=== PATIENT | female | born 1955 | race Caucasian/White ===

== ENCOUNTER 2018-03-18 19:25 | Emergency (ER) | payer OTHER, SELFPAY ==
[2018-03-18 19:31] VITALS: BP 142/78; PULSE 62; RESP 24; TEMP 37.1; O2SAT 98
--- NOTE | 2018-03-18 19:40 | ED.GENADUL_ITS ---
Discharge Plan Disposition Patient Disposition: HOME Condition: Stable Discharge Details Chief Complaint: Abd Prob Clinical Impression: Abdominal pain Primary Care Provider: Obinna Sims ED Provider: Jarrett Acosta Home Meds and New Rx's Prescriptions: No Action hydrocortisone [Anusol-HC] 2.5 % cream with perineal applicator 1 applic [place] BID PRN (Reason: hemorrhoids) Qty: 30 RF: 3 levothyroxine [Synthroid] 88 MCG tablet 88 mcg PO DAILY Qty: 90 RF: 4 fluticasone 16 GM spray,suspension 2 spr NS DAILY Qty: 1 RF: 4 famotidine 20 MG tablet 20 mg PO BID Qty: 180 RF: 4 ibuprofen [Advil Liqui-Gel] 200 MG capsule 600 mg PO BID PRN PRNRF: 0 acetaminophen [Mapap Extra Strength] 500 MG tablet 1,000 mg PO PRN PRNRF: 0 Discharge Instructions Instructions: Abdominal Pain (ED) Additional Instructions: It is recommended that you take [id number] MiraLAX along with gentle oral laxative such as Dulcolax to see if this helps resolve your symptoms. For pain control is recommended that you take 600 mg ibuprofen along with 650-1000 mg of acetaminophen every 6 hours. Stay well-hydrated and return to the emergency department for any new or worsening symptoms including fever chills, worsening abdominal pain, any severe change in bowel movement. Follow-up with your primary care provider as needed for reassessment or if not improving Referrals: Obinna Sims MD [Primary Care Provider] - (As needed for reassessment) Medical Decision Making Patient presenting to the emergency department for abdominal pain. Patient states abdominal pain started approximately 2 days ago but has had intermittent's of left-sided abdominal pain since . Patient denies any nausea vomiting, fever chills, flank pain or urinary symptoms. Patient has a left-sided abdominal tenderness, no CVA tenderness, otherwise unremarkable examination. Plan to check labs and perform CT imaging for chief concern of possible diverticulitis. Review of labs shows no leukocytosis, unremarkable CMP, and slight amount of blood on urinalysis. Did review patient's last colonoscopy that showed patchy inflammation throughout the colon with no other specific findings. Patient does state that she is gluten intolerant and has had blood work testing confirming this intolerance. She does state that she has been avoiding gluten as much as possible and notes no significant dietary change. Review of CT scan shows radiologist interpretation with no acute findings. Of notation is that it does appear that patient has a mild to moderate amount of stool present, and the read there is notation of diverticulosis without acute signs of diverticulitis or inflammatory change. Patient does state that recently she has had bowel movements and denies any constipation but that stools have been more formed and harder to pass. With unremarkable labs and otherwise unremarkable CT scan I feel that some of patient's discomfort could be from peristaltic action of stool causing some cramping. Patient reassessed and states reduction of pain but not for elimination but that she feels comfortable going home being able to sleep. Patient was recommended to take stool softener and gentle [id number] laxative to see if this helps and to return for any new or worsening symptoms. Patient also encouraged to follow-up with primary care provider as needed for reassessment. After discussion of diagnosis and plan of care patient has no further needs, questions, or concerns and states clear understanding to return to the emergency department for any worsening symptoms. HPI General Mode of arrival: ambulatory . Date/Time Provider Initiated Documentation: 03/18/18 19:25 . Limitations to Documentation: no limitations . Information obtained by: patient and RN notes reviewed . History of Present Illness 63 year old F presents to the emergency department with the chief complaint of Left-sided abdominal, described as moderate, with intensity rated at 7. Quality is described as sharp, and is localized to the abdomen and left. Patient reports no radiation. Patient started experiencing this day(s) (2) and it has been intermittent. No relieving factors improve symptom(s), Eating worsens symptoms . Patient did receive the following treatments prior to arrival, NSAID Related Data Home Medications Medication Instructions Recorded Confirmed acetaminophen [Tylenol Extra 1,000 mg PO PRN PRN 12/14/15 03/18/18 Strength] ibuprofen [Advil] 600 mg PO BID PRN PRN 12/14/15 03/18/18 fluticasone 2 spr NS DAILY #1 inh 05/17/17 03/18/18 levothyroxine [Synthroid] 88 mcg PO DAILY #90 tab-cap 05/17/17 03/18/18 famotidine 20 mg PO BID #180 tab 08/05/17 03/18/18 hydrocortisone 2.5 % topical cream 1 applic TN BID PRN #30 gm 01/31/18 03/18/18 with perineal applicator Previous Rx's Medication Instructions Recorded fluticasone 2 spr NS DAILY #1 inh 05/17/17 levothyroxine [Synthroid] 88 mcg PO DAILY #90 tab-cap 05/17/17 famotidine 20 mg PO BID #180 tab 08/05/17 hydrocortisone 2.5 % topical cream 1 applic TN BID PRN #30 gm 01/31/18 with perineal applicator Allergies Allergy/AdvReac Type Severity Reaction Status Date / Time gluten Allergy Unverified 03/18/18 19:34 oxycodone HCl [From Percocet] AdvReac Intermediate Psychosis Unverified 03/18/18 19:34 sertraline HCl [From Zoloft] AdvReac Intermediate psychotic Unverified 03/18/18 19:34 anestisia AdvReac Intermediate Blood Uncoded 03/18/18 19:34 Pressure crashed General Stated Complaint: Abd Prob NEHEMIAH: 3 Review of Systems Constitutional Denies chills, Denies fever(s) and Denies poor appetite Cardiovascular Denies chest pain and Denies dyspnea Respiratory Denies dyspnea Gastrointestinal Reports as per HPI, Reports abdominal pain, Denies melena, Denies change in bowel habits, Denies constipation, Denies diarrhea, Denies nausea and Denies vomiting Genitourinary Denies hematuria, Denies urinary incontinence, Denies urinary hesitancy and Denies urinary urgency Integumentary/Breasts Denies rash PFSH Medical History Anxiety Depression Fibrocystic disease of both breasts Hammertoe Psoriasis celiac sprue Surgical History COLONOSCOPY/W MAC (12/13/14) Colonoscopy - MAC Ligation of fallopian tube THYROIDECTOMY Family History Mother Diabetes Essential hypertension Personal history of malignant neoplasm Heart disease Father Personal history of malignant neoplasm Sister No problems noted. Brother No problems noted. Grandfather Essential hypertension Heart disease Grandfather No problems noted. Grandmother No problems noted. Grandmother Personal history of malignant neoplasm Sister No problems noted. Sister Depression Brother No problems noted. Son No problems noted. Daughter No problems noted. Social History Smoking/Tobacco Use Status: Former Tobacco Use Exam Const General: cooperative Orientation: alert, awake and oriented x3 Resp Effort & Inspection: normal respiratory effort and able to speak in complete sentences Auscultation: clear to auscultation bilaterally Cardio Rate: regular rate Rhythm: regular rhythm Heart Sounds: S1 normal and S2 normal GI Palpation: soft, no hepatosplenomegaly, not firm, no guarding, no masses, no pulsatile masses, not rigid, no splenomegaly and tender in the LLQ and in the LUQ; not at McBurney's point, not periumbilically, Graf's sign negative, psoas sign negative, with no rebound tenderness and Rovsing's sign negative Auscultation: normal bowel sounds Back/Spine/Pelvis Back: no CVA tenderness Neuro General: alert, awake, oriented x3, gait normal and moves all extremities Course Vital Signs Temperature 37.1 C 03/18/18 19:31 Pulse 62 03/18/18 19:31 Respiratory Rate 24 03/18/18 19:31 Blood Pressure 142/78 H 03/18/18 19:31 Pulse Oximetry 98 03/18/18 19:31 Temperature 37.1 C 03/18/18 19:31 Temperature Source Skin 03/18/18 19:31 Pulse 62 03/18/18 19:31 Respiratory Rate 24 03/18/18 19:31 Blood Pressure 142/78 H 03/18/18 19:31 Pulse Oximetry 98 03/18/18 19:31 Oxygen Delivery Method Room Air 03/18/18 19:31 Oxygen Flow Rate 0 03/18/18 19:31
[2018-03-18] MEDS: Ketorolac 30 MG/ML VIAL IVP (19:47)
[2018-03-18] MEDS: Ondansetron 4 MG/2 ML VIAL IVP (19:48)
[2018-03-18 19:58] LABS: Abs Immature Grans 0.01 k/cumm (0.0-0.09); Absolute Basophil Count 0.13 k/cumm (0.0-0.2); Absolute Eosinophil Count 0.22 k/cumm (0.0-0.7); Absolute Lymphocyte Count 2.12 k/cumm (1.2-3.4); Absolute Neutrophil Count 2.41 k/cumm (1.2-6.7); Basophils % 2.5; Eosinophils % 4.2; HCT 43.8 % (36.0-46.0); HGB 14.3 g/dL (12.0-15.5); Immature Grans % 0.2; Lymphocytes % 40.1; Mean Corp. HGB Concentration 32.6 g/dL (32.0-36.0); Mean Corpuscular Hemoglobin 30.1 pg (27.0-33.0); Mean Corpuscular Volume 92.2 fL (80-95); Mean Platelet Volume 10.7 fL (8.0-11.0); Monocytes % 7.6; Neutrophils % 45.4; Platelet Count 249 x1000/uL (130-400); RBC 4.75 m/cumm (4.00-5.20); RBC Distribution Width 13.3 % (11.7-14.6); White Blood Cell Count 5.29 k/cumm (4.4-10.8)
[2018-03-18] MEDS: Omnipaque 350 MG/ML 100 ML BTL PO (20:07)
[2018-03-18 20:16] LABS: Bilirubin Negative (Negative); Blood Trace-intact (Negative); Clarity Clear; Glucose Negative (Negative); Ketones Negative (Negative); Leukocyte Esterase Negative (Negative); Nitrite Negative (Negative); Urobilinogen 0.2 EU/dL (Up TO 0.2)
[2018-03-18 20:29] VITALS: BP 122/70; PULSE 52; RESP 14; TEMP 36.7; O2SAT 97
[2018-03-18 20:30] LABS: Bacteria Negative HPF (Negative); C & S Indicated? No; Casts Negative LPF (Negative); Crystals Negative HPF (Negative); Epithelial Cells Rare HPF (Negative); Mucus Negative (Negative); Other Cells Negative (Negative); RBC Negative (0-2); WBC Negative HPF (0-5)
--- NOTE | 2018-03-18 20:30 | NUR.NOTE ---
pain improved, nausea improved. Nursing Note:
[2018-03-18 20:40] LABS: ALT 22 U/L (12-78); AST 13 U/L (15-37); Albumin 3.7 g/dL (3.4-5.0); Alkaline Phosphatase 75 U/L (46-116); Anion Gap 10.8 mmol/L (3-11); BUN 18 mg/dL (7-18); Bilirubin, Total 0.2 mg/dL (0.2-1.0); CO2 27.2 mmol/L (21.0-32.0); CREATININE 0.88 mg/dL (0.55-1.02); Calcium 8.7 mg/dL (8.5-10.1); Chloride 104 mmol/L (98-107); Glucose 115 mg/dL (70-100); Lipase 206 U/L (73-393); Magnesium 1.9 mg/dL (1.8-2.4); Potassium 3.6 mmol/L (3.5-5.1); Sodium 142 mmol/L (136-145); Total Protein 7.6 g/dL (6.4-8.2)
[2018-03-18] MEDS: Omnipaque 350 MG/ML 100 ML BTL IV (20:59)
--- NOTE | 2018-03-18 21:05 | DI.CT_ITS ---
SYMPTOM/DIAGNOSIS: ABD PAIN, LLQ ABDOMEN AND PELVIC CT: Comparison is made with 06/27/13. Images were performed after IV and without oral contrast. A small hiatal hernia is seen. The lung bases are clear. Numerous liver cysts are again noted and show some interval increase when compared with the previous exam. There are no suspicious features. The largest cysts are located in the left lobe. The gallbladder, spleen, pancreas and adrenals are unremarkable. There are a few bilateral renal cysts. No stones or hydronephrosis is seen. There are scattered diverticula in the descending and sigmoid colon. There is no evidence of diverticulitis. The appendix appears normal. There is no bowel dilatation. The bladder, uterus and ovaries are unremarkable. The aorta is normal in diameter. There are mild degenerative changes in the spine. IMPRESSION: No acute abnormality.
[2018-03-18 21:39] VITALS: BP 120/65; PULSE 50; O2SAT 94
[2018-03-18 21:40] VITALS: O2SAT 95
--- NOTE | 2018-03-18 21:42 | DI.VRAD_ITS ---
EXAM: CT Abdomen and Pelvis With Contrast EXAM DATE/TIME: 03/18/2018 7:40 PM CLINICAL HISTORY: 63 years old, female; Signs and symptoms; Other: Abd pain, ; patient HX: Llq pain off and on for 2days TECHNIQUE: Axial computed tomography images of the abdomen and pelvis with intravenous contrast. All CT scans at this facility use at least one of these dose optimization techniques: automated exposure control; mA and/or kV adjustment per patient size (includes targeted exams where dose is matched to clinical indication); or iterative reconstruction. Coronal and sagittal reformatted images were created and reviewed. CONTRAST: 100 ml of ominipaque 350 administered intravenously. COMPARISON: CT ABD PELVIS WITH CONTRAST 06/27/2013 10:46 AM FINDINGS: Lower thorax: Small hiatal hernia. ABDOMEN: Liver: Multiple hepatic cysts with interval enlargement. The largest cyst in the left hepatic lobe measures approximately 6 cm, increased from 4.5 cm. Gallbladder and bile ducts: Normal. No calcified stones. No ductal dilation. Pancreas: Normal. No ductal dilation. Spleen: Normal. No splenomegaly. Adrenals: Normal. No mass. Kidneys and ureters: Left renal cysts with interval enlargement. No hydronephrosis. Stomach and bowel: No evidence of bowel obstruction. Colonic diverticulosis without diverticulitis. Appendix: Normal appendix. PELVIS: Bladder: Unremarkable as visualized. Reproductive: Unremarkable as visualized. ABDOMEN and PELVIS: Intraperitoneal space: Normal. No free air. No significant fluid collection. Bones/joints: No acute fracture. No dislocation. Soft tissues: Unremarkable. Vasculature: Normal. No abdominal aortic aneurysm. Lymph nodes: Normal. No enlarged lymph nodes. IMPRESSION: No acute findings. Dictated and Authenticated by: Salvador Sandhu MD. Ordering:QUINCY Farias MD
[2018-03-18 22:16] VITALS: BP 120/65; PULSE 50; RESP 14; TEMP 36.7; O2SAT 95
== END 2018-03-18 22:28 | disposition home or self-care (01) ==
PROVIDERS: Emergency Provider Nurse Practitioner Family; PCP Family Medicine
DX: R10.9 Unspecified abdominal pain (principal)
CPT/HCPCS: 36415; 80053; 83690; 96374; 96375; 99285; 74177; 81003; 81015; 83735; 85025; 99284; J1885; J3490

== ENCOUNTER 2018-05-23 10:00 | Outpatient (CLI) | payer OTHER, SELFPAY ==
[2018-05-23 12:05] LABS: TSH 1.89 uIU/mL (0.358-3.74)
== END 2018-05-23 10:20 ==
PROVIDERS: PCP Family Medicine; Visit Provider Family Medicine
DX: E03.9 Hypothyroidism, unspecified (principal)
CPT/HCPCS: 36415; 84443

== ENCOUNTER 2018-05-30 01:36 | Outpatient (CLI) | payer OTHER, SELFPAY ==
--- NOTE | 2018-05-30 13:27 | DI.CT_ITS ---
SYMPTOMS/DIAGNOSIS: SINUS PAIN, J32.9-CHRONIC SINUSITIS CT SINUS: Routine noncontrast examination was performed. The maxillary sinuses, sphenoid sinuses, ethmoid air cells and frontal sinuses are clear. No fluid levels are seen. The mastoid air cells are well pneumatized. The nasal septum is midline. The turbinates show no gross abnormalities. Incidental note is made of a right middle turbinate madison bullosa. The ostiomeatal complexes are unremarkable. The orbits and retroorbital soft tissues are unremarkable. IMPRESSION: No evidence of sinusitis.
== END 2018-05-30 01:56 ==
PROVIDERS: PCP Family Medicine; Visit Provider Internal Medicine
DX: J32.9 Chronic sinusitis, unspecified (principal); J34.89 Other specified disorders of nose and nasal sinuses
CPT/HCPCS: 70486

== ENCOUNTER 2018-06-23 17:53 | Emergency (ER) | payer OTHER, SELFPAY ==
[2018-06-23 17:57] VITALS: BP 126/56; PULSE 77; RESP 20; TEMP 37.1; O2SAT 95
--- NOTE | 2018-06-23 18:09 | ED.GENADUL_ITS ---
Discharge Plan Disposition Patient Disposition: HOME Condition: Good Discharge Details Chief Complaint: Nausea/Vomit/Diar Clinical Impression: Vomiting and diarrhea, Diverticulitis Primary Care Provider: Obinna Sims ED Provider: Handy Quezada [place] Meds and New Rx's Prescriptions: New ciprofloxacin HCl 500 mg tablet 500 mg PO BID Qty: 14 RF: 0 metronidazole [Flagyl] 500 mg tablet 500 mg PO TID Qty: 21 RF: 0 ondansetron 4 mg tablet,disintegrating 4 mg PO QID PRN (Reason: nausea and vomiting) Qty: 14 RF: 0 dicyclomine 10 mg capsule 10 mg PO QID PRN (Reason: cramps) Qty: 14 RF: 0 Continued levothyroxine [Synthroid] 88 mcg tablet 88 mcg PO DAILY Qty: 90 RF: 4 hydrocortisone [Anusol-HC] 2.5 % cream with perineal applicator 1 applic [place] BID PRN (Reason: hemorrhoids) Qty: 30 RF: 3 fluticasone propionate 16 GM spray,suspension 2 spr NS DAILY Qty: 1 RF: 4 famotidine 20 MG tablet 20 mg PO BID Qty: 180 RF: 4 ibuprofen [Advil Liqui-Gel] 200 MG capsule 600 mg PO BID PRN PRNRF: 0 acetaminophen [Mapap Extra Strength] 500 MG tablet 1,000 mg PO PRN PRNRF: 0 Discharge Instructions Additional Instructions: Please take the antibiotics as prescribed. Do not drink any alcohol while takin g Flagyl as it will make you very sick. Please take a probiotic while taking the antibiotics. You may use ondansetron and dicyclomine for your GI symptoms. Please try to stay hydrated. Follow-up with your doctor in 1 week. Return to ED for worsening pain, persistent vomiting, grossly bloody stool, high fever, other concerns Referrals: Obinna Sims MD [Primary Care Provider] - Medical Decision Making Patient here with abdominal cramping, vomiting, diarrhea. Stool sample obtained and it is blackish and watery and Hemoccult positive. It is not grossly bloody. Patient does appear dehydrated. IV established and fluids started. Zofran given for nausea vomiting. Bentyl ordered for abdominal cramping. Laboratory studies obtained. CT scan of the abdomen pelvis ordered to evaluate for colitis. C. difficile toxin sent due to the recent antibiotic use for sinusitis/diverticulitis. Vitals have remained stable. Patient is feeling better after fluids, Zofran, Bentyl. Laboratory studies significant for mild hyperkalemia and hypomagnesemia. These have been replaced intravenously. Hemoglobin is normal. CT scan shows no evidence of colitis. There is evidence of mild acute diverticulitis. C. difficile is negative. She has already been on Augmentin less than a month ago. Given the diarrhea as well as the diffuse abdominal pain despite negative C. difficile and CT evidence of colitis I would like to cover with Flagyl. We will therefore use Cipro and Flagyl for the next week. We will have her follow-up with primary care to see how she is doing. We will also put her on probiotic. Bentyl and Zofran for symptoms. Return to ED for persistent vomiting, worsening abdominal pain, grossly bloody stool, high fever, or other concerns. Medical Records Medical records reviewed: Yes I reviewed the patient's medical records. Lab Data Lab results reviewed: Yes I reviewed the patient's lab results. HPI General Mode of arrival: ambulatory . Date/Time Provider Initiated Documentation: 06/23/18 18:05 . Limitations to Documentation: no limitations . Information obtained by: patient and old records reviewed . HPI Narrative: Patient presents to ED with complaint of nausea, vomiting, diarrhea with abdominal cramping for the last 24 hours. Vomiting is bilious at this point. Diarrhea is black and foul-smelling. She had been on Augmentin at the end of May for sinusitis and questionable diverticulitis. At that time she had left sided abdominal pain. That resolved after being on Augmentin. Pain she has now is diffuse and cramping and not like it was a month ago. She feels lightheaded when standing now. She has not really been able to eat or drink anything. She has had no fever that she is aware of. She has not had syncope. She has no chest pain or shortness of breath. Related Data Home Medications Medication Instructions Recorded Confirmed acetaminophen [Mapap Extra 1,000 mg PO PRN PRN 12/14/15 06/23/18 Strength] ibuprofen [Advil Liqui-Gel] 600 mg PO BID PRN PRN 12/14/15 06/23/18 fluticasone propionate 2 spr NS DAILY #1 inh 05/17/17 06/23/18 famotidine 20 mg PO BID #180 tab 08/05/17 06/23/18 hydrocortisone 2.5 % topical cream 1 applic [place] BID PRN #30 gm 01/31/18 06/23/18 with perineal applicator Synthroid 88 mcg tablet 88 mcg PO DAILY #90 tab-cap NS 05/23/18 06/23/18 ciprofloxacin HCl 500 mg PO BID #14 tab 06/23/18 dicyclomine 10 mg PO QID PRN #14 cap 06/23/18 metronidazole [Flagyl] 500 mg PO TID #21 tab 06/23/18 ondansetron 4 mg PO QID PRN #14 tab 06/23/18 Previous Rx's Medication Instructions Recorded fluticasone propionate 2 spr NS DAILY #1 inh 05/17/17 famotidine 20 mg PO BID #180 tab 08/05/17 hydrocortisone 2.5 % topical cream 1 applic [place] BID PRN #30 gm 01/31/18 with perineal applicator Synthroid 88 mcg tablet 88 mcg PO DAILY #90 tab-cap NS 05/23/18 ciprofloxacin HCl 500 mg PO BID #14 tab 06/23/18 dicyclomine 10 mg PO QID PRN #14 cap 06/23/18 metronidazole [Flagyl] 500 mg PO TID #21 tab 06/23/18 ondansetron 4 mg PO QID PRN #14 tab 06/23/18 Allergies Allergy/AdvReac Type Severity Reaction Status Date / Time gluten Allergy Unverified 06/23/18 18:01 oxycodone HCl [From Percocet] AdvReac Intermediate Psychosis Unverified 06/23/18 18:01 sertraline HCl [From Zoloft] AdvReac Intermediate psychotic Unverified 06/23/18 18:01 anestisia AdvReac Intermediate Blood Uncoded 06/23/18 18:01 Pressure crashed General Stated Complaint: Nausea/Vomit/Diar NEHEMIAH: 3 Review of Systems Review of Systems 12/15 Review of Systems completed and is negative except as stated above in HPI (Systems reviewed: Const, Eyes, ENT, Resp, CV, GI, , MSK, Skin, Neuro) PFSH Medical History Anxiety (Chronic) Depression (Chronic) Fibrocystic disease of both breasts (Chronic) Gastritis (Chronic) Hammertoe (Chronic) Psoriasis (Chronic) celiac sprue (Chronic) Surgical History COLONOSCOPY/W MAC (12/13/14) Ligation of fallopian tube THYROIDECTOMY Social History Smoking/Tobacco Use Status: Former Tobacco Use Alcohol Intake: never Drug use: Never Substance use type: does not use Do you feel safe in your relationship?: Yes Exam Narrative Exam Narrative: Vitals: Normal Const: WDWN female in NAD. HEENT: NC/AT. Normal facial exam. Eyes: Normal conjunctiva and sclera. Neck: Supple. Trachea midline. Lungs: Normal respiratory effort. Lungs are clear. Cor: RRR without murmur/gallop. Good radial pulses. GI: Soft and ND. Mild diffuse tenderness. No guarding or rebound. Neuro: A+O x 3. CN grossly in tact. Good strength and no focal deficit. Ext: No C/C/E. No deformity or tenderness. Skin: Warm and dry without rash. Course Vital Signs Temperature 98.8 F 06/23/18 17:57 Pulse 77 06/23/18 17:57 Respiratory Rate 20 06/23/18 17:57 Blood Pressure 126/56 L 06/23/18 17:57 Pulse Oximetry 95 06/23/18 17:57 Temperature 98.8 F 06/23/18 17:57 Temperature Source Temporal Artery Scan 06/23/18 17:57 Pulse 77 06/23/18 17:57 Respiratory Rate 20 06/23/18 17:57 Respiratory Effort Non-Labored 06/23/18 17:57 Blood Pressure 126/56 L 06/23/18 17:57 Pulse Oximetry 95 06/23/18 17:57 Oxygen Delivery Method Room Air 06/23/18 17:57 Oxygen Flow Rate 0 06/23/18 17:57 Pain Level 8 06/23/18 17:57
[2018-06-23] MEDS: Ondansetron 4 MG/2 ML VIAL IVP (18:41)
[2018-06-23] MEDS: Normal Saline 1,000 ML 1000 ML IV (18:41)
[2018-06-23 18:46] LABS: Abs Immature Grans 0.01 k/cumm (0.0-0.09); Absolute Basophil Count 0.02 k/cumm (0.0-0.2); Absolute Eosinophil Count 0.12 k/cumm (0.0-0.7); Absolute Lymphocyte Count 0.82 k/cumm (1.2-3.4); Absolute Monocyte Count 0.29 k/cumm (0.11-0.7); Absolute Neutrophil Count 4.14 k/cumm (1.2-6.7); Basophils % 0.4; Eosinophils % 2.2; HCT 43.9 % (36.0-46.0); HGB 14.5 g/dL (12.0-15.5); Immature Grans % 0.2; Lymphocytes % 15.2; Mean Corpuscular Hemoglobin 30.4 pg (27.0-33.0); Mean Platelet Volume 10.5 fL (8.0-11.0); Monocytes % 5.4; Neutrophils % 76.6; Platelet Count 205 x1000/uL (130-400); RBC 4.77 m/cumm (4.00-5.20); RBC Distribution Width 13.8 % (11.7-14.6)
[2018-06-23 18:57] LABS: ALT 25 U/L (12-78); AST 16 U/L (15-37); Albumin 3.4 g/dL (3.4-5.0); Alkaline Phosphatase 69 U/L (46-116); Anion Gap 11.9 mmol/L (3-11); BUN 15 mg/dL (7-18); Bilirubin, Total 0.6 mg/dL (0.2-1.0); CO2 23.1 mmol/L (21.0-32.0); CREATININE 0.93 mg/dL (0.55-1.02); Calcium 8.5 mg/dL (8.5-10.1); Chloride 106 mmol/L (98-107); Glucose 99 mg/dL (70-100); Magnesium 1.5 mg/dL (1.8-2.4); Potassium 3.4 mmol/L (3.5-5.1); Sodium 141 mmol/L (136-145); Total Protein 7.4 g/dL (6.4-8.2)
[2018-06-23] MEDS: Dicyclomine 20 MG TAB PO (19:19)
[2018-06-23] MEDS: Omnipaque 350 MG/ML 100 ML BTL IJ (19:23)
[2018-06-23] MEDS: MAGNESIUM SULFATE 2 GM/50 ML BAG IVPB (19:25)
[2018-06-23] MEDS: POTASSIUM CHLORIDE 10 MEQ/100 ML BAG 100 MEQ IVPB (19:28)
--- NOTE | 2018-06-23 19:30 | DI.CT_ITS ---
SYMPTOM/DIAGNOSIS: DIARRHEA, ABD PAIN ABDOMEN AND PELVIC CT: Comparison is made with 03/18/18. Images were performed from the lung bases through the ischial tuberosities after IV and without oral contrast. Again noted are numerous liver cysts and a few renal cysts. The gallbladder, spleen, pancreas and adrenals are unremarkable. The lung bases are clear. Diverticula are noted in the descending colon. There is a question of some slight stranding in the surrounding fat which could indicate mild uncomplicated diverticulitis. The appendix appears normal. There is no bowel dilatation. The uterus and ovaries are unremarkable. The urinary bladder is nearly empty. IMPRESSION: Diverticulosis of the descending colon and question of mild diverticulitis.
--- NOTE | 2018-06-23 20:10 | DI.VRAD_ITS ---
Addendum created by Kavon Carbajal MD on 06/23/2018 8:18:59 PM EDT THIS REPORT CONTAINS FINDINGS THAT MAY BE CRITICAL TO PATIENT CARE. The findings were verbally communicated via telephone conference with JULIA STEWARD at 8:18 PM EDT on 06/23/2018. The findings were acknowledged and understood. Initial report created on 06/23/2018 8:10:20 PM EDT EXAM: CT Abdomen and Pelvis With Contrast EXAM DATE/TIME: 06/23/2018 6:25 PM CLINICAL HISTORY: 63 years old, female; Generalized; Patient HX: Diarrhea, abdominal pain TECHNIQUE: Imaging protocol: Axial computed tomography images of the abdomen and pelvis with intravenous contrast. Coronal and sagittal reformatted images were created and reviewed. COMPARISON: CT Private^ROUTINE ABDOMEN PELVIS WITH CONTRAST (Adult) 03/18/2018 8:46 PM FINDINGS: Mediastinum: Small hiatal hernia. ABDOMEN: Liver: 6.6 cm or less numerous hepatic cysts. Gallbladder and bile ducts: Normal. No calcified stones. No ductal dilation. Pancreas: Normal. No ductal dilation. Spleen: Normal. No splenomegaly. Adrenals: Normal. No mass. Kidneys and ureters: 1.8 cm or less bilateral renal cysts. Stomach and bowel: Diverticuli in the distal descending colon with minimal adjacent inflammation suggesting mild acute diverticulitis. No perforation or abscess. Appendix: No evidence of appendicitis. PELVIS: Bladder: Unremarkable as visualized. Reproductive: Unremarkable as visualized. ABDOMEN and PELVIS: Intraperitoneal space: Normal. No free air. No significant fluid collection. Bones/joints: No acute fracture. No dislocation. Soft tissues: Small umbilical hernia, uncomplicated. Vasculature: Normal. No abdominal aortic aneurysm. Lymph nodes: Normal. No enlarged lymph nodes. IMPRESSION: Diverticuli in the distal descending colon with minimal adjacent inflammation suggesting mild acute diverticulitis. No perforation or abscess. Dictated and Authenticated by: Kavon Carbajal MD. Ordering:ANIBAL Murrell MD
[2018-06-23 20:35] VITALS: BP 115/70; PULSE 60; TEMP 37; O2SAT 97
[2018-06-23] MEDS: Ciprofloxacin 500 MG TAB PO (20:55)
[2018-06-23] MEDS: metroNIDAZOLE 500 MG TAB PO (20:55)
[2018-06-23] MEDS: Dicyclomine 10 MG CAP PO (21:33)
--- NOTE | 2018-06-24 21:07 | ED.FU.B_ITS ---
Follow Up Plan: Patient called in stating that she is not tolerating the Flagyl. I called her back this evening when I came on shift. She develops severe indigestion that radiates up into her armpits. Similar to her reflux that she has had but seems even worse. She reports that the nausea, vomiting, diarrhea, stomach cramping that she had presented with yesterday, is now resolved. She was placed on Cipro and Flagyl for CT evidence of diverticulitis for which she had been treated for last month. She reports that she does have recurrent left lower quadrant pain at this point. I reviewed management in Up to Date. She does not really tolerate the Augmentin that well as she was on last month. Moxifloxacin is recommended for patient to cannot tolerate Flagyl or beta lactams. I discussed this with the patient. We will discontinue the Cipro and Flagyl and I have written her prescription for moxifloxacin. Her is coming to pick it up and she will fill it tomorrow and start the antibiotic. She already has follow-up with primary care next week. She has follow-up with GI at [facility] in July.
== END 2018-06-23 21:30 | disposition home or self-care (01) ==
PROVIDERS: Emergency Provider Emergency Medicine; PCP Family Medicine
DX: R11.2 Nausea with vomiting, unspecified (principal); K57.31 Diverticulosis of large intestine without perforation or abscess with bleeding; E83.42 Hypomagnesemia; E87.6 Hypokalemia
CPT/HCPCS: 36415; 80053; 96361; 96365; 96366; 96375; 99285; 74177; 83735; 85025; 87324; 99284; J2405; J3480; J3490

== ENCOUNTER 2018-06-25 00:42 | Emergency (ER) | payer OTHER, SELFPAY ==
[2018-06-25 00:45] VITALS: BP 129/64; PULSE 76; RESP 20; TEMP 36.8; O2SAT 96
--- NOTE | 2018-06-25 00:54 | ED.GENADUL_ITS ---
Discharge Plan Disposition Patient Disposition: HOME Condition: Good Discharge Details Chief Complaint: Abd Prob Clinical Impression: Epigastric abdominal pain Primary Care Provider: Obinna Sims ED Provider: Handy Quezada [place] Meds and New Rx's Prescriptions: New omeprazole 40 mg capsule,delayed release(DR/EC) 40 mg PO DAILY Qty: 30 RF: 0 sucralfate 1 gram tablet 1 gm PO QACHS Qty: 120 RF: 0 Continued levothyroxine [Synthroid] 88 mcg tablet 88 mcg PO DAILY Qty: 90 RF: 4 hydrocortisone [Anusol-HC] 2.5 % cream with perineal applicator 1 applic NV BID PRN (Reason: hemorrhoids) Qty: 30 RF: 3 fluticasone propionate 16 GM spray,suspension 2 spr NS DAILY Qty: 1 RF: 4 ibuprofen [Advil Liqui-Gel] 200 MG capsule 600 mg PO BID PRN PRNRF: 0 acetaminophen [Mapap Extra Strength] 500 MG tablet 1,000 mg PO PRN PRNRF: 0 ondansetron 4 mg tablet,disintegrating 4 mg PO QID PRN (Reason: nausea and vomiting) Qty: 14 RF: 0 dicyclomine 10 mg capsule 10 mg PO QID PRN (Reason: cramps) Qty: 14 RF: 0 moxifloxacin 400 mg tablet 400 mg PO DAILY Qty: 10 RF: 0 Discontinued famotidine 20 MG tablet 20 mg PO BID Qty: 180 RF: 4 Discharge Instructions Additional Instructions: Discontinue the famotidine and try omeprazole and sucralfate as we discussed. Stick with a bland diet for now. Should consider completing a course of antibiotics for the previously diagnosed diverticulitis. Follow-up with primary care and [facility] as planned. Return to ED for fever, vomiting, worsening or new pain, chest pain, other concerns. Referrals: Obinna Sims MD [Primary Care Provider] - Medical Decision Making Patient given a GI cocktail with complete resolution of her discomfort almost immediately. She is due to see primary care next week and [facility] July 10. She has been waiting to see [facility] for almost 3 months. She has not had an endoscopy yet. She has been on histamine cherry but at this point given the intermittent yet persistent left upper quadrant pain and epigastric pain I am going to try her on PPI and Carafate. She has Zofran and Bentyl at home. We changed the antibiotics already. Discharge home. HPI General Mode of arrival: ambulatory . Date/Time Provider Initiated Documentation: 06/25/18 00:52 . Limitations to Documentation: no limitations . Information obtained by: patient . HPI Narrative: Patient presents to ED with epigastric/left upper quadrant abdominal pain. She was seen by me yesterday for vomiting, diarrhea, stomach cramping. Work-up was negative except for possible mild acute diverticulitis. She was placed on Cipro and Flagyl as she did not like the previous Augmentin. Taking the Flagyl made her reflux worse. 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 She woke up this morning with severe epigastric pain. She had no vomiting. She has no chest pain. She has no shortness of breath. Related Data Home Medications Medication Instructions Recorded Confirmed acetaminophen [Mapap Extra 1,000 mg PO PRN PRN 12/14/15 06/23/18 Strength] ibuprofen [Advil Liqui-Gel] 600 mg PO BID PRN PRN 12/14/15 06/23/18 fluticasone propionate 2 spr NS DAILY #1 inh 05/17/17 06/23/18 hydrocortisone 2.5 % topical cream 1 applic NV BID PRN #30 gm 01/31/18 06/23/18 with perineal applicator Synthroid 88 mcg tablet 88 mcg PO DAILY #90 tab-cap NS 05/23/18 06/23/18 dicyclomine 10 mg PO QID PRN #14 cap 06/23/18 ondansetron 4 mg PO QID PRN #14 tab 06/23/18 moxifloxacin 400 mg PO DAILY #10 tab 06/24/18 omeprazole 40 mg PO DAILY #30 cap 06/25/18 sucralfate 1 gm PO QACHS #120 tab 06/25/18 Previous Rx's Medication Instructions Recorded fluticasone propionate 2 spr NS DAILY #1 inh 05/17/17 hydrocortisone 2.5 % topical cream 1 applic NV BID PRN #30 gm 01/31/18 with perineal applicator Synthroid 88 mcg tablet 88 mcg PO DAILY #90 tab-cap NS 05/23/18 dicyclomine 10 mg PO QID PRN #14 cap 06/23/18 ondansetron 4 mg PO QID PRN #14 tab 06/23/18 moxifloxacin 400 mg PO DAILY #10 tab 06/24/18 omeprazole 40 mg PO DAILY #30 cap 06/25/18 sucralfate 1 gm PO QACHS #120 tab 06/25/18 Allergies Allergy/AdvReac Type Severity Reaction Status Date / Time gluten Allergy Unverified 06/25/18 00:58 oxycodone HCl [From Percocet] AdvReac Intermediate Psychosis Unverified 06/25/18 00:58 sertraline HCl [From Zoloft] AdvReac Intermediate psychotic Unverified 06/25/18 00:58 anestisia AdvReac Intermediate Blood Uncoded 06/25/18 00:58 Pressure crashed General Stated Complaint: Abd Prob NEHEMIAH: 3 Review of Systems Review of Systems As documented in HPI otherwise negative as below. Const: no fever, chills, weakness Resp: no cough, SOB, pleuritic pain CV: no CP, diaphoresis, edema, syncope GI: abdominal pain, diarrhea; no nausea, vomiting Neuro: no headache, numbness, focal weakness, confusion PFSH Medical History Anxiety (Chronic) Depression (Chronic) Fibrocystic disease of both breasts (Chronic) Gastritis (Chronic) Hammertoe (Chronic) Psoriasis (Chronic) celiac sprue (Chronic) Surgical History COLONOSCOPY/W MAC (12/13/14) Ligation of fallopian tube THYROIDECTOMY Social History Smoking/Tobacco Use Status: Former Tobacco Use Alcohol Intake: never Drug use: Never Substance use type: does not use Do you feel safe in your relationship?: Yes Exam Narrative Exam Narrative: Vitals: Normal Const: WDWN female in NAD. HEENT: NC/AT. Normal facial exam. Eyes: Normal conjunctiva and sclera. Neck: Supple. Trachea midline. Lungs: Normal respiratory effort. GI: Soft. NT/ND. No guarding or rebound. Neuro: A+O x 3. CN grossly in tact. Good strength and no focal deficit. Course Vital Signs Temperature 98.2 F 06/25/18 00:45 Pulse 76 06/25/18 00:45 Respiratory Rate 20 06/25/18 00:45 Blood Pressure 129/64 06/25/18 00:45 Pulse Oximetry 96 06/25/18 00:45 Temperature 98.2 F 06/25/18 00:45 Temperature Source Skin 06/25/18 00:45 Pulse 76 06/25/18 00:45 Respiratory Rate 20 06/25/18 00:45 Respiratory Effort Non-Labored 06/25/18 00:48 Blood Pressure 129/64 06/25/18 00:45 Blood Pressure Position Sitting 06/25/18 00:45 Pulse Oximetry 96 06/25/18 00:45 Oxygen Delivery Method Room Air 06/25/18 00:45 Oxygen Flow Rate 0 06/25/18 00:45 Pain Level 5 06/25/18 00:45
[2018-06-25] MEDS: Mylanta Suspension 30 ML CUP (00:55)
[2018-06-25] MEDS: Lidocaine 2% Viscous 15 ML CUP (00:55)
[2018-06-25 01:20] VITALS: BP 129/64; PULSE 76; RESP 20; TEMP 36.8; O2SAT 96
== END 2018-06-25 01:55 | disposition home or self-care (01) ==
LOC: ER 01:18
PROVIDERS: Emergency Provider Emergency Medicine; PCP Family Medicine
DX: R10.13 Epigastric pain (principal); R11.2 Nausea with vomiting, unspecified; R19.7 Diarrhea, unspecified
CPT/HCPCS: 99283

== ENCOUNTER 2018-07-07 13:57 | Emergency (ER) | payer OTHER, SELFPAY ==
--- NOTE | 2018-07-07 14:10 | NUR.NOTE ---
pt has been seen in our ER several times by DR lewis pt specifically requests DR lewis. nausea vomiting and liquid stools since 2029 last night pt has follow up with [place] [facility] states i cant make it till then
[2018-07-07 14:13] VITALS: BP 127/86; PULSE 73; RESP 16; TEMP 36.9; O2SAT 93
--- NOTE | 2018-07-07 14:57 | W.ED.GENAD ---
Discharge Plan Disposition Patient Disposition: HOME Condition: Good Discharge Details Chief Complaint: Nausea/Vomit/Diar Clinical Impression: Diarrhea Primary Care Provider: Obinna Sims ED Provider: Handy Quezada [place] Meds and New Rx's Prescriptions: Continued levothyroxine [Synthroid] 88 mcg tablet 88 mcg PO DAILY Qty: 90 RF: 4 hydrocortisone [Anusol-HC] 2.5 % cream with perineal applicator 1 applic RI BID PRN (Reason: hemorrhoids) Qty: 30 RF: 3 fluticasone propionate 16 GM spray,suspension 2 spr NS DAILY Qty: 1 RF: 4 ibuprofen [Advil Liqui-Gel] 200 MG capsule 600 mg PO BID PRN PRNRF: 0 acetaminophen [Mapap Extra Strength] 500 MG tablet 1,000 mg PO PRN PRNRF: 0 ondansetron 4 mg tablet,disintegrating 4 mg PO QID PRN (Reason: nausea and vomiting) Qty: 14 RF: 0 dicyclomine 10 mg capsule 10 mg PO QID PRN (Reason: cramps) Qty: 14 RF: 0 omeprazole 40 mg capsule,delayed release(DR/EC) 40 mg PO DAILY Qty: 30 RF: 0 sucralfate 1 gram tablet 1 gm PO QACHS Qty: 120 RF: 0 Discharge Instructions Instructions: Acute Diarrhea (ED) Additional Instructions: Please drink plenty of fluids to stay hydrated. You may try a couple of doses of Imodium to see if it slows the diarrhea down. Return to the ED if you develop fever, vomiting, bloody diarrhea, any worsening abdominal pain. Keep your appointment at [facility] on . Referrals: [facility] [Provider Group] Discharge Data Discharge Date/Time-TO BE ENTERED AT DEPARTURE: 07/07/18 15:07 Medical Decision Making Patient mostly concerned that she may get dehydrated. She is not vomiting and she is tolerating fluids. She does not appear dry. Her vital signs are normal. Her abdomen is benign. We discussed taking something for the diarrhea and the pros and cons of such. Ultimately agreed to try just a couple doses of Imodium to at least try to slow things down. She has follow-up with GI this week. Return to ED if she develops fever, persistent vomiting, bloody diarrhea, abdominal pain. Medical Records Medical records reviewed: Yes I reviewed the patient's medical records. HPI General Mode of arrival: ambulatory. Date/Time Provider Initiated Documentation: 07/07/18 14:20. Limitations to Documentation: no limitations. Information obtained by: patient and old records reviewed. HPI Narrative: Patient presents to ED with complaints of diarrhea. Patient seen by me a few weeks ago with vomiting, diarrhea, abdominal pain. She has had chronic upper abdominal pain for the last couple of months. I ultimately placed her on PPI and Carafate which helped significantly with her pain. She has not had any pain, vomiting, diarrhea since then until last night. She had some nausea and a little bit of emesis but is mostly having watery diarrhea almost hourly. There has been no fever. There is no bloody stool. She is not having significant abdominal pain at this time. She is actually going to see GI at [facility] this week. She tried calling her primary care doctor. Related Data Home Medications Medication Instructions Recorded Confirmed acetaminophen [Mapap Extra 1,000 mg PO PRN PRN 12/14/15 07/07/18 Strength] ibuprofen [Advil Liqui-Gel] 600 mg PO BID PRN PRN 12/14/15 07/07/18 fluticasone propionate 2 spr NS DAILY #1 inh 05/17/17 07/07/18 hydrocortisone 2.5 % topical cream 1 applic RI BID PRN #30 gm 01/31/18 07/07/18 with perineal applicator Synthroid 88 mcg tablet 88 mcg PO DAILY #90 tab-cap NS 05/23/18 07/07/18 dicyclomine 10 mg PO QID PRN #14 cap 06/23/18 07/07/18 ondansetron 4 mg PO QID PRN #14 tab 06/23/18 07/07/18 omeprazole 40 mg PO DAILY #30 cap 06/25/18 07/07/18 sucralfate 1 gm PO QACHS #120 tab 06/25/18 07/07/18 Previous Rx's Medication Instructions Recorded fluticasone propionate 2 spr NS DAILY #1 inh 05/17/17 hydrocortisone 2.5 % topical cream 1 applic RI BID PRN #30 gm 01/31/18 with perineal applicator Synthroid 88 mcg tablet 88 mcg PO DAILY #90 tab-cap NS 05/23/18 dicyclomine 10 mg PO QID PRN #14 cap 06/23/18 ondansetron 4 mg PO QID PRN #14 tab 06/23/18 omeprazole 40 mg PO DAILY #30 cap 06/25/18 sucralfate 1 gm PO QACHS #120 tab 06/25/18 Allergies Allergy/AdvReac Type Severity Reaction Status Date / Time gluten Allergy Unverified 07/07/18 14:27 oxycodone HCl [From Percocet] AdvReac Intermediate Psychosis Unverified 07/07/18 14:27 sertraline HCl [From Zoloft] AdvReac Intermediate psychotic Unverified 07/07/18 14:27 anestisia AdvReac Intermediate Blood Uncoded 07/07/18 14:27 Pressure crashed General Stated Complaint: Nausea/Vomit/Diar NEHEMIAH: 4 Review of Systems Review of Systems As documented in HPI otherwise negative as below. Const: no fever, chills, weakness Resp: no cough, SOB, pleuritic pain CV: no CP, diaphoresis, edema, syncope GI: diarrhea, no abdominal pain, nausea, vomiting Neuro: no headache, numbness, focal weakness, confusion [facility] Medical History Anxiety (Chronic) Depression (Chronic) Fibrocystic disease of both breasts (Chronic) Gastritis (Chronic) Hammertoe (Chronic) Psoriasis (Chronic) celiac sprue (Chronic) Surgical History COLONOSCOPY/W MAC (12/13/14) Ligation of fallopian tube THYROIDECTOMY Social History Smoking/Tobacco Use Status: Former Tobacco Use Alcohol Intake: never Drug use: Never Substance use type: does not use Do you feel safe in your relationship?: Yes Exam Narrative Exam Narrative: Vitals: Afebrile and normal vital signs other than mild hypoxemia which she has had previously. Const: WDWN female in NAD. HEENT: NC/AT. Normal facial exam. Eyes: Normal conjunctiva and sclera. Neck: Supple. Trachea midline. Lungs: Normal respiratory effort. Lungs are clear. Cor: RRR without murmur/gallop. Good radial pulses. GI: Soft. NT/ND. No guarding or rebound. Neuro: A+O x 3. CN grossly in tact. Good strength and no focal deficit. Course Vital Signs Temperature 98.4 F 07/07/18 14:13 Pulse 73 07/07/18 14:13 Respiratory Rate 16 07/07/18 14:13 Blood Pressure 127/86 07/07/18 14:13 Pulse Oximetry 93 L 07/07/18 14:13 Temperature 98.4 F 07/07/18 14:13 Temperature Source Skin 07/07/18 14:13 Pulse 73 07/07/18 14:13 Respiratory Rate 16 07/07/18 14:13 Respiratory Effort 07/07/18 14:30 Blood Pressure 127/86 07/07/18 14:13 Blood Pressure Position Sitting 07/07/18 14:13 Pulse Oximetry 93 L 07/07/18 14:13 Oxygen Delivery Method Room Air 07/07/18 14:13 Oxygen Flow Rate 0 07/07/18 14:13 Pain Level 3 07/07/18 14:13
== END 2018-07-07 15:07 | disposition home or self-care (01) ==
PROVIDERS: Emergency Provider Emergency Medicine; PCP Family Medicine
DX: R19.7 Diarrhea, unspecified (principal); G89.29 Other chronic pain; R10.10 Upper abdominal pain, unspecified
CPT/HCPCS: 99282

== ENCOUNTER 2018-11-21 11:50 | Outpatient (CLI) | payer OTHER, SELFPAY ==
--- NOTE | 2018-11-21 10:02 | DI.RAD_ITS ---
EXAM: XR FOOT RT COMPLETE INDICATION: R foot pain. COMPARISON: No exams were available for comparison TECHNIQUE: 2D digital imaging was performed. FINDINGS: The bony structures are normally mineralized. There is no evidence of a fracture or dislocation. Deg enerative changes involving the 1st metatarsal phalangeal joint are identified and there are mild deg enerative changes involving the interphalangeal joints. Note is made of a prominent calcaneal spur. IMPRESSION: No evidence of a fracture or dislocation. Degenerative changes are identified as noted above.
== END 2018-11-21 12:10 ==
PROVIDERS: PCP Family Medicine; Visit Provider Physician Assistant
DX: M79.671 Pain in right foot (principal); M19.071 Primary osteoarthritis, right ankle and foot; M72.2 Plantar fascial fibromatosis
CPT/HCPCS: 73630

== ENCOUNTER 2019-03-20 07:00 | Outpatient (CLI) | payer OTHER, SELFPAY ==
[2019-03-20 11:48] LABS: C-Reactive Protein 0.56 mg/dL (0.0-0.3)
[2019-03-20 12:43] LABS: ESR 17 mm/hr (0-30)
== END 2019-03-20 07:20 ==
PROVIDERS: PCP Family Medicine; Visit Provider Family Medicine
DX: M25.50 Pain in unspecified joint (principal); M79.10 Myalgia, unspecified site
CPT/HCPCS: 85652; 86140

== ENCOUNTER 2019-05-08 00:13 | Outpatient (CLI) | payer OTHER, SELFPAY ==
[2019-05-08 16:35] LABS: T3,Free 3.2 pg/mL (2.8-5.3)
== END 2019-05-08 00:33 ==
PROVIDERS: PCP Family Medicine; Visit Provider Family Medicine
DX: E03.9 Hypothyroidism, unspecified (principal); R79.89 Other specified abnormal findings of blood chemistry
CPT/HCPCS: 36415; 84481

== ENCOUNTER 2019-05-10 14:02 | Emergency (ER) | payer OTHER, SELFPAY ==
[2019-05-10] VITALS (18 sets, daily range): BP systolic 118–141; BP diastolic 60–93; PULSE 51–78; RESP 9–29; TEMP 36.6; O2SAT 93–98
--- NOTE | 2019-05-10 14:55 | W.ED.GENAD ---
Discharge Plan Disposition Patient Disposition: HOME Condition: Stable Discharge Details Chief Complaint: Chest Pain Clinical Impression: History of esophageal ulcer, History of gastroesophageal reflux (GERD) Primary Care Provider: Obinna Sims ED Provider: Mulu Hernandez Home Meds and New Rx's Prescriptions: Continued levothyroxine [Synthroid] 88 mcg tablet 88 mcg PO DAILY Qty: 90 RF: 4 hydrocortisone [Anusol-HC] 2.5 % cream with perineal applicator 1 applic [place] BID PRN (Reason: hemorrhoids) Qty: 30 RF: 3 sucralfate 1 gram tablet 1 gm PO QACHS Qty: 120 RF: 4 esomeprazole magnesium 20 mg capsule,delayed release(DR/EC) 20 mg PO DAILY Qty: 30 RF: 3 fluticasone propionate 16 GM spray,suspension 2 spr NS DAILY Qty: 1 RF: 4 lorazepam 0.5 mg tablet 0.5 mg PO BID PRN (Reason: anxiety) Qty: 14 RF: 0 acetaminophen [Mapap Extra Strength] 500 MG tablet 1,000 mg PO PRN PRNRF: 0 Discharge Instructions Instructions: Diet for Stomach Ulcers and Gastritis (ED), Gastroesophageal Reflux Disease (ED) Additional Instructions: Call your primary care doctor and 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 Continue your Gaviscon and Carafate as directed. Return to the emergency department if you develop any worsening or new concerning symptoms. Discharge Data Discharge Date/Time-TO BE ENTERED AT DEPARTURE: 05/10/19 16:07 Discharge Physician: Mulu Hernandez Medical Decision Making 64-year-old female with a history of esophageal ulcer and GERD presents with burning upper abdominal pain with radiation into her chest for the past 3 days. She states this feels consistent with her usual pain associated with her ulcer and GERD. EKG done on arrival which notes a rate of 66, sinus with questionable less than [address] depression in aVF and T wave inversion in lead III. No old EKG to compare. No acute ST elevation. Patient had screening labs and chest x-ray ordered. Patient declined work-up as she states that all of her symptoms are due to her GERD. Discussed with patient considering her age, questionable EKG findings, would recommend additional work-up including labs and imaging but she states this is due to her GERD and does not want any further work-up. The risks of and disability due to missing a possible cardiac etiology were explained to patient fully understands. She demonstrated capacity make decisions. Able to obtain reports from [facility] which noted that patient had a distal esophageal ulcer. She states she is unable to take any PPIs or H2 blockers due to side effects of arthralgias. She states she mainly came here for direction on how often she can take her Gaviscon and if any other medications are recommended. She already takes Carafate. She was given a GI cocktail here with some relief. It was advised that she call her GI doctor and primary care doctor tomorrow to schedule a follow-up appointment for this week. She states she has a follow-up for a repeat endoscopy in June. It was again discussed that she should return here immediately if any of her symptoms change or worsen. Medical Records Medical records reviewed: Yes I reviewed the patient's medical records. ECG Data Attestation: I personally reviewed and interpreted this ECG (s) as follows: Interpretation: Rate of 66, sinus, less than [address] depression in 2, 3, aVF. T wave inversion in lead III which is new from previous EKG. No acute ST elevation. VA 148. QTc 465. QRS 107. HPI General Mode of arrival: ambulatory. Date/Time Provider Initiated Documentation: 05/10/19 14:16. Limitations to Documentation: no limitations. Information obtained by: patient. HPI Narrative: Pt is a 64yo F Related Data Home Medications Medication Instructions Recorded Confirmed acetaminophen [Mapap Extra 1,000 mg PO PRN PRN 12/14/15 05/10/19 Strength] fluticasone propionate 2 spr NS DAILY #1 inh 05/17/17 05/10/19 hydrocortisone 2.5 % topical cream 1 applic VA BID PRN #30 gm 01/31/18 05/10/19 with perineal applicator Synthroid 88 mcg tablet 88 mcg PO DAILY #90 tab-cap NS 05/23/18 05/10/19 esomeprazole magnesium 20 mg 20 mg PO DAILY #30 cap 04/16/19 05/10/19 capsule,delayed release sucralfate 1 gram tablet 1 gm PO QACHS #120 tab 04/16/19 05/10/19 lorazepam 0.5 mg tablet 0.5 mg PO BID PRN #14 tab 04/29/19 05/10/19 Previous Rx's Medication Instructions Recorded fluticasone propionate 2 spr NS DAILY #1 inh 05/17/17 hydrocortisone 2.5 % topical cream 1 applic VA BID PRN #30 gm 01/31/18 with perineal applicator Synthroid 88 mcg tablet 88 mcg PO DAILY #90 tab-cap NS 05/23/18 esomeprazole magnesium 20 mg 20 mg PO DAILY #30 cap 04/16/19 capsule,delayed release sucralfate 1 gram tablet 1 gm PO QACHS #120 tab 04/16/19 lorazepam 0.5 mg tablet 0.5 mg PO BID PRN #14 tab 04/29/19 Allergies Allergy/AdvReac Type Severity Reaction Status Date / Time gluten Allergy Verified 05/10/19 14:19 omeprazole AdvReac Severe Myalgias Verified 05/10/19 14:19 oxycodone HCl [From Percocet] AdvReac Intermediate Psychosis Verified 05/10/19 14:19 sertraline HCl [From Zoloft] AdvReac Intermediate psychotic Verified 05/10/19 14:19 anestisia AdvReac Intermediate Blood Uncoded 05/10/19 14:19 Pressure crashed General Stated Complaint: Chest Pain NEHEMIAH: 2 Review of Systems All systems reviewed & are unremarkable except as noted in HPI and below Constitutional Constitutional: Reports as per HPI, Denies chills and Denies fever(s) Eyes Eyes: Denies blurry vision ENT Ears, Nose, Mouth, and Throat: Denies dizziness, Denies sore throat and Denies throat swelling Cardiovascular Cardiovascular: Reports chest pain and Denies dyspnea Respiratory Respiratory: Denies cough and Denies dyspnea Gastrointestinal Gastrointestinal: Reports abdominal pain, Denies diarrhea and Denies vomiting Genitourinary Genitourinary: Denies hematuria and Denies dysuria Musculoskeletal Musculoskeletal: Denies back pain and Denies numbness Integumentary/Breasts Skin/Breast: Denies lesions and Denies rash Neurologic Neurologic: Denies dizziness, Denies focal weakness and Denies numbness Allergic/Immunologic Allergic/Immunologic: Denies throat swelling [facility] Social History Smoking/Tobacco Use Status: Former Tobacco Use Alcohol Intake: never Drug use: Never Substance use type: does not use Do you feel safe in your relationship?: Yes Exam Const General: cooperative, healthy appearing, no acute distress and other (tearful at times) Orientation: alert, awake and oriented x3 HENMT Head: normal to inspection Face and sinus: normal facial exam Eyes General: appearance normal, both eyes and all related structures EOM: EOM intact bilaterally Neck Neck: normal visual inspection and No submandibular swelling Lymphatic: no lymphadenopathy noted Chest Chest: normal inspection of the chest and no tenderness Resp Effort & Inspection: normal respiratory effort and able to speak in complete sentences Auscultation: clear to auscultation bilaterally Cardio Rate: regular rate Rhythm: regular rhythm GI Inspection: normal to inspection Palpation: soft, not firm, not rigid and tender in the epigastrum Auscultation: no hypoactive bowel sounds Skin General skin exam: no rashes or lesions noted Neuro General: alert, awake and oriented x3 Cognition: normal cognition Speech: speech normal Motor: muscle tone normal throughout Sensory Exam: no sensory deficits noted Extrem General: normal to inspection, full ROM, normal capillary refill, no calf tenderness bilaterally and no edema Psych Appearance: grossly normal Mental Status: mental status grossly normal Speech and Movement: speech and movement normal Affect: normal affect Course Vital Signs Vital signs: Vital Signs Temperature 97.9 F 05/10/19 14:14 Pulse 56 L 05/10/19 14:14 Respiratory Rate 16 05/10/19 14:14 Blood Pressure 140/85 05/10/19 14:14 Pulse Oximetry 98 05/10/19 14:14 Temperature 97.9 F 05/10/19 14:14 Temperature Source Skin 05/10/19 14:14 Pulse 56 L 05/10/19 14:14 Respiratory Rate 16 05/10/19 14:29 Respiratory Effort 05/10/19 14:29 Respiratory Depth Normal 05/10/19 14:29 Respiratory Pattern Normal 05/10/19 14:29 Blood Pressure 140/85 05/10/19 14:14 Blood Pressure Position Sitting 05/10/19 14:14 Pulse Oximetry 98 05/10/19 14:14 Oxygen Delivery Method Room Air 05/10/19 14:14 Oxygen Flow Rate 0 05/10/19 14:14 Pain Level 10 05/10/19 14:14
--- NOTE | 2019-05-10 15:40 | NUR.NOTE ---
pt refusing blood work, she spoke to Gaurav Note:
== END 2019-05-10 16:07 | disposition home or self-care (01) ==
PROVIDERS: Emergency Provider Physician Assistant; PCP Family Medicine
DX: K21.9 Gastro-esophageal reflux disease without esophagitis (principal); R10.10 Upper abdominal pain, unspecified; K22.10 Ulcer of esophagus without bleeding
CPT/HCPCS: 80053; 83690; 93005; 99283; 83735; 84484; 85025; 93010

== ENCOUNTER 2019-06-23 09:08 | Outpatient (CLI) | payer OTHER, SELFPAY ==
[2019-06-24 13:56] LABS: COVID-19 RT-PCR Result Negative (Negative)
== END 2019-06-23 09:28 ==
PROVIDERS: PCP Family Medicine; Visit Provider Family Medicine
DX: Z11.59 Encounter for screening for other viral diseases (principal)
CPT/HCPCS: U0003

== ENCOUNTER 2019-06-23 14:58 | Emergency (ER) | payer OTHER, SELFPAY ==
[2019-06-23 15:11] VITALS: BP 122/62; PULSE 83; RESP 16; TEMP 37; O2SAT 96
[2019-06-23 15:42] LABS: Bilirubin Negative (Negative); Blood Trace-lysed (Negative); Clarity Clear (Clear); Glucose Negative (Negative); Ketones Negative (Negative); Leukocyte Esterase Negative (Negative); Nitrite Negative (Negative); Specific Gravity 1.015 (1.005-1.025); Urobilinogen 0.2 EU/dL (Up TO 0.2)
--- NOTE | 2019-06-23 15:45 | DI.CT_ITS ---
EXAM: CT ABDOMEN PELVIS W CLINICAL HISTORY: lower abd pain, diarrhea, r/o acute disease. TECHNIQUE: Imaging Protocol: Axial computed tomography images with coronal and sagittal reformatted images were created and reviewed CONTRAST MATERIAL: Intravenous: Omnipaque 350 Contrast volume:100 ml. Images were obtained during venous and delayed phases. Oral:no COMPARISON: CT ABDOMEN PELVIS W from 06/23/2018 FINDINGS: ABDOMEN: Lung Bases: Mild dependent changes. Liver: Normal density. There are innumerable liver cysts. There has been interval increase in size o f a previously noted cyst in the left lobe of the liver which now measures 8.6 cm in maximal dimensio n compared with 6.3 cm previously. It abuts the liver capsule. There is no evidence of rupture. No suspicious masses are seen. Gallbladder and biliary tract: No radiodense calculus or dilation. Pancreas: Normal density, no abnormal calcifications or inflammatory process. Spleen: Normal. Kidneys: Normal size, contour and axis. No radiodense stones or obstructive uropathy. No masses seen. Small bilateral cysts are noted, unchanged. Adrenal glands: No masses seen. Abdominal Aorta: Abdominal portion non-dilated. PELVIS: Bladder: Symmetric distention, no gross wall thickening. Bowel: There is a small hiatal hernia, unchanged. No obstruction or bowel wall thickening. The appen luis alfredo appears normal. There are multiple diverticula in the sigmoid colon but no evidence of diverticu litis. There is a normal quantity of stool. Peritoneal cavity: No ascites, collection or mesenteric inflammatory response. Bones: Degenerative changes are seen in the spine.. Reproductive organs: Within normal limits. Lymph nodes: Unremarkable. Impression: Interval increase in size cyst in the left lobe of the liver, now measuring 8.6 cm in maximal diamete r. Diverticulosis without evidence of diverticulitis. Small hiatal hernia. DATA REPOSITORY: All CT scans at this facility are submitted to the National Radiology Data Registry (NRDR) Dose Index Registry (DIR) with the [employer] ([employer]). RADIATION OPTIMIZATION: All CT scans at this facility use at least one of these dose optimization te chniques: automated exposure control; mA and/or kV adjustment per patient size (includes targeted exa ms where dose is matched to clinical indication); or iterative reconstruction.
--- NOTE | 2019-06-23 15:52 | W.ED.GENAD ---
Discharge Plan Disposition Patient Disposition: HOME Condition: Improving Discharge Details Chief Complaint: Nausea/Vomit/Diar Clinical Impression: Abdominal pain, Diarrhea Primary Care Provider: Obinna Sims ED Provider: Mulu Hernandez Home Meds and New Rx's Prescriptions: Continued levothyroxine [Synthroid] 88 mcg tablet 88 mcg PO DAILY Qty: 90 RF: 4 dicyclomine 10 mg capsule 10 mg PO QID PRN (Reason: abdominal pain) Qty: 30 RF: 1 fluticasone propionate 16 GM spray,suspension 2 spr NS DAILY Qty: 1 RF: 4 lorazepam 0.5 mg tablet 0.5 mg PO BID PRN (Reason: anxiety) Qty: 14 RF: 0 acetaminophen [Mapap Extra Strength] 500 MG tablet 1,000 mg PO PRN PRNRF: 0 Discontinued sucralfate 1 gram tablet 1 gm PO QACHS Qty: 120 RF: 4 Discharge Instructions Instructions: Acute Diarrhea (ED), Abdominal Pain (ED) Additional Instructions: Drink plenty of fluids and get plenty of rest. Take Tylenol and dicyclomine as needed and directed for pain. Take the lorazepam that you have at home as needed and directed for anxiety or sleep. Call your theology teacher to confirm your follow-up appointment and schedule your EGD as soon as possible when the surgery service is open again. You can also discuss with your theology teacher the CT results from today which noted a large liver cyst and whether this could be contributing to your chronic epigastric pain. Return to the emergency department if you develop any worsening or new concerning symptoms. Discharge Data Discharge Physician: Mulu Hernandez Medical Decision Making 1600 -- 64 yo F with a history of peptic ulcer disease, anxiety who presents for lower abdominal pain and diarrhea for the past 9 days. Patient appears uncomfortable, anxious, tearful. Abdomen is soft and mildly tender across the lower abdomen. Suspect viral illness. Differential diagnosis includes gastroenteritis, UTI, diverticulitis. Will check screening labs and CT abdomen. Patient states she cannot take any opioids due to psychosis and difficulty breathing. Will give a dose of IV Tylenol, IV ativan and reassess. 1830 --labs reviewed and unremarkable. Normal white blood cell count. Negative urinalysis. CT notes enlargement of hepatic cyst measuring 8.6 cm as well as multiple hepatic, renal and splenic lesions unchanged from previous. CT reviewed with surgery -agree that hepatic findings unlikely related to patient's diarrhea and lower abdominal pain. Dr. Castellanos recommends follow-up with patient's theology teacher for further discussion of this hepatic cyst and whether this could be contributing to her chronic epigastric pain. Patient reassessed -she states she feels much better. Patient appears much more comfortable. Reassessment of lower abdomen nontender. She is requesting to go home. She states she has plan for outpatient EGD with [facility] this month but this has been rescheduled due to coronavirus. She is advised to call them for follow-up to determine when EGD will be scheduled and to discuss hepatic cyst. She was given tabs of Ativan to go although she thinks she has this at home. Usual and customary return precautions given prior to discharge. Medical Records Medical records reviewed: Yes I reviewed the patient's medical records. Imaging Data Radiologic Study: Radiologist's impression: CT Abdomen And Pelvis With Contrast Exam date and time: 06/23/2019 3:55 PM Age: 64 years old Clinical indication: Abdominal tenderness TECHNIQUE: Imaging protocol: Computed tomography of the abdomen and pelvis with intravenous contrast. Radiation optimization: All CT scans at this facility use at least one of these dose optimization techniques: automated exposure control; mA and/or kV adjustment per patient size (includes targeted exams where dose is matched to clinical indication); or iterative reconstruction. Contrast material: OMNIPAQUE 350; Contrast volume: 100 ml; Contrast route: RT AC; COMPARISON: CT ABDOMEN PELVIS W 06/23/2018 7:22 PM FINDINGS: Lungs: There is minimal dependent atelectasis in both lung bases. Mediastinum: There is a small sliding-type hiatal hernia. Liver: There are multiple low-density well-circumscribed hepatic lesions consistent with cysts. The largest is in the lateral segment of the left lobe and measures 8.6 cm in maximal diameter. This cyst has increased in size since June 23, 2018. At that time the largest cyst in this region measured 6.3 cm in axial diameter. There are multiple additional smaller cysts as well as numerous subcentimeter lesions which are too small to characterize. These smaller lesions appear to be stable since the comparison study. Gallbladder and bile ducts: Normal. No calcified stones. No ductal dilation. Pancreas: Normal. No ductal dilation. Spleen: There is an 8 mm well-circumscribed low-density peripheral lesion in the anterior/lateral aspect of the spleen. This is too small to characterize but unchanged since the comparison study. Adrenals: The adrenal glands are normal. Kidneys and ureters: There are 2 left renal cysts measuring less than 15 mm and 1 right renal cyst which measures 15 mm. These are benign-appearing and fairly stable since the comparison study. There are several subcentimeter low-density bilateral renal lesions which are too small to characterize but unchanged. There is no renal calculus or hydronephrosis on either side. Stomach and bowel: There are scattered colonic diverticula predominantly on the left with no evidence of diverticulitis. The stomach is not well distended but grossly unremarkable for the degree of distension. Appendix: A normal appendix is identified. Intraperitoneal space: Unremarkable. No free air. No significant fluid collection. Vasculature: Unremarkable. No abdominal aortic aneurysm. Lymph nodes: Unremarkable. No enlarged lymph nodes. Bladder: Unremarkable as visualized. Reproductive: Unremarkable as visualized. Bones/joints: The bones are unchanged with lower thoracic degenerative disc disease noted. Soft tissues: Unremarkable. IMPRESSION: 1. There has been enlargement of a hepatic cyst which now measures 8.6 cm in the lateral segment of the left lobe of the liver representing a considerable increased since the comparison study. This could potentially account for the patient's tenderness. 2. Otherwise no acute findings. 3. Multiple hepatic, renal, and splenic lesions which are too small to characterize but unchanged since June 23, 2018. 4. Predominantly left-sided diverticulosis without evidence of diverticulitis. 5. Small sliding-type hiatal hernia. Lab Data Lab results reviewed: Yes I reviewed the patient's lab results. Labs: Laboratory Tests Range/Units 06/23/19 06/23/19 06/23/19 15:15 15:15 15:27 WBC (4.4-10.8) k/cumm 5.85 RBC (4.00-5.20) m/cumm 4.79 Hgb (12.0-15.5) g/dL 14.2 Hct (36.0-46.0) % 43.5 MCV (80-95) fL 90.8 MCH (27.0-33.0) pg 29.6 MCHC (32.0-36.0) g/dL 32.6 RDW (11.7-14.6) % 13.4 Plt Count (130-400) x1000/uL 278 MPV (8.0-11.0) fL 11.4 H Immature Gran % % 0.0 Neutrophils % 56.3 Lymphocytes % 31.6 Monocytes % 7.7 Eosinophils % 2.9 Basophils % 1.5 Absolute Neutrophils (1.2-6.7) k/cumm 3.29 Absolute Lymphocytes (1.2-3.4) k/cumm 1.85 Absolute Monocytes (0.11-0.7) k/cumm 0.45 Absolute Eosinophils (0.0-0.7) k/cumm 0.17 Absolute Basophils (0.0-0.2) k/cumm 0.09 Sodium (136-145) mmol/L 143 Potassium (3.5-5.1) mmol/L 3.6 Chloride (98-107) mmol/L 107 Carbon Dioxide (21.0-32.0) mmol/L 25.4 Anion Gap (3-11) mmol/L 10.6 BUN (7-18) mg/dL 9 Creatinine (0.55-1.02) mg/dL 0.94 Estimated GFR/1.73 m2 (mL/min/1.73m2) >= 60.00 Glucose (74-106) mg/dL 92 Calcium (8.5-10.1) mg/dL 8.9 Total Bilirubin (0.2-1.0) mg/dL 0.4 AST (15-37) U/L 16 ALT (14-59) U/L 23 Alkaline Phosphatase (46-116) U/L 73 Total Protein (6.4-8.2) g/dL 7.8 Albumin (3.4-5.0) g/dL 3.7 Lipase (73-393) U/L 106 Urine Color (Yellow) Yellow Urine Clarity (Clear) Clear Urine pH (5-8) 6.0 Ur Specific Murdo (1.005-1.025) 1.015 Urine Protein (Negative) mg/dL Negative Urine Ketones (Negative) mg/dL Negative Urine Blood (Negative) Trace-lysed H Urine Nitrite (Negative) Negative Urine Bilirubin (Negative) Negative Urine Urobilinogen (Up TO 0.2) EU/dL 0.2 Ur Leukocyte Esterase (Negative) Negative Urine RBC (0-2) HPF Negative Urine WBC (0-5) HPF Negative Ur Epithelial Cells (Negative) HPF Rare Urine Crystals (Negative) HPF Negative Urine Bacteria (Negative) HPF Rare Urine Casts (Negative) LPF Negative Urine Mucus (Negative) Negative Urine Other (Negative) Negative Ur Culture Indicated? No Urine Glucose (Negative) mg/dL Negative HPI General Mode of arrival: ambulatory. Date/Time Provider Initiated Documentation: 06/23/19 15:09. Limitations to Documentation: no limitations. Information obtained by: patient. HPI Narrative: Pt is a 64yo F w/ a h/o anxiety, depression, hypothyroidism, gerd who presents to the ED w/ a c/o diarrhea and abdominal pain x 10 days. Pt states she was having 5 episodes of diarrhea daily but now about approximately 2 episodes which are now more formed. Patient describes her abdominal pain as constant dull aching with occasional sharp pain. She denies any association with food or bowel movements. She denies any fever, nausea, vomiting, urinary symptoms. Patient has a history of a distal esophageal ulcer found on EGD at [facility] last year. She states she was scheduled to have an EGD this month at [facility] but this has been put on hold due to the coronavirus. She states her epigastric pain from her ulcer has been at baseline. Patient is unable to take most PPIs and H2 blockers due to myalgias and states she mainly treats her heartburn with Tums and occasionally Pepcid. Related Data Home Medications Medication Instructions Recorded Confirmed acetaminophen [Mapap Extra 1,000 mg PO PRN PRN 12/14/15 05/15/19 Strength] fluticasone propionate 2 spr NS DAILY #1 inh 05/17/17 05/15/19 lorazepam 0.5 mg tablet 0.5 mg PO BID PRN #14 tab 04/29/19 05/15/19 Synthroid 88 mcg tablet 88 mcg PO DAILY #90 tab-cap NS 05/15/19 05/15/19 dicyclomine 10 mg capsule 10 mg PO QID PRN #30 cap 06/23/19 06/23/19 Previous Rx's Medication Instructions Recorded fluticasone propionate 2 spr NS DAILY #1 inh 05/17/17 lorazepam 0.5 mg tablet 0.5 mg PO BID PRN #14 tab 04/29/19 Synthroid 88 mcg tablet 88 mcg PO DAILY #90 tab-cap NS 05/15/19 dicyclomine 10 mg capsule 10 mg PO QID PRN #30 cap 06/23/19 Allergies Allergy/AdvReac Type Severity Reaction Status Date / Time gluten Allergy Verified 06/23/19 15:18 omeprazole AdvReac Severe Myalgias Verified 06/23/19 15:18 oxycodone HCl [From Percocet] AdvReac Intermediate Psychosis Verified 06/23/19 15:18 sertraline HCl [From Zoloft] AdvReac Intermediate psychotic Verified 06/23/19 15:18 anesthesia AdvReac Severe Uncoded 06/23/19 15:20 General Stated Complaint: Nk/Back Pain NEHEMIAH: 3 Review of Systems All systems reviewed & are unremarkable except as noted in HPI and below Constitutional Constitutional: Reports as per HPI, Denies chills and Denies fever(s) Eyes Eyes: Denies blurry vision ENT Ears, Nose, Mouth, and Throat: Denies dizziness, Denies sore throat and Denies throat swelling Cardiovascular Cardiovascular: Denies chest pain and Denies dyspnea Respiratory Respiratory: Denies cough and Denies dyspnea Gastrointestinal Gastrointestinal: Reports abdominal pain, Reports diarrhea and Denies vomiting Genitourinary Genitourinary: Denies hematuria and Denies dysuria Musculoskeletal Musculoskeletal: Denies back pain and Denies numbness Integumentary/Breasts Skin/Breast: Denies lesions and Denies rash Neurologic Neurologic: Denies dizziness, Denies localized weakness and Denies numbness Allergic/Immunologic Allergic/Immunologic: Denies throat swelling [facility] Social History Smoking/Tobacco Use Status: Former Tobacco Use Alcohol Intake: never Drug use: Never Substance use type: does not use Do you feel safe at home: Yes Do you feel safe in your relationship?: Yes Exam Const General: cooperative and uncomfortable Orientation: alert, awake and oriented x3 HENMT Head: normal to inspection Face and sinus: normal facial exam Eyes General: appearance normal, both eyes and all related structures EOM: EOM intact bilaterally Neck Neck: normal visual inspection and No submandibular swelling Lymphatic: no lymphadenopathy noted Chest Chest: normal inspection of the chest and no tenderness Resp Effort & Inspection: normal respiratory effort and able to speak in complete sentences Auscultation: clear to auscultation bilaterally Cardio Rate: regular rate Rhythm: regular rhythm GI Inspection: normal to inspection and obesity Palpation: soft, not firm, not rigid and tender (across lower abdomen) Auscultation: hypoactive bowel sounds Skin General skin exam: no rashes or lesions noted Neuro General: patient alert, patient awake and patient oriented x3 Cognition: normal cognition Speech: speech normal Motor: muscle tone normal throughout Sensory Exam: no sensory deficits noted Extrem General: normal to inspection, full ROM, capillary refill normal, no calf tenderness bilaterally and no edema Psych Appearance: grossly normal Mental Status: mental status grossly normal Speech and Movement: speech and movement normal Affect: normal affect Course Vital Signs Vital signs: Vital Signs Temperature 98.6 F 06/23/19 15:11 Pulse 83 06/23/19 15:11 Respiratory Rate 16 06/23/19 15:11 Blood Pressure 122/62 06/23/19 15:11 Pulse Oximetry 96 06/23/19 15:11 Temperature 98.6 F 06/23/19 15:11 Temperature Source Skin 06/23/19 15:11 Pulse 83 06/23/19 15:11 Respiratory Rate 16 06/23/19 15:11 Respiratory Effort Non-Labored 06/23/19 15:16 Blood Pressure 122/62 06/23/19 15:11 Blood Pressure Position Supine 06/23/19 15:11 Pulse Oximetry 96 06/23/19 15:11 Oxygen Delivery Method Room Air 06/23/19 15:11 Oxygen Flow Rate 0 06/23/19 15:11 Pain Level 10 06/23/19 15:11 Lab/Test Results Lab/Test Results: Laboratory Tests Range/Units 06/23/19 15:27 Urine Color (Yellow) Yellow Urine Clarity (Clear) Clear Urine pH (5-8) 6.0 Ur Specific Murdo (1.005-1.025) 1.015 Urine Protein (Negative) mg/dL Negative Urine Ketones (Negative) mg/dL Negative Urine Blood (Negative) Trace-lysed H Urine Nitrite (Negative) Negative Urine Bilirubin (Negative) Negative Urine Urobilinogen (Up TO 0.2) EU/dL 0.2 Ur Leukocyte Esterase (Negative) Negative Urine Glucose (Negative) mg/dL Negative
[2019-06-23 15:53] LABS: RBC Negative HPF (0-2); WBC Negative HPF (0-5)
[2019-06-23 15:54] LABS: Bacteria Rare HPF (Negative); C & S Indicated? No; Casts Negative LPF (Negative); Crystals Negative HPF (Negative); Epithelial Cells Rare HPF (Negative); Mucus Negative (Negative); Other Cells Negative (Negative)
[2019-06-23 16:10] LABS: Absolute Basophil Count 0.09 k/cumm (0.0-0.2); Absolute Eosinophil Count 0.17 k/cumm (0.0-0.7); Absolute Lymphocyte Count 1.85 k/cumm (1.2-3.4); Absolute Monocyte Count 0.45 k/cumm (0.11-0.7); Absolute Neutrophil Count 3.29 k/cumm (1.2-6.7); Basophils % 1.5; Eosinophils % 2.9; HCT 43.5 % (36.0-46.0); HGB 14.2 g/dL (12.0-15.5); Lymphocytes % 31.6; Mean Corp. HGB Concentration 32.6 g/dL (32.0-36.0); Mean Corpuscular Hemoglobin 29.6 pg (27.0-33.0); Mean Corpuscular Volume 90.8 fL (80-95); Mean Platelet Volume 11.4 fL (8.0-11.0); Monocytes % 7.7; Neutrophils % 56.3; Platelet Count 278 x1000/uL (130-400); RBC 4.79 m/cumm (4.00-5.20); RBC Distribution Width 13.4 % (11.7-14.6); White Blood Cell Count 5.85 k/cumm (4.4-10.8)
[2019-06-23 16:21] LABS: ALT 23 U/L (14-59); AST 16 U/L (15-37); Albumin 3.7 g/dL (3.4-5.0); Alkaline Phosphatase 73 U/L (46-116); Anion Gap 10.6 mmol/L (3-11); BUN 9 mg/dL (7-18); Bilirubin, Total 0.4 mg/dL (0.2-1.0); CO2 25.4 mmol/L (21.0-32.0); CREATININE 0.94 mg/dL (0.55-1.02); Calcium 8.9 mg/dL (8.5-10.1); Chloride 107 mmol/L (98-107); Glucose 92 mg/dL (74-106); Lipase 106 U/L (73-393); Potassium 3.6 mmol/L (3.5-5.1); Sodium 143 mmol/L (136-145); Total Protein 7.8 g/dL (6.4-8.2)
[2019-06-23] MEDS: ACETAMINOPHEN 1,000 MG/100 ML BTL 400 MG IVPB (16:22)
[2019-06-23] MEDS: LORazepam 2 MG/ML VIAL 0.5 MG IVP (16:45)
[2019-06-23] MEDS: Normal Saline Flush 10 ML SYR IVP (16:46)
[2019-06-23] MEDS: Omnipaque 350 MG/ML 100 ML BTL IJ (16:56)
[2019-06-23 17:36] VITALS: BP 120/70; PULSE 89; TEMP 37; O2SAT 95
--- NOTE | 2019-06-23 18:04 | DI.VRAD_ITS ---
PROCEDURE INFORMATION: Exam: CT Abdomen And Pelvis With Contrast Exam date and time: 06/23/2019 3:55 PM Age: 64 years old Clinical indication: Abdominal tenderness TECHNIQUE: Imaging protocol: Computed tomography of the abdomen and pelvis with intravenous contrast. Radiation optimization: All CT scans at this facility use at least one of these dose optimization techniques: automated exposure control; mA and/or kV adjustment per patient size (includes targeted exams where dose is matched to clinical indication); or iterative reconstruction. Contrast material: OMNIPAQUE 350; Contrast volume: 100 ml; Contrast route: RT AC; COMPARISON: CT ABDOMEN PELVIS W 06/23/2018 7:22 PM FINDINGS: Lungs: There is minimal dependent atelectasis in both lung bases. Mediastinum: There is a small sliding-type hiatal hernia. Liver: There are multiple low-density well-circumscribed hepatic lesions consistent with cysts. The largest is in the lateral segment of the left lobe and measures 8.6 cm in maximal diameter. This cyst has increased in size since June 23, 2018. At that time the largest cyst in this region measured 6.3 cm in axial diameter. There are multiple additional smaller cysts as well as numerous subcentimeter lesions which are too small to characterize. These smaller lesions appear to be stable since the comparison study. Gallbladder and bile ducts: Normal. No calcified stones. No ductal dilation. Pancreas: Normal. No ductal dilation. Spleen: There is an 8 mm well-circumscribed low-density peripheral lesion in the anterior/lateral aspect of the spleen. This is too small to characterize but unchanged since the comparison study. Adrenals: The adrenal glands are normal. Kidneys and ureters: There are 2 left renal cysts measuring less than 15 mm and 1 right renal cyst which measures 15 mm. These are benign-appearing and fairly stable since the comparison study. There are several subcentimeter low-density bilateral renal lesions which are too small to characterize but unchanged. There is no renal calculus or hydronephrosis on either side. Stomach and bowel: There are scattered colonic diverticula predominantly on the left with no evidence of diverticulitis. The stomach is not well distended but grossly unremarkable for the degree of distension. Appendix: A normal appendix is identified. Intraperitoneal space: Unremarkable. No free air. No significant fluid collection. Vasculature: Unremarkable. No abdominal aortic aneurysm. Lymph nodes: Unremarkable. No enlarged lymph nodes. Bladder: Unremarkable as visualized. Reproductive: Unremarkable as visualized. Bones/joints: The bones are unchanged with lower thoracic degenerative disc disease noted. Soft tissues: Unremarkable. IMPRESSION: 1. There has been enlargement of a hepatic cyst which now measures 8.6 cm in the lateral segment of the left lobe of the liver representing a considerable increased since the comparison study. This could potentially account for the patient's tenderness. 2. Otherwise no acute findings. 3. Multiple hepatic, renal, and splenic lesions which are too small to characterize but unchanged since June 23, 2018. 4. Predominantly left-sided diverticulosis without evidence of diverticulitis. 5. Small sliding-type hiatal hernia. Dictated and Authenticated by: Rogelio Lao MD. Ordering:ORION Hardwick MD
[2019-06-23 18:20] VITALS: BP 125/80; PULSE 52; RESP 16; TEMP 36.3; O2SAT 96
[2019-06-23] MEDS: LORazepam 0.5 MG TAB 2 MG PO (19:36)
[2019-06-23 19:37] VITALS: BP 111/85; PULSE 82; RESP 16; TEMP 36.5; O2SAT 97
[2019-06-23 20:10] LABS: TSH (W/Ref FT4) 1.28 uIU/mL (0.36-3.74)
== END 2019-06-23 19:40 | disposition home or self-care (01) ==
LOC: ER 19:38
PROVIDERS: Emergency Provider Physician Assistant; PCP Family Medicine
DX: R10.30 Lower abdominal pain, unspecified (principal); R19.7 Diarrhea, unspecified; K76.89 Other specified diseases of liver
CPT/HCPCS: 80053; 83690; 96374; 96375; 99285; 74177; 81003; 81015; 84443; 85025; 99284; J0131; J2060; J3490

== ENCOUNTER 2019-10-23 01:22 | Outpatient (CLI) | payer OTHER, SELFPAY ==
[2019-10-23 08:36] LABS: Magnesium 1.9 mg/dL (1.8-2.4)
== END 2019-10-23 01:42 ==
PROVIDERS: PCP Family Medicine; Visit Provider Family Medicine
DX: E83.42 Hypomagnesemia (principal)
CPT/HCPCS: 36415; 83735

== ENCOUNTER 2020-01-11 08:37 | Outpatient (REF) | payer OTHER, SELFPAY ==
[2020-01-19 13:50] LABS: Helicobacter pylori Ag, Feces Negative (Negative)
== END 2020-01-11 08:57 ==
LOC: LBN 08:37
PROVIDERS: PCP Family Medicine; Visit Provider Nurse Practitioner Adult Health
DX: R14.0 Abdominal distension (gaseous) (principal); R12 Heartburn
CPT/HCPCS: 87338

== ENCOUNTER 2020-05-02 12:04 | Emergency (ER) | payer OTHER, SELFPAY ==
[2020-05-02] VITALS (55 sets, daily range): BP systolic 98–132; BP diastolic 49–79; PULSE 44–74; RESP 11–24; TEMP 36.4; O2SAT 83–99
--- NOTE | 2020-05-02 12:00 | RT.EKG_ITS ---
APPROVED REPORT Exam: Resting ECG Patient Location: E HR:60 bpm ECG Measurements Heart Rate 60 AXIS DC 141 P 46 QRSd 109 QRS 73 QT 441 T 24 QTc 442 Conclusion Sinus rhythm...normal P axis, V-rate 60- 99 sinus rhythm at 60, normal axis, mild ST depression V3 through V5 present on prior 05/10/2019, no STEMI , nondiagnostic EKG
[2020-05-02 12:52] LABS: Abs Immature Grans 0.01 10^3/uL (0.0-0.06); Absolute Basophil Count 0.09 10^3/uL (0.0-0.2); Absolute Eosinophil Count 0.13 10^3/uL (0.0-0.7); Absolute Lymphocyte Count 1.49 10^3/uL (1.2-3.4); Absolute Monocyte Count 0.38 10^3/uL (0.1-0.8); Absolute Neutrophil Count 3.74 10^3/uL (1.2-6.7); Basophils % 1.5; Eosinophils % 2.2; HCT 39.5 % (36.0-46.0); Immature Grans % 0.2; Lymphocytes % 25.5; MCH 30.7 pg (27.0-33.0); MCHC 32.9 % (32.0-36.0); MCV 93.2 fL (80-95); MPV 11.3 fL (8.0-11.0); Monocytes % 6.5; Neutrophils % 64.1; Nucleated RBC 0 %; Platelet Count 231 10^3/uL (130-400); RBC 4.24 10^6/uL (3.93-5.22); RDW 12.9 % (11.7-14.6); RDW-SD 44.5 fL; WBC 5.84 10^3/uL (4.4-10.8)
[2020-05-02] MEDS: nitroGLYcerin 0.4 MG TAB SL ×3 (12:55→13:06)
[2020-05-02] MEDS: Normal Saline 1,000 ML 1000 ML IV (12:55)
[2020-05-02 13:17] LABS: ALT 25 U/L (14-59); AST 16 U/L (15-37); Albumin 3.4 g/dL (3.4-5.0); Alkaline Phosphatase 66 U/L (46-116); BUN 13 mg/dL (7-18); Bilirubin, Total 0.4 mg/dL (0.2-1.0); CREATININE 0.9 mg/dL (0.55-1.02); Calcium 9.1 mg/dL (8.5-10.1); Chloride 104 mmol/L (98-107); Glucose 101 mg/dL (74-106); Magnesium 1.8 mg/dL (1.8-2.4); Potassium 3.7 mmol/L (3.5-5.1); Sodium 139 mmol/L (136-145); TSH (W/Ref FT4) 1.12 uIU/mL (0.36-3.74); Total Protein 7.4 g/dL (6.4-8.2)
[2020-05-02 13:18] LABS: Troponin I < 0.05 ng/mL (<0.06)
--- NOTE | 2020-05-02 13:20 | ED.GENADUL_ITS ---
Discharge Plan Disposition Patient Disposition: HOME Condition: Stable Discharge Details Clinical Impression: Chest pain Primary Care Provider: Nicolas Collins ED Provider: Ludy Avina Home Meds and New Rx's Prescriptions: Continued lorazepam 0.5 mg tablet 0.5 mg PO BID PRN (Reason: anxiety) Qty: 14 RF: 0 levothyroxine [Synthroid] 88 mcg tablet 88 mcg PO DAILY Qty: 90 RF: 4 acetaminophen [Mapap Extra Strength] 500 MG tablet 1,000 mg PO PRN PRNRF: 0 fluticasone propionate 16 GM spray,suspension 2 spr NS PRN PRNRF: 0 No Action aspirin 81 mg tablet,delayed release (DR/EC) 81 mg PO DAILY RF: 0 atorvastatin 20 mg tablet 20 mg PO DAILY Qty: 20 RF: 4 Hold Instructions: Home Medication placed on hold at Doctor's office diltiazem HCl [Cardizem CD] 180 mg capsule,extended release 24hr 180 mg PO DAILY Qty: 90 RF: 3 Slow-Mag 71.5 mg tablet,delayed release (DR/EC) 71.5 mg PO DAILY Qty: 90 RF: 1 Discharge Instructions Instructions: Chest Pain (ED) Additional Instructions: Please return immediately to the emergency department if you develop any new or worsening symptoms, if your condition does not improve as expected, or if you become otherwise concerned. It is extremely important that you call soon as possible to make an appointment to be seen in follow-up for this visit by your primary care doctor and by cardiology. You will also need to have a stress test performed as we discussed; your stress test was ordered today. Referrals: Nicolas Collins [Primary Care Provider] - Jesse Barahona MD [ CONSULTING PHYSICIAN] - Discharge Data Discharge Date/Time-TO BE ENTERED AT DEPARTURE: 05/02/20 17:03 Medical Decision Making Hailey Saha is a 65 y/o woman who presented to the emergency department with b/l anterior chest pain located near b/l shoulders. On exam Pt is well and non-toxic appearing. Benign cardiopulmonary exam. Concern for acute coronary syndrome, GERD, MSK, other. Doubt pulmonary embolism. Exam/hx at this time not c/w with acute aortic pathology, sepsis. EKG non-diagnostic. Plan for screening labs, CXR, telemetry, SLNG. Will monitor and reassess. Pt with out signifcant change in symptoms after SLNG. Plan for GI cocktail. Initial trop neg, d-dimer neg. Plan for delta trop and rpt EKG. Pt states that she feels somewhat anxious and is concerned that her symptoms may be related to anxiety. Plan for 0.5mg ativan. Pt reports significant improvement after ativan. States that she feels much better, no further pain, requests d/c to home. Pt low risk by HEART score. Rpt trop, EKG neg. Plan for outpt f/u, outpt stress testing. Stress test ordered. I had a lengthy discussion with Patient regarding return to emergency department precautions, home care, and importance of outpatient follow-up. Pt verbalizes understanding of the plan and is amenable. Patient discharged to home with clear plan for outpatient follow-up. All questions were answered. Disposition decision was made weighing the risks and benefits of hospitalization versus outpatient treatment, the risk for further decompensation, and the patient's wishes. Medical Records Medical records reviewed: Yes I reviewed the patient's medical records. Imaging Data Radiologic Study: Attestation: I personally reviewed and interpreted this imaging study as follows: Radiologist's impression: EXAM: XR PORTABLE CHEST AP CLINICAL HISTORY: chest pain TECHNIQUE: 2D digital imaging was performed. COMPARISON: No exams were available for comparison FINDINGS: MEDIASTINUM: Normal. HEART: Normal. PULMONARY VASCULATURE: Normal. LUNGS: Clear. PLEURAL SPACE: No pleural effusion or pneumothorax. BONE:Within normal limits for the patient's age. OTHER FINDINGS:Normal. IMPRESSION: No acute pulmonary findings. Lab Data Lab results reviewed: Yes I reviewed the patient's lab results. Labs: Laboratory Tests Range/Units 05/02/20 05/02/20 05/02/20 12:25 12:25 12:25 WBC (4.4-10.8) 10^3/uL 5.84 RBC (3.93-5.22) 10^6/uL 4.24 Hgb (11.2-15.7) g/dL 13.0 Hct (36.0-46.0) % 39.5 MCV (80-95) fL 93.2 MCH (27.0-33.0) pg 30.7 MCHC (32.0-36.0) % 32.9 RDW (11.7-14.6) % 12.9 Plt Count (130-400) 10^3/uL 231 MPV (8.0-11.0) fL 11.3 H Immature Gran % 0.2 Neutrophils % 64.1 Lymphocytes % 25.5 Monocytes % 6.5 Eosinophils % 2.2 Basophils % 1.5 Nucleated RBC % % 0 Absolute Neutrophils (1.2-6.7) 10^3/uL 3.74 Absolute Lymphocytes (1.2-3.4) 10^3/uL 1.49 Absolute Monocytes (0.1-0.8) 10^3/uL 0.38 Absolute Eosinophils (0.0-0.7) 10^3/uL 0.13 Absolute Basophils (0.0-0.2) 10^3/uL 0.09 D-Dimer (<500) ng/mlFEU 320 Sodium (136-145) mmol/L 139 Potassium (3.5-5.1) mmol/L 3.7 Chloride (98-107) mmol/L 104 Carbon Dioxide (21.0-32.0) mmol/L 27.0 Anion Gap (3-11) mmol/L 8.0 BUN (7-18) mg/dL 13 Creatinine (0.55-1.02) mg/dL 0.9 Estimated GFR/1.73 m2 (mL/min/1.73m2) >= 60.00 Glucose (74-106) mg/dL 101 Calcium (8.5-10.1) mg/dL 9.1 Magnesium (1.8-2.4) mg/dL 1.8 Total Bilirubin (0.2-1.0) mg/dL 0.4 AST (15-37) U/L 16 ALT (14-59) U/L 25 Alkaline Phosphatase (46-116) U/L 66 Troponin I (<0.06) ng/mL < 0.05 Total Protein (6.4-8.2) g/dL 7.4 Albumin (3.4-5.0) g/dL 3.4 TSH (0.36-3.74) uIU/mL 1.12 SARS-CoV-2 (PCR) (Negative) [facility] Ref Test Perform Site Range/Units 05/02/20 05/02/20 15:45 16:50 WBC (4.4-10.8) 10^3/uL RBC (3.93-5.22) 10^6/uL Hgb (11.2-15.7) g/dL Hct (36.0-46.0) % MCV (80-95) fL MCH (27.0-33.0) pg MCHC (32.0-36.0) % RDW (11.7-14.6) % Plt Count (130-400) 10^3/uL MPV (8.0-11.0) fL Immature Gran % Neutrophils % Lymphocytes % Monocytes % Eosinophils % Basophils % Nucleated RBC % % Absolute Neutrophils (1.2-6.7) 10^3/uL Absolute Lymphocytes (1.2-3.4) 10^3/uL Absolute Monocytes (0.1-0.8) 10^3/uL Absolute Eosinophils (0.0-0.7) 10^3/uL Absolute Basophils (0.0-0.2) 10^3/uL D-Dimer (<500) ng/mlFEU Sodium (136-145) mmol/L Potassium (3.5-5.1) mmol/L Chloride (98-107) mmol/L Carbon Dioxide (21.0-32.0) mmol/L Anion Gap (3-11) mmol/L BUN (7-18) mg/dL Creatinine (0.55-1.02) mg/dL Estimated GFR/1.73 m2 (mL/min/1.73m2) Glucose (74-106) mg/dL Calcium (8.5-10.1) mg/dL Magnesium (1.8-2.4) mg/dL Total Bilirubin (0.2-1.0) mg/dL AST (15-37) U/L ALT (14-59) U/L Alkaline Phosphatase (46-116) U/L Troponin I (<0.06) ng/mL < 0.05 Total Protein (6.4-8.2) g/dL Albumin (3.4-5.0) g/dL TSH (0.36-3.74) uIU/mL SARS-CoV-2 (PCR) (Negative) Negative Nasopharyn COVID-19 PCR Not Applicable Ref Test Perform Site [facility] lab ECG Data Attestation: I personally reviewed and interpreted this ECG (s) as follows: Interpretation: EKG shows sinus rhythm at 60, normal axis, mild ST depression V3 through V5 present on prior 05/10/2019, no STEMI, nondiagnostic EKG Repeat EKG shows sinus bradycardia 49, normal axis, no major change from prior earlier today, no STEMI, nondiagnostic EKG HPI General Mode of arrival: ambulatory . Date/Time Provider Initiated Documentation: 05/02/20 12:31 . Limitations to Documentation: no limitations . Information obtained by: patient, RN notes reviewed and old records reviewed . HPI Narrative: Hailey Saha is a 65-year-old woman with a history of GERD, hypothyroidism, anxiety presenting to emergency department chest pain. Patient reports that 4 days ago she noticed chest pain, felt somewhat like her usual GERD, however pain was on both sides of her chest close to her shoulders. Patient reports that she has a long history of GERD with her hiatal hernia. She has tried multiple medications for this and has had reactions to them, and has been working with her PCP to get scheduled for hiatal hernia repair. Patient reports that at this point she she is not on any daily GERD medication, has made dietary changes and takes Tums intermittently as needed. Patient reports that she took Tums as usual without resolution of her pain. Patient reports that pain has been present constantly for the past 4 days. Present in bilateral anterior chest close to her shoulders. No change in pain with position, movement of her arms, exertion, rest, or eating. Patient reports that pain has felt temporarily improved with burping. She reports pain is currently 6-7 out of 10. She denies any other pain, fevers, shortness of breath, cough, vomiting, diarrhea, numbness, weakness, rash. Patient reports no history of cardiac disease. Related Data Home Medications Medication Instructions Recorded Confirmed acetaminophen [Mapap Extra 1,000 mg PO PRN PRN 12/14/15 05/25/20 Strength] lorazepam 0.5 mg tablet 0.5 mg PO BID PRN #14 tab 04/29/19 05/25/20 Synthroid 88 mcg tablet 88 mcg PO DAILY #90 tab-cap NS 07/30/19 05/25/20 fluticasone propionate 2 spr NS PRN PRN 05/02/20 05/25/20 atorvastatin 20 mg tablet 20 mg PO DAILY #20 tab 05/10/20 05/25/20 aspirin 81 mg tablet,delayed 81 mg PO DAILY 05/24/20 05/25/20 release diltiazem HCl 180 mg 180 mg PO DAILY #90 cap 05/25/20 05/25/20 capsule,extended release 24 hr magnesium chloride 71.5 mg 71.5 mg PO DAILY #90 tab 05/25/20 05/25/20 (magnesium chloride) tablet,delayed release Previous Rx's Medication Instructions Recorded lorazepam 0.5 mg tablet 0.5 mg PO BID PRN #14 tab 04/29/19 Synthroid 88 mcg tablet 88 mcg PO DAILY #90 tab-cap NS 07/30/19 atorvastatin 20 mg tablet 20 mg PO DAILY #20 tab 05/10/20 diltiazem HCl 180 mg 180 mg PO DAILY #90 cap 05/25/20 capsule,extended release 24 hr magnesium chloride 71.5 mg 71.5 mg PO DAILY #90 tab 05/25/20 (magnesium chloride) tablet,delayed release Allergies Allergy/AdvReac Type Severity Reaction Status Date / Time coconut Allergy Mild Verified 05/25/20 13:29 gluten Allergy Verified 05/25/20 13:29 omeprazole AdvReac Severe Myalgias Verified 05/25/20 13:29 oxycodone HCl [From Percocet] AdvReac Intermediate Psychosis Verified 05/25/20 13:29 sertraline HCl [From Zoloft] AdvReac Intermediate psychotic Verified 05/25/20 13:29 anesthesia AdvReac Severe Uncoded 05/25/20 13:29 General Stated Complaint: Chest Pain NEHEMIAH: 2 Review of Systems Narrative: Constitutional: denies fevers Eyes: denies eye pain ENT: denies ear pain, dental pain, sore throat Cardiovascular: Reports mild intermittent lower extremity edema, chest pain as per HPI Respiratory: denies SOB, cough GI: denies abdominal pain, vomiting, diarrhea : denies flank pain MSK: denies back pain, neck pain, arthralgias, myalgias Skin: denies rash Neuro: denies headaches, numbness, weakness [facility] Medical History Abnormal stress test Anxiety celiac sprue Closed fracture of one rib of left side with routine healing (12/16/15) Depression Fibrocystic disease of both breasts Gastritis [place] Psoriasis Surgical History COLONOSCOPY/W MAC (12/13/14) ANGÉLICA MONTGOMERY History of bilateral ligation of fallopian tubes (05/28/14) Ligation of fallopian tube Status post thyroidectomy THYROIDECTOMY Family History Mother Diabetes Essential hypertension Personal history of malignant neoplasm Heart disease Father Personal history of malignant neoplasm Sister No problems noted. Brother No problems noted. Grandfather Essential hypertension Heart disease Grandfather , ACCIDENTAL No problems noted. Grandmother No problems noted. Grandmother Personal history of malignant neoplasm Sister No problems noted. Sister Depression Brother No problems noted. Son No problems noted. Daughter No problems noted. Social History Smoking/Tobacco Use Status: Former Tobacco Use Smoking risk assessment performed?: Yes Alcohol Intake: never Drug use: Never Substance use type: does not use Do you feel safe at home: Yes Do you feel safe in your relationship?: Yes Exam Narrative Exam Narrative: Constitutional: well and [id number], pleasant, conversing normally HENT: head atraumatic/normocephalic/normal inspection, mucous membranes moist Eyes: conjunctiva normal, sclera normal, pupils 3mm b/l Neck: no stridor, normal ROM, trachea midline Chest: normal inspection, no tenderness to palpation Resp: normal work of breathing, LCTAB Cardio: normal rate, normal rhythm, no murmur appreciated GI: abdomen soft, non-tender, non-distended Back: normal inspection, no rash Skin: warm, dry, normal color, no rash Neuro: alert, not altered, grossly non-focal, normal tone Ext: no edema, no posterior calf TTP Psych: normal mood, normal affect, normal behavior Course Vital Signs Vital signs: Vital Signs Pulse 67 05/02/20 12:10 Respiratory Rate 16 05/02/20 12:10 Blood Pressure 120/79 05/02/20 12:10 Temperature 36.4 C L 05/02/20 12:11 Temperature Source Temporal Artery Scan 05/02/20 12:11 Pulse 69 05/02/20 13:01 Pulse 74 05/02/20 13:01 Respiratory Rate 19 05/02/20 13:01 Respiratory Effort Non-Labored 05/02/20 13:03 Respiratory Depth Normal 05/02/20 12:56 Respiratory Pattern Normal 05/02/20 12:56 Blood Pressure 115/67 05/02/20 13:01 Blood Pressure Mean 78 05/02/20 13:01 Blood Pressure Position Supine 05/02/20 12:11 Pulse Oximetry 96 05/02/20 13:01 Oxygen Delivery Method Room Air 05/02/20 12:11 Oxygen Flow Rate 0 05/02/20 12:11 Pain Level 3 05/02/20 13:09 Lab/Test Results Lab/Test Results: Laboratory Tests Range/Units 05/02/20 05/02/20 12:25 12:25 WBC (4.4-10.8) 10^3/uL 5.84 RBC (3.93-5.22) 10^6/uL 4.24 Hgb (11.2-15.7) g/dL 13.0 Hct (36.0-46.0) % 39.5 MCV (80-95) fL 93.2 MCH (27.0-33.0) pg 30.7 MCHC (32.0-36.0) % 32.9 RDW (11.7-14.6) % 12.9 Plt Count (130-400) 10^3/uL 231 MPV (8.0-11.0) fL 11.3 H Immature Gran % 0.2 Neutrophils % 64.1 Lymphocytes % 25.5 Monocytes % 6.5 Eosinophils % 2.2 Basophils % 1.5 Nucleated RBC % % 0 Absolute Neutrophils (1.2-6.7) 10^3/uL 3.74 Absolute Lymphocytes (1.2-3.4) 10^3/uL 1.49 Absolute Monocytes (0.1-0.8) 10^3/uL 0.38 Absolute Eosinophils (0.0-0.7) 10^3/uL 0.13 Absolute Basophils (0.0-0.2) 10^3/uL 0.09 Sodium (136-145) mmol/L 139 Potassium (3.5-5.1) mmol/L 3.7 Chloride (98-107) mmol/L 104 Carbon Dioxide (21.0-32.0) mmol/L 27.0 Anion Gap (3-11) mmol/L 8.0 BUN (7-18) mg/dL 13 Creatinine (0.55-1.02) mg/dL 0.9 Estimated GFR/1.73 m2 (mL/min/1.73m2) >= 60.00 Glucose (74-106) mg/dL 101 Calcium (8.5-10.1) mg/dL 9.1 Magnesium (1.8-2.4) mg/dL 1.8 Total Bilirubin (0.2-1.0) mg/dL 0.4 AST (15-37) U/L 16 ALT (14-59) U/L 25 Alkaline Phosphatase (46-116) U/L 66 Troponin I (<0.06) ng/mL < 0.05 Total Protein (6.4-8.2) g/dL 7.4 Albumin (3.4-5.0) g/dL 3.4 TSH (0.36-3.74) uIU/mL 1.12
[2020-05-02 13:30] LABS: D-Dimer 320 ng/mlFEU (<500)
--- NOTE | 2020-05-02 13:51 | DI.RAD_ITS ---
EXAM: XR PORTABLE CHEST AP CLINICAL HISTORY: chest pain TECHNIQUE: 2D digital imaging was performed. COMPARISON: No exams were available for comparison FINDINGS: MEDIASTINUM: Normal. HEART: Normal. PULMONARY VASCULATURE: Normal. LUNGS: Clear. PLEURAL SPACE: No pleural effusion or pneumothorax. BONE:Within normal limits for the patient's age. OTHER FINDINGS:Normal. IMPRESSION: No acute pulmonary findings. DATA REPOSITORY: RADIATION DOSE DELIVERED:
--- NOTE | 2020-05-02 14:30 | RT.EKG_ITS ---
APPROVED REPORT Exam: Resting ECG Patient Location: E HR:49 bpm ECG Measurements Heart Rate 49 AXIS HI 150 P 38 QRSd 104 QRS 75 QT 507 T 30 QTc 458 Conclusion Sinus bradycardia...rate< 60 sinus bradycardia 49, normal axis, no major change from prior earlier today, no STEMI, nondiagnostic EKG
[2020-05-02 16:23] LABS: Troponin I < 0.05 ng/mL (<0.06)
[2020-05-02] MEDS: LORazepam 0.5 MG TAB PO (16:50)
--- NOTE | 2020-05-02 16:58 | NUR.NOTE ---
Nursing Note:Faxed to [facility] a request for stress test. Samara Watson
[2020-05-03 15:01] LABS: COVID-19 RT-PCR UVMMC Result Negative (Negative)
--- NOTE | 2020-05-05 09:12 | NUR.NOTE ---
Nursing Note: Called pt on cell phone and home phone # on file in attempt to notify of negative covid results, no answer. Left message on home phone answering machine to return call for results
== END 2020-05-02 17:03 | disposition home or self-care (01) ==
PROVIDERS: Emergency Provider Student in an Organized Health Care Education/Training Program; PCP Family Medicine
DX: R07.89 Other chest pain (principal); Z03.818 Encounter for observation for suspected exposure to other biological agents ruled out
CPT/HCPCS: 36415; 80053; 93005; 96360; 99285; U0003; 71045; 83735; 84443; 84484; 85025; 85379; 93010; 99284

== ENCOUNTER 2020-05-05 01:49 | Outpatient (CLI) | payer OTHER, SELFPAY ==
--- NOTE | 2020-05-05 09:00 | ETT_ITS ---
APPROVED REPORT Exam: Exercise Treadmill Patient Location: Out-Patient Room/Bed: Stress Nurse: Carmelina Pro RN Ordering Provider:MARIFER BLANCATON, Contact Number: [phone] BMI: 29.53 Baseline Rhythm: Sinus Rhythm Indications: Chest pain Medical History Medical History: gerd, hiatal hernia, hypothyroidism, anxiety, depression, gastritis, hypotension, ob esity Cardiac Medications: levothyroxine, Allergies: coconut, gluten, omeprazole, percocet, zoloft, anesthesia Cardiac Risk Factors: family hx, smoker (former), obesity Previous Cardiac Procedures: None Pretest Chest Pain Characteristics: None Exercise History: Physicaly active Physical Disabilities: R heel bone spur Lung Sounds: Clear to auscultation Heart Sounds: Regular Stress Test Details Test: Exercise stress testing was performed using a Shaun protocol. Rest Stress HR Resting HR Supine: 62 bpm Max Heart Rate (APMHR): 157 bpm Resting HR Standin bpm Target HR (85% APMHR): 133 bpm Max HR Achieved: 148 bpm % of APMHR: 94 Recovery HR: 68 bpm HR response to stress: Normal HR response to stress BP Resting BP Supine: 118/72 mmHg Resting BP Standin/70 mmHg Max BP: 142/60 mmHg Recovery BP: 124/66 mmHg BP response to stress: Normal blood pressure response to stress. ECG Resting ECG: Sinus Rhythm Ectopy: None Stress ECG: Sinus Tachycardia ST Change: Upsloping and downsloping ST depression Lead(s): II, III, V4-V5 Stage: [address] Deviation: 2 mm Arrhythmia: None Recovery ECG: Sinus Rhythm Recovery ST Change: Horizontal and downsloping ST depression Lead(s): II, III, V4,V5 Recovery ST Deviation: 1 mm Recovery Arrhythmia: PAC Clinical Reason for Termination: R heel pain Stress Symptoms: General Fatigue Exercise duration: 9 min03 sec Highest Stage Reached: Stage 4: 4.2 mph at 16% grade. Exercise capacity: 10.23 METs Angina Score: None Cartwright Treadmill Score: -1.0 Rate Pressure Product: [id number] Stress ECG Conclusion 1. The patient exercised for 9 minutes (10 METS). Exercise was stopped due to heel pain. 2. Patient had no symptoms suggestive of ischemia. Her heart rate and blood pressure augmented appro priately. 3. The patient developed 1-2mm horizontal and downsloping ST depressions in stage 3 of exercise which continued into the first minute of recovery. Cartwright Treadmill Score is -1.0 which is Moderate risk. Stress Test Summary STAGE Time (mins) Speed (mph) Grade (%) HR BP SYMPTOMS METS Supine 62 118/72 Standing 77 116/70 1 3 1.7 10 101 120/68 4.6 2 6 2.5 12 140 134/66 7 3 9 3.4 14 145 10.2 1 min recovery 128 142/60 3 min recovery 72 130/62 6 min recovery 68 124/66
== END 2020-05-05 02:09 ==
PROVIDERS: PCP Family Medicine; Visit Provider Student in an Organized Health Care Education/Training Program
DX: R07.9 Chest pain, unspecified (principal); Z82.49 Family history of ischemic heart disease and other diseases of the circulatory system; Z87.891 Personal history of nicotine dependence; E66.9 Obesity, unspecified; I95.9 Hypotension, unspecified; E03.9 Hypothyroidism, unspecified
CPT/HCPCS: 93017

== ENCOUNTER 2020-05-10 13:48 | Outpatient (REF) | payer OTHER, SELFPAY ==
[2020-05-10 16:02] LABS: FREE T4 1.16 ng/dL (0.76-1.46); TSH 1.39 uIU/mL (0.36-3.74)
== END 2020-05-10 13:49 | disposition home or self-care (01) ==
LOC: LBN 13:48
PROVIDERS: PCP Family Medicine; Visit Provider Emergency Medicine
DX: E03.9 Hypothyroidism, unspecified (principal); R79.89 Other specified abnormal findings of blood chemistry
CPT/HCPCS: 84439; 84443

== ENCOUNTER 2020-05-17 00:58 | Outpatient (CLI) | payer OTHER, SELFPAY ==
--- NOTE | 2020-05-17 07:00 | DI.NM_ITS ---
APPROVED REPORT Exam: Exercise Treadmill Patient Location: Out-Patient Room/Bed: Stress Nurse: Yessi Jung RN Ordering Provider:SAGRARIO MENDOZA, Contact Number: [phone] BMI: 32.48 Baseline Rhythm: Sinus Bradycardia Indications: CHEST PAIN, ABNORMAL STRESS TEST. Medical History Medical History: Abnormal stress test, anxiety, depression, hypotension, obesity Cardiac Medications: None. Allergies: Anesthesia, Oxycodone, Sertraline, Coconut, Gluten, Omeprazole Cardiac Risk Factors: FHX of CAD, Smoking (former), Obesity Previous Cardiac Procedures: None Pretest Chest Pain Characteristics: No chest pain Exercise History: Physically active Physical Disabilities: Heel pain Lung Sounds: Clear to auscultation Heart Sounds: Regular Stress Test Details Test: Exercise stress testing was performed using a Shaun protocol. Nuclear Acquisition: Rest Tc-99m/Stress Tc-99m 1 day Rest Isotope: Tc-99m Sestamibi. Dose: 10.1 Date: 05/17/20 Injection Time: 0915 Stress Isotope: Tc-99m Sestamibi. Dose: 32.8 Date: 05/17/20 Injection Time: 1040 HR Resting HR Supine: 51 bpm Max Heart Rate (APMHR): 157 bpm Resting HR Standin bpm Target HR (85% APMHR): 133 bpm Max HR Achieved: 188 bpm % of APMHR: 119 Recovery HR: 174 bpm HR response to stress: Normal HR response to stress Comment: CONVERTED TO SVT IN RECOVERY. BP Resting BP Supine: 140/78 mmHg Resting BP Standin/74 mmHg Max BP: 152/72 mmHg Recovery BP: 128/70 mmHg BP response to stress: Normal blood pressure response to stress. ECG Resting ECG: Sinus Bradycardia Ectopy: None. Stress ECG: Sinus Tachycardia ST Change: Horizontal ST depression Lead(s): II, III, aVF, V3, V4, V5, V6 Stage: [address] Deviation: 2 mm Arrhythmia: None, None, APC's, VPC's, Atrial fibrillation, VPC's, APC's, None Recovery ECG: Supraventricular Tachycardia Recovery ST Change: Horizontal ST depression Lead(s): II, III, aVF, V3, V4, V5 Recovery ST Deviation: 1 mm Recovery Arrhythmia: SVT Comment: patient in and out of SVT for 10 minutes during recovery period. Patient to ER: 1100 Reason Why: patient in sustained SVT despite vagal maneuvers. Clinical Reason for Termination: Right heel pain Stress Symptoms: None. Exercise duration: 8 min05 sec Highest Stage Reached: Stage 3: 3.4 mph at 14% grade. Exercise capacity: 10.16 METs Rate Pressure Product: [id number] Stress ECG Conclusion 1. The resting electrocardiogram was normal. The patient exercised on the Shaun protocol and complet ed stage III, a workload load of 10.16 METS. There were no symptoms of chest discomfort. Electrocar diographically the test was consistent with myocardial ischemia with horizontal ST depression noted i n the inferior and anterolateral leads. At end exercise the patient developed supraventricular tachy cardia which persisted though at times sinus rhythm briefly recurred. Patient was transferred to the emergency room for further evaluation and treatment Stress Test Summary STAGE Time (mins) Speed (mph) Grade (%) HR BP SYMPTOMS METS Supine 51 140/78 Standing 73 136/74 1 3 1.7 10 113 146/72 4.6 2 6 2.5 12 128 152/72 7 1 min recovery 182 144/74 I don't feel right 3 min recovery 141 140/70 6 min recovery 174 128/70 Rhythm change to supraventricular tachycardia occuring 23 seconds into recovery. Intermittent breaks from SVT to NSR, but not sustained despite vagal maneuvers. ER contacted and patient sent before stre ss images taken. MPI Conclusion Normal myocardial perfusion without evidence of ischemia or prior infarction EF 64% Radiologist Interpretation Radiologist agrees with Butt Presser's Interpretation. Radiologist Interpretation by: Jose Manuel Finn MD Interpretation Date/Time: 05/17/2020 14:18:05
== END 2020-05-17 01:18 ==
PROVIDERS: PCP Family Medicine; Visit Provider Emergency Medicine
DX: I25.6 Silent myocardial ischemia (principal); I47.1 Supraventricular tachycardia; R94.39 Abnormal result of other cardiovascular function study; Z82.49 Family history of ischemic heart disease and other diseases of the circulatory system; Z87.891 Personal history of nicotine dependence; E66.9 Obesity, unspecified; R07.9 Chest pain, unspecified
CPT/HCPCS: 78452; 93017

== ENCOUNTER 2020-05-17 11:00 | Inpatient (IN) | payer OTHER, SELFPAY ==
[2020-05-17] VITALS (74 sets, daily range): BP systolic 68–141; BP diastolic 45–107; PULSE 49–191; RESP 10–32; TEMP 36.1–36.6; O2SAT 93–100
--- NOTE | 2020-05-17 11:00 | RT.EKG_ITS ---
APPROVED REPORT Exam: Resting ECG Patient Location: E HR:139 bpm ECG Measurements Heart Rate 139 AXIS GA [id number] P [id number] QRSd 94 QRS 81 QT 323 T -71 QTc 493 Conclusion Atrial fibrillation. Repol abnrm.ST-T neg, ant/lat/inf
--- NOTE | 2020-05-17 11:05 | ED.GENADUL_ITS ---
Discharge Plan Disposition Condition: Good Discharge Details Chief Complaint: Palpitatns Clinical Impression: Atrial fibrillation, new onset Admit Date/Time: 05/17/20 12:42 Admit Provider: Jose Marsh Attending Provider: Jose Marsh Primary Care Provider: Nicolas Collins ED Provider: Kelsea Hoyt Discharge Instructions Activity:: Activity as Tolerated Equipment/Supplies:: No Equipment Needed Diet:: Heart Healthy Discharge Orders Discharge Orders: Discharge Order (Routine); Ordered 05/18/20 Ordered By: Jose Marsh Discharge Data Discharge Date/Time-TO BE ENTERED AT DEPARTURE: 05/17/20 14:00 Medical Decision Making <Kelsea Hoyt - Last Filed: 05/18/20 13:41> 64-year-old female presents to the ER from stress lab where she was having a stress test. She became tachycardic during the stress test, near syncope and she presents with some midepigastric pressure and fullness. She was seen here recently approximately 1 week ago for similar complaint. She did have a work-up at that time. She also had a exercise stress test with ST depression and some changes. Upon initial exam she is tachycardic, heart rate is 139. EKG was reviewed by Dr. Jose Manuel Moulton MD ER attending, atrial fibrillation, some ST depression in 2, 3, aVF please see his official read and report, old EKG available for review. 1117: Spoke with Dr. Flores with cardiology regarding patient. Discussed presentation, EKG, at this time cardiac work-up is ordered and pending. Diltiazem 10 mg bolus and diltiazem drip at starting rate of 5 mg an hour we will titrate as needed for rate control. 324 mg aspirin chewable. And 0.5 mg lorazepam p.o. At this time per Dr. Flores patient may not need to be transferred to [facility] for admission pending negative cardiac work-up. Plan for admission. 1154: Patient up to bedside commode with assistance, 800 mils output appears clear. Patient has no complaints of dysuria or UTI type symptoms. She became significantly hypotensive blood pressure 68/50 upon standing, heart rate jumped up to 139. She did report some dizziness. Patient now back in bed blood pressure 122/55, heart rate 95. She does have diltiazem drip at 5 mg an hour. 500 cc boluses infusing at this time. 1219: Spoke with licensed nuclear control room operator who requested patient come over for the rest of the imaging if possible. At this time patient is stable enough on the diltiazem drip to go over on the monitor and medical staff attendant. At this time CBC is largely within normal limits, CMP is also largely within normal limits, glucose 101 sodium 142, potassium 3.6 BUN is 13, creatinine 0.9 GFR greater than 60 initial troponin is within normal limits less than 0.05, BNP is 164 she is also within normal limits. Covid test ordered which is pending at this time. 1239: Spoke with Dr. Marsh who is on for hospitalist regarding patient case and details he verbalizes understanding and agrees to accept patient for admission for new onset A. fib at this time. <Jose Manuel Moulton MD - Last Filed: 05/17/20 13:11> Patient seen, evaluated [id number], discussed with Ms. Purcellton, I agree with her assessment and plan of care. HPI <Kelsea Hoyt - Last Filed: 05/18/20 13:41> General Mode of arrival: wheelchair . Date/Time Provider Initiated Documentation: 05/17/20 11:00 . Limitations to Documentation: no limitations . Information obtained by: patient and RN notes reviewed . HPI Narrative: 64-year-old female presents to the ER from stress lab where she was having a stress test. She became tachycardic during the stress test, near syncope and she presents with some midepigastric pressure and fullness. She was seen here recently approximately 1 week ago for similar complaint. She did have a work-up at that time. She also had a exercise stress test with ST depression and some changes. Upon initial exam she is tachycardic, heart rate is 139. Related Data Home Medications Medication Instructions Recorded Confirmed acetaminophen [Mapap Extra 1,000 mg PO PRN PRN 12/14/15 05/17/20 Strength] lorazepam 0.5 mg tablet 0.5 mg PO BID PRN #14 tab 04/29/19 05/17/20 Synthroid 88 mcg tablet 88 mcg PO DAILY #90 tab-cap NS 07/30/19 05/17/20 fluticasone propionate 2 spr NS PRN PRN 05/02/20 05/17/20 atorvastatin 20 mg tablet 20 mg PO DAILY #20 tab 05/10/20 05/17/20 diltiazem HCl 120 mg PO HS #30 cap 05/18/20 Previous Rx's Medication Instructions Recorded lorazepam 0.5 mg tablet 0.5 mg PO BID PRN #14 tab 04/29/19 Synthroid 88 mcg tablet 88 mcg PO DAILY #90 tab-cap NS 07/30/19 atorvastatin 20 mg tablet 20 mg PO DAILY #20 tab 05/10/20 diltiazem HCl 120 mg PO HS #30 cap 05/18/20 Allergies Allergy/AdvReac Type Severity Reaction Status Date / Time coconut Allergy Mild Verified 05/17/20 11:12 gluten Allergy Verified 05/17/20 11:12 omeprazole AdvReac Severe Myalgias Verified 05/17/20 11:12 oxycodone HCl [From Percocet] AdvReac Intermediate Psychosis Verified 05/17/20 11:12 sertraline HCl [From Zoloft] AdvReac Intermediate psychotic Verified 05/17/20 11:12 anesthesia AdvReac Severe Uncoded 05/17/20 11:12 General NEHEMIAH: 2 Review of Systems <Kelseajeane Purcellton - Last Filed: 05/18/20 13:41> Narrative: Constitutional: Negative for weight loss, alert and oriented, well groomed, normal body habitus, appears comfortable. HEENT: Denies trauma, headaches, blurry vision, nasal discharge, sore throat, trouble swallowing. Chest: Reports near syncopal episode while having stress test, lightheadedness, midepigastric abdominal fullness, pressure. Denies any radiation in her back. Respiratory: Denies Shortness of breath, cough, hemoptysis. GI: Denies nausea, vomiting, diarrhea, constipation. : Denies dysuria, hematuria, flank pain, rectal bleeding. Neuro: Denies blurry vision, headache or facial numbness. Reports lightheadedness, near syncopal episode. Hematologic: Denies easy bruising, intolerance to heat or cold, hair loss. PFSH <[facility] Filed: 05/18/20 13:41> Medical History Abnormal stress test Anxiety celiac sprue Closed fracture of one rib of left side with routine healing (12/16/15) Depression Fibrocystic disease of both breasts Gastritis Hammertoe Psoriasis Surgical History COLONOSCOPY/W MAC (12/13/14) ANGÉLICA MONTGOMERY History of bilateral ligation of fallopian tubes (05/28/14) Ligation of fallopian tube Status post thyroidectomy THYROIDECTOMY Family History Mother Diabetes Essential hypertension Personal history of malignant neoplasm Heart disease Father Personal history of malignant neoplasm Sister No problems noted. Brother No problems noted. Grandfather Essential hypertension Heart disease Grandfather , ACCIDENTAL No problems noted. Grandmother No problems noted. Grandmother Personal history of malignant neoplasm Sister No problems noted. Sister Depression Brother No problems noted. Son No problems noted. Daughter No problems noted. Social History Smoking/Tobacco Use Status: Former Tobacco Use Smoking risk assessment performed?: Yes Alcohol Intake: never Drug use: Never Substance use type: does not use Do you feel safe at home: Yes Do you feel safe in your relationship?: Yes Exam <eKlsea Hoyt - Last Filed: 05/18/20 13:41> Narrative Exam Narrative: Constitutional: Alert and oriented x3. Appears stated age. Normal body habitus. Appears anxious. Head: Normocephalic, no trauma. Eyes: Pupils PERRLA, Red reflex noted, EOM's intact. Eyelids symmetrical without lesions, discharge, or swelling. ENT: Bilateral TM's WNL, External ear normal to inspection, no mastoid TTP, swelling, or erythema, Nasal turbinates WNL, no nasal discharge. Normal dentition, Posterior pharynx WNL, no exudate. Chest: Tachycardia, irregular, rate of 139?151, normal S1, S2, no rubs, distal pulses intact. Is reporting some mid epigastric pressure and fullness. Resp: Lungs clear to auscultation bilaterally, no wheezes, rales, or rhonchi. Musculoskeletal: Normal gait, 5/5 strength to all four extremities. Skin: No suspicious rashes or lesions. Capillary refill less than 2 sec. Neurologic: Cranial nerves II-XII intact. Alert and oriented x 3. DTR's intact. Hematologic/Lymphatic: No ecchymosis, no lymphadenopathy. Critical Care Time <Kelsea Hoyt - Last Filed: 05/18/20 13:41> Critical Care Time Total Critical Care Time: 60 Attestation: I spent greater than 35 minutes addressing this patient's acute life threatening illness. This time was spent engaged in actions directly related to the patient's care. Failure to initiate these interventions would have likely resulted in clinically significant or life threatening deterioration in the patients condition.
[2020-05-17] MEDS: dilTIAZem 25 MG/5 ML VIAL 10 MG IVP (11:22)
[2020-05-17] MEDS: Aspirin 81 MG CHEW 324 MG CH (11:23)
[2020-05-17] MEDS: LORazepam 0.5 MG TAB PO (11:23)
[2020-05-17] MEDS: dilTIAZem 125 MG in Normal Saline 100 ML IV (11:23)
[2020-05-17] MEDS: Normal Saline 500 ML 750 ML IV (11:35)
[2020-05-17 11:38] LABS: Absolute Basophil Count 0.09 10^3/uL (0.0-0.2); Absolute Eosinophil Count 0.08 10^3/uL (0.0-0.7); Absolute Monocyte Count 0.48 10^3/uL (0.1-0.8); Absolute Neutrophil Count 2.66 10^3/uL (1.2-6.7); Basophils % 1.6; Eosinophils % 1.5; HCT 41.5 % (36.0-46.0); HGB 13.8 g/dL (11.2-15.7); Lymphocytes % 39.9; MCH 30.7 pg (27.0-33.0); MCHC 33.3 % (32.0-36.0); MCV 92.2 fL (80-95); MPV 11.2 fL (8.0-11.0); Monocytes % 8.7; Neutrophils % 48.3; Nucleated RBC 0 %; Platelet Count 253 10^3/uL (130-400); RDW 12.5 % (11.7-14.6); RDW-SD 42.8 fL; WBC 5.51 10^3/uL (4.4-10.8)
[2020-05-17 11:49] LABS: Prothrombin Time 9.9 sec (9.3-11.0)
[2020-05-17 11:56] LABS: ALT 23 U/L (14-59); AST 14 U/L (15-37); Albumin 3.5 g/dL (3.4-5.0); Alkaline Phosphatase 74 U/L (46-116); Anion Gap 11.7 mmol/L (3-11); BUN 13 mg/dL (7-18); Bilirubin, Total 0.5 mg/dL (0.2-1.0); CO2 25.3 mmol/L (21.0-32.0); CREATININE 0.9 mg/dL (0.55-1.02); Calcium 8.9 mg/dL (8.5-10.1); Chloride 105 mmol/L (98-107); Glucose 101 mg/dL (74-106); Magnesium 1.8 mg/dL (1.8-2.4); Potassium 3.6 mmol/L (3.5-5.1); Sodium 142 mmol/L (136-145); Total Protein 7.5 g/dL (6.4-8.2)
[2020-05-17 11:58] LABS: Troponin I < 0.05 ng/mL (<0.06)
[2020-05-17 12:02] LABS: NT-proBNP 164 pg/mL (<300)
[2020-05-17 12:26] LABS: Source Nasal/Nares
[2020-05-17] MEDS: Normal Saline 250 ML IV (13:00)
[2020-05-17 13:14] LABS: D-Dimer 261 ng/mlFEU (<500)
--- NOTE | 2020-05-17 13:15 | NUR.NOTE ---
Nursing Note: Back to cardiology with RN on radiation monitor with cardiazem drip at 5 mg/hr. Will attempt to finish the imaging from patients stress test this AM. Niece with patient.
--- NOTE | 2020-05-17 13:36 | DI.RAD_ITS ---
EXAM: XR CHEST 2V PA LATERAL CLINICAL HISTORY: Chest pain, new onset A-fib TECHNIQUE: 2D digital imaging was performed. COMPARISON: CR XR PORTABLE CHEST AP from 05/02/2020 FINDINGS: The heart is not enlarged. The lungs are clear and well expanded. No pleural effusion seen. Mediastin al contours appear intact. IMPRESSION: Normal chest. RADIATION DOSE DELIVERED: Total DLP
[2020-05-17 15:03] LABS: Troponin I < 0.05 ng/mL (<0.06)
--- NOTE | 2020-05-17 15:30 | RT.EKG_ITS ---
APPROVED REPORT Exam: Resting ECG Patient Location: I HR:97 bpm ECG Measurements Heart Rate 97 AXIS OK [id number] P [id number] QRSd 92 QRS 71 QT 382 T -3 QTc 485 Conclusion Atrial fibrillation...? atrial activity Minimal ST depression, diffuse leads...ST <-0.03mV, ant/lat/inf
[2020-05-17] MEDS: LORazepam 0.5 MG TAB (17:25)
--- NOTE | 2020-05-17 17:30 | RT.EKG_ITS ---
APPROVED REPORT Exam: Resting ECG Patient Location: I HR:60 bpm ECG Measurements Heart Rate [address] 154 P 37 QRSd 99 QRS 71 QT 451 T 31 QTc 449 Conclusion Sinus rhythm...normal P axis, V-rate 60- 99 Normal Electrocardiogram
[2020-05-17] MEDS: Normal Saline 500 ML IV (17:45)
[2020-05-17] MEDS: Potassium Chloride 20 MEQ TABCR PO ×2 (18:00→21:52)
[2020-05-17] MEDS: Normal Saline Flush 10 ML SYR IVP (18:05)
[2020-05-17 18:06] LABS: Troponin I < 0.05 ng/mL (<0.06)
[2020-05-17] MEDS: Magnesium Oxide 400 MG TAB PO (20:23)
[2020-05-17] MEDS: dilTIAZem 30 MG TAB PO (20:23)
--- NOTE | 2020-05-17 21:07 | W.PM.HP.N ---
Date of service: 05/17/20 Time of Service: 16:08 Assessment and Plan Assessment and plan (1) Atrial fibrillation, new onset: Status: Acute Assessment and plan: Developed during exercise stress testing. With IV diluadid bolus, then drip followed by another bolus, she converted to NSR Diltazem short-acting 30mg po Q6 hours initiated after drip d/c'd. Exercise NM stress test; Electrocardiogram showed ischemia. NM imaging nonischemic. Consulted cardiology. [id number] score of 1. Now on ASA daily. K+ and Mg+ low normal; give supplementation. IV hydration. (2) GERD (gastroesophageal reflux disease): Status: Chronic Assessment and plan: Previous S.E. of myalgias with H2 blockers and PPIs. S.E. also to carafate. Qualifiers: Esophagitis presence: esophagitis presence not specified Qualified Code(s): K21.9 - Gastro-esophageal reflux disease without esophagitis (3) Hypothyroidism: Status: Acute Assessment and plan: TSH 1.39 on 05/10/2020 Cont current replacement dosage. Qualifiers: Hypothyroidism type: acquired Qualified Code(s): E03.9 - Hypothyroidism, unspecified (4) Anxiety: Status: Acute Assessment and plan: Ativan 0.5mg po given. Takes rarely at home. History of Present Illness History of Present Illness Chief Complaint: afib with RVR Narrative: This is a 65-year-old female with a PMH of GERD, esophageal ulcer, gastritis, tobacco abuse syndrome, hypothyroidism, depression with anxiety, celiac disease. She presented to the ER from stress lab where she was having an exercise NM stress test. She became tachycardic during the stress test, near syncope. She c/o midepigastric pressure and fullness. She was seen in the ED approximately 1 week ago for similar complaint. She did have a work-up at that time. She also then had an exercise stress test with ST depression and some changes. EKG showed atrial fibrillation, some ST depression in 2, 3, aVF. Dr. Flores with cardiology was consulted by ED provider. Diltiazem 10 mg bolus and diltiazem drip initiated at astarting rate of 5 mg an hour 324 mg aspirin chewable administered. And 0.5 mg p.o. Ativan given. She became significantly hypotensive blood pressure 68/50 upon standing after urinating; heart rate increased to 139. She did report some dizziness. Patient went back to bed and blood pressure improved to 122/55, heart rate 95. A 500ml bolus of NS infused. She was accompanied back to NM suite to complete imaging. CBC within normal limits. glucose 101, sodium 142, potassium 3.6 BUN 13, creatinine 0.9. Initial troponin less than 0.05, BNP 164. Covid pending. She was admitted to the ICU. There she did have recurrence of chest pressure and flip-flopping sensation in her chest. EKG showed afib with mild ST depression in lateral leads vs repolarization abnormality. [facility] Medical History Abnormal stress test Anxiety celiac sprue Closed fracture of one rib of left side with routine healing (12/16/15) Depression Fibrocystic disease of both breasts Gastritis Hammertoe Psoriasis Surgical History COLONOSCOPY/W MAC (12/13/14) ANGÉLICA MONTGOMERY History of bilateral ligation of fallopian tubes (05/28/14) Ligation of fallopian tube Status post thyroidectomy THYROIDECTOMY Family History Mother Diabetes Essential hypertension Personal history of malignant neoplasm Heart disease Father Personal history of malignant neoplasm Sister No problems noted. Brother No problems noted. Grandfather Essential hypertension Heart disease Grandfather , ACCIDENTAL No problems noted. Grandmother No problems noted. Grandmother Personal history of malignant neoplasm Sister No problems noted. Sister Depression Brother No problems noted. Son No problems noted. Daughter No problems noted. Social History Smoking/Tobacco Use Status: Former Tobacco Use Smoking risk assessment performed?: Yes Alcohol Intake: never Drug use: Never Substance use type: does not use Do you feel safe at home: Yes Do you feel safe in your relationship?: Yes Meds Home Medications and Allergies Allergies Allergy/AdvReac Type Severity Reaction Status Date / Time coconut Allergy Mild Verified 05/17/20 11:12 gluten Allergy Verified 05/17/20 11:12 omeprazole AdvReac Severe Myalgias Verified 05/17/20 11:12 oxycodone HCl [From Percocet] AdvReac Intermediate Psychosis Verified 05/17/20 11:12 sertraline HCl [From Zoloft] AdvReac Intermediate psychotic Verified 05/17/20 11:12 anesthesia AdvReac Severe Uncoded 05/17/20 11:12 Home Medications Medication Instructions Recorded Confirmed Type acetaminophen [Mapap Extra 1,000 mg PO PRN PRN 12/14/15 05/17/20 History Strength] lorazepam 0.5 mg tablet 0.5 mg PO BID PRN #14 tab 04/29/19 05/17/20 Rx Synthroid 88 mcg tablet 88 mcg PO DAILY #90 tab-cap NS 07/30/19 05/17/20 Rx fluticasone propionate 2 spr NS PRN PRN 05/02/20 05/17/20 History atorvastatin 20 mg tablet 20 mg PO DAILY #20 tab 05/10/20 05/17/20 Rx Exam Const General: cooperative and anxious Nutritional Appearance: overweight Orientation: alert, awake and oriented x3 Eyes Sclera: sclerae normal Pupils: PERRL Resp Effort & Inspection: normal respiratory effort Auscultation: clear to auscultation bilaterally Cardio Other: Irreg Irreg and tachy initially. Subsequently converted to NSR with rate in the 70's. GI Palpation: soft and nontender Auscultation: normal bowel sounds Neuro General: no focal motor deficits Cranial Nerves: facial strength normal Cognition: normal cognition Speech: speech normal Extrem General: no pedal edema and no calf tenderness Psych Appearance: grossly normal Mental Status: mental status grossly normal Mood: anxious mood Affect: anxious affect Results Labs Result diagrams: 05/17/20 11:20 05/17/20 11:20 Labs: Laboratory Results - last 24 hr 05/17/20 05/17/20 05/17/20 11:20 11:20 11:20 WBC RBC Hgb Hct MCV MCH MCHC RDW Plt Count MPV Immature Gran % Neutrophils % Lymphocytes % Monocytes % Eosinophils % Basophils % Nucleated RBC % Absolute Neutrophils Absolute Lymphocytes Absolute Monocytes Absolute Eosinophils Absolute Basophils PT 9.9 INR 1.0 D-Dimer 261 Sodium 142 Potassium 3.6 Chloride 105 Carbon Dioxide 25.3 Anion Gap 11.7 H BUN 13 Creatinine 0.9 Estimated GFR/1.73 m2 >= 60.00 Glucose 101 Calcium 8.9 Magnesium 1.8 Total Bilirubin 0.5 AST 14 L ALT 23 Alkaline Phosphatase 74 Troponin I < 0.05 NT-Pro-B Natriuret Pep 164 Total Protein 7.5 Albumin 3.5 COVID-19 Source 05/17/20 05/17/20 05/17/20 11:20 12:15 12:47 WBC 5.51 RBC 4.50 Hgb 13.8 Hct 41.5 MCV 92.2 MCH 30.7 MCHC 33.3 RDW 12.5 Plt Count 253 MPV 11.2 H Immature Gran % 0.0 Neutrophils % 48.3 Lymphocytes % 39.9 Monocytes % 8.7 Eosinophils % 1.5 Basophils % 1.6 Nucleated RBC % 0 Absolute Neutrophils 2.66 Absolute Lymphocytes 2.20 Absolute Monocytes 0.48 Absolute Eosinophils 0.08 Absolute Basophils 0.09 PT INR D-Dimer Sodium Potassium Chloride Carbon Dioxide Anion Gap BUN Creatinine Estimated GFR/1.73 m2 Glucose Calcium Magnesium Total Bilirubin AST ALT Alkaline Phosphatase Troponin I Cancelled NT-Pro-B Natriuret Pep Total Protein Albumin COVID-19 Source Nasal/nares 05/17/20 05/17/20 14:27 17:35 WBC RBC Hgb Hct MCV MCH MCHC RDW Plt Count MPV Immature Gran % Neutrophils % Lymphocytes % Monocytes % Eosinophils % Basophils % Nucleated RBC % Absolute Neutrophils Absolute Lymphocytes Absolute Monocytes Absolute Eosinophils Absolute Basophils PT INR D-Dimer Sodium Potassium Chloride Carbon Dioxide Anion Gap BUN Creatinine Estimated GFR/1.73 m2 Glucose Calcium Magnesium Total Bilirubin AST ALT Alkaline Phosphatase Troponin I < 0.05 < 0.05 NT-Pro-B Natriuret Pep Total Protein Albumin COVID-19 Source Last Vital Signs Temp 36.1 C L 05/17/20 15:15 Pulse 57 L 05/17/20 20:15 Resp 15 05/17/20 20:15 BP 97/63 L 05/17/20 20:15 Pulse Ox 98 05/17/20 20:15 COVID-19 Screening Have you, or household traveled for leisure in last 14 days?: No Had IN PERSON contact w/suspected or confirmed C-19 person: No
[2020-05-17 21:41] LABS: COVID-19 PCR Negative (Negative)
[2020-05-17] MEDS: Calcium Carbonate *TUMS* 500 MG CHEW 2000 MG PO (21:41)
[2020-05-18] VITALS (24 sets, daily range): BP systolic 83–112; BP diastolic 42–58; PULSE 44–72; RESP 11–23; TEMP 35.8–36.6; O2SAT 93–98
[2020-05-18 06:53] LABS: Anion Gap 8.8 mmol/L (3-11); BUN 13 mg/dL (7-18); CO2 25.2 mmol/L (21.0-32.0); CREATININE 0.8 mg/dL (0.55-1.02); Calcium 8.5 mg/dL (8.5-10.1); Chloride 108 mmol/L (98-107); Glucose 92 mg/dL (74-106); Sodium 142 mmol/L (136-145)
[2020-05-18] MEDS: Magnesium Oxide 400 MG TAB PO (09:37)
[2020-05-18] MEDS: Normal Saline Flush 10 ML SYR IVP (09:37)
[2020-05-18] MEDS: Calcium Carbonate *TUMS* 500 MG CHEW 2000 MG PO (09:40)
--- NOTE | 2020-05-18 09:49 | INITIAL_ITS ---
- If Service Date Differs Date of service: 05/18/20 Time of Service: 09:49 Care Management Initial Assess REASON FOR HOSPITALIZATION:: Atrial Fib with Rapid Ventricular Rate PAST MEDICAL HISTORY/PAST SURGICAL HISTORY:: Medical History. Abnormal stress test. Anxiety. celiac sprue. Closed fracture of one rib of left side with routine healing (12/16/15). Depression. Fibrocystic disease of both breasts. Gastritis. Hammertoe. Psoriasis. Surgical History. COLONOSCOPY/W MAC (12/13/14). ANGÉLICA MONTGOMERY. History of bilateral ligation of fallopian tubes (05/28/14). Ligation of fallopian tube. Status post thyroidectomy. THYROIDECTOMY PREVIOUS FUNCTIONAL STATUS/SOCIAL/FAMILY SUPPORTS:: Hailey lives in [facility] with her s/o, Jerome. She has a daughter who lives locally, and a son who lives in [place]. She works at [facility] [employer]. She is independent at baseline. CURRENT FUNCTIONAL STATUS:: Hailey was sitting up in her chair when CM met with her. She reported that she was feeling better today, and that per MD, she will be discharged home. She reported that she is very independent and does not require any services at this time. CM will continue to follow. ADVANCE DIRECTIVES:: None on file. CM will offer forms. Has patient been provided with info about the portal/API?: Yes Did the patient sign up for the portal?: Yes (previously) CODE STATUS:: Full Code INSURANCE COVERAGE / FINANCIAL ISSUES:: [employer] CURRENT HOME/COMMUNITY SERVICES/EQUIPMENT:: No current services or equipment. PRIMARY CARE PHYSICIAN:: Nicolas Collins POTENTIAL DISCHARGE NEEDS:: Evaluations for further needs, outpatient follow up, PCP appointment. PATIENT/FAMILY EDUCATION NEEDS:: Review discharge instructions regarding activity levels and medications, disucssion of self care needs and goals of care. ANTICIPATED BARRIERS TO DISCHARGE:: None identified at this time. TRANSPORTATION:: Via private vehicle by family. PLAN:: Anticipate Hailey will return home once medically cleared. She will be driven home via private vehicle by family. She will follow up with her PCP and discharge plan of care. CM will continue to follow.
--- NOTE | 2020-05-18 10:57 | W.PM.DS.N ---
Date of service: 05/18/20 Time of Service: 10:58 DS: Diagnosis Discharge Diagnosis (1) Atrial fibrillation, new onset: Status: Acute (2) GERD (gastroesophageal reflux disease): Status: Chronic (3) Hypothyroidism: Status: Acute (4) Anxiety: Status: Acute Discharge Plan Disposition Patient Disposition: HOME Condition: Good Discharge Details Reason For Visit: ATRIAL FIBRILLATION WITH RAPID VENTRICULAR RATE Admit Date/Time: 05/17/20 12:42 Admit Provider: Jose aMrsh Attending Provider: Jose Marsh [facility] Hospital Course: This is a 65-year-old female with a PMH of GERD, esophageal ulcer, gastritis, tobacco abuse syndrome, hypothyroidism, depression with anxiety, celiac disease. She presented to the ER from stress lab where she was having an exercise NM stress test. She became tachycardic during the stress test, near syncope. She c/o midepigastric pressure and fullness. She was seen in the ED approximately 1 week ago for similar complaint. She did have a work-up at that time. She also then had an exercise stress test with ST depression and some changes. EKG showed atrial fibrillation, some ST depression in 2, 3, aVF. Dr. Flores with cardiology was consulted by ED provider. Diltiazem 10 mg bolus and diltiazem drip initiated at astarting rate of 5 mg an hour 324 mg aspirin chewable administered. And 0.5 mg p.o. Ativan given. She became significantly hypotensive blood pressure 68/50 upon standing after urinating; heart rate increased to 139. She did report some dizziness. Patient went back to bed and blood pressure improved to 122/55, heart rate 95. A 500ml bolus of NS infused. She was accompanied back to NM suite to complete imaging. CBC within normal limits. glucose 101, sodium 142, potassium 3.6 BUN 13, creatinine 0.9. With oral replacement her K+ improved to 4.0. Her magnesium was 1.8. She will take a magnesium 400 mg supplement nightly. Discussed importance of good hydration in managing afib. Initial troponin less than 0.05, BNP 164. Covid pending. She was admitted to the ICU. There she did have recurrence of chest pressure and flip-flopping sensation in her chest. EKG showed afib with mild ST depression in lateral leads vs repolarization abnormality. She converted to NSR and remained sinus bradycardia with improvement in the rate on the morning of discharge into the 60's. She endorses having a typical HR in the 50-60's range. She felt well and would like to d/c with outpatient cardiolgoy and PCP follow-up. Exercise NM stress test; Electrocardiogram showed ischemia. NM imaging nonischemic. [id number] score of 1. PCP in 1-2 weeks. Home Meds and New Rx's Prescriptions: No Action atorvastatin 20 mg tablet 20 mg PO DAILY Qty: 20 RF: 4 lorazepam 0.5 mg tablet 0.5 mg PO BID PRN (Reason: anxiety) Qty: 14 RF: 0 levothyroxine [Synthroid] 88 mcg tablet 88 mcg PO DAILY Qty: 90 RF: 4 acetaminophen [Mapap Extra Strength] 500 MG tablet 1,000 mg PO PRN PRNRF: 0 fluticasone propionate 16 GM spray,suspension 2 spr NS PRN PRNRF: 0 Discharge Instructions Instructions: A-fib (Atrial Fibrillation) (DC) Referrals: Jesse Barahona MD [MD CONSULTING PHYSICIAN] - (Follow up hospitalization for atrial fibrillation with RVR.) Activity:: Activity as Tolerated Equipment/Supplies:: No Equipment Needed Diet:: Heart Healthy DS: Summary Time Spent with Patient providing and/or coordinating discharge services: Greater than 30 minutes Status at Discharge Functional status at discharge: independent ambulation Overall status at discharge: patient is back to baseline Mental Status: mental status grossly normal Speech and Movement: speech and movement normal Mood: congruent mood Affect: normal affect Exam Const General: cooperative and acute distress Nutritional Appearance: overweight Neck Neck: full ROM and no JVD Resp Effort & Inspection: normal respiratory effort Auscultation: clear to auscultation bilaterally Cardio Rate: regular rate Rhythm: regular rhythm Heart Sounds: S1 normal and S2 normal GI Palpation: soft and nontender Extrem General: no pedal edema and no calf tenderness Psych Mental Status: mental status grossly normal Speech and Movement: speech and movement normal Mood: congruent mood Affect: normal affect DS: Data Vitals/I&O Vitals and I&O: Vital Signs Temperature 35.8 C L 05/18/20 07:45 Temperature Source Temporal Artery Scan 05/18/20 07:45 Pulse 53 L 05/18/20 07:42 Pulse 63 05/18/20 08:00 Respiratory Rate 20 05/18/20 08:00 Respiratory Effort Non-Labored 05/18/20 07:45 Respiratory Depth Normal 05/18/20 07:45 Respiratory Pattern Normal 05/18/20 07:45 Blood Pressure 112/56 L 05/18/20 07:42 Blood Pressure Mean 65 05/18/20 07:42 Blood Pressure Position Sitting 05/18/20 07:45 Pulse Oximetry 97 05/18/20 07:42 Oxygen Delivery Method Room Air 05/18/20 07:45 Oxygen Flow Rate 0 05/18/20 07:45 Pain Level 0 05/18/20 07:45 Intake & Output 05/17/20 05/17/20 05/18/20 11:59 23:59 11:59 Intake Total 1536.683 / 1536.683 Output Total 825 / 825 Balance 711.683 / 711.683 Weight 100.3 kg 96.3 kg Intake: IV 1286.683 / 1286.683 Oral 250 / 250 Output: Urine 825 / 825 Other: Urine Color Yellow Urine Appearance Clear Urine Odor Normal Comment Voiding clear yellow urine in commode. Voiding clear yellow urine in commode. Voiding Methods Bedside Commode Data Completed and Pending Labs on day of discharge: Labs from last 24 hours 05/18/20 05/17/20 05/17/20 06:23 17:35 14:27 WBC RBC Hgb Hct MCV MCH MCHC RDW Plt Count MPV Immature Gran % Neutrophils % Lymphocytes % Monocytes % Eosinophils % Basophils % Nucleated RBC % Absolute Neutrophils Absolute Lymphocytes Absolute Monocytes Absolute Eosinophils Absolute Basophils PT INR D-Dimer Sodium 142 Potassium 4.0 Chloride 108 H Carbon Dioxide 25.2 Anion Gap 8.8 BUN 13 Creatinine 0.8 Estimated GFR/1.73 m2 >= 60.00 Glucose 92 Calcium 8.5 Magnesium Total Bilirubin AST ALT Alkaline Phosphatase Troponin I < 0.05 < 0.05 NT-Pro-B Natriuret Pep Total Protein Albumin COVID-19 Source SARS-CoV-2 (PCR) 05/17/20 05/17/20 05/17/20 12:47 12:15 11:20 WBC 5.51 RBC 4.50 Hgb 13.8 Hct 41.5 MCV 92.2 MCH 30.7 MCHC 33.3 RDW 12.5 Plt Count 253 MPV 11.2 H Immature Gran % 0.0 Neutrophils % 48.3 Lymphocytes % 39.9 Monocytes % 8.7 Eosinophils % 1.5 Basophils % 1.6 Nucleated RBC % 0 Absolute Neutrophils 2.66 Absolute Lymphocytes 2.20 Absolute Monocytes 0.48 Absolute Eosinophils 0.08 Absolute Basophils 0.09 PT INR D-Dimer Sodium Potassium Chloride Carbon Dioxide Anion Gap BUN Creatinine Estimated GFR/1.73 m2 Glucose Calcium Magnesium Total Bilirubin AST ALT Alkaline Phosphatase Troponin I Cancelled NT-Pro-B Natriuret Pep Total Protein Albumin COVID-19 Source Nasal/nares SARS-CoV-2 (PCR) Negative 05/17/20 05/17/20 05/17/20 11:20 11:20 11:20 WBC RBC Hgb Hct MCV MCH MCHC RDW Plt Count MPV Immature Gran % Neutrophils % Lymphocytes % Monocytes % Eosinophils % Basophils % Nucleated RBC % Absolute Neutrophils Absolute Lymphocytes Absolute Monocytes Absolute Eosinophils Absolute Basophils PT 9.9 INR 1.0 D-Dimer 261 Sodium 142 Potassium 3.6 Chloride 105 Carbon Dioxide 25.3 Anion Gap 11.7 H BUN 13 Creatinine 0.9 Estimated GFR/1.73 m2 >= 60.00 Glucose 101 Calcium 8.9 Magnesium 1.8 Total Bilirubin 0.5 AST 14 L ALT 23 Alkaline Phosphatase 74 Troponin I < 0.05 NT-Pro-B Natriuret Pep 164 Total Protein 7.5 Albumin 3.5 COVID-19 Source SARS-CoV-2 (PCR) [facility] Medical History Abnormal stress test Anxiety celiac sprue Closed fracture of one rib of left side with routine healing (12/16/15) Depression Fibrocystic disease of both breasts Gastritis Hammertoe Psoriasis Surgical History COLONOSCOPY/W MAC (12/13/14) ANGÉLICA MONTGOMERY History of bilateral ligation of fallopian tubes (05/28/14) Ligation of fallopian tube Status post thyroidectomy THYROIDECTOMY Family History Mother Diabetes Essential hypertension Personal history of malignant neoplasm Heart disease Father Personal history of malignant neoplasm Sister No problems noted. Brother No problems noted. Grandfather Essential hypertension Heart disease Grandfather , ACCIDENTAL No problems noted. Grandmother No problems noted. Grandmother Personal history of malignant neoplasm Sister No problems noted. Sister Depression Brother No problems noted. Son No problems noted. Daughter No problems noted. Social History Smoking/Tobacco Use Status: Former Tobacco Use Smoking risk assessment performed?: Yes Alcohol Intake: never Drug use: Never Substance use type: does not use Do you feel safe at home: Yes Do you feel safe in your relationship?: Yes
--- NOTE | 2020-05-18 12:46 | PDOC.CMDIS ---
- If Service Date Differs Date of service: 05/18/20 Time of Service: 12:46 LACE Index Scoring Tool - Questions: Length of Stay (in days): 2 Acuity (Admit via E.D.?): Yes E.D. Visits: 3 - Answers: Total Score: 8 Risk of Readmission: Low Risk Care Management Discharge Reason for Hospitalization: Atrial Fib with Rapid Ventricular Rate Discharge Plan: Hailey will return home today with no additional services. Her s/o, Jerome will drive her home via private vehicle. She will follow up with her PCP and discharge plan of care. She is happy to be going home. Patient/Family Education Needs: Review discharge instructions regarding activity and medications, discussion of self care needs and goals of care.
== END 2020-05-18 12:45 | disposition home or self-care (01) | DRG 310 ==
LOC: ER 13:17 → ICU 14:07
PROVIDERS: Admitting Provider Family Medicine; Emergency Provider Registered Nurse Emergency; PCP Family Medicine; Visit Provider Family Medicine
DX: I48.91 Unspecified atrial fibrillation (principal); K21.9 Gastro-esophageal reflux disease without esophagitis; E03.9 Hypothyroidism, unspecified; K29.70 Gastritis, unspecified, without bleeding; K90.0 Celiac disease; F41.8 Other specified anxiety disorders; F17.210 Nicotine dependence, cigarettes, uncomplicated; I95.9 Hypotension, unspecified; Z87.891 Personal history of nicotine dependence; R07.89 Other chest pain
CPT/HCPCS: 36415; 80048; 80053; 87635; 93005; 96361; 96365; 96366; 96376; 99223; 99239; 99291; 71046; 83735; 83880; 84484; 85025; 85379; 85610; 93010

== ENCOUNTER 2020-05-25 08:28 | Emergency (ER) | payer OTHER, SELFPAY ==
[2020-05-25] VITALS (24 sets, daily range): BP systolic 111–133; BP diastolic 62–75; PULSE 46–65; RESP 9–19; TEMP 36.1; O2SAT 97–100
--- NOTE | 2020-05-25 08:15 | RT.EKG_ITS ---
APPROVED REPORT Exam: Resting ECG Patient Location: E HR:59 bpm ECG Measurements Heart Rate 59 AXIS WV 150 P 40 QRSd 107 QRS 68 QT 454 T 14 QTc 451 Conclusion Sinus bradycardia...rate< 60
[2020-05-25 08:51] LABS: Abs Immature Grans 0.01 10^3/uL (0.0-0.06); Absolute Basophil Count 0.12 10^3/uL (0.0-0.2); Absolute Lymphocyte Count 1.36 10^3/uL (1.2-3.4); Absolute Monocyte Count 0.39 10^3/uL (0.1-0.8); Absolute Neutrophil Count 2.43 10^3/uL (1.2-6.7); Basophils % 2.7; Eosinophils % 4.4; HCT 40.5 % (36.0-46.0); HGB 13.4 g/dL (11.2-15.7); Immature Grans % 0.2; Lymphocytes % 30.2; MCH 31.1 pg (27.0-33.0); MCHC 33.1 % (32.0-36.0); MPV 11.2 fL (8.0-11.0); Monocytes % 8.6; Neutrophils % 53.9; Nucleated RBC 0 %; Platelet Count 235 10^3/uL (130-400); RBC 4.31 10^6/uL (3.93-5.22); RDW 12.3 % (11.7-14.6); WBC 4.51 10^3/uL (4.4-10.8)
--- NOTE | 2020-05-25 09:00 | DI.CT_ITS ---
EXAM: CT HEAD WO CLINICAL HISTORY: headache, recent afib. TECHNIQUE: Imaging Protocol: Axial computed tomography images with coronal and sagittal reformatted images were created and reviewed COMPARISON: CT CT sinus wo from 05/30/2018 FINDINGS: There are no skull fractures. Small amount of fluid is noted in the sphenoid sinuses.. Remainder o f the visualized paranasal sinuses are clear. There is a small bony density in the mastoid air cells measuring 5 x 4 millimeters, benign appearance and unchanged from May 2018. There is no evidence of intracranial hemorrhage, mass effect, or shift of midline structures. There are no extra-axial fluid collections. The ventricles are not enlarged or shifted and there is no blo od within the ventricular system nor within the basal cisterns. IMPRESSION: No acute intracranial findings on this noninfused CT scan of the brain. Small benign-appearing osteophytic density is noted in the left mastoid L cells measuring 5 x 4 parag meters, unchanged from May 2018. Small amount of fluid in the sphenoid sinus. RADIATION DOSE DELIVERED: 750.92mGy.cm Total DLP DATA REPOSITORY: All CT scans at this facility are submitted to the National Radiology Data Registry (NRDR) Dose Index Registry (DIR) with the [employer] ([employer]). RADIATION OPTIMIZATION: All CT scans at this facility use at least one of these dose optimization te chniques: automated exposure control; mA and/or kV adjustment per patient size (includes targeted exa ms where dose is matched to clinical indication); or iterative reconstruction.
[2020-05-25 09:09] LABS: ALT 21 U/L (14-59); AST 12 U/L (15-37); Albumin 3.5 g/dL (3.4-5.0); Alkaline Phosphatase 70 U/L (46-116); Anion Gap 7.9 mmol/L (3-11); BUN 13 mg/dL (7-18); Bilirubin, Total 0.5 mg/dL (0.2-1.0); CO2 29.1 mmol/L (21.0-32.0); CREATININE 0.9 mg/dL (0.55-1.02); Calcium 8.9 mg/dL (8.5-10.1); Chloride 104 mmol/L (98-107); Glucose 92 mg/dL (74-106); Magnesium 1.7 mg/dL (1.8-2.4); Potassium 3.4 mmol/L (3.5-5.1); Sodium 141 mmol/L (136-145); TSH (W/Ref FT4) 0.93 uIU/mL (0.36-3.74); Total Protein 7.5 g/dL (6.4-8.2); Troponin I < 0.05 ng/mL (<0.06)
--- NOTE | 2020-05-25 09:25 | ED.GENADUL_ITS ---
Discharge Plan Disposition Patient Disposition: HOME Discharge Details Clinical Impression: Headache, Palpitations, Hypomagnesemia, Hypokalemia Primary Care Provider: Nicolas Collins ED Provider: Lencho Avina Home Meds and New Rx's Prescriptions: Continued aspirin 81 mg tablet,delayed release (DR/EC) 81 mg PO DAILY RF: 0 atorvastatin 20 mg tablet 20 mg PO DAILY Qty: 20 RF: 4 lorazepam 0.5 mg tablet 0.5 mg PO BID PRN (Reason: anxiety) Qty: 14 RF: 0 levothyroxine [Synthroid] 88 mcg tablet 88 mcg PO DAILY Qty: 90 RF: 4 acetaminophen [Mapap Extra Strength] 500 MG tablet 1,000 mg PO PRN PRNRF: 0 diltiazem HCl 120 mg Capsule,Extended Release 24hr 120 mg PO HS Qty: 30 RF: 0 fluticasone propionate 16 GM spray,suspension 2 spr NS PRN PRNRF: 0 Discharge Instructions Instructions: Heart Palpitations (ED), Hypokalemia (ED), Hypomagnesemia (ED), General Headache (ED) Additional Instructions: Please follow-up with your primary care physician. Dr. Jones would like to see you in clinic today at 1:30p. A sign installer was placed today that had previously been ordered by your primary care physician. Please be sure to follow-up with your primary care physician regarding this diagnostic test. Your magnesium and potassium levels were mildly low today. You were given magnesium 1 g IV and oral potassium 40 mEq. Please see instructions on dietary changes. Lumbar puncture to assess for intracranial hemorrhage was recommended today and you provided informed refusal of this diagnostic test. Return to the ER for any worsening or new concerning symptoms including persistent or worsening headache. Referrals: Yan Jones DO [ [facility] STAFF PHYSICIAN] - Medical Decision Making 930??65-year-old female recently diagnosed with atrial fibrillation, now on diltiazem and baby aspirin, here with headache that started 1 hour ago and has persisted, also with recent palpitations this morning that started with exercise. Patient is neurologically intact. Hemodynamically stable. Screening ECG to assess for arrhythmia was reviewed and interpreted by me: Please see report, sinus bradycardia 59 bpm, nondiagnostic. New onset headache about 1 hour ago likely related to recent sinus congestion and stress of palpitations but consider acute intracranial hemorrhage. Plan to obtain CT of the head. Labs to assess for electrolyte abnormalities and thyroid dysfunction were reviewed. Patient does have mild hypomagnesemia and hypokalemia. I will replete magnesium with 1 g IV and then potassium orally. --CT of the head was reviewed and interpreted by radiology: Some fluid in sphenoid sinus, old, unchanged benign bone lesion, no acute process, please see report. I discussed results of CT with the patient and recommended we proceed to lumbar puncture to definitively rule out hemorrhage. Patient provided informed refusal of lumbar puncture. Patient has decisional making capacity. I called and spoke with patient's primary care physician, Dr. Jones, who would like to see the patient in follow-up today for likely medication adjustm ent. Discharge instructions were reviewed with the patient and she was encouraged to return anytime for any worsening or new concerning symptoms and to proceed with work-up as recommended. power plant supervisor was ordered outpatient and patient was scheduled to have this applied later this week. Monitor was applied today for convenience. HPI General Mode of arrival: ambulatory . Date/Time Provider Initiated Documentation: 05/25/20 08:40 . Limitations to Documentation: no limitations . Information obtained by: patient . HPI Narrative: 65-year-old female with history of hypothyroidism, recently diagnosed atrial fibrillation, now on diltiazem, presents with chief complaint of headache. Patient notes she developed headache about an hour ago and it has persisted. Headache is 8/10. Headache is localized to frontal bilaterally. No associated numbness or tingling. No visual change. No nausea or vomiting. No dizziness. No neck pain or stiffness. No recent fever. Patient has had recent sinus congestion for the past couple days. Patient was recently diagnosed with atrial fibrillation and hospitalized. She was started on diltiazem which she has been taking daily. She notes that this morning she was on the exercise bike and felt some flip-flopping palpitations. She stopped exercising. The symptoms resolved quickly. She did have some associated shortness of breath while on the bike. This also resolved. No associated chest pain. Since this episode earlier this morning she has had about 6 brief episodes of palpitation that occurred at rest. She has had no recurrent shortness of breath or chest pain. She does note that she had some muscle pain: In her right calf yesterday that has resolved. Only recent medication change was to decrease her atorvastatin to every other day. No change in Synthroid or diltiazem since start. Related Data Home Medications Medication Instructions Recorded Confirmed acetaminophen [Mapap Extra 1,000 mg PO PRN PRN 12/14/15 05/25/20 Strength] lorazepam 0.5 mg tablet 0.5 mg PO BID PRN #14 tab 04/29/19 05/25/20 Synthroid 88 mcg tablet 88 mcg PO DAILY #90 tab-cap NS 07/30/19 05/25/20 fluticasone propionate 2 spr NS PRN PRN 05/02/20 05/25/20 atorvastatin 20 mg tablet 20 mg PO DAILY #20 tab 05/10/20 05/25/20 diltiazem HCl 120 mg PO HS #30 cap 05/18/20 05/25/20 aspirin 81 mg tablet,delayed 81 mg PO DAILY 05/24/20 05/25/20 release Previous Rx's Medication Instructions Recorded lorazepam 0.5 mg tablet 0.5 mg PO BID PRN #14 tab 04/29/19 Synthroid 88 mcg tablet 88 mcg PO DAILY #90 tab-cap NS 07/30/19 atorvastatin 20 mg tablet 20 mg PO DAILY #20 tab 05/10/20 diltiazem HCl 120 mg PO HS #30 cap 05/18/20 Allergies Allergy/AdvReac Type Severity Reaction Status Date / Time coconut Allergy Mild Verified 05/25/20 08:40 gluten Allergy Verified 05/25/20 08:40 omeprazole AdvReac Severe Myalgias Verified 05/25/20 08:40 oxycodone HCl [From Percocet] AdvReac Intermediate Psychosis Verified 05/25/20 08:40 sertraline HCl [From Zoloft] AdvReac Intermediate psychotic Verified 05/25/20 08:40 anesthesia AdvReac Severe Uncoded 05/25/20 08:40 General Stated Complaint: Palpitatns NEHEMIAH: 2 Review of Systems All systems reviewed & are unremarkable except as noted in HPI and below Constitutional Constitutional: Denies fever(s) Musculoskeletal Musculoskeletal: Reports as per HPI [facility] Medical History Abnormal stress test Anxiety celiac sprue Closed fracture of one rib of left side with routine healing (12/16/15) Depression Fibrocystic disease of both breasts Gastritis Hammertoe Psoriasis Surgical History COLONOSCOPY/W MAC (12/13/14) ANGÉLICA MONTGOMERY History of bilateral ligation of fallopian tubes (05/28/14) Ligation of fallopian tube Status post thyroidectomy THYROIDECTOMY Family History Mother Diabetes Essential hypertension Personal history of malignant neoplasm Heart disease Father Personal history of malignant neoplasm Sister No problems noted. Brother No problems noted. Grandfather Essential hypertension Heart disease Grandfather , ACCIDENTAL No problems noted. Grandmother No problems noted. Grandmother Personal history of malignant neoplasm Sister No problems noted. Sister Depression Brother No problems noted. Son No problems noted. Daughter No problems noted. Social History Smoking/Tobacco Use Status: Former Tobacco Use Smoking risk assessment performed?: Yes Alcohol Intake: never Drug use: Never Substance use type: does not use Do you feel safe at home: Yes Do you feel safe in your relationship?: Yes Exam Const General: cooperative and no acute distress HENMT Mouth: moist mucous membranes Eyes Conjunctivae: normal conjunctivae Sclera: normal sclerae Neck Neck: trachea midline and supple Resp Auscultation: clear to auscultation bilaterally, no rales, no rhonchi and no wheezes Cardio Rate: regular rate and not tachycardic Rhythm: regular rhythm GI Palpation: soft, not firm, no guarding, no masses, not rigid and nontender Skin General skin exam: no rashes or lesions noted Neuro General: patient alert, patient awake, patient oriented x3 and tone normal Cranial Nerves: CN's II-XI intact bilaterally Cognition: normal cognition Speech: speech normal Gait: normal gait Motor: muscle tone normal throughout and strength 5/5 throughout Sensory Exam: no sensory deficits noted Extrem General: no calf tenderness and no edema Psych Appearance: grossly normal Mental Status: mental status grossly normal Speech and Movement: speech and movement normal Course Vital Signs Vital signs: Vital Signs Respiratory Rate 18 05/25/20 08:31 Temperature 36.1 C L 05/25/20 08:33 Temperature Source Skin 05/25/20 08:33 Pulse 53 L 05/25/20 09:01 Pulse 53 L 05/25/20 09:01 Respiratory Rate 14 05/25/20 09:01 Respiratory Effort Non-Labored 05/25/20 08:33 Blood Pressure 117/69 05/25/20 09:01 Blood Pressure Mean 82 05/25/20 09:01 Blood Pressure Position Supine 05/25/20 08:33 Pulse Oximetry 99 05/25/20 09:01 Oxygen Delivery Method Room Air 05/25/20 08:33 Oxygen Flow Rate 0 05/25/20 08:33 Pain Level 8 05/25/20 08:33 Comment 05/25/20 08:33 Lab/Test Results Lab/Test Results: Laboratory Tests Range/Units 05/25/20 05/25/20 08:35 08:35 WBC (4.4-10.8) 10^3/uL 4.51 RBC (3.93-5.22) 10^6/uL 4.31 Hgb (11.2-15.7) g/dL 13.4 Hct (36.0-46.0) % 40.5 MCV (80-95) fL 94.0 MCH (27.0-33.0) pg 31.1 MCHC (32.0-36.0) % 33.1 RDW (11.7-14.6) % 12.3 Plt Count (130-400) 10^3/uL 235 MPV (8.0-11.0) fL 11.2 H Immature Gran % 0.2 Neutrophils % 53.9 Lymphocytes % 30.2 Monocytes % 8.6 Eosinophils % 4.4 Basophils % 2.7 Nucleated RBC % % 0 Absolute Neutrophils (1.2-6.7) 10^3/uL 2.43 Absolute Lymphocytes (1.2-3.4) 10^3/uL 1.36 Absolute Monocytes (0.1-0.8) 10^3/uL 0.39 Absolute Eosinophils (0.0-0.7) 10^3/uL 0.20 Absolute Basophils (0.0-0.2) 10^3/uL 0.12 Sodium (136-145) mmol/L 141 Potassium (3.5-5.1) mmol/L 3.4 L Chloride (98-107) mmol/L 104 Carbon Dioxide (21.0-32.0) mmol/L 29.1 Anion Gap (3-11) mmol/L 7.9 BUN (7-18) mg/dL 13 Creatinine (0.55-1.02) mg/dL 0.9 Estimated GFR/1.73 m2 (mL/min/1.73m2) >= 60.00 Glucose (74-106) mg/dL 92 Calcium (8.5-10.1) mg/dL 8.9 Magnesium (1.8-2.4) mg/dL 1.7 L Total Bilirubin (0.2-1.0) mg/dL 0.5 AST (15-37) U/L 12 L ALT (14-59) U/L 21 Alkaline Phosphatase (46-116) U/L 70 Troponin I (<0.06) ng/mL < 0.05 Total Protein (6.4-8.2) g/dL 7.5 Albumin (3.4-5.0) g/dL 3.5 TSH (0.36-3.74) uIU/mL 0.93
[2020-05-25] MEDS: Ketorolac 15 MG/ML VIAL IVP (09:35)
[2020-05-25] MEDS: MAGNESIUM SULFATE 1 GM/100 ML BAG IVPB (09:41)
[2020-05-25 09:43] LABS: D-Dimer 301 ng/mlFEU (<500)
[2020-05-25] MEDS: Normal Saline Flush 10 ML SYR IVP (09:48)
[2020-05-25] MEDS: Potassium Chloride 20 MEQ TABCR 40 MEQ PO (10:47)
== END 2020-05-25 11:00 | disposition home or self-care (01) ==
PROVIDERS: Emergency Provider Student in an Organized Health Care Education/Training Program; PCP Family Medicine
DX: R00.2 Palpitations (principal); E87.6 Hypokalemia; E83.42 Hypomagnesemia; R51.9 Headache, unspecified
CPT/HCPCS: 80053; 93005; 96365; 96375; 99285; 70450; 83735; 84443; 84484; 85025; 85379; 93010; 99284; J1885; J3475

== ENCOUNTER 2020-05-25 10:28 | Outpatient (RCR) | payer OTHER, SELFPAY ==
--- NOTE | 2020-05-25 10:30 | HOLTER_ITS ---
APPROVED REPORT Exam Type: HOLTER MONITOR APPLICATION Reason for Test: AFIB Patient Location: O Conclusion This is a 48-hour Holter monitor ordered for indication of atrial fibrillation. The patient was in normal sinus rhythm for the majority of the recording with average heart rate of 6 1 bpm. There were no episodes of ventricular tachycardia and rare PVCs. There was 1 episode of SVT lasting a total of 5 beats. There were rare PACs. There were no episodes of atrial fibrillation, no pauses greater than 3 seconds and no evidence of hi gh degree heart block. There were 5 patient triggered events associated with PACs and a singular episode of SVT as mentioned above.
== END 2020-06-01 23:59 | disposition home or self-care (01) ==
LOC: RT 10:28
PROVIDERS: PCP Family Medicine; Visit Provider Emergency Medicine
DX: I48.91 Unspecified atrial fibrillation (principal)
CPT/HCPCS: 93225; 93226

== ENCOUNTER 2020-05-27 09:16 | Outpatient (CLI) | payer OTHER, SELFPAY ==
[2020-05-27 09:48] LABS: Source Nasal/Nares
[2020-05-27 12:34] LABS: COVID-19 PCR Negative (Negative)
== END 2020-05-27 09:17 | disposition home or self-care (01) ==
PROVIDERS: PCP Family Medicine; Visit Provider Family Medicine
DX: Z20.822 Contact with and (suspected) exposure to COVID-19 (principal)
CPT/HCPCS: 87635

== ENCOUNTER 2020-06-17 16:22 | Outpatient (REF) | payer OTHER, SELFPAY ==
[2020-06-17 20:40] LABS: Abs Immature Grans 0.02 10^3/uL (0.0-0.06); Absolute Basophil Count 0.11 10^3/uL (0.0-0.2); Absolute Eosinophil Count 0.15 10^3/uL (0.0-0.7); Absolute Lymphocyte Count 1.41 10^3/uL (1.2-3.4); Absolute Monocyte Count 0.45 10^3/uL (0.1-0.8); Absolute Neutrophil Count 2.55 10^3/uL (1.2-6.7); Basophils % 2.3; Eosinophils % 3.2; HCT 39.9 % (36.0-46.0); HGB 12.8 g/dL (11.2-15.7); Immature Grans % 0.4; Lymphocytes % 30.1; MCH 30.6 pg (27.0-33.0); MCHC 32.1 % (32.0-36.0); MCV 95.5 fL (80-95); Monocytes % 9.6; Neutrophils % 54.4; Nucleated RBC 0 %; Platelet Count 241 10^3/uL (130-400); RBC 4.18 10^6/uL (3.93-5.22); RDW 12.7 % (11.7-14.6); RDW-SD 44.6 fL; WBC 4.69 10^3/uL (4.4-10.8)
[2020-06-17 20:57] LABS: ESR 16 mm//hr (0-30)
[2020-06-17 21:16] LABS: ALT 23 U/L (14-59); AST 13 U/L (15-37); Albumin 3.4 g/dL (3.4-5.0); Alkaline Phosphatase 77 U/L (46-116); Anion Gap 8.7 mmol/L (3-11); BUN 17 mg/dL (7-18); Bilirubin, Total 0.2 mg/dL (0.2-1.0); C-Reactive Protein 0.14 mg/dL (0.0-0.3); CO2 28.3 mmol/L (21.0-32.0); Chloride 109 mmol/L (98-107); Glucose 105 mg/dL (74-106); Magnesium 1.7 mg/dL (1.8-2.4); Potassium 4.1 mmol/L (3.5-5.1); Sodium 146 mmol/L (136-145); Total Protein 6.8 g/dL (6.4-8.2)
[2020-06-20 10:50] LABS: Lyme Ab w Rflx to Lyme Confirm Negative (Negative)
== END 2020-06-17 16:23 | disposition home or self-care (01) ==
LOC: LBN 16:22
PROVIDERS: PCP Emergency Medicine; Visit Provider Emergency Medicine
DX: I10 Essential (primary) hypertension (principal); R53.83 Other fatigue; I48.91 Unspecified atrial fibrillation; M25.50 Pain in unspecified joint
CPT/HCPCS: 80053; 85652; 83735; 85025; 86140; 86618

== ENCOUNTER 2020-06-24 03:29 | Outpatient (CLI) | payer OTHER, SELFPAY ==
--- NOTE | 2020-06-24 06:15 | DI.US_ITS ---
APPROVED REPORT EXAM: Comprehensive 2D, Doppler, and color-flow Echocardiogram Patient Location: Out-Patient [facility] Ins[facility] Supervisor: Monica Pittman RDCS (AE) Indications: New onset uncontrolled atrial fibrillation Other Information Study Quality: Good Conclusion Normal left ventricular wall thickness and chamber size. Estimated ejection fraction is 65 to 70%. Wall motion is normal Normal right ventricular size and systolic function Both atria are normal in size Structurally normal aortic valve without stenosis or regurgitation Normal mitral valve with trace to mild regurgitation Normal tricuspid valve with trace regurgitation. Estimated right ventricular systolic pressure is no rmal, 23.6 mmHg Normal pulmonic valve Wall motion Left Ventricle The left ventricle is normal size. The left ventricular systolic function is normal. The left ventric ular ejection fraction is within the normal range. There is normal left ventricular wall thickness. T here is normal LV segmental wall motion. There is no ventricular septal defect visualized. LVEF is 65 -70%. Right Ventricle The right ventricle is normal size. The right ventricular systolic function is normal. The RVSP is 23 .6mmHg. Atria The left atrium size is normal. The right atrium size is normal. The interatrial septum is intact wit h no evidence for an atrial septal defect. Aortic Valve The aortic valve is normal in structure. Aortic valve is trileaflet. There is no aortic valvular sten osis. No aortic regurgitation is present. Mitral Valve The mitral valve is normal in structure. No evidence of mitral valve stenosis. Trace to mild mitral r egurgitation. Tricuspid Valve The tricuspid valve is normal in structure. There is no tricuspid valve stenosis. Trace tricuspid reg urgitation. Pulmonic Valve The pulmonary valve is normal in structure. There is no pulmonic valvular stenosis. There is no pulmo tressa valvular regurgitation. Great Vessels The aortic root is normal in size. Ascending aorta is not well visualized. Aortic arch is normal in c aliber. IVC is normal in size and collapses >50% with inspiration. Pericardium There is no pericardial effusion. 2D Dimensions IVSD d PLAX 1.00 cm F: 0.6-1.0 LV Vol A2C d MOD 124.0 mL LVPW d PLAX 1.02 cm F: 0.6 - 1.0 LV Vol A4C d MOD 144.7 mL LVID d PLAX 4.59 cm F: 3.8 - 5.2 LA vol/ BSA A2C s A-L 43.7 mL/m2 LVDs 3.00 cm F: 2.2 - 3.5 LA vol/ BSA A4C s A-L 29.8 mL/m2 Ao Root d 2.60 cm F: 2.7 - 3.3 LA Vol/ BSA Biplane s A-L 38.5 mL/m2 RA Area A4C 14.07 cm2 LA Area A4C s MOD 21.39 cm2 RA Vol/ BSA A4C s A-L 18.3 mL/m2 LA Area A2C s MOD 24.31 cm2 LV EF Teichholz 62.8 % LV EF A4C MOD 61.4 % LVEF (Hawthorne's) 64.22 % F: 54 - 74 LV EF A2C MOD 65.3 % LV Volume 102.04 mL F: 46 - 106 LV EF Biplane MOD 64.2 % LV Volume Index 49.53 mL/m2 F: 29 - 61 SV 88.31 mL LV Vol Biplane MOD 137.5 mL SV Index 42.75 mL/m2 FS 33.85 % M-Mode TAPSE 3.27 cm (M/F) >1.7 LV Diastology MV E' medial 0.171 (>0.07 m/s) E/A Ratio 1.4 LV E/e MED 4.40 (<14) MV E Vmax 0.76 (0.4-1.3 m/s) MV E' lateral 0.161 (>0.1 m/s) MV A Vmax 0.55 (0.4-1.3 m/s) LV E/e LAT 4.70 (<14) MV E/A Ratio 1.35 MV E/E' medial 4.45 MV E/E' lateral 4.72 Aortic Valve LVOT Area 2.95 cm2 AoV Area Vmax 2.00 cm2 LVOT Vmax 0.98 m/s AoV Area/ BSA (Vmax) 0.97 cm2/m2 LVOT Mean Kayode. 0.62 m/s ROXANNE Mean Kayode. 1.74 cm2 LVOT Peak Grad 3.8 mmHg ROXANNE Mean Kayode. Index 0.84 cm2/m2 LVOT Mean Grad 1.8 mmHg LVOT VTI 0.225 m LVOT Diam s 1.90 cm AoV Vmax 1.44 m/s Velocity Ratio 0.68 AoV Mean Kayode. 1.06 m/s AoV Peak Grad 8.3 mmHg LVOT SV 66.24 mL AoV Mean Grad 4.9 mmHg AoV VTI 0.345 m AoV Area VTI 1.92 cm2 AoV Area/ BSA (VTI) 0.93 cm/m2 Mitral Valve MV DT 238 (160-240 msec) MR PISA Radius 0.33 cm MV PHT 69 msec MR Aliasing Velocity 0.35 m/s MV Area PHT 3.18 cm2 MR PISA 0.67 cm2 MV VTI 0.291 m MV VTI Annulus 0.304 m MV Area VTI 2.37 (4.0-6.0 cm2) Pulmonary Valve PV Vmax 0.84 (0.5-1.5 m/s) RVOT Peak Gr. 1.63 mmHg PV Peak Grad 2.8 mmHg RVOT Mean Gr. 0.85 mmHg PV Mean Grad 1.6 mmHg RVOT VTI 0.144 m PV VTI 0.172 m RVOT Vmax 0.64 m/s Tricuspid Valve TR Peak Grad 20.5 mmHg TR Vmax 2.27 m/s RA Pressure 3.00 mmHg RVSP (TR) 23.6 mmHg
== END 2020-06-24 03:49 ==
PROVIDERS: PCP Emergency Medicine; Visit Provider Internal Medicine Cardiovascular Disease
DX: I48.91 Unspecified atrial fibrillation (principal); I34.0 Nonrheumatic mitral (valve) insufficiency
CPT/HCPCS: 93306

== ENCOUNTER 2020-07-27 16:50 | Outpatient (REF) | payer OTHER, SELFPAY ==
--- NOTE | 2020-07-27 15:45 | PAPFT_PTH ---
PATIENT: Hailey Saha LOC: N U#:[id number] AGE/SX: 65/F ROOM: RE07/27/[address]: Kyleigh Pandey : 1955 BED: DIS: 07/27/2020 SPEC #: [id number] RECD: 07/27/20 17:55 STATUS: KELSEA REKrystian #: [id number] HARLAN: 07/27/20 15:[address]: Kyleigh Pandey DEPT: [facility] Cytology RECD BY: Selena Lowery ENTERED: 07/27/20 17:55 SP TYPE: PAPFT OTHR DR: Yan Jones, Tissues: 1 - CX/ENDOCX FOR PAP SMEARS Procedures: PAP THIN PREP/UVM Screening HPV DNA PROBE Comments: [id number]
== END 2020-07-27 16:51 | disposition home or self-care (01) ==
LOC: LBN 16:50
PROVIDERS: PCP Emergency Medicine; Visit Provider Obstetrics & Gynecology Gynecology
DX: Z12.4 Encounter for screening for malignant neoplasm of cervix (principal); Z11.51 Encounter for screening for human papillomavirus (HPV)
CPT/HCPCS: 88142; 87624

== ENCOUNTER 2020-07-29 20:42 | Outpatient (REF) | payer OTHER, SELFPAY ==
[2020-07-29 21:08] LABS: Anion Gap 9.3 mmol/L (3-11); BUN 14 mg/dL (7-18); CO2 26.7 mmol/L (21.0-32.0); CREATININE 0.9 mg/dL (0.55-1.02); Chloride 108 mmol/L (98-107); Glucose 101 mg/dL (74-106); Sodium 144 mmol/L (136-145)
== END 2020-07-29 20:43 | disposition home or self-care (01) ==
LOC: LBN 20:42
PROVIDERS: PCP Emergency Medicine; Visit Provider Emergency Medicine
DX: I10 Essential (primary) hypertension (principal)
CPT/HCPCS: 80048

== ENCOUNTER 2020-08-05 02:36 | Outpatient (CLI) | payer OTHER, SELFPAY ==
[2020-08-05 16:38] LABS: Estradiol <12 pg/mL (See Note)
[2020-08-05 16:59] LABS: FSH 60.4 mIU/mL (See Note)
== END 2020-08-05 02:37 | disposition home or self-care (01) ==
LOC: LBO 02:36
PROVIDERS: PCP Emergency Medicine; Visit Provider Obstetrics & Gynecology Gynecology
DX: F39 Unspecified mood [affective] disorder (principal); N95.1 Menopausal and female climacteric states
CPT/HCPCS: 36415; 82670; 83001

== ENCOUNTER 2020-08-12 23:28 | Outpatient (REF) | payer OTHER, SELFPAY ==
[2020-08-12 21:07] LABS: HCT 40.2 % (36.0-46.0); HGB 13.2 g/dL (11.2-15.7); MCH 31.1 pg (27.0-33.0); MCHC 32.8 % (32.0-36.0); MCV 94.8 fL (80-95); MPV 12.4 fL (8.0-11.0); Platelet Count 250 10^3/uL (130-400); RBC 4.24 10^6/uL (3.93-5.22); RDW 12.3 % (11.7-14.6); RDW-SD 42.7 fL; WBC 4.65 10^3/uL (4.4-10.8)
[2020-08-12 21:08] LABS: ALT 19 U/L (14-59); AST 13 U/L (15-37); Albumin 3.5 g/dL (3.4-5.0); Alkaline Phosphatase 77 U/L (46-116); Amylase 60 U/L (25-115); Anion Gap 10.3 mmol/L (3-11); BUN 10 mg/dL (7-18); Bilirubin, Total 0.3 mg/dL (0.2-1.0); CO2 27.7 mmol/L (21.0-32.0); CREATININE 0.9 mg/dL (0.55-1.02); Calcium 8.9 mg/dL (8.5-10.1); Chloride 107 mmol/L (98-107); Glucose 112 mg/dL (74-106); Lipase 100 U/L (73-393); Potassium 3.9 mmol/L (3.5-5.1); Sodium 145 mmol/L (136-145); Total Protein 7.1 g/dL (6.4-8.2)
== END 2020-08-12 23:29 | disposition home or self-care (01) ==
LOC: LBN 23:28
PROVIDERS: PCP Emergency Medicine; Visit Provider Emergency Medicine
DX: R10.9 Unspecified abdominal pain (principal)
CPT/HCPCS: 80053; 83690; 85027; 82150

== ENCOUNTER 2020-08-16 08:27 | Outpatient (RCR) | payer OTHER, SELFPAY ==
--- NOTE | 2020-08-16 17:15 | HOLTER_ITS ---
APPROVED REPORT This is a 48-hour Holter monitor, reportedly ordered for atrial fibrillation Rhythm throughout was sinus. Average heart rate was 61. Minimum was 41, maximum 104 There were very rare isolated ventricular ectopic beats, rare atrial premature beats. There was no atrial fibrillation. Sinus bradycardia was noted during sleep. There was no high-grade AV block. there were no pauses greater than 3 seconds Patient symptoms corresponded to sinus rhythm
== END 2020-08-31 23:59 | disposition home or self-care (01) ==
LOC: RT 08:27
PROVIDERS: PCP Emergency Medicine; Visit Provider Emergency Medicine
DX: I48.91 Unspecified atrial fibrillation (principal); R00.1 Bradycardia, unspecified
CPT/HCPCS: 93225; 93226

== ENCOUNTER 2020-08-24 00:49 | Outpatient (CLI) | payer OTHER, SELFPAY ==
--- NOTE | 2020-08-24 17:00 | DI.MAMMO_ITS ---
Exam(s) MAMMO SCREENING EXAM: MAMMO SCREENING CLINICAL HISTORY: screening. TECHNIQUE: Bilateral full field digital CC and MLO mammographic images were obtained with 3D tomosyn thesis and utilizing computer aided detection (CAD). COMPARISON: Prior mammograms dating back to 2011, the most recent being June 2017. FINDINGS: There are no CAD designations No new masses nor malignant-appearing microcalcification groups in either breast There is no significant architectural distortion nor skin thickening-retraction. IMPRESSION: No radiographic evidence of malignancy. BI-RADS Category 1 - Negative Breast Density - Category B - Scattered areas of fibroglandular density Breast density Category C or D implies that the patient has dense breast tissue. Dense breast tissue can make it harder to find cancer on a mammogram. Dense breast tissue is also associated with an incr eased risk of breast cancer. This information about the result of the mammogram report was provided to the patient to raise their awareness. Use this report when you speak with the patient about their risks for breast cancer, which includes their family history. At that time, you may recommend additional screening tests (Ultrasoun d or MRI) as these tests may add significant information. A negative radiographic report should not delay biopsy if a dominant or clinically suspicious mass is present. Up to ten percent of cancers are not identified on mammography. A negative report may reinforce clinical impression. Adenosis and dense breasts may obscure an underlying neoplasm. False positive reports average 6 to 10%. Patient will receive a letter notifying them of these results.
== END 2020-08-24 01:09 ==
PROVIDERS: PCP Emergency Medicine; Visit Provider Obstetrics & Gynecology Gynecology
DX: Z12.31 Encounter for screening mammogram for malignant neoplasm of breast (principal); R92.8 Other abnormal and inconclusive findings on diagnostic imaging of breast
CPT/HCPCS: 77063; 77067

== ENCOUNTER 2020-09-17 20:40 | Emergency (ER) | payer OTHER, SELFPAY ==
--- NOTE | 2020-09-17 20:45 | RT.EKG_ITS ---
APPROVED REPORT Exam: Resting ECG Reason for Exam: chest pain Patient Location: E HR:49 bpm ECG Measurements Heart Rate [address] 173 P 7 QRSd 107 QRS 69 QT 490 T 31 QTc 445 Conclusion Sinus bradycardia...rate< 60 Physician: no stemi, unchanged
[2020-09-17 20:52] VITALS: BP 128/51; PULSE 74; RESP 20; TEMP 36.8; O2SAT 97
--- NOTE | 2020-09-17 21:00 | DI.CT_ITS ---
Exam(s) CT ABDOMEN PELVIS W EXAM: CT ABDOMEN PELVIS W CLINICAL HISTORY: ruq pain, r/o GB pathology. TECHNIQUE: Imaging Protocol: Axial computed tomography images with coronal and sagittal reformatted images were created and reviewed CONTRAST MATERIAL: Intravenous: Omnipaque 100cc Oral: None COMPARISON: CT CT ABDOMEN PELVIS W from 06/23/2019 FINDINGS: VISUALIZED LUNG BASES: Mild benign-appearing increased markings in the medial basal segment of the le ft lower lobe are unchanged. No pleural effusions.. ABDOMEN: There is no ascites. LIVER: There are multiple cysts in both patent lobes again noted. Those in the right hepatic lobe ar e unchanged. In the left hepatic lobe there are 2 larger adjacent cysts again noted.. One has decre ased in size from 8 x 0.8 centimetres, now measuring 4.2 by 4.2 cm. The adjacent cyst in the eccentr ic tip of the left hepatic lobe has increased in size, presently measuring 4.6 x 4.6 by 5.7 cm. This cyst previously measured 3.7 by 2.7 cm. This appears to be stretching the liver capsule at the tip of the left hepatic lobe. GALLBLADDER/BILIARY: No obvious gallbladder pathology. CBD is not dilated. PANCREAS: No evidence of pancreatic mass nor dilatation of the pancreatic duct. SPLEEN: Spleen is not enlarged. No obvious intrasplenic lesions. Splenic and portal veins are paten t. ADRENALS: There are no significant adrenal masses. KIDNEYS:Small cysts in both kidneys are again noted. Largest cyst is in the posterior medial cortex of the left kidney and measures 2 by 1.6 cm,, minimally larger. Single small cyst in the opposite-ri ght kidney is noted which measures 8 millimeters. There are no solid renal masses. No calculi nor h ydronephrosis. No hydroureter. No obvious abnormality in the nondistended urinary bladder.. ABDOMINAL AORTA: Abdominal aorta is not enlarged. LYMPH NODES:There is no retroperitineal nor paraaortic adenopathy. ABDOMINAL WALL: No evidence of significant anterior abdominal wall hernia. GI: There is no evidence of bowel obstruction, free air, nor abscess. PELVIS: GI: No evidence of appendicitis.There is sigmoid diverticulosis but no evidence of obvious acute dive rticulitis. LYMPH NODES: There is no intrapelvic nor inguinal adenopathy. REPRODUCTIVE: Uterus and adnexal regions appear age-appropriate. There is no free fluid in the pelvi s. URINARY BLADDER: No calculi nor obvious masses evident OSSEOUS: No significant osseous lesions. IMPRESSION: 1. Compared to the prior CT scan of June 2019 there again noted multiple benign-appearing hepatic cy sts. However, the larger of 2 adjacent cysts in the left hepatic lobe is decreased in size and the o ther adjacent cysts has significantly increased in size and appears to be stretching the capsule of t he sub cardiac left hepatic lobe at this level. This cyst has now crease in size to 4.6 x 4.6 x 5.7 cm. This may be symptomatic. 2. Small benign cysts are noted in both kidneys. No solid renal masses. No calculi nor hydronephros is. 3. There is extensive sigmoid diverticulosis but no evidence of obvious acute diverticulitis. No amy e fluid in the pelvis. RADIATION DOSE DELIVERED: 1,046.02mGy.cm Total DLP DATA REPOSITORY: All CT scans at this facility are submitted to the National Radiology Data Registry (NRDR) Dose Index Registry (DIR) with the [employer] ([employer]). RADIATION OPTIMIZATION: All CT scans at this facility use at least one of these dose optimization te chniques: automated exposure control; mA and/or kV adjustment per patient size (includes targeted exa ms where dose is matched to clinical indication); or iterative reconstruction.
[2020-09-17] MEDS: Ketorolac 30 MG/ML VIAL IVP (21:20)
[2020-09-17] MEDS: Ondansetron 4 MG/2 ML VIAL IVP (21:21)
[2020-09-17 21:22] LABS: Lactate 1.4 mmol/L (0.6-1.4)
[2020-09-17] MEDS: Normal Saline 500 ML IV (21:23)
[2020-09-17 21:24] LABS: Abs Immature Grans 0.01 10^3/uL (0.0-0.06); Absolute Basophil Count 0.09 10^3/uL (0.0-0.2); Absolute Lymphocyte Count 2.06 10^3/uL (1.2-3.4); Absolute Monocyte Count 0.51 10^3/uL (0.1-0.8); Absolute Neutrophil Count 2.46 10^3/uL (1.2-6.7); Basophils % 1.7; Eosinophils % 3.8; HCT 38.9 % (36.0-46.0); HGB 12.9 g/dL (11.2-15.7); Immature Grans % 0.2; Lymphocytes % 38.6; MCH 30.3 pg (27.0-33.0); MCHC 33.2 % (32.0-36.0); MCV 91.3 fL (80-95); MPV 11.4 fL (8.0-11.0); Monocytes % 9.6; Neutrophils % 46.1; Nucleated RBC 0 %; Platelet Count 213 10^3/uL (130-400); RBC 4.26 10^6/uL (3.93-5.22); RDW 12.5 % (11.7-14.6); RDW-SD 41.8 fL; WBC 5.33 10^3/uL (4.4-10.8)
--- NOTE | 2020-09-17 21:26 | W.ED.GENAD ---
Discharge Plan Disposition Patient Disposition: HOME Condition: Good Discharge Details Clinical Impression: Biliary colic Primary Care Provider: Yan Jones ED Provider: Jai Osuna Home Meds and New Rx's Prescriptions: Continued aspirin 81 mg tablet,delayed release (DR/EC) 81 mg PO DAILY RF: 0 levothyroxine [Synthroid] 88 mcg tablet 88 mcg PO DAILY Qty: 90 RF: 4 clobetasol 0.05 % ointment 1 applic topical .COMPLEX Qty: 30 RF: 4 sucralfate 1 gram tablet 1 g PO QACHS Qty: 120 RF: 4 acetaminophen [Mapap Extra Strength] 500 MG tablet 1,000 mg PO PRN PRNRF: 0 sucralfate 1 gram tablet PO 5X/DAY RF: 0 famotidine 10 mg Tablet 10 mg PO BID RF: 0 fluticasone propionate 16 GM spray,suspension 2 spr NS PRN PRNRF: 0 Discharge Instructions Instructions: Biliary Colic (ED) Additional Instructions: At this time your symptoms appear consistent with biliary colic. This is a spasm and contraction of the gallbladder. Please continue to do your best to avoid any greasy foods, dairy products, or anything with notable fat. We have placed a consult visit with a local surgeon here. Please follow-up with him to discuss potential removal of your gallbladder in the future. If you notice any worsening of your symptoms, or any new symptoms such as vomiting, diarrhea, fever, chills, shortness of breath, chest pain, numbness, weakness, or fainting , please return immediately to the emergency department for reevaluation. Please follow up with your primary care provider as soon as possible for reassessment and reevaluation. As always, it was a pleasure participating in your medical care today. 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 Patient states that for the last few weeks she has been dealing with right upper quadrant pain, which she describes as a tennis ball-like sensation in her right upper quadrant. Seems to be brought on after eating meals with greasy food. She admits to nausea and dry heaving but very little actual vomiting. She recently had a notable end thorough work-up at [facility] [address] had [address] imaging, endoscopy, all of which was relatively unremarkable per patient. Symptoms began again yesterday after having slightly greasy dinner, and then this evening she was at a wedding and had some greasy mashed potatoes and it seemed to notably exacerbate her symptoms 20 minutes later to which she describes as severe. Pain radiates from the right upper quadrant to right under the right scapula. She admits to minimal left-sided chest pain which she states is chronic and not acute. She denies any shortness of breath, chest pressure or chest heaviness. Patient does admit to a family history of cholecystectomies but denies any for herself. She did have a tubal ligation in the past. No other complaints at this time. No exertional discomfort. No radiation down her arm neck or shoulders. Physical exam demonstrates mild tenderness in the right upper quadrant, positive Graf sign. No pain or McBurney's point. Symptoms appear inconsistent with ACS. EKG unremarkable. We will get a CT scan to evaluate for acute cholecystitis. However biliary colic is definitely high on the differential. We will gently rehydrate, manage the patient's pain, monitor closely and reassess. 10:[address] results have returned. One hepatic cyst slightly smaller than before, gallbladder notably contracted. Labs otherwise unremarkable aside from mild hypokalemia. No white count bandemia or left shift. Lactate unremarkable. Troponin and EKG and lipase benign. Urinalysis negative for infection. On reassessment patient has near complete resolution of her symptoms. Signs and symptoms at this time appear clinically consistent with biliary colic. I did review her work-up on an outpatient basis that she had at [facility] and in the ED and she had a notably thorough work-up there for EGD. Gastroenterology did recommend potential future Domitila procedure for her hernia, but I do not feel that the patient's current symptoms are secondary to that. With the recent fatty food that then subsequently exacerbated her symptoms I do feel that the biliary colic is the most likely diagnosis at this time. With the resolution of her pain, no repeat abdominal exam showed no signs of an acute surgical abdomen whatsoever I do feel that patient is stable for discharge. Will recommend outpatient surgical follow-up for discussion of potential outpatient nonemergent cholecystectomy. Patient did request follow-up with Dr. Montesinos. We will place this request. Discussed red flags which to return. Discussed recommended dietary changes. I have extensively reviewed the treatment plan and discharge instructions with the patient and their family. I have addressed all patient concerns at this time. The patient and family was made aware of what symptoms to monitor for that would warrant a return to the emergency department. Discussed the plan with the patient and family, they demonstrate verbal understanding and agreement with our assessment and plan at this time. The documentation in this chart was dictated using [employer] dictation software. Please excuse any dictation errors. FINDINGS: Liver: Benign-appearing hepatic cysts and probable cysts are again seen. A dominant left-sided cyst has decreased in size. This previously measured 8 cm AP and now measures 4 cm AP. The internal density is slightly increased however still benign in density. Question post treatment changes or involution. No hepatic masses. Gallbladder and bile ducts: The gallbladder is contracted. No significant biliary dilation or radiopaque stones in the biliary tree. Pancreas: No ductal dilation. No masses. Spleen: No splenomegaly or focal lesions. Adrenal glands: No mass. Kidneys and ureters: Benign-appearing renal cysts again seen. No renal masses or hydronephrosis bilaterally. Stomach and bowel: Colonic diverticulosis without diverticulitis. No focal pathology in the small bowel. Appendix: No evidence of appendicitis. Intraperitoneal space: No free air. No significant fluid collection. Vasculature: No abdominal aortic aneurysm. Lymph nodes: No significantly enlarged lymph nodes. Urinary bladder: Unremarkable as visualized. Reproductive: Unremarkable as visualized. Bones/joints: No acute fracture. Soft tissues: No suspicious lesions. IMPRESSION: 1. Interval partial involution of a dominant hepatic benign-appearing cyst, question a source of pain. 2. Incidental findings as described. Thank you for allowing us to participate in the care of your patient. Dictated and Authenticated by: Damaris Burris MD 09/17/2020 10:03 PM Eastern Time ([place] & [place]) HPI General Date/Time Provider Initiated Documentation: 09/17/20 20:54. HPI Narrative: 65-year-old female with a past medical history of atrial fibrillation on aspirin, who was on diltiazem but has since recently been taken off of it by her inventory associate and driver, prior thyroidectomy, presents today for evaluation of right upper quadrant pain. Patient states that for the last few weeks she has been dealing with right upper quadrant pain, which she describes as a tennis ball-like sensation in her right upper quadrant. Seems to be brought on after eating meals with greasy food. She admits to nausea and dry heaving but very little actual vomiting. She recently had a notable end thorough work-up at [facility] [address] which had CT imaging, endoscopy, all of which was relatively unremarkable per patient. Symptoms began again yesterday after having slightly greasy dinner, and then this evening she was at a wedding and had some greasy mashed potatoes and it seemed to notably exacerbate her symptoms 20 minutes later to which she describes as severe. Pain radiates from the right upper quadrant to right under the right scapula. She admits to minimal left-sided chest pain which she states is chronic and not acute. She denies any shortness of breath, chest pressure or chest heaviness. Patient does admit to a family history of cholecystectomies but denies any for herself. She did have a tubal ligation in the past. No other complaints at this time. No exertional discomfort. No radiation down her arm neck or shoulders. Related Data Home Medications Medication Instructions Recorded Confirmed acetaminophen [Mapap Extra 1,000 mg PO PRN PRN 12/14/15 05/25/20 Strength] fluticasone propionate 2 spr NS PRN PRN 05/02/20 05/25/20 aspirin 81 mg tablet,delayed 81 mg PO DAILY 05/24/20 09/17/20 release Synthroid 88 mcg tablet 88 mcg PO DAILY #90 tab-cap NS 05/31/20 09/17/20 sucralfate 1 gram tablet 1 g PO QACHS #120 tab 07/19/20 07/19/20 clobetasol 0.05 % topical ointment 1 applic TOPICAL .COMPLEX #30 g 07/28/20 07/28/20 famotidine 10 mg PO BID 09/17/20 09/17/20 sucralfate PO 5X/DAY 09/17/20 Previous Rx's Medication Instructions Recorded Synthroid 88 mcg tablet 88 mcg PO DAILY #90 tab-cap NS 05/31/20 sucralfate 1 gram tablet 1 g PO QACHS #120 tab 07/19/20 clobetasol 0.05 % topical ointment 1 applic TOPICAL .COMPLEX #30 g 07/28/20 Allergies Allergy/AdvReac Type Severity Reaction Status Date / Time coconut Allergy Mild Verified 09/17/20 21:03 gluten Allergy Verified 09/17/20 21:03 omeprazole AdvReac Severe Myalgias Verified 09/17/20 21:03 oxycodone HCl [From Percocet] AdvReac Intermediate Psychosis Verified 09/17/20 21:03 sertraline HCl [From Zoloft] AdvReac Intermediate psychotic Verified 09/17/20 21:03 anesthesia AdvReac Severe Uncoded 09/17/20 21:03 General Stated Complaint: Abd Prob NEHEMIAH: 2 Review of Systems All systems reviewed & are unremarkable except as noted in HPI and below PFSH Medical History Abnormal stress test Anxiety celiac sprue Closed fracture of one rib of left side with routine healing (12/16/15) Depression Epigastric pain Fatigue Fibrocystic disease of both breasts Gastritis Hammertoe Menopause Psoriasis Surgical History COLONOSCOPY/W MAC (12/13/14) ANGÉLICA MONTGOMERY History of bilateral ligation of fallopian tubes (05/28/14) Ligation of fallopian tube Status post thyroidectomy THYROIDECTOMY Family History Mother Diabetes Essential hypertension Personal history of malignant neoplasm Heart disease Father Personal history of malignant neoplasm Sister No problems noted. Brother No problems noted. Grandfather Essential hypertension Heart disease Grandfather , ACCIDENTAL No problems noted. Grandmother No problems noted. Grandmother Personal history of malignant neoplasm Sister No problems noted. Sister Depression Brother No problems noted. Son No problems noted. Daughter No problems noted. Social History Smoking/Tobacco Use Status: Former Tobacco Use Smoking risk assessment performed?: Yes Alcohol Intake: never Drug use: Never Substance use type: does not use Household members: significant other and other Details: . SO Jerome x5yrs. They are planning wedding in future. 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 Sexually active: Yes Do you feel safe at home: Yes Do you feel safe in your relationship?: Yes Female Reproductive History Menstrual control method: permanent sterilization Menopause type: natural (stopped menses 50yo.) History History 2 Para 2 Hx # Term Pregnancies 2 Multiple births Hx # Pregnancies Ectopic pregnancies AB induced Hx Number of Living Children 2 AB spontaneous Exam Narrative Exam Narrative: 1.Const: Well-nourished, Well-developed, appearing stated age 2.Eyes: PERRL, no conjunctival injection, and symmetrical lids. 3.ENT: Atraumatic external nose and ears. Moist MM. Neck: Symmetric, trachea midline, No thyromegaly. 4.CVS: +S1/S2, No murmurs or gallops. Peripheral pulses 2+ and equal in all extremities. Brisk capillary refill in all extremities. 5.RESP: Unlabored respiratory effort. Clear to auscultation bilaterally. No wheezes rales or rhonchi 6.GI: Soft, Nondistended, mild right upper quadrant pain, worse with palpation. Positive Graf sign. No pain at McBurney's point. Negative left upper quadrant pain. Mild right CVA tenderness. 7.MSK: Normocephalic/Atraumatic, Extremities w/o deformity or ttp No cyanosis or clubbing, Normal movement of all extremities 8.Skin: Warm, Dry. No rashes or lesions. 9.Neuro: biometrics experimentalist II-XII grossly intact. Sensation grossly intact, no focal neurologic deficits. 10.Psych: (AAO) x3. Appropriate mood and affect Course Vital Signs Vital signs: Vital Signs Temperature 36.8 C 09/17/20 20:52 Pulse 74 09/17/20 20:52 Respiratory Rate 09/17/20 20:52 Blood Pressure 128/51 L 09/17/20 20:52 Pulse Oximetry 97 09/17/20 20:52 Temperature 36.8 C 09/17/20 20:52 Temperature Source Temporal Artery Scan 09/17/20 20:52 Pulse 74 09/17/20 20:52 Respiratory Rate 09/17/20 20:52 Blood Pressure 128/51 L 09/17/20 20:52 Blood Pressure Position Supine 09/17/20 20:52 Pulse Oximetry 97 07/17/21 20:52 Oxygen Delivery Method Room Air 09/17/20 20:52 Oxygen Flow Rate 0 09/17/20 20:52 Pain Level 9 09/17/20 20:52 Lab/Test Results Lab/Test Results: Laboratory Tests Range/Units 09/17/20 21:15 WBC (4.4-10.8) 10^3/uL 5.33 RBC (3.93-5.22) 10^6/uL 4.26 Hgb (11.2-15.7) g/dL 12.9 Hct (36.0-46.0) % 38.9 MCV (80-95) fL 91.3 MCH (27.0-33.0) pg 30.3 MCHC (32.0-36.0) % 33.2 RDW (11.7-14.6) % 12.5 Plt Count (130-400) 10^3/uL 213 MPV (8.0-11.0) fL 11.4 H Immature Gran % 0.2 Neutrophils % 46.1 Lymphocytes % 38.6 Monocytes % 9.6 Eosinophils % 3.8 Basophils % 1.7 Nucleated RBC % % 0 Absolute Neutrophils (1.2-6.7) 10^3/uL 2.46 Absolute Lymphocytes (1.2-3.4) 10^3/uL 2.06 Absolute Monocytes (0.1-0.8) 10^3/uL 0.51 Absolute Eosinophils (0.0-0.7) 10^3/uL 0.20 Absolute Basophils (0.0-0.2) 10^3/uL 0.09
[2020-09-17] MEDS: Omnipaque 350 MG/ML 100 ML BTL IJ (21:39)
[2020-09-17] MEDS: Normal Saline - Diluent 50 ML VIAL IV (21:42)
[2020-09-17] MEDS: Normal Saline Flush 10 ML SYR IVP (21:42)
[2020-09-17 21:47] LABS: ALT 20 U/L (14-59); AST 13 U/L (15-37); Albumin 3.3 g/dL (3.4-5.0); Alkaline Phosphatase 82 U/L (46-116); Anion Gap 10.8 mmol/L (3-11); Bilirubin, Total 0.2 mg/dL (0.2-1.0); CO2 25.2 mmol/L (21.0-32.0); Calcium 8.7 mg/dL (8.5-10.1); Chloride 107 mmol/L (98-107); Glucose 122 mg/dL (74-106); Lipase 229 U/L (73-393); Potassium 3.1 mmol/L (3.5-5.1); Sodium 143 mmol/L (136-145); Total Protein 7.1 g/dL (6.4-8.2)
[2020-09-17 21:49] LABS: Bilirubin Negative (Negative); Blood Negative (Negative); Clarity Clear (Clear); Glucose Negative (Negative); Ketones Negative (Negative); Leukocyte Esterase Negative (Negative); Nitrite Negative (Negative); Urobilinogen 0.2 EU/dL (Up TO 0.2)
--- NOTE | 2020-09-17 22:04 | DI.VRAD_ITS ---
PROCEDURE INFORMATION: Exam: CT Abdomen And Pelvis With Contrast Exam date and time: 09/17/2020 21:07 Age: 65 years old Clinical indication: Vomiting; Abdominal pain; Localized; Right upper quadrant (ruq); Prior surgery; Surgery date: 6+ months; Surgery type: Tubal ligation; Patient HX: Ruq pain, R/O gb pathology TECHNIQUE: Imaging protocol: Computed tomography of the abdomen and pelvis with contrast. Radiation optimization: All CT scans at this facility use at least one of these dose optimization techniques: automated exposure control; mA and/or kV adjustment per patient size (includes targeted exams where dose is matched to clinical indication); or iterative reconstruction. Contrast material: OMNIPAQUE 350; Contrast volume: 100 ml; Contrast route: INTRAVENOUS (IV); COMPARISON: CT ABDOMEN PELVIS W 06/23/2019 16:42 FINDINGS: Liver: Benign-appearing hepatic cysts and probable cysts are again seen. A dominant left-sided cyst has decreased in size. This previously measured 8 cm AP and now measures 4 cm AP. The internal density is slightly increased however still benign in density. Question post treatment changes or involution. No hepatic masses. Gallbladder and bile ducts: The gallbladder is contracted. No significant biliary dilation or radiopaque stones in the biliary tree. Pancreas: No ductal dilation. No masses. Spleen: No splenomegaly or focal lesions. Adrenal glands: No mass. Kidneys and ureters: Benign-appearing renal cysts again seen. No renal masses or hydronephrosis bilaterally. Stomach and bowel: Colonic diverticulosis without diverticulitis. No focal pathology in the small bowel. Appendix: No evidence of appendicitis. Intraperitoneal space: No free air. No significant fluid collection. Vasculature: No abdominal aortic aneurysm. Lymph nodes: No significantly enlarged lymph nodes. Urinary bladder: Unremarkable as visualized. Reproductive: Unremarkable as visualized. Bones/joints: No acute fracture. Soft tissues: No suspicious lesions. IMPRESSION: 1. Interval partial involution of a dominant hepatic benign-appearing cyst, question a source of pain. 2. Incidental findings as described. Dictated and Authenticated by: Damaris Burris MD. Ordering:FEDERICO Vergara MD
[2020-09-17 22:07] LABS: Troponin I < 0.05 ng/mL (<0.06)
[2020-09-17 22:13] LABS: BUN 9 mg/dL (7-18)
--- NOTE | 2020-09-18 02:23 | NUR.NOTE ---
Referral [facility] f/u 1-2wks Biliary Colic.Nursing Note:
== END 2020-09-17 22:46 | disposition home or self-care (01) ==
PROVIDERS: Emergency Provider Student in an Organized Health Care Education/Training Program; PCP Emergency Medicine
DX: K80.50 Calculus of bile duct without cholangitis or cholecystitis without obstruction (principal)
CPT/HCPCS: 80053; 83690; 93005; 96361; 96374; 96375; 99285; 74177; 81003; 83605; 84484; 85025; 93010; 99284; J1885; J2405; J3490

== ENCOUNTER 2020-09-22 20:17 | Emergency (ER) | payer OTHER, SELFPAY ==
[2020-09-22 20:31] VITALS: BP 120/78; PULSE 57; RESP 24; TEMP 36.2; O2SAT 98
--- NOTE | 2020-09-22 20:48 | ED.GENADUL_ITS ---
Discharge Plan Disposition Patient Disposition: HOME Condition: Stable Discharge Details Clinical Impression: Biliary colic Primary Care Provider: Nicolas Collins ED Provider: Kelsea Hoyt Home Meds and New Rx's Prescriptions: New hydrocodone-acetaminophen 5-325 mg tablet 1 tab PO Q6H PRN (Reason: pain) Qty: 7 RF: 0 No Action aspirin 81 mg tablet,delayed release (DR/EC) 81 mg PO DAILY RF: 0 levothyroxine [Synthroid] 88 mcg tablet 88 mcg PO DAILY Qty: 90 RF: 4 clobetasol 0.05 % ointment 1 applic topical .COMPLEX Qty: 30 RF: 4 sucralfate 1 gram tablet 1 g PO QACHS Qty: 120 RF: 4 ondansetron HCl [Zofran] 4 mg tablet 4 mg PO BID PRN (Reason: nausea and vomiting) Qty: 30 RF: 1 acetaminophen [Mapap Extra Strength] 500 MG tablet 1,000 mg PO PRN PRNRF: 0 sucralfate 1 gram tablet PO 5X/DAY RF: 0 famotidine 10 mg Tablet 10 mg PO BID RF: 0 fluticasone propionate 16 GM spray,suspension 2 spr NS PRN PRNRF: 0 Discharge Instructions Instructions: Biliary Colic (ED) Additional Instructions: Follow up with primary care provider in 3-5 days. Return to ED sooner if any worsening or concerns. Increase oral fluids. Keep scheduled appointment with general surgery. Return to the ED for vomiting, fever, abdominal pain not relieved by medications. Do not take any extra Tylenol on top of the hydrocodone with Tylenol. Take the pain medication with food, no driving or operating heavy machinery while on medication. Also take a stool softener as discussed as pain medication may cause constipation. Referrals: Nicolas Collins [Primary Care Provider] - Medical Decision Making 65-year-old female presents to the ER with chief complaint of right upper quadrant abdominal pain. Patient was seen on Saturday for similar and was diagnosed with biliary colic. Patient states that she was seen by her PCP today. She has a outpatient surgical appointment on October 03 to have gallbladder evaluation discussion. Patient reports increase in pain no vomiting no diarrhea denies any fever. Patient is getting in 2 days. She reports taking Tylenol prior to arrival. CBC, CMP, Mag, Lipase and CT abd pelvis orderd. Zofran and Toradol IV ordered. CBC is negative for leukocytosis, CMP shows a sodium of 144 potassium 2.8, chloride 107 magnesium 2.0 lipase within normal limits 70 P.o. potassium 40 mEq liquid and 4 [address] Zo[address] ODT ordered. CT abdomen pelvis with contrast FINDINGS: Liver: Hepatic cysts up to 5.5 cm. Gallbladder and bile ducts: Borderline prominence of common bile duct, correlate with patient labs. Pancreas: Normal. No ductal dilation. Spleen: Normal. No splenomegaly. Adrenal glands: Normal. No mass. Kidneys and ureters: Renal cysts up to 2 cm. No hydronephrosis. Stomach and bowel: Colonic diverticula. Appendix: No evidence of appendicitis. Intraperitoneal space: Unremarkable. No free air. No significant fluid collection. Vasculature: Unremarkable. No abdominal aortic aneurysm. Lymph nodes: Unremarkable. No enlarged lymph nodes. Urinary bladder: Unremarkable as visualized. Reproductive: Unremarkable as visualized. Bones/joints: Unremarkable. No acute fracture. Soft tissues: Unremarkable. IMPRESSION: Borderline prominence of common bile duct, correlate with patient labs Discussed CT results and lab results with patient and significant other, she verbalizes understanding. She has improvement of pain after the Toradol and Zofran which was given prior to arrival. She is much more comfortable upon reevaluation. She has an appointment with general surgery on October 03 I encouraged her to keep this appointment. Patient was given hydrocodone with Tylenol 2 tablets to go and a prescription for 7 tablets. Discussed taking this with food, no driving and strict return instructions, verbalized understanding. HPI General Mode of arrival: ambulatory . Date/Time Provider Initiated Documentation: 09/22/20 20:27 . Limitations to Documentation: no limitations . Information obtained by: patient . HPI Narrative: 65-year-old female presents to the ER with chief complaint of right upper quadrant abdominal pain. Patient was seen on Saturday for similar and was diagnosed with biliary colic. Patient states that she was seen by her PCP today. She has a outpatient surgical appointment on October 03 to have gallbladder evaluation discussion. Patient reports increase in pain no vomiting no diarrhea denies any fever. Patient is getting in 2 days. She reports taking Tylenol prior to arrival. Related Data Home Medications Medication Instructions Recorded Confirmed acetaminophen [Mapap Extra 1,000 mg PO PRN PRN 12/14/15 09/22/20 Strength] fluticasone propionate 2 spr NS PRN PRN 05/02/20 09/22/20 aspirin 81 mg tablet,delayed 81 mg PO DAILY 05/24/20 09/22/20 release Synthroid 88 mcg tablet 88 mcg PO DAILY #90 tab-cap NS 05/31/20 09/22/20 sucralfate 1 gram tablet 1 g PO QACHS #120 tab 07/19/20 09/22/20 clobetasol 0.05 % topical ointment 1 applic TOPICAL .COMPLEX #30 g 07/28/20 09/22/20 famotidine 10 mg PO BID 09/17/20 09/22/20 sucralfate PO 5X/DAY 09/17/20 09/22/20 hydrocodone-acetaminophen 1 tab PO Q6H PRN #7 tab 09/22/20 ondansetron HCl 4 mg tablet 4 mg PO BID PRN #30 tab 09/22/20 09/22/20 Previous Rx's Medication Instructions Recorded Synthroid 88 mcg tablet 88 mcg PO DAILY #90 tab-cap NS 05/31/20 sucralfate 1 gram tablet 1 g PO QACHS #120 tab 07/19/20 clobetasol 0.05 % topical ointment 1 applic TOPICAL .COMPLEX #30 g 07/28/20 hydrocodone-acetaminophen 1 tab PO Q6H PRN #7 tab 09/22/20 ondansetron HCl 4 mg tablet 4 mg PO BID PRN #30 tab 09/22/20 Allergies Allergy/AdvReac Type Severity Reaction Status Date / Time coconut Allergy Mild Verified 09/22/20 07:26 gluten Allergy Verified 09/22/20 07:26 omeprazole AdvReac Severe Myalgias Verified 09/22/20 07:26 oxycodone HCl [From Percocet] AdvReac Intermediate Psychosis Verified 09/22/20 07:26 sertraline HCl [From Zoloft] AdvReac Intermediate psychotic Verified 09/22/20 07:26 anesthesia AdvReac Severe Uncoded 09/22/20 07:26 General Stated Complaint: Abd Prob NEHEMIAH: 4 Review of Systems Narrative: Constitutional: Negative for weight loss, alert and oriented, well groomed, normal body habitus, appears uncomfortable. HEENT: Denies trauma, headaches, blurry vision, nasal discharge, sore throat, trouble swallowing. Chest: Denies chest pain, palpitations, irregular rhythm, hypertension. Respiratory: Denies Shortness of breath, cough, hemoptysis. GI: Denies nausea, vomiting, diarrhea, constipation. Positive abdominal pain which radiates up into her right chest. : Denies dysuria, hematuria, flank pain, rectal bleeding. Neuro: Denies dizziness, blurry vision, weakness, syncope, headache or facial numbness. Hematologic: Denies easy bruising, intolerance to heat or cold, hair loss. [facility] Medical History Abnormal stress test Anxiety celiac sprue Closed fracture of one rib of left side with routine healing (12/16/15) Depression Epigastric pain Fatigue Fibrocystic disease of both breasts Gastritis [place] Menopause Psoriasis Surgical History COLONOSCOPY/W MAC (12/13/14) ANGÉLICA [facility]TGOMERY History of bilateral ligation of fallopian tubes (05/28/14) Ligation of fallopian tube Status post thyroidectomy THYROIDECTOMY Family History Mother Diabetes Essential hypertension Personal history of malignant neoplasm Heart disease Father Personal history of malignant neoplasm Sister No problems noted. Brother No problems noted. Grandfather Essential hypertension Heart disease Grandfather , ACCIDENTAL No problems noted. Grandmother No problems noted. Grandmother Personal history of malignant neoplasm Sister No problems noted. Sister Depression Brother No problems noted. Son No problems noted. Daughter No problems noted. Social History Smoking/Tobacco Use Status: Former Tobacco Use Smoking risk assessment performed?: Yes Alcohol Intake: never Drug use: Never Substance use type: does not use Household members: significant other and other Details: . SO Jerome x5yrs. They are planning wedding in future. 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 Sexually active: Yes Do you feel safe at home: Yes Do you feel safe in your relationship?: Yes Female Reproductive History Menstrual control method: permanent sterilization Menopause type: natural (stopped menses 50yo.) History History 2 Para 2 Hx # Term Pregnancies 2 Multiple births Hx # Pregnancies Ectopic pregnancies AB induced Hx Number of Living Children 2 AB spontaneous Exam Narrative Exam Narrative: Constitutional: Alert and oriented x3. Appears stated age. Normal body habitus. Patient appears uncomfortable and is hyperventilating upon arrival. Head: Normocephalic, no trauma. Eyes: Pupils PERRLA, Red reflex noted, EOM's intact. Eyelids symmetrical without lesions, discharge, or swelling. ENT: Bilateral TM's WNL, External ear normal to inspection, no mastoid TTP, swelling, or erythema, Nasal turbinates WNL, no nasal discharge. Normal dentition, Posterior pharynx WNL, no exudate. Chest: RRR, Normal S1, S2, distal pulses intact. Resp: Lungs clear to auscultation bilaterally, no wheezes, rales, or rhonchi. Abdomen: Soft, nondistended tenderness noted to the right upper quadrant and midepigastrium. Musculoskeletal: Normal gait, 5/5 strength to all four extremities. Skin: No suspicious rashes or lesions. Capillary refill less than 2 sec. Neurologic: Cranial nerves II-XII intact. Alert and oriented x 3. DTR's intact. Hematologic/Lymphatic: No ecchymosis, no lymphadenopathy. Course Vital Signs Vital signs: Vital Signs Temperature 36.2 C L 09/22/20 20:31 Pulse 57 L 09/22/20 20:31 Respiratory Rate 24 09/22/20 20:31 Blood Pressure 120/78 09/22/20 20:31 Pulse Oximetry 98 09/22/20 20:31 Temperature 36.2 C L 09/22/20 20:31 Temperature Source Temporal Artery Scan 09/22/20 20:31 Pulse 57 L 09/22/20 20:31 Respiratory Rate 24 09/22/20 20:31 Respiratory Effort Non-Labored 09/22/20 20:33 Blood Pressure 120/78 09/22/20 20:31 Blood Pressure Position Supine 09/22/20 20:31 Pulse Oximetry 98 09/22/20 20:31 Oxygen Delivery Method Room Air 09/22/20 20:31 Oxygen Flow Rate 0 09/22/20 20:31 Pain Level 10 09/22/20 20:31
[2020-09-22] MEDS: Ketorolac 30 MG/ML VIAL IVP (21:08)
[2020-09-22] MEDS: Ondansetron 4 MG/2 ML VIAL IVP (21:09)
[2020-09-22 21:12] LABS: Abs Immature Grans 0.01 10^3/uL (0.0-0.06); Absolute Eosinophil Count 0.21 10^3/uL (0.0-0.7); Absolute Lymphocyte Count 2.22 10^3/uL (1.2-3.4); Absolute Monocyte Count 0.43 10^3/uL (0.1-0.8); Absolute Neutrophil Count 2.57 10^3/uL (1.2-6.7); Basophils % 1.8; Eosinophils % 3.8; HGB 13.2 g/dL (11.2-15.7); Immature Grans % 0.2; Lymphocytes % 40.1; MCH 30.3 pg (27.0-33.0); MCV 91.7 fL (80-95); MPV 10.9 fL (8.0-11.0); Monocytes % 7.8; Neutrophils % 46.3; Nucleated RBC 0 %; Platelet Count 225 10^3/uL (130-400); RBC 4.36 10^6/uL (3.93-5.22); RDW 11.9 % (11.7-14.6); RDW-SD 40.8 fL; WBC 5.54 10^3/uL (4.4-10.8)
[2020-09-22 21:24] LABS: ALT 23 U/L (14-59); AST 16 U/L (15-37); Albumin 3.6 g/dL (3.4-5.0); Alkaline Phosphatase 73 U/L (46-116); BUN 8 mg/dL (7-18); Bilirubin, Total 0.3 mg/dL (0.2-1.0); Chloride 107 mmol/L (98-107); Glucose 102 mg/dL (74-106); Lipase 70 U/L (73-393); Sodium 144 mmol/L (136-145); Total Protein 7.4 g/dL (6.4-8.2)
[2020-09-22 21:27] LABS: Potassium 2.8 mmol/L (3.5-5.1)
--- NOTE | 2020-09-22 22:00 | DI.CT_ITS ---
Exam(s) CT ABDOMEN PELVIS W EXAM: CT ABDOMEN PELVIS W CLINICAL HISTORY: RUQ abd pain. TECHNIQUE: Imaging Protocol: Axial computed tomography images with coronal and sagittal reformatted images were created and reviewed CONTRAST MATERIAL: Intravenous: Omnipaque 350 Contrast volume:100 ml Oral: no COMPARISON: CT CT ABDOMEN PELVIS W from 09/17/2020 FINDINGS: ABDOMEN: Lung Bases: Normal where visualized. Small hiatal hernia. Heart size normal. Liver: Normal density. Stable cysts. No measurable suspicious mass. Gallbladder and biliary tract: No radiodense calculus or dilation. Pancreas: Normal density, no abnormal calcifications or inflammatory process. Spleen: Normal. Kidneys: Normal size, contour and axis. No radiodense stones or obstructive uropathy. Small cysts. No suspicious masses seen. Adrenal glands: No masses seen. Abdominal Aorta: Abdominal portion non-dilated. Minimal calcification. PELVIS: Bladder: No gross wall thickening. No calculi.No focal mass. Bowel: No obstruction or bowel wall thickening. Appendix normal. diverticulosis. No evidence of di verticulitis. Peritoneal cavity: No ascites, collection or mesenteric inflammatory response. Bones: Within normal limits for age. Reproductive organs: Within normal limits. Lymph nodes: Unremarkable. Impression: No acute abnormality in the abdomen or pelvis. RADIATION DOSE DELIVERED: 1,262.33mGy.cm Total DLP DATA REPOSITORY: All CT scans at this facility are submitted to the National Radiology Data Registry (NRDR) Dose Index Registry (DIR) with the [employer] (ACR). RADIATION OPTIMIZATION: All CT scans at this facility use at least one of these dose optimization te chniques: automated exposure control; mA and/or kV adjustment per patient size (includes targeted exa ms where dose is matched to clinical indication); or iterative reconstruction.
[2020-09-22] MEDS: Omnipaque 350 MG/ML 100 ML BTL IJ (22:01)
[2020-09-22] MEDS: Normal Saline - Diluent 50 ML VIAL IV (22:01)
[2020-09-22] MEDS: Normal Saline Flush 10 ML SYR IVP (22:02)
[2020-09-22] MEDS: Potassium Chloride Liquid 20 MEQ PKT 40 MEQ PO (22:08)
--- NOTE | 2020-09-22 22:42 | DI.VRAD_ITS ---
PROCEDURE INFORMATION: Exam: CT Abdomen And Pelvis With Contrast Exam date and time: 09/22/2020 8:55 PM Age: 65 years old Clinical indication: Other: Ruq abd pain TECHNIQUE: Imaging protocol: Computed tomography of the abdomen and pelvis with contrast. Radiation optimization: All CT scans at this facility use at least one of these dose optimization techniques: automated exposure control; mA and/or kV adjustment per patient size (includes targeted exams where dose is matched to clinical indication); or iterative reconstruction. Contrast material: OMNIPAQUE 350; Contrast volume: 100 ml; Contrast route: INTRAVENOUS (IV); COMPARISON: CT ABDOMEN PELVIS W 09/17/2020 9:42 PM FINDINGS: Liver: Hepatic cysts up to 5.5 cm. Gallbladder and bile ducts: Borderline prominence of common bile duct, correlate with patient labs. Pancreas: Normal. No ductal dilation. Spleen: Normal. No splenomegaly. Adrenal glands: Normal. No mass. Kidneys and ureters: Renal cysts up to 2 cm. No hydronephrosis. Stomach and bowel: Colonic diverticula. Appendix: No evidence of appendicitis. Intraperitoneal space: Unremarkable. No free air. No significant fluid collection. Vasculature: Unremarkable. No abdominal aortic aneurysm. Lymph nodes: Unremarkable. No enlarged lymph nodes. Urinary bladder: Unremarkable as visualized. Reproductive: Unremarkable as visualized. Bones/joints: Unremarkable. No acute fracture. Soft tissues: Unremarkable. IMPRESSION: Borderline prominence of common bile duct, correlate with patient labs. Dictated and Authenticated by: Xavier Ho MD. Ordering:HANNA Enamorado MD
[2020-09-22 23:08] VITALS: BP 120/78; PULSE 57; RESP 24; TEMP 36.2; O2SAT 98
== END 2020-09-22 23:12 | disposition home or self-care (01) ==
PROVIDERS: Emergency Provider Registered Nurse Emergency; PCP Family Medicine
DX: K80.50 Calculus of bile duct without cholangitis or cholecystitis without obstruction (principal); E87.6 Hypokalemia
CPT/HCPCS: 36415; 80053; 83690; 96374; 96375; 99285; 74177; 83735; 85025; 99284; J1885; J2405; J3490

== ENCOUNTER 2020-10-07 04:13 | Outpatient (CLI) | payer OTHER, SELFPAY ==
--- NOTE | 2020-10-07 07:45 | DI.NM_ITS ---
Exam(s) NM HEPATOBILIARY SCAN GRP EXAM: NM HEPATOBILIARY SCAN GRP CLINICAL HISTORY: RUQ EPIGASTRIC PAIN, BILIARY COLIC NAUSEA,GERD,R10.13,K80.50,K21.00. COMPARISON: CT,NM,TMT NM MPI REST STRESS GRP from 05/17/2020 TECHNIQUE: Hepatobiliary scan was performed with intravenous infusion 4.8 millicuries technetium 99 labeled mebrofenin. There was prompt homogeneous hepatic uptake and prompt uptake in the gallbladder bile ducts and small intestine period following ingestion of a fatty meal, gallbladder ejection frac tion is calculated at 91 percent. FINDINGS: Negative hepatobiliary scan, CCK was not administered but a fatty meal shows normal gallbladder eject ion fraction. IMPRESSION: DATA REPOSITORY:
== END 2020-10-07 04:33 ==
PROVIDERS: PCP Family Medicine; Visit Provider Surgery
DX: K21.00 Gastro-esophageal reflux disease with esophagitis, without bleeding; K80.50 Calculus of bile duct without cholangitis or cholecystitis without obstruction
CPT/HCPCS: 78227

== ENCOUNTER 2020-10-20 17:35 | Outpatient (REF) | payer OTHER, SELFPAY ==
[2020-10-22 15:53] LABS: HSV 1 DNA Result Positive (Negative); HSV 2 DNA Result Negative (Negative)
== END 2020-10-20 17:36 | disposition home or self-care (01) ==
LOC: LBN 17:35
PROVIDERS: PCP Emergency Medicine; Visit Provider Obstetrics & Gynecology Gynecology
DX: L98.9 Disorder of the skin and subcutaneous tissue, unspecified (principal)
CPT/HCPCS: 87529

== ENCOUNTER 2020-10-26 01:01 | Outpatient (CLI) | payer OTHER, SELFPAY ==
--- NOTE | 2020-10-26 08:45 | DI.MRI_ITS ---
Exam(s) MR ABDOMEN WO/W EXAM: MR ABDOMEN WO/W CLINICAL HISTORY: ruq pain nausea/liver cyst expanding in size, GERD, ESOPHAGITIS TECHNIQUE: Multiplanar multisequence MRI was performed with both pre and post contrast infused seque nces. Contrast injected sequences were performed following IV injection of 20 cc of Dotarem. COMPARISON: US US ABDOMEN from 10/21/2020 US US ABDOMEN from 10/21/2020 FINDINGS: VISUALIZED LUNG BASES: No pleural effusions evident. There is no ascites evident. LIVER: There are multiple well-defined T2 bright well-defined lesions seen throughout the liver which also do not enhance following contrast injection and are consistent with benign cysts. Largest in t he right hepatic lobe measures 3 cm. In the lateral aspect of the left hepatic lobe there are 2 adjacent well-defined lesions which measur e approximately 4 x 3.5 cm and 3.3 by 3.3 cm and do not have the appearance of simple cysts. Probabl y contain proteinaceous content below the both exhibit different signal characteristics. One of thes e appears to be within the liver and the other is exophytic off the liver. Combined measurement of t hese 2 contiguous structures is is 6.9 cm wide by 3.8 cm cyst craniocaudal by 4.4 cm AP. Do not exhi bit appreciable enhancement following contrast injection. There are separate from the adjacent stoma ch. BILIARY: There is no obvious gallbladder pathology. The CBD is mildly prominent measuring 7-8 millim eters. There are no MRCP sequences. No obvious calculus in the lower CBD. No pancreatic head mass. PANCREAS: There is no evidence of pancreatic mass nor dilatation of the pancreatic duct. SPLEEN: Spleen is not enlarged and there are no intrasplenic lesions.Small exophytic cyst is seen off the anterior aspect of the upper spleen. ADRENALS: There are no significant adrenal masses. KIDNEYS: Multiple cysts noted in both kidneys. The largest cyst in left kidney measuring 1.8 centime rosmery. Largest cyst in the right kidney measures 1.9 cm. No hydronephrosis. ABDOMINAL AORTA: Not enlarged and there is no significant para-aortic adenopathy. ANTERIOR ABDOMINAL WALL/GI: There is no evidence of significant anterior abdominal wall hernia in the field of view of this study.Is no evidence of obvious bowel obstruction. OSSEOUS: There are no lytic osseous lesions in the field of view of this study. IMPRESSION: 1. Numerous hepatic cysts. Those numerous cysts which are in the right hepatic lobe have typical dima earance of benign cyst. The smaller findings in left hepatic lobe also have appearance of typical cy sts. However, there are 2 larger contiguous cystic structures in the lateral segment of left lobe wh ich exhibit different signal characteristics and are probably variant cysts which contain in a shins material. These do not exhibit significant internal enhancement. Recommend repeat study in 6 months , earlier clinically indicated. 2. CBD is slightly dilated measuring 7-8 millimeters. There is no obvious calculus nor mass in the l ower CBD nor pancreatic head mass. MRCP sequence is not included on this study. 3. There are multiple cysts in both kidneys as described above. No solid renal masses. No hydroneph rosis This study 1st read by [facility] DATA REPOSITORY:
[2020-10-26] MEDS: Gadoterate meglumine 20 ML VIAL IVP (14:58)
--- NOTE | 2020-10-26 17:47 | DI.VRAD_ITS ---
PROCEDURE INFORMATION: Exam: MR Abdomen Without and With Contrast Exam date and time: 10/26/2020 2:55 PM Age: 65 years old Clinical indication: Other: Biliary colic, epigastric pain, ulcer, k21.00, ruq pain\T\nausea/liver cyst expanding in size, gerd, esop TECHNIQUE: Imaging protocol: MR of the abdomen without and with intravenous contrast. Contrast material: GADOLIDIUM; Contrast volume: 17 ml; Contrast route: INTRAVENOUS (IV); COMPARISON: CT ABDOMEN PELVIS W 09/22/2020 9:52 PM FINDINGS: Liver: Innumerable T2 intense lesions are seen in the liver most compatible with cysts. The largest in the right lobe measures approximately 29 mm. The large is in the left measures approximately 5.6 cm. They correlate well with recent CT. The 2 larger cysts in the lateral segment of the left hepatic lobe demonstrate increased T1 signal and less pronounced increased T2 signal. They may have proteinaceous contents. Gallbladder and bile ducts: Common bile duct measures up to about 8 mm. No intrahepatic ductal dilatation. ERCP not included. Gallbladder is unremarkable. Pancreas: Unremarkable. No ductal dilation. Spleen: Tiny cyst on the spleen noted. Adrenal glands: Unremarkable. No mass. Kidneys and ureters: Multiple bilateral T2 intense renal lesions compatible with cysts. Stomach and bowel: Visualized stomach and intestines are unremarkable. Intraperitoneal space: No free fluid. Arteries: No abdominal aortic aneurysm. Bones/joints: Unremarkable. Soft tissues: Unremarkable. IMPRESSION: 1. No MRCP sequences. Some mild ectasia of the common duct is noted without cause or filling defects. 2. Numerous hepatic cysts again noted. The 2 in the lateral segment of the left lobe likely contain some proteinaceous contents. 3. Multiple bilateral renal cysts noted as well. Dictated and Authenticated by: Josias Avila MD. Ordering:JUSTO Mancuso MD
== END 2020-10-26 01:21 ==
PROVIDERS: PCP Emergency Medicine; Visit Provider Surgery
DX: K21.00 Gastro-esophageal reflux disease with esophagitis, without bleeding (principal); K22.10 Ulcer of esophagus without bleeding; K29.51 Unspecified chronic gastritis with bleeding; K76.89 Other specified diseases of liver; R10.13 Epigastric pain; R10.9 Unspecified abdominal pain; Q61.02 Congenital multiple renal cysts; K80.50 Calculus of bile duct without cholangitis or cholecystitis without obstruction; K21.9 Gastro-esophageal reflux disease without esophagitis
CPT/HCPCS: 74183

== ENCOUNTER 2020-11-28 17:55 | Outpatient (REF) | payer OTHER, SELFPAY ==
[2020-11-30 15:47] LABS: COVID-19 RT-PCR UVMMC Result Negative (Negative)
== END 2020-11-28 17:56 | disposition home or self-care (01) ==
LOC: LBN 17:55
PROVIDERS: PCP Emergency Medicine; Visit Provider Physician Assistant
DX: Z20.822 Contact with and (suspected) exposure to COVID-19 (principal)
CPT/HCPCS: U0003

== ENCOUNTER 2021-05-04 07:33 | Inpatient (IN) | payer OTHER, SELFPAY ==
[2021-05-04] VITALS (7 sets, daily range): BP systolic 102–123; BP diastolic 48–59; PULSE 51–77; RESP 13–18; TEMP 36.1–36.6; O2SAT 96–100; BMI 34.2
--- NOTE | 2021-05-04 08:03 | ED.GENADUL_ITS ---
Discharge Plan Disposition Patient Disposition: [facility] INPATIENT Condition: Stable Discharge Details Clinical Impression: Acute appendicitis Admit Date/Time: 05/04/21 17:13 Admit Provider: Jamee Montesinos Attending Provider: Jamee Montesinos Primary Care Provider: Yan Jones ED Provider: Mulu Hernandez Discharge Data Discharge Date/Time-TO BE ENTERED AT DEPARTURE: 05/04/21 11:56 Medical Decision Making 66-year-old female with a history of anxiety, depression, GERD, celiac disease, hypothyroidism with a history of chronic abdominal pain for the past 6 months presents with abdominal pain since yesterday afternoon. Review of records note that patient has had 6 imaging studies for her abdominal pain in the last 6 months. These included 2 abdominal CTs, 2 abdominal ultrasounds, HIDA scan, and an abdominal MRI all of which noted hepatic cysts with no other acute process. The abdominal MRI noted a slightly dilated CBD but no obvious stone and an MRCP was not completed. She reports that she had an EGD within the last year at [facility] surgery notes indicate found ulcers in the hiatal hernia. Patient appears uncomfortable. Her pain certainly could be due to potentially ingesting gluten yesterday. Differential diagnosis includes gluten intolerance, biliary colic, cholecystitis, appendicitis, IBS, gastroenteritis, colitis, etc. We will place an IV, bolus IV fluids, screening labs, urinalysis, abdominal ultrasound, CT abdomen pelvis and give a dose of Dilaudid and Zofran and reassess. Labs and imaging reviewed. Normal white blood cell count. Normal electrolytes. Lipase normal. Urinalysis negative. Ultrasound negative for acute findings. CT notes acute appendicitis. Case discussed with Dr. Montesinos who will plan to take patient to the OR this afternoon. Dose of Zosyn ordered. Disposition of patient from the ED is awaiting bed availability. Medical Records Medical records reviewed: Yes I reviewed the patient's medical records. Imaging Data Radiologic Study: Radiologist's impression: ?US ABDOMEN LIMITED CLINICAL HISTORY: ? RUQ abd pain, r/o cholecystitis TECHNIQUE:? Ultrasound abdomen performed using standard protocol. COMPARISON:? CT CT ABDOMEN ? PELVIS W from 09/22/2020 US US ABDOMEN LIMITED from 03/02/[address] ABDOMEN ? PELVIS W from 05/04/2021 FINDINGS: LIVER: Normal size and echogenicity.? Multiple cysts.? Lateral GALLBLADDER: No evidence of cholelithiasis. No evidence of wall thickening. No pericholecystic fluid identified. HAYWOOD'S SIGN: Negative. BILIARY SYSTEM: No intrahepatic or extrahepatic biliary ductal dilation. RIGHT KIDNEY: Normal size. No evidence of renal calculi. No evidence of hydronephrosis. No suspicious renal mass.? ? Parapelvic cysts.? Cysts smear lower pole. PANCREAS: Normal where visualized. ABDOMINAL AORTA AND IVC: Visualized portions normal caliber. ASCITES: None seen. IMPRESSION: Liver cysts.? Please see CT report from the same day. No evidence of acute cholecystitis. CT ABDOMEN ? PELVIS W CLINICAL HISTORY: ? RUQ/RLQ abd pain, r/o appendicitis, obstruction.? TECHNIQUE:? Imaging Protocol: Axial computed tomography images with coronal and sagittal reformatted images were created and reviewed CONTRAST MATERIAL:? Intravenous: Omnipaque 350 Contrast volume:100 ml Oral:? no COMPARISON:? CT CT ABDOMEN ? PELVIS W from 09/22/2020 FINDINGS: ABDOMEN: Lung Bases: Small hiatal hernia.? Fluid seen in distal esophagus could represent reflux. Liver: Normal density. Innumerable cysts are again noted.? 2 largest cysts are in the left lobe.? Both have decreased in size when compared with the previous exam which could be secondary to prior aspiration procedure.? Clinical correlation is recommended.? Gallbladder and biliary tract: No radiodense calculus or dilation.? Pancreas: Normal density, no abnormal calcifications or inflammatory process. Spleen: Normal. Kidneys: Normal size, contour and axis. No radiodense stones or obstructive uropathy. No masses seen. Bilateral cysts. Adrenal glands: No masses seen. Abdominal Aorta: Abdominal portion non-dilated. Soft tissues: Tiny amount of fat at the umbilicus. PELVIS:? Bladder:? No gross wall thickening. No calculi.No focal mass. Bowel: No obstruction or bowel wall thickening. Appendicoliths noted pr oximally.? Distal appendix distended and fluid-filled.? Surrounding inflammation.? Mild diverticulosis without evidence of diverticulitis.? Normal quantity of fecal material.? No small bowel or gastric distention. Peritoneal cavity: No ascites, or focal collection. Bones: Within normal limits for age.? Reproductive organs: Within normal limits. Lymph nodes: Unremarkable.? Impression: Acute appendicitis.? No perforation or abscess. Interval decrease in size of previously noted presumed cysts in the left lobe of the liver.? Lab Data Lab results reviewed: Yes I reviewed the patient's lab results. HPI General Mode of arrival: ambulatory . Date/Time Provider Initiated Documentation: 05/04/21 07:34 . Limitations to Documentation: no limitations . Information obtained by: patient . HPI Narrative: Patient is a 66-year-old female with history of anxiety, depression, GERD, celiac disease, hypothyroidism, paroxysmal atrial fibrillation with a history of chronic abdominal pain for the last 6 months, presents for abdominal pain since yesterday afternoon. She has a follow-up appointment for this chronic abdominal pain with [facility] on Saturday. The patient has been seen multiple times in the ED for this complaint with abdominal CAT scan, ultrasound, MRI and HIDA scan which noted stable hepatic cyst with a slightly dilated CBD otherwise no other acute findings. She states she has a history of celiac disease and is gluten intolerant and had a going away alliance party at work yesterday and had a small piece of cake and macaroni and cheese and states her pain is the worse since then. He states there may have been gluten in food which caused a flareup of her pain. She states her pain does feel similar to previous pain she has had in the past but worse on the right side. She states the pain is 20/10. She took diclofenac at 1 AM this morning without relief. She admits to nausea but denies any vomiting. She states her last bowel movement has been continual small BMs overnight which have been small and loose. She denies any rectal bleeding. She denies any fever, urinary symptoms, new meds, recent antibiotics. Related Data Home Medications Medication Instructions Recorded Confirmed acetaminophen 500 mg tablet (Mapap 1,000 mg PO PRN PRN 12/14/15 05/04/21 Extra Strength) Synthroid 88 mcg tablet 88 mcg PO DAILY #90 tab-cap NS 05/31/20 05/04/21 (levothyroxine) clobetasol 0.05 % topical ointment 1 applic TOPICAL .COMPLEX #30 g 07/28/20 05/04/21 potassium gluconate 550 mg (90 mg) 550 mg PO DAILY 10/03/20 05/04/21 tablet lorazepam 0.5 mg tablet 0.5 mg PO BID PRN #7 tab 12/23/20 05/04/21 calcium carbonate 500 mg calcium 1,000 mg PRN 05/04/21 (1,250 mg) chewable tablet amoxicillin 875 mg-potassium 1 tab PO Q12H 7 Days #14 tab 05/05/21 clavulanate 125 mg tablet tramadol 50 mg tablet (Ultram) 50 mg PO Q6H PRN #10 tab 05/05/21 Previous Rx's Medication Instructions Recorded Synthroid 88 mcg tablet 88 mcg PO DAILY #90 tab-cap NS 05/31/20 (levothyroxine) clobetasol 0.05 % topical ointment 1 applic TOPICAL .COMPLEX #30 g 07/28/20 lorazepam 0.5 mg tablet 0.5 mg PO BID PRN #7 tab 12/23/20 amoxicillin 875 mg-potassium 1 tab PO Q12H 7 Days #14 tab 05/05/21 clavulanate 125 mg tablet tramadol 50 mg tablet (Ultram) 50 mg PO Q6H PRN #10 tab 05/05/21 Allergies Allergy/AdvReac Type Severity Reaction Status Date / Time omeprazole AdvReac Severe Myalgias Verified 05/04/21 12:12 gluten AdvReac Intermediate GI upset Verified 05/04/21 12:12 oxycodone HCl [From Percocet] AdvReac Intermediate Psychosis Verified 05/04/21 12:12 sertraline HCl [From Zoloft] AdvReac Intermediate psychotic Verified 05/04/21 12:12 coconut AdvReac Mild Gi upset Verified 05/04/21 12:12 anesthesia AdvReac Severe listed as Uncoded 05/04/21 07:42 blood pressure crashed- [facility] has record General Stated Complaint: Abd Prob NEHEMIAH: 3 Review of Systems All systems reviewed & are unremarkable except as noted in HPI and below Constitutional Constitutional: Reports as per HPI, Denies chills and Denies fever(s) Eyes Eyes: Denies blurry vision ENT Ears, Nose, Mouth, and Throat: Denies dizziness, Denies sore throat and Denies throat swelling Cardiovascular Cardiovascular: Denies chest pain and Denies dyspnea Respiratory Respiratory: Denies cough and Denies dyspnea Gastrointestinal Gastrointestinal: Reports abdominal pain, Denies diarrhea, Reports nausea and Denies vomiting Genitourinary Genitourinary: Denies hematuria and Denies dysuria Musculoskeletal Musculoskeletal: Denies back pain and Denies numbness Integumentary/Breasts Skin/Breast: Denies lesions and Denies rash Neurologic Neurologic: Denies dizziness, Denies localized weakness and Denies numbness Allergic/Immunologic Allergic/Immunologic: Denies throat swelling PFSH All Active Problems (Updated 05/06/21 @ 00:01 by BEBETO LAWLER) Acute gangrenous appendicitis (Acute) Candidal skin infection (Acute) Herpes (Acute) Perianal in the context of lichen sclerosus. Rx outbreaks with valacyclovir. Paroxysmal atrial fibrillation (Acute) Liver cyst (Acute) Painful skin lesion (Acute) Nausea (Acute) Liver cyst (Acute) GERD with esophagitis (Acute) Biliary colic (Acute) Epigastric pain (Acute) Anogenital lichen sclerosus (Acute) Mood altered (Acute) Fatigue (Acute) Headache (Acute) Palpitations (Acute) Hypomagnesemia (Acute) Hypokalemia (Acute) Atrial fibrillation, new onset (Acute) Abnormal stress test (Acute) Chest pain (Acute) Abdominal pain (Acute) GERD (gastroesophageal reflux disease) (Chronic) Right Achilles tendinitis (Acute) Right lumbar radiculopathy (Acute) Plantar fasciitis (Acute) Right foot s/p three steroid injections by podiatry Esophageal ulcer (Acute) Smoker (Acute) Gastritis (Chronic) Primary osteoarthritis of right knee (Acute 03/30/16) Palpitations (Acute 01/31/86) Onychomycosis (Acute) Hypothyroidism (Acute 04/04/12) Headache (Acute) H/O vascular headaches Hammer toe (Acute) bilateral Fibrocystic disease of breast (Acute 01/31/99) Depressive disorder (Acute 01/31/97) Complex tear of lateral meniscus of left knee as current injury (Acute 03/30/16) Celiac disease (Acute) Anxiety (Acute) Medical History (Updated 05/06/21 @ 00:01 by BEBETO LAWLER) Anxiety celiac sprue Closed fracture of one rib of left side with routine healing (12/16/15) Depression Fibrocystic disease of both breasts Gastritis Hammertoe Psoriasis Surgical History COLONOSCOPY/W MAC (12/13/14) ANGÉLICA MONTGOMERY History of bilateral ligation of fallopian tubes (05/28/14) Ligation of fallopian tube Status post thyroidectomy THYROIDECTOMY Family History (Updated 01/04/21 @ 16:38 by Yessi Moncada) Mother Diabetes Essential hypertension Personal history of malignant neoplasm Heart disease Father Personal history of malignant neoplasm Sister Alcohol use disorder Grandfather Essential hypertension Heart disease Grandmother Personal history of malignant neoplasm Sister Depression Social History (Updated 01/04/21 @ 16:37 by Yessi Moncada) Smoking/Tobacco Use Status: Former Tobacco Use Smoking risk assessment performed?: Yes Alcohol Intake: never Drug use: Never Substance use type: does not use Caregiver/Support person: No Household members: spouse and significant other Housing: apartment Number of Children: 2 Communication Needs: None Education Level: vocational 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 Pets and animals: No Sexually active: Yes Do you think of yourself as: straight/heterosexual Current gender identity: female What is your relationship status?: How often do you talk on the phone with friends or family?: once per week How often do you get together with friends or relatives?: once per week How often do you attend gnosticism or lutheran services?: 4 or more times per year Do you belong to any clubs or organized social groups?: yes Panel score (0-1 are the most socially isolated patients): 3 Duration: 15-30 minutes/day Frequency: 5-6 times per week Lise/Orthodoxy: Yarsanism Special lise needs: No Seatbelt use: always Helmet use: No Drive intox or ride w/intox scoop driver: No Do you feel safe at home: Yes Do you feel safe in your relationship?: Yes Female Reproductive History Menstrual control method: permanent sterilization Menopause type: natural (stopped menses 50yo.) History History 2 Para 2 Hx # Term Pregnancies 2 Multiple births Hx # Pregnancies Ectopic pregnancies AB induced Hx Number of Living Children 2 AB spontaneous Exam Const General: cooperative and uncomfortable Orientation: alert, awake and oriented x3 HENMT Head: normal to inspection Mouth: oral mucosae normal Eyes General: appearance normal, both eyes and all related structures Neck Neck: normal visual inspection Resp Effort & Inspection: normal respiratory effort and able to speak in complete sentences Auscultation: clear to auscultation bilaterally Cardio Rate: regular rate Rhythm: regular rhythm GI Inspection: normal to inspection and obesity Palpation: soft, not firm, no guarding, not rigid and tender (Diffuse, worse in right upper and lower quadrant) Auscultation: hypoactive bowel sounds Skin General skin exam: no rashes or lesions noted Neuro General: patient alert, patient awake and patient oriented x3 Motor: muscle tone normal throughout Extrem General: normal to inspection and full ROM Psych Appearance: grossly normal Affect: normal affect Course Vital Signs Vital signs: Vital Signs Temperature 98 F 05/04/21 07:39 Pulse 56 L 05/04/21 07:39 Respiratory Rate 18 05/04/21 07:39 Blood Pressure 123/59 L 05/04/21 07:39 Pulse Oximetry 100 05/04/21 07:39 Temperature 98 F 05/04/21 07:39 Temperature Source Temporal Artery Scan 05/04/21 07:39 Pulse 56 L 05/04/21 07:39 Respiratory Rate 18 05/04/21 07:39 Respiratory Effort Non-Labored 05/04/21 07:43 Blood Pressure 123/59 L 05/04/21 07:39 Blood Pressure Position Sitting 05/04/21 07:39 Pulse Oximetry 100 05/04/21 07:39 Oxygen Delivery Method Room Air 05/04/21 07:39 Oxygen Flow Rate 0 05/04/21 07:39
[2021-05-04 08:15] LABS: Abs Immature Grans 0.02 10^3/uL (0.0-0.06); Absolute Eosinophil Count 0.12 10^3/uL (0.0-0.7); Absolute Monocyte Count 0.57 10^3/uL (0.1-0.8); Absolute Neutrophil Count 7.74 10^3/uL (1.2-6.7); Eosinophils % 1.2; HCT 41.5 % (36.0-46.0); HGB 13.4 g/dL (11.2-15.7); Immature Grans % 0.2; Lymphocytes % 11.4; MCH 30.7 pg (27.0-33.0); MCHC 32.3 % (32.0-36.0); MCV 95.2 fL (80-95); MPV 11.1 fL (8.0-11.0); Monocytes % 5.9; Neutrophils % 80.3; Nucleated RBC 0 %; Platelet Count 230 10^3/uL (130-400); RBC 4.36 10^6/uL (3.93-5.22); RDW 12.6 % (11.7-14.6); RDW-SD 44.3 fL; WBC 9.65 10^3/uL (4.4-10.8)
[2021-05-04 08:30] LABS: ALT 13 U/L (14-59); AST 14 U/L (15-37); Albumin 3.4 g/dL (3.4-5.0); Alkaline Phosphatase 77 U/L (46-116); Anion Gap 8.4 mmol/L (3-11); BUN 9 mg/dL (7-18); Bilirubin, Total 0.5 mg/dL (0.2-1.0); CO2 27.6 mmol/L (21.0-32.0); CREATININE 0.8 mg/dL (0.55-1.02); Calcium 8.7 mg/dL (8.5-10.1); Chloride 104 mmol/L (98-107); Glucose 102 mg/dL (74-106); Lipase 68 U/L (73-393); Potassium 3.7 mmol/L (3.5-5.1); Sodium 140 mmol/L (136-145); Total Protein 7.4 g/dL (6.4-8.2)
[2021-05-04 08:37] LABS: Bilirubin Negative (Negative); Blood Trace-intact (Negative); Clarity Clear (Clear); Glucose Negative (Negative); Ketones Negative (Negative); Leukocyte Esterase Negative (Negative); Nitrite Negative (Negative); Specific Gravity 1.015 (1.005-1.025); Urobilinogen 0.2 EU/dL (Up TO 0.2)
[2021-05-04 08:44] LABS: Bacteria Negative HPF (Negative); C & S Indicated? No; Casts Negative LPF (Negative); Crystals Negative HPF (Negative); Epithelial Cells Negative HPF (Negative); Mucus Negative (Negative); RBC 0-2 HPF (0-2); WBC Negative HPF (0-5)
--- NOTE | 2021-05-04 08:45 | DI.CT_ITS ---
Exam(s) CT ABDOMEN PELVIS W EXAM: CT ABDOMEN PELVIS W CLINICAL HISTORY: RUQ/RLQ abd pain, r/o appendicitis, obstruction. TECHNIQUE: Imaging Protocol: Axial computed tomography images with coronal and sagittal reformatted images were created and reviewed CONTRAST MATERIAL: Intravenous: Omnipaque 350 Contrast volume:100 ml Oral: no COMPARISON: CT CT ABDOMEN PELVIS W from 09/22/2020 FINDINGS: ABDOMEN: Lung Bases: Small hiatal hernia. Fluid seen in distal esophagus could represent reflux. Liver: Normal density. Innumerable cysts are again noted. 2 largest cysts are in the left lobe. Bot h have decreased in size when compared with the previous exam which could be secondary to prior aspir ation procedure. Clinical correlation is recommended. Gallbladder and biliary tract: No radiodense calculus or dilation. Pancreas: Normal density, no abnormal calcifications or inflammatory process. Spleen: Normal. Kidneys: Normal size, contour and axis. No radiodense stones or obstructive uropathy. No masses seen. Bilateral cysts. Adrenal glands: No masses seen. Abdominal Aorta: Abdominal portion non-dilated. Soft tissues: Tiny amount of fat at the umbilicus. PELVIS: Bladder: No gross wall thickening. No calculi.No focal mass. Bowel: No obstruction or bowel wall thickening. Appendicoliths noted proximally. Distal appendix dis tended and fluid-filled. Surrounding inflammation. Mild diverticulosis without evidence of divertic ulitis. Normal quantity of fecal material. No small bowel or gastric distention. Peritoneal cavity: No ascites, or focal collection. Bones: Within normal limits for age. Reproductive organs: Within normal limits. Lymph nodes: Unremarkable. Impression: Acute appendicitis. No perforation or abscess. Interval decrease in size of previously noted presumed cysts in the left lobe of the liver. RADIATION DOSE DELIVERED: 1,409.71mGy.cm Total DLP DATA REPOSITORY: All CT scans at this facility are submitted to the National Radiology Data Registry (NRDR) Dose Index Registry (DIR) with the [employer] (ACR). RADIATION OPTIMIZATION: All CT scans at this facility use at least one of these dose optimization te chniques: automated exposure control; mA and/or kV adjustment per patient size (includes targeted exa ms where dose is matched to clinical indication); or iterative reconstruction.
--- NOTE | 2021-05-04 08:45 | DI.US_ITS ---
Exam(s) US ABDOMEN LIMITED EXAM: US ABDOMEN LIMITED CLINICAL HISTORY: RUQ abd pain, r/o cholecystitis TECHNIQUE: Ultrasound abdomen performed using standard protocol. COMPARISON: CT CT ABDOMEN PELVIS W from 09/22/2020 US US ABDOMEN LIMITED from 03/02/[address] ABDOMEN PELVIS W from 05/04/2021 FINDINGS: LIVER: Normal size and echogenicity. Multiple cysts. Lateral GALLBLADDER: No evidence of cholelithiasis. No evidence of wall thickening. No pericholecystic fluid identified. HAYWOOD'S SIGN: Negative. BILIARY SYSTEM: No intrahepatic or extrahepatic biliary ductal dilation. RIGHT KIDNEY: Normal size. No evidence of renal calculi. No evidence of hydronephrosis. No suspicious renal mass. Parapelvic cysts. Cysts smear lower pole. PANCREAS: Normal where visualized. ABDOMINAL AORTA AND IVC: Visualized portions normal caliber. ASCITES: None seen. IMPRESSION: Liver cysts. Please see CT report from the same day. No evidence of acute cholecystitis. DATA REPOSITORY:
[2021-05-04] MEDS: Ondansetron 4 MG/2 ML VIAL IVP (09:16)
[2021-05-04] MEDS: HYDROmorphone 2 MG/ML VIAL 1 MG IVP (09:16)
[2021-05-04] MEDS: Omnipaque 350 MG/ML 100 ML BTL IJ (10:21)
[2021-05-04] MEDS: Normal Saline 1,000 ML 1000 ML IV (10:30)
[2021-05-04] MEDS: PIPERACILLIN/TAZO 3.375 GM in Normal Saline 50 ML IVPB ×2 (11:22→18:38)
[2021-05-04 11:35] LABS: Source Nasal/Nares
[2021-05-04 12:15] LABS: COVID-19 PCR Negative (Negative)
[2021-05-04] MEDS: Lactated Ringers 1,000 ML 125 ML IV ×2 (12:30→16:45)
[2021-05-04] MEDS: Normal Saline Flush 10 ML SYR IVP (12:49)
[2021-05-04] MEDS: Ketorolac 15 MG/ML VIAL IVP (12:49)
--- NOTE | 2021-05-04 13:46 | W.ANESPRE ---
General Info Date of Service Date Performed: 05/04/21 Height: 5 ft 8 in Weight: 102.058 kg Body Mass Index (BMI): 34.2 Surgical Procedure: Operation Date: 05/04/21 15:10 Proposed Procedure Side Surgeon p Appendectomy Laparoscopic Jamee Montesinos, Meds Allergies and Home Medications Allergies Allergy/AdvReac Type Severity Reaction Status Date / Time omeprazole AdvReac Severe Myalgias Verified 05/04/21 12:12 gluten AdvReac Intermediate GI upset Verified 05/04/21 12:12 oxycodone HCl [From Percocet] AdvReac Intermediate Psychosis Verified 05/04/21 12:12 sertraline HCl [From Zoloft] AdvReac Intermediate psychotic Verified 05/04/21 12:12 coconut AdvReac Mild Gi upset Verified 05/04/21 12:12 anesthesia AdvReac Severe listed as Uncoded 05/04/21 07:42 blood pressure crashed- [facility] [place] has record Home Medication Medication Instructions Recorded acetaminophen 500 mg tablet (Mapap 1,000 mg PO PRN PRN 12/14/15 Extra Strength) Synthroid 88 mcg tablet 88 mcg PO DAILY #90 tab-cap NS 05/31/20 (levothyroxine) clobetasol 0.05 % topical ointment 1 applic TOPICAL .COMPLEX #30 g 07/28/20 potassium gluconate 550 mg (90 mg) 550 mg PO DAILY 10/03/20 tablet lorazepam 0.5 mg tablet 0.5 mg PO BID PRN #7 tab 12/23/20 calcium carbonate 500 mg calcium 1,000 mg PRN 05/04/21 (1,250 mg) chewable tablet Current Visit Medications: Current Medications Generic Name Dose Route Start Last Admin Trade Name Freq PRN Reason Stop Dose Admin Ringer's Solution 1,000 mls @ 125 mls/hr 05/04/21 11:00 IV INFUSION MP Piperacillin Sod/Tazobactam 50 mls @ 100 mls/hr 05/04/21 18:00 Sod 3.375 gm/ Sodium Chloride IVPB Q6H [facility] Protocol IV Miscellaneous Supplies 1 each 05/04/21 08:15 Iv Access IV DIRECTED MP Iohexol 100 ml 05/04/21 10:30 05/04/21 10:21 Omnipaque 350 Mg/Ml 100 Ml Btl IJ 06/03/21 23:59 100 ml DIRECTED MP Administration Ketorolac Tromethamine 15 mg 05/04/21 12:28 05/04/21 12:49 Ketorolac 15 Mg/Ml Vial IVP 05/09/21 12:27 15 mg .X 1 DOSE PRN Administration Pain Morphine Sulfate 2 mg 05/04/21 10:54 Morphine 2 Mg/Ml Syr IVP Q1H PRN PRN Ondansetron HCl 4 mg 05/04/21 10:54 Ondansetron 4 Mg/2 Ml Vial IVP Q4H PRN PRN Sodium Chloride 0 ml 05/04/21 08:02 05/04/21 12:49 Normal Saline Flush 10 Ml Syr IVP 10 ml PRN PRN Administration Sodium Chloride 50 ml 05/04/21 10:30 05/04/21 10:21 Normal Saline 50 Ml Bag IJ 50 ml DIRECTED MP Administration PFSH Active Problems Active Problems: Problem Status Onset Code Acute appendicitis K35.80 Candidal skin infection B37.2 Herpes B00.9 Paroxysmal atrial fibrillation I48.0 Liver cyst K76.89 Painful skin lesion L98.9 Nausea R11.0 Liver cyst K76.89 GERD with esophagitis K21.00 Biliary colic K80.50 Epigastric pain R10.13 Anogenital lichen sclerosus L90.0 Mood altered R45.86 Fatigue R53.83 Headache R51.9 Palpitations R00.2 Hypomagnesemia E83.42 Hypokalemia E87.6 Atrial fibrillation, new onset I48.91 Abnormal stress test R94.39 Chest pain R07.9 Abdominal pain R10.9 GERD (gastroesophageal reflux disease) K21.9 Right Achilles tendinitis M76.61 Right lumbar radiculopathy M54.16 Plantar fasciitis M72.2 Esophageal ulcer K22.10 Smoker F17.200 Gastritis K29.70 Primary osteoarthritis of right knee 03/30/16 M17.11 Palpitations 01/31/86 R00.2 Onychomycosis B35.1 Hypothyroidism 04/04/12 E03.9 Headache R51 Hammer toe M20.40 Fibrocystic disease of breast 01/31/99 N60.19 Depressive disorder 01/31/97 F32.9 Complex tear of lateral meniscus of left knee as current injury 03/30/16 S83.272A Celiac disease K90.0 Anxiety F41.9 Medical History Medical History Anxiety celiac sprue Closed fracture of one rib of left side with routine healing (12/16/15) Depression Fibrocystic disease of both breasts Gastritis Hammertoe Psoriasis Surgical History Surgical History COLONOSCOPY/W MAC (12/13/14) ANGÉLICA MONTGOMERY History of bilateral ligation of fallopian tubes (05/28/14) Ligation of fallopian tube Status post thyroidectomy THYROIDECTOMY Tobacco Smoking/Tobacco Use Status: Former Tobacco Use Alcohol Alcohol Intake: never Substance Use Substance use: Never Substance use type: does not use Prental History History 2 Para 2 Hx # Term Pregnancies 2 Multiple births Hx # Pregnancies Ectopic pregnancies AB induced Hx Number of Living Children 2 AB spontaneous Vital Signs and Lab Results Vital Signs Most Recent Vital Signs in EMR: Most Recent Vital Signs Temp Pulse Resp BP Pulse Ox 36.4 C L 77 16 103/59 L 99 05/04/21 11:58 05/04/21 11:58 05/04/21 11:58 05/04/21 11:58 05/04/21 11:58 Lab Results Result Diagrams: 05/04/21 07:53 05/04/21 07:53 Blood Type / Crossmatch: No Data to Display Complete Blood Count: White Blood Count 9.65 10^3/uL (4.4-10.8) 05/04/21 07:53 05/04/21 Red Blood Count 4.36 10^6/uL (3.93-5.22) 05/04/21 07:53 05/04/21 Hemoglobin 13.4 g/dL (11.2-15.7) 05/04/21 07:53 05/04/21 Hematocrit 41.5 % (36.0-46.0) 05/04/21 07:53 05/04/21 Platelet Count 230 10^3/uL (130-400) 05/04/21 07:53 05/04/21 Complete Metabolic Panel: Sodium Level 140 mmol/L (136-145) 05/04/21 07:53 05/04/21 Potassium Level 3.7 mmol/L (3.5-5.1) 05/04/21 07:53 05/04/21 Chloride Level 104 mmol/L (98-107) 05/04/21 07:53 05/04/21 Carbon Dioxide Level 27.6 mmol/L (21.0-32.0) 05/04/21 07:53 05/04/21 Blood Urea Nitrogen 9 mg/dL (7-18) 05/04/21 07:53 05/04/21 Creatinine 0.8 mg/dL (0.55-1.02) 05/04/21 07:53 05/04/21 Estimated GFR/1.73 m2 >= 60.00 (mL/min/1.73m2) 05/04/21 07:53 05/04/21 Calcium Level 8.7 mg/dL (8.5-10.1) 05/04/21 07:53 05/04/21 Albumin 3.4 g/dL (3.4-5.0) 05/04/21 07:53 05/04/21 Glucose Level 102 mg/dL (74-106) 05/04/21 07:53 05/04/21 Liver Function Panel: Alanine Aminotransferase (ALT/SGPT) 13 U/L (14-59) L 05/04/21 07:53 05/04/21 Aspartate Amino Transf (AST/SGOT) 14 U/L (15-37) L 05/04/21 07:53 05/04/21 Coagulation Panel: No Data to Display Cardiac Panel: No Data to Display Arterial Blood Gas: No Data to Display Venous Blood Gas: No Data to Display Pancreas Panel: Lipase 68 U/L (73-393) 05/04/21 07:53 05/04/21 Thyroid Panel: No Data to Display Infectious Disease: Coronavirus (COVID-19)(PCR) Negative (Negative) 05/04/21 11:30 05/04/21 Coronavirus 2019 Source Nasal/Nares 05/04/21 11:30 05/04/21 Blood Cultures: No Data to Display Toxicology Panel: No Data to Display Imaging and Studies Imaging and Studies Study information below may be from another EMR and interpreted by another provider. Please see original notes in EMR for more complete details. EKG Summary: Conclusion Sinus bradycardia...rate< 60 09/17/20 Stress Test Summary: Stress ECG Conclusion 1. The patient exercised for 9 minutes (10 METS). Exercise was stopped due to heel pain. 2. Patient had no symptoms suggestive of ischemia. Her heart rate and blood pressure augmented appropriately. 3. The patient developed 1-2mm horizontal and downsloping ST depressions in stage 3 of exercise which continued into the first minute of recovery. Cartwright Treadmill Score is -1.0 which is Moderate risk. 05/05/20 Echocardiogram Summary: onclusion Normal left ventricular wall thickness and chamber size. Estimated ejection fraction is 65 to 70%. Wall motion is normal Normal right ventricular size and systolic function Both atria are normal in size Structurally normal aortic valve without stenosis or regurgitation Normal mitral valve with trace to mild regurgitation Normal tricuspid valve with trace regurgitation. Estimated right ventricular systolic pressure is normal, 23.6 mmHg Normal pulmonic valve 06/24/20 Anesthesia Assessment and Plan Anesthesia History Personal History: Other (Previous anesthesia complication of low HR with a colonoscopy in 2014, no issues with several endoscopies since. ) Family History: No Family History of Anesthesia Complications Exercise Tolerance Exercise Tolerance: Metabolic Equivalents>4 Pertinent Negatives Pertinent Negatives: Other (Plan RSI due to inability to lie flat without getting GERD symptoms) Cardiac & Pulmonary Exam Cardiac Exam: Normal S1/S2 Heart Sounds Pulmonary Exam: Clear Bilateral Breath Sounds Implantable Cardiac Device Does patient have a Pacemaker or an ICD?: No Airway Exam Known Difficult Airway: No Mallampati Class: 2 Mouth Opening: Normal (> 3cm) Thyromental Distance: Greater than 3 cm Neck Range of Motion: Full ROM Neck Circumference: Normal Teeth Condition: Normal Dentition ASA Classification ASA Score: ASA 2 Emergency Case?: Yes NPO Status NPO Status: NPO Clears >2 hours, Solids >8 hours Anesthesia Plan Resuscitation Status: Full Code Anesthesia Technique: General Anesthesia Airway Planned: Endotracheal Tube Monitors Used: Standard Monitors
--- NOTE | 2021-05-04 15:09 | HPE_ITS ---
Date of service: 05/04/21 Time of Service: 15:09 Assessment and Plan Assessment and plan (1) Acute appendicitis: Status: Acute Assessment and plan: Informed consent is obtained for the procedural (explained in simple layman's terms that the pt and/or family could understand) explaining risks vs benefits and alternatives to the procedure and consequences if we do not do the procedure. Risks include but are not limited to: bleeding, infections, pneumonia, blood wili ts/DVT/PE, anesthesia (aspiration, damage to teeth/airway/[place]/CVA//prolonged mechanical ventilation/PTX/IV infections), damage to bowel, bladder, blood vessels, ureters. Leakage from anastomosis requiring colostomy/ Wound infections requiring further surgery. ?Scarring and disfigurement. Subsequent bowel obstructions from scar tissue.? Chronic pain or numbness from the incision, or hernia. Possible open procedure if minimally invasive procedure is being attempted. ? History of Present Illness Narrative: Patient is well-known to me. She had a severe episode. In September 2020 of epigastric pain. She has a longstanding history of celiac disease and reflux and abdominal pain. She taken macaroni and cheese yesterday. She woke up with abdominal pain on the right side. It became progressive throughout the course of the day. She was having multiple small bowel movements throughout the course of the day. No blood. She has nausea and anorexia but no vomiting. She did have a CT scan which showed an an appendicolith and dilated appendix. And associated changes with acute appendicitis. There were no signs of rupture or abscess. I think this is completely unrelated to the abdominal pain she is having and that she has developed acute appendicitis is a separate problem and does require to have surgery. I did review her prior CT scanning and there was no signs of a previous appendicolith. I discussed what she could expect during procedure, recovery time and risks. Patient is in agreement with surgery. She does have a small umbilical hernia. She has had no problems with anesthesia with any of her other procedures. Review of Systems All systems reviewed & are unremarkable except as noted in HPI and below PFSH All Active Problems Acute appendicitis (Acute) Candidal skin infection (Acute) Herpes (Acute) Perianal in the context of lichen sclerosus. Rx outbreaks with valacyclovir. Paroxysmal atrial fibrillation (Acute) Liver cyst (Acute) Painful skin lesion (Acute) Nausea (Acute) Liver cyst (Acute) GERD with esophagitis (Acute) Biliary colic (Acute) Epigastric pain (Acute) Anogenital lichen sclerosus (Acute) Mood altered (Acute) Fatigue (Acute) Headache (Acute) Palpitations (Acute) Hypomagnesemia (Acute) Hypokalemia (Acute) Atrial fibrillation, new onset (Acute) Abnormal stress test (Acute) Chest pain (Acute) Abdominal pain (Acute) GERD (gastroesophageal reflux disease) (Chronic) Right Achilles tendinitis (Acute) Right lumbar radiculopathy (Acute) Plantar fasciitis (Acute) Right foot s/p three steroid injections by podiatry Esophageal ulcer (Acute) Smoker (Acute) Gastritis (Chronic) Primary osteoarthritis of right knee (Acute 03/30/16) Palpitations (Acute 01/31/86) Onychomycosis (Acute) Hypothyroidism (Acute 04/04/12) Headache (Acute) H/O vascular headaches Hammer toe (Acute) bilateral Fibrocystic disease of breast (Acute 01/31/99) Depressive disorder (Acute 01/31/97) Complex tear of lateral meniscus of left knee as current injury (Acute 03/30/16) Celiac disease (Acute) Anxiety (Acute) Medical History Anxiety celiac sprue Closed fracture of one rib of left side with routine healing (12/16/15) Depression Fibrocystic disease of both breasts Gastritis Hammertoe Psoriasis Surgical History COLONOSCOPY/W MAC (12/13/14) ANGÉLICA MONTGOMERY History of bilateral ligation of fallopian tubes (05/28/14) Ligation of fallopian tube Status post thyroidectomy THYROIDECTOMY Family History (Updated 01/04/21 @ 16:38 by Yessi Moncada) Mother Diabetes Essential hypertension Personal history of malignant neoplasm Heart disease Father Personal history of malignant neoplasm Sister Alcohol use disorder Grandfather Essential hypertension Heart disease Grandmother Personal history of malignant neoplasm Sister Depression Social History (Updated 01/04/21 @ 16:37 by Yessi Moncada) Smoking/Tobacco Use Status: Former Tobacco Use Smoking risk assessment performed?: Yes Alcohol Intake: never Drug use: Never Substance use type: does not use Caregiver/Support person: No Household members: spouse and significant other Housing: apartment Number of Children: 2 Communication Needs: None Education Level: vocational 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 Pets and animals: No Sexually active: Yes Do you think of yourself as: straight/heterosexual Current gender identity: female What is your relationship status?: How often do you talk on the phone with friends or family?: once per week How often do you get together with friends or relatives?: once per week How often do you attend restorationist or roman catholic services?: 4 or more times per year Do you belong to any clubs or organized social groups?: yes Panel score (0-1 are the most socially isolated patients): 3 Duration: 15-30 minutes/day Frequency: 5-6 times per week Lise/Mandaen: Episcopalian Special lise needs: No Seatbelt use: always Helmet use: No Drive intox or ride w/intox driver license agent: No Do you feel safe at home: Yes Do you feel safe in your relationship?: Yes Female Reproductive History Menstrual control method: permanent sterilization Menopause type: natural (stopped menses 50yo.) History History 2 Para 2 Hx # Term Pregnancies 2 Multiple births Hx # Pregnancies Ectopic pregnancies AB induced Hx Number of Living Children 2 AB spontaneous Meds Allergies and Home Medications Allergies Allergy/AdvReac Type Severity Reaction Status Date / Time omeprazole AdvReac Severe Myalgias Verified 05/04/21 12:12 gluten AdvReac Intermediate GI upset Verified 05/04/21 12:12 oxycodone HCl [From Percocet] AdvReac Intermediate Psychosis Verified 05/04/21 12:12 sertraline HCl [From Zoloft] AdvReac Intermediate psychotic Verified 05/04/21 12:12 coconut AdvReac Mild Gi upset Verified 05/04/21 12:12 anesthesia AdvReac Severe listed as Uncoded 05/04/21 07:42 [facility] [place] [facility] record Home Medications Medication Instructions Recorded Confirmed Type acetaminophen 500 mg tablet (Mapap 1,000 mg PO PRN PRN 12/14/15 05/04/21 History Extra Strength) Synthroid 88 mcg tablet 88 mcg PO DAILY #90 tab-cap NS 05/31/20 05/04/21 Rx (levothyroxine) clobetasol 0.05 % topical ointment 1 applic TOPICAL .COMPLEX #30 g 07/28/20 05/04/21 Rx potassium gluconate 550 mg (90 mg) 550 mg PO DAILY 10/03/20 05/04/21 History tablet lorazepam 0.5 mg tablet 0.5 mg PO BID PRN #7 tab 12/23/20 05/04/21 Rx calcium carbonate 500 mg calcium 1,000 mg PRN 05/04/21 History (1,250 mg) chewable tablet Exam Const Other: PHYSICAL EXAM GENERAL APPEARANCE: Alert, healthy appearance, oriented, in no acute distress SKIN: No rashes.? No breakdown HYDRATION: Well hydrated HEAD, EYES, EARS, NECK, THROAT: Head is normocephalic, pupils equal, round, reactive to light and accommodation, ocular movement intact, sclera clear and no jaundice. ?Dentition intact. No sore throat.? No jaw pain. No thrush NECK: Supple, Trachea midline. No JVD. LUNGS: normal respiration/nl chest excursion. ?Clear to auscultation B/l no R/R/W ?HEART: Regular rate and rhythm, EXTREMITY: No edema or cyanosis? no leg pain, redness, swelling.? ABDOMEN: Rebound and guarding point. She has had abdominal surgery before- changes noted. Decreased bowel sounds. Small umbilical hernia NEURO: no focal neuro deficits. ? Results Labs Result diagrams: 05/04/21 07:53 05/04/21 07:53 Labs: Laboratory Results - last 24 hr 05/04/21 05/04/21 05/04/21 07:53 07:53 08:30 WBC 9.65 RBC 4.36 Hgb 13.4 Hct 41.5 MCV 95.2 H MCH 30.7 MCHC 32.3 RDW 12.6 Plt Count 230 MPV 11.1 H Immature Gran % 0.2 Neutrophils % 80.3 Lymphocytes % 11.4 Monocytes % 5.9 Eosinophils % 1.2 Basophils % 1.0 Nucleated RBC % 0 Absolute Neutrophils 7.74 H Absolute Lymphocytes 1.10 L Absolute Monocytes 0.57 Absolute Eosinophils 0.12 Absolute Basophils 0.10 Sodium 140 Potassium 3.7 Chloride 104 Carbon Dioxide 27.6 Anion Gap 8.4 BUN 9 Creatinine 0.8 Estimated GFR/1.73 m2 >= 60.00 Glucose 102 Calcium 8.7 Total Bilirubin 0.5 AST 14 L ALT 13 L Alkaline Phosphatase 77 Total Protein 7.4 Albumin 3.4 Lipase 68 Urine Color Yellow Urine Clarity Clear Urine pH 7.0 Ur Specific [place] 1.015 Urine Protein Negative Urine Ketones Negative Urine Blood Trace-intact H Urine Nitrite Negative Urine Bilirubin Negative Urine Urobilinogen 0.2 Ur Leukocyte Esterase Negative Urine RBC 0-2 Urine WBC Negative Ur Epithelial Cells Negative Urine Crystals Negative Urine Bacteria Negative Urine Casts Negative Urine Mucus Negative Ur Culture Indicated? No Urine Glucose Negative COVID-19 Source SARS-CoV-2 (PCR) 05/04/21 11:30 WBC RBC Hgb Hct MCV MCH MCHC RDW Plt Count MPV Immature Gran % Neutrophils % Lymphocytes % Monocytes % Eosinophils % Basophils % Nucleated RBC % Absolute Neutrophils Absolute Lymphocytes Absolute Monocytes Absolute Eosinophils Absolute Basophils Sodium Potassium Chloride Carbon Dioxide Anion Gap BUN Creatinine Estimated GFR/1.73 m2 Glucose Calcium Total Bilirubin AST ALT Alkaline Phosphatase Total Protein Albumin Lipase Urine Color Urine Clarity Urine pH Ur Specific [place] Urine Protein Urine Ketones Urine Blood Urine Nitrite Urine Bilirubin Urine Urobilinogen Ur Leukocyte Esterase Urine RBC Urine WBC Ur Epithelial Cells Urine Crystals Urine Bacteria Urine Casts Urine Mucus Ur Culture Indicated? Urine Glucose COVID-19 Source Nasal/Nares SARS-CoV-2 (PCR) Negative Last Vital Signs Temp 36.5 C 05/04/21 14:21 Pulse 74 05/04/21 14:21 Resp 16 05/04/21 14:21 BP 106/57 L 05/04/21 14:21 Pulse Ox 96 05/04/21 14:21
[2021-05-04] MEDS: Bupivacaine 0.25% Pres-Free 30 ML VIAL (16:00)
--- NOTE | 2021-05-04 16:30 | APP_PTH ---
PATIENT: Hailey Saha LOC: U#:[id number] AGE/SX: 66/F ROOM: 229 RE05/04/[address]: Jamee Montesinos : 1955 BED: A DIS: 05/05/2021 SPEC #: [id number] RECD: 05/04/21 17:39 STATUS: SOUJohanna REQ #: [id number] HARLAN: 05/04/21 16:[address]: Jamee Montesinos DEPT: Surgical Specimen RECD BY: Selena Lowery ENTERED: 05/04/21 17:40 SP TYPE: Appendix OTHR DR: Yan Jones DO Tissues: 1 - APPENDIX NOT INCIDENTAL Procedures: GROSS AND MICRO LEVEL 3 Comments: [id number]
[2021-05-04] MEDS: Bupivacaine LIPOSOME/PF 133 MG/10 ML VIAL IJ (16:49)
--- NOTE | 2021-05-04 17:22 | ROE_ITS ---
Date of service: 05/04/21 Time of Service: 17:29 Operative Note Operative Note DATE OF PROCEDURE: 05/04/21 PRE-OP DIAGNOSIS: acute appy/umbilical hernia POST-OP DIAGNOSIS: other (gangrenous appy/) PROCEDURE: Lap appy/incidental repair of umbilical hernia SURGEON: Jamee Montesinos LENS MOLDING EQUIPMENT OPERATOR: Barbara Michael ANESTHESIA TYPE: Local By Surgeon and General LMA/ETT Refer to Anesthesia Record ESTIMATED BLOOD LOSS: 50 PATHOLOGY: other COMPLICATIONS: None Patient was transported to: PACU Patient's condition: stable Procedure Description: COMPLICATIONS: The patient tolerated the procedure well without complications. ? INDICATIONS: The patient has signs and symptoms compatible with acute appendicitis and is brought to the OR for laparoscopic appendectomy, possible open procedure. Informed consent is obtained for the procedural (explained in simple layman's terms that the pt and/or family could understand) explaining risks vs benefits and alternatives to the procedure and consequences if we do not do the procedure. Risks include but are not limited to:bleeding,infections, pneumonia, blood clots/DVT/PE, anesthesia(aspiration, damage to teeth/airway/[place]/CVA//prolonged mechanical ventilation/PTX/IV infections), damage to bowel, bladder,blood vessels, ureters. Damage to solid organs requiring removal. Infertility. Leakage from anastomosis requiring colostomy. Wound infections requirng further surgery. Scarring and disfigurement. Subsequent bowel obstructions from scar tissue. Possible open procedure if minimaly invsive procedure is being attempted. Abscess and stump appendicitis as well as others. ? DESCRIPTION OF PROCEDURE: The patient was brought to the operating room suite and placed in supine position. Anesthesia was administered per the Department of Anesthesia. A Camp catheter and OG tube are placed. The patient was prepped and draped in the usual sterile fashion using ChloraPrep scrub solution. Pause for the cause was done. 30 mL of 1% buffered was used for local anesthetization. A stab incision was made in the umbilicus and dissected down to the hernia sac and opened up. A #5 port inserted and insulflattion is begun. Camera inserted through the port shows no damage to underlying structures. Bowel, liver and stomach that are visualized are normal in appearance. Pelvic organs are not visualized. The appendix is inflamed, erythematous,enlarged, & distened, but does not appear to have been rupturetred. the tip is necroticc. During the disection and manipulation of the appendix, there is a small piece of stool that does escape. There is no purulent drainage in the pelvis. It is not adhered to any peritoneal sideway. It is also very retroceacla.. A 12 mm port was then placed in the suprapubic position under direct visualization following creation of a local field block as well as a second 5 mm port in the LLQ. The white line of toldt is opened on the right. The appendix is elevated and a rent dissected into the mesentery. The base of the appendix is healthy and will hold [place]. A Endo-MADAI stapler is placed across the base of the appendix and fired and 2nd stapler placed across the mesentery and fired. The appendix is placed in a bag and brought out. There is no bleeding or enteric leakage from the staple lines. The pt does not require a drain. The abdomen was copiously irrigated with a liter of saline. All saline is evacuated. The scope and ports are removed. Pneumoperitoneum is evacuated. The fascia under the 12 mm port is closed with 0 Vicryl w/ a endoclose device. The umbilical hernia is closed w/ interrupted O Vicryl. There was no bleeding from the port sites as when they removed and the pneumoperitoneum evacuated. The wounds were copiously irrigated and closed in 2 layers with 4-0 Monocryl.? Skin glue is used.? Sterile dressings are applied. The patient tolerated the procedure without complication, transferred to the recovery room in stable condition. Family was apprised of patient condition.
--- NOTE | 2021-05-04 17:44 | W.ANESPOSTOP ---
Postoperative Evaluation Date, Time and Location Date Performed: 05/04/21 Time Performed: 17:45 Patient Location: PACU Vital Signs Most Recent Imported Vital Signs: Most Recent Vital Signs Temp Pulse Resp BP Pulse Ox 36.3 C L 57 L 16 102/49 L 96 05/04/21 17:35 05/04/21 17:35 05/04/21 17:35 05/04/21 17:35 05/04/21 17:35 Pain Score Most Recent Pain Score: Most Recent Pain Score Pain Level [Abdomen] 4 05/04/21 12:52 Pain Level 2 05/04/21 14:21 Assessment Mental Status: Awake (Alert & Oriented to Patient Baseline) Airway and Respiratory Function: Patent airway with normal (patient baseline) respiratory exam Cardiovascular Function: Hemodynamically Stable Hydration Status: Adequately Hydrated Nausea & Vomiting: No Nausea or Vomiting Pain: Pain is tolerable per patient Peripheral Nerve Block: Patient did not receive a nerve block
[2021-05-04] MEDS: Normal Saline 1,000 ML 100 ML IV (18:41)
[2021-05-04] MEDS: traMADol 50 MG TAB PO (19:59)
--- NOTE | 2021-05-04 21:08 | W.PM.PROGNOT ---
Date of Service Date of service: 05/04/21 Time of Service: 21:17 Assessment and Plan Assessment and plan (1) Acute gangrenous appendicitis: Status: Acute Assessment and plan: The patient is doing well post-op. Pt is sleeping comfortably.. They are having no nausea or vomiting. The pt pain is adequately controlled. The case was discussed with nursing and patient?s progress reviewed. All of the pt's home medications were addressed and adjusted accordingly for their oral intact status. Incision- clean/dry. Dressing intact no excessive bleeding or drainage I discussed with the patient and/or there family about the findings in surgery and the pt's progress. We reviewed expectations for progress in the hospital; what the pt could expect for recovery time and length of stay. Continue current plans for pulmonary toilet, GI and DVT prophylaxis. We shall continue the current plan for pain management as it is at an appropriate level, and working well for the pt. Appropriate measures will be taken for constipation prevention, and this was also reviewed with the pt. The wound care plan was reviewed with nursing as well. see orders ? (2) GERD with esophagitis: Status: Acute (3) celiac sprue: (4) Anxiety: Objective Last Vital Signs Temp 36.3 C L 05/04/21 17:35 Pulse 57 L 05/04/21 17:35 Resp 16 05/04/21 17:35 BP 102/49 L 05/04/21 17:35 Pulse Ox 96 05/04/21 17:35 Laboratory Results - last 24 hr 05/04/21 05/04/21 05/04/21 07:53 07:53 08:30 WBC 9.65 RBC 4.36 Hgb 13.4 Hct 41.5 MCV 95.2 H MCH 30.7 MCHC 32.3 RDW 12.6 Plt Count 230 MPV 11.1 H Immature Gran % 0.2 Neutrophils % 80.3 Lymphocytes % 11.4 Monocytes % 5.9 Eosinophils % 1.2 Basophils % 1.0 Nucleated RBC % 0 Absolute Neutrophils 7.74 H Absolute Lymphocytes 1.10 L Absolute Monocytes 0.57 Absolute Eosinophils 0.12 Absolute Basophils 0.10 Sodium 140 Potassium 3.7 Chloride 104 Carbon Dioxide 27.6 Anion Gap 8.4 BUN 9 Creatinine 0.8 Estimated GFR/1.73 m2 >= 60.00 Glucose 102 Calcium 8.7 Total Bilirubin 0.5 AST 14 L ALT 13 L Alkaline Phosphatase 77 Total Protein 7.4 Albumin 3.4 Lipase 68 Urine Color Yellow Urine Clarity Clear Urine pH 7.0 Ur Specific [place] 1.015 Urine Protein Negative Urine Ketones Negative Urine Blood Trace-intact H Urine Nitrite Negative Urine Bilirubin Negative Urine Urobilinogen 0.2 Ur Leukocyte Esterase Negative Urine RBC 0-2 Urine WBC Negative Ur Epithelial Cells Negative Urine Crystals Negative Urine Bacteria Negative Urine Casts Negative Urine Mucus Negative Ur Culture Indicated? No Urine Glucose Negative COVID-19 Source SARS-CoV-2 (PCR) 05/04/21 11:30 WBC RBC Hgb Hct MCV MCH MCHC RDW Plt Count MPV Immature Gran % Neutrophils % Lymphocytes % Monocytes % Eosinophils % Basophils % Nucleated RBC % Absolute Neutrophils Absolute Lymphocytes Absolute Monocytes Absolute Eosinophils Absolute Basophils Sodium Potassium Chloride Carbon Dioxide Anion Gap BUN Creatinine Estimated GFR/1.73 m2 Glucose Calcium Total Bilirubin AST ALT Alkaline Phosphatase Total Protein Albumin Lipase Urine Color Urine Clarity Urine pH Ur Specific [place] Urine Protein Urine Ketones Urine Blood Urine Nitrite Urine Bilirubin Urine Urobilinogen Ur Leukocyte Esterase Urine RBC Urine WBC Ur Epithelial Cells Urine Crystals Urine Bacteria Urine Casts Urine Mucus Ur Culture Indicated? Urine Glucose COVID-19 Source Nasal/Nares SARS-CoV-2 (PCR) Negative
[2021-05-04] MEDS: ACETAMINOPHEN 1,000 MG/100 ML BTL 400 MG IVPB (21:33)
[2021-05-05] MEDS: Ketorolac 15 MG/ML VIAL IVP ×2 (00:44→06:36)
[2021-05-05] MEDS: Normal Saline Flush 10 ML SYR IVP ×3 (00:44→10:43)
[2021-05-05] MEDS: PIPERACILLIN/TAZO 3.375 GM in Normal Saline 50 ML IVPB ×3 (00:45→12:29)
[2021-05-05 01:11] VITALS: BP 91/59; PULSE 64; RESP 18; O2SAT 94
[2021-05-05] MEDS: ACETAMINOPHEN 1,000 MG/100 ML BTL 400 MG IVPB ×3 (03:52→17:03)
[2021-05-05] MEDS: Levothyroxine 88 MCG TAB PO (05:02)
[2021-05-05] MEDS: Normal Saline 1,000 ML 100 ML IV (05:03)
[2021-05-05 06:34] VITALS: BP 92/50; PULSE 50; RESP 16; TEMP 36.9; O2SAT 93
[2021-05-05 06:42] LABS: Abs Immature Grans 0.03 10^3/uL (0.0-0.06); Absolute Basophil Count 0.04 10^3/uL (0.0-0.2); Absolute Eosinophil Count 0.02 10^3/uL (0.0-0.7); Absolute Lymphocyte Count 0.84 10^3/uL (1.2-3.4); Absolute Monocyte Count 0.61 10^3/uL (0.1-0.8); Absolute Neutrophil Count 7.58 10^3/uL (1.2-6.7); Basophils % 0.4; Eosinophils % 0.2; HCT 33.1 % (36.0-46.0); HGB 10.9 g/dL (11.2-15.7); Immature Grans % 0.3; Lymphocytes % 9.2; MCH 30.6 pg (27.0-33.0); MCHC 32.9 % (32.0-36.0); MPV 11.4 fL (8.0-11.0); Monocytes % 6.7; Neutrophils % 83.2; Nucleated RBC 0 %; Platelet Count 165 10^3/uL (130-400); RBC 3.56 10^6/uL (3.93-5.22); RDW 12.9 % (11.7-14.6); WBC 9.12 10^3/uL (4.4-10.8)
[2021-05-05 06:44] VITALS: BP 95/60; PULSE 65; RESP 18; TEMP 36.9; O2SAT 96
[2021-05-05] MEDS: Enoxaparin 40 MG/0.4 ML SYR SC (07:37)
[2021-05-05] MEDS: Milk of Magnesia 30 ML CUP PO (07:37)
[2021-05-05] MEDS: IRON SUCROSE COMPLEX 200 MG in Normal Saline 100 ML 400 MG IVPB (11:23)
--- NOTE | 2021-05-05 12:08 | PDOC.CMIN ---
- If Service Date Differs Date of service: 05/05/21 Time of Service: 12:08 Care Management Initial Assess REASON FOR HOSPITALIZATION:: Gangrenous appendix PAST MEDICAL HISTORY/PAST SURGICAL HISTORY:: All Active Problems. Acute appendicitis (Acute). Candidal skin infection (Acute). Herpes (Acute). Perianal in the context of lichen sclerosus. Rx outbreaks with valacyclovir. Paroxysmal atrial fibrillation (Acute). Liver cyst (Acute). Painful skin lesion (Acute). Nausea (Acute). Liver cyst (Acute). GERD with esophagitis (Acute). Biliary colic (Acute). Epigastric pain (Acute). Anogenital lichen sclerosus (Acute). Mood altered (Acute). Fatigue (Acute). Headache (Acute). Palpitations (Acute). Hypomagnesemia (Acute). Hypokalemia (Acute). Atrial fibrillation, new onset (Acute). Abnormal stress test (Acute). Chest pain (Acute). Abdominal pain (Acute). GERD (gastroesophageal reflux disease) (Chronic). Right Achilles tendinitis (Acute). Right lumbar radiculopathy (Acute). Plantar fasciitis (Acute). Right foot. s/p three steroid injections by podiatry. Esophageal ulcer (Acute). Smoker (Acute). Gastritis (Chronic). Primary osteoarthritis of right knee (Acute 03/30/16). Palpitations (Acute 01/31/86). Onychomycosis (Acute). Hypothyroidism (Acute 04/04/12). Headache (Acute). H/O vascular headaches. Hammer toe (Acute). bilateral. Fibrocystic disease of breast (Acute 01/31/99). Depressive disorder (Acute 01/31/97). Complex tear of lateral meniscus of left knee as current injury (Acute 03/30/16). Celiac disease (Acute). Anxiety (Acute). Medical History. Anxiety. celiac sprue. Closed fracture of one rib of left side with routine healing (12/16/15). Depression. Fibrocystic disease of both breasts. Gastritis. Hammertoe. Psoriasis. Surgical History. COLONOSCOPY/W MAC (12/13/14). ANGÉLICA MONTGOMERY. History of bilateral ligation of fallopian tubes (05/28/14). Ligation of fallopian tube. Status post thyroidectomy. THYROIDECTOMY PREVIOUS FUNCTIONAL STATUS/SOCIAL/FAMILY SUPPORTS:: Jenn lives in [facility] with her . She has two adult children who live nearby. 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 She is independent at baseline. CURRENT FUNCTIONAL STATUS:: Jenn was sitting up in her chair when CM met with her. She reported that she is feeling good today, and is anticipating that she will be ready for discharge later today, after her IV antibiotic dose this afternoon. She did not have any further concerns. CM will continue to follow. ADVANCE DIRECTIVES:: Not on file. Has patient been provided with info about the portal/API?: Yes Did the patient sign up for the portal?: Yes (active) CODE STATUS:: Full Code INSURANCE COVERAGE / FINANCIAL ISSUES:: [employer] CURRENT HOME/COMMUNITY SERVICES/EQUIPMENT:: No current services or equipment. PRIMARY CARE PHYSICIAN:: Yan Jones POTENTIAL DISCHARGE NEEDS:: Follow up appointments. PATIENT/FAMILY EDUCATION NEEDS:: Review discharge instructions regarding activity levels and medications, discussion of self care needs including ask me three. ANTICIPATED BARRIERS TO DISCHARGE:: None identified. TRANSPORTATION:: Via private vehicle via spouse. PLAN:: Anticipate Jenn will return home when medically cleared by MD. Her will drive her home via private vehicle. She will follow up with her PCP and discharge plan of care. CM will continue to follow.
[2021-05-05 12:16] LABS: HCT 37.2 % (36.0-46.0); HGB 11.8 g/dL (11.2-15.7)
[2021-05-05 15:05] VITALS: BP 97/54; PULSE 52; RESP 16; TEMP 37; O2SAT 99
--- NOTE | 2021-05-05 17:05 | W.PM.DS.N ---
Date of service: 05/05/21 Time of Service: 17:06 DS: Diagnosis Discharge Diagnosis (1) Acute gangrenous appendicitis: Status: Acute Asessment and Plan: d/c (2) GERD with esophagitis: Status: Acute (3) celiac sprue: (4) Anxiety: Discharge Plan Disposition Condition: Stable Discharge Details Reason For Visit: Gangrenous Appendix Admit Date/Time: 05/04/21 17:13 Admit Provider: Jamee Montesinos Attending Provider: Jamee Montesinos Primary Care Provider: Yan Jones Home Meds and New Rx's Prescriptions: New amoxicillin-pot clavulanate 875-125 mg tablet 1 tab PO Q12H 7 Days Qty: 14 0RF tramadol [Ultram] 50 mg tablet 50 mg PO Q6H PRNQty: 10 0RF Continued levothyroxine [Synthroid] 88 mcg tablet 88 mcg PO DAILY Qty: 90 4RF Rx Instructions: Brand name medically necessary clobetasol 0.05 % ointment 1 applic topical .COMPLEX Qty: 30 4RF Rx Instructions: apply tiny amount joseph-anal daily x2w then twice weekly; potassium gluconate 550 mg (90 mg) tablet 550 mg PO DAILY 0RF lorazepam 0.5 mg tablet 0.5 mg PO BID PRN (Reason: anxiety) Qty: 7 0RF acetaminophen [Mapap Extra Strength] 500 MG tablet 1,000 mg PO PRN PRN0RF calcium carbonate 500 mg calcium (1,250 mg) Tablet,Chewable 1,000 mg PRN0RF Discharge Instructions Additional Instructions: Keep an ice bag on the incision. 20 minutes on and 20 minutes off. Ice keeps the swelling down and swelling causes pain. Make sure you wrap the ice pack in a towel and don't apply directly to the skin. -No driving x 72 hrs or of you are taking pain medications. -Do Not remove any purple skin glue that covers incisions -Follow-up with Dr. Montesinos in 1 week. -soft diet: No beef/pork raw vegetables x1 -week. Cooked vegetables are fine -no straining to move bowels -pain meds are very constipating: if you do not move your bowels daily take a dose of OTC milk of magnesia -It is ok to shower. No bathe, soaking, swimming or hot tubs -Keep wound clean and dry. Wash incision with soap and water daily. Pat dry, don't rub. -If you do not have steri-tapes on your incision, than keep the wound covered with a gauze and antibacterial ointment. -You may find that your appetite is smaller. Eat 3-6 small meals throughout the day. It is important to drink lots of water after surgery, 6-10 glasses a day. -If you were given an incentive spirometry (breathing paving supervisor?), continue to do this 10x/hour while awake. -We do want you up walking, at least 5-6 times per day. This is very important to prevent pneumonia and blood clots. You can climb stairs, take them slowly. -No lifting over 5 pounds. This is very important to avoid developing a hernia in your incision. -You may find that you are very tired after surgery- this is normal. Activity:: see above Remove Dressings/Wound Care:: 24 hours Shower/Bathe:: 24 hours Activity:: see above Equipment/Supplies:: No Equipment Needed Diet:: Normal Diet DS: Summary Time Spent with Patient providing and/or coordinating discharge services: Less than 30 minutes Status at Discharge Functional status at discharge: independent ambulation Overall status at discharge: patient is back to baseline Mental Status: mental status grossly normal Speech and Movement: speech and movement normal Mood: congruent mood Affect: normal affect Exam Psych Mental Status: mental status grossly normal Speech and Movement: speech and movement normal Mood: congruent mood Affect: normal affect DS: Data Vitals/I&O Vitals and I&O: Vital Signs Temperature 37.0 C 05/05/21 15:05 Temperature Source Tympanic 05/05/21 15:05 Pulse 52 L 05/05/21 15:05 Pulse Rhythm Regular 05/05/21 08:20 Respiratory Rate 16 05/05/21 15:05 Respiratory Effort Non-Labored 05/05/21 08:20 Respiratory Depth Normal 05/05/21 08:20 Respiratory Pattern Normal 05/05/21 08:20 Blood Pressure 97/54 L 05/05/21 15:05 Blood Pressure Mean 73 05/04/21 14:21 Blood Pressure Position Supine 05/04/21 14:21 Pulse Oximetry 99 05/05/21 15:05 Respiratory End-tidal CO2 33 05/04/21 17:35 Oxygen Delivery Method Room Air 05/05/21 15:05 Oxygen Flow Rate 0 05/05/21 15:05 Pain Level 0 05/05/21 06:44 Comment 05/04/21 14:21 Intake & Output 05/04/21 05/05/21 05/05/21 23:59 11:59 23:59 Intake Total 1665.833 / 2766.833 2236.667 / 2636.667 400 / 2636.667 Output Total 150 / 150 700 / 700 Balance 1515.833 / 2616.833 1536.667 / 1936.667 400 / 1936.667 Weight 102.058 kg Intake: IV 1645.833 / 2746.833 1676.667 / 1836.667 160 / 1836.667 Oral 20 / 20 560 / 800 240 / 800 Output: Urine 100 / 100 700 / 700 Estimated Blood Loss 50 / 50 Other: Urine Color Pale Yellow Urine Appearance Clear Clear Urine Odor None Normal Comment pt voided at this time to bedside commode. Stool Size Moderate Stool Characteristics Liquid Emesis Description None Voiding Methods Toilet Bedside Commode Data Completed and Pending Labs on day of discharge: Labs from last 24 hours 05/05/21 05/05/21 12:05 06:30 WBC 9.12 RBC 3.56 L Hgb 11.8 10.9 L D Hct 37.2 33.1 L D MCV 93.0 MCH 30.6 MCHC 32.9 RDW 12.9 Plt Count 165 MPV 11.4 H Immature Gran % 0.3 Neutrophils % 83.2 Lymphocytes % 9.2 Monocytes % 6.7 Eosinophils % 0.2 Basophils % 0.4 Nucleated RBC % 0 Absolute Neutrophils 7.58 H Absolute Lymphocytes 0.84 L Absolute Monocytes 0.61 Absolute Eosinophils 0.02 Absolute Basophils 0.04 PFSH All Active Problems (Updated 05/04/21 @ 21:14 by Jamee Montesinos DO) Acute gangrenous appendicitis (Acute) Acute appendicitis (Acute) Candidal skin infection (Acute) Herpes (Acute) Perianal in the context of lichen sclerosus. Rx outbreaks with valacyclovir. Paroxysmal atrial fibrillation (Acute) Liver cyst (Acute) Painful skin lesion (Acute) Nausea (Acute) Liver cyst (Acute) GERD with esophagitis (Acute) Biliary colic (Acute) Epigastric pain (Acute) Anogenital lichen sclerosus (Acute) Mood altered (Acute) Fatigue (Acute) Headache (Acute) Palpitations (Acute) Hypomagnesemia (Acute) Hypokalemia (Acute) Atrial fibrillation, new onset (Acute) Abnormal stress test (Acute) Chest pain (Acute) Abdominal pain (Acute) GERD (gastroesophageal reflux disease) (Chronic) Right Achilles tendinitis (Acute) Right lumbar radiculopathy (Acute) Plantar fasciitis (Acute) Right foot s/p three steroid injections by podiatry Esophageal ulcer (Acute) Smoker (Acute) Gastritis (Chronic) Primary osteoarthritis of right knee (Acute 03/30/16) Palpitations (Acute 01/31/86) Onychomycosis (Acute) Hypothyroidism (Acute 04/04/12) Headache (Acute) H/O vascular headaches Hammer toe (Acute) bilateral Fibrocystic disease of breast (Acute 01/31/99) Depressive disorder (Acute 01/31/97) Complex tear of lateral meniscus of left knee as current injury (Acute 03/30/16) Celiac disease (Acute) Anxiety (Acute) Medical History (Updated 05/04/21 @ 21:14 by Jamee Montesinos DO) Anxiety celiac sprue Closed fracture of one rib of left side with routine healing (12/16/15) Depression Fibrocystic disease of both breasts Gastritis Hammertoe Psoriasis Surgical History COLONOSCOPY/W MAC (12/13/14) ANGÉLICA MONTGOMERY History of bilateral ligation of fallopian tubes (05/28/14) Ligation of fallopian tube Status post thyroidectomy THYROIDECTOMY Family History (Updated 01/04/21 @ 16:38 by Yessi Moncada) Mother Diabetes Essential hypertension Personal history of malignant neoplasm Heart disease Father Personal history of malignant neoplasm Sister Alcohol use disorder Grandfather Essential hypertension Heart disease Grandmother Personal history of malignant neoplasm Sister Depression Social History (Updated 01/04/21 @ 16:37 by Yessi Moncada) Smoking/Tobacco Use Status: Former Tobacco Use Smoking risk assessment performed?: Yes Alcohol Intake: never Drug use: Never Substance use type: does not use Caregiver/Support person: No Household members: spouse and significant other Housing: apartment Number of Children: 2 Communication Needs: None Education Level: vocational 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 Pets and animals: No Sexually active: Yes Do you think of yourself as: straight/heterosexual Current gender identity: female What is your relationship status?: How often do you talk on the phone with friends or family?: once per week How often do you get together with friends or relatives?: once per week How often do you attend episcopal or hinduism services?: 4 or more times per year Do you belong to any clubs or organized social groups?: yes Panel score (0-1 are the most socially isolated patients): 3 Duration: 15-30 minutes/day Frequency: 5-6 times per week Lise/Amish: Alevism Special lise needs: No Seatbelt use: always Helmet use: No Drive intox or ride w/intox miniature train driver: No Do you feel safe at home: Yes Do you feel safe in your relationship?: Yes Female Reproductive History Menstrual control method: permanent sterilization Menopause type: natural (stopped menses 50yo.) History History 2 Para 2 Hx # Term Pregnancies 2 Multiple births Hx # Pregnancies Ectopic pregnancies AB induced Hx Number of Living Children 2 AB spontaneous
--- NOTE | 2021-05-05 17:24 | W.PM.PROGNOT ---
Date of Service Date of service: 05/05/21 Time of Service: 17:24 Assessment and Plan Assessment and plan (1) Acute gangrenous appendicitis: Status: Acute Assessment and plan: s/p appendectomy -see d/c orders walking no lifting over 5#'s 2wks off work f/u in clinic next d/c home w/ augmentin- Subjective Subjective Interval history since last seen: Pt is doing well. no headaches. No CP or SOB. no productive cough. no dysuria. no leg pain or swelling. She does not loose stools, but only x2 today. She has been up walking and tolerating a diet. no fevers and pain is controlled. She would prefer just tylenol and no narctoics. Exam Resp Effort & Inspection: normal respiratory effort and able to speak in complete sentences Auscultation: clear to auscultation bilaterally Cardio Rate: regular rate Rhythm: regular rhythm GI Palpation: other Auscultation: normal bowel sounds Other: incisions c/d/i. Extrem General: no pedal edema Objective Last Vital Signs Temp 37.0 C 05/05/21 15:05 Pulse 52 L 05/05/21 15:05 Resp 16 05/05/21 15:05 BP 97/54 L 05/05/21 15:05 Pulse Ox 99 05/05/21 15:05 Laboratory Results - last 24 hr 05/05/21 05/05/21 06:30 12:05 WBC 9.12 RBC 3.56 L Hgb 10.9 L D 11.8 Hct 33.1 L D 37.2 MCV 93.0 MCH 30.6 MCHC 32.9 RDW 12.9 Plt Count 165 MPV 11.4 H Immature Gran % 0.3 Neutrophils % 83.2 Lymphocytes % 9.2 Monocytes % 6.7 Eosinophils % 0.2 Basophils % 0.4 Nucleated RBC % 0 Absolute Neutrophils 7.58 H Absolute Lymphocytes 0.84 L Absolute Monocytes 0.61 Absolute Eosinophils 0.02 Absolute Basophils 0.04
== END 2021-05-05 17:38 | disposition home or self-care (01) | DRG 343 ==
LOC: ER 10:59 → SUR 11:53 → ER 11:55 → SUR 11:57 → MS 18:00
PROVIDERS: Admitting Provider Surgery; Emergency Provider Physician Assistant; PCP Emergency Medicine; Visit Provider Surgery
PROC: 0DTJ4ZZ Resection of Appendix, Percutaneous Endoscopic Approach (ICD-10-PCS; CPT 44970; principal; 2021-05-04 15:00)
DX: K35.891 Other acute appendicitis without perforation, with gangrene (principal); K42.9 Umbilical hernia without obstruction or gangrene; K90.0 Celiac disease; I48.0 Paroxysmal atrial fibrillation; K21.00 Gastro-esophageal reflux disease with esophagitis, without bleeding; F17.210 Nicotine dependence, cigarettes, uncomplicated; E03.9 Hypothyroidism, unspecified; K29.50 Unspecified chronic gastritis without bleeding; F41.9 Anxiety disorder, unspecified; L40.9 Psoriasis, unspecified; N60.12 Diffuse cystic mastopathy of left breast; N60.11 Diffuse cystic mastopathy of right breast
CPT/HCPCS: 44970; 49652; 36415; 80053; 83690; 87635; 96361; 96365; 96367; 96375; 99285; J1650; 74177; 76705; 81003; 81015; 85014; 85018; 85025; 88304; J0131; J1100; J1756; J1885; J2001; J2370; J2405; J2543; J2704; J3490

== ENCOUNTER 2021-06-02 02:44 | Outpatient (CLI) | payer OTHER, SELFPAY ==
[2021-06-02 09:15] LABS: TSH 1.75 uIU/mL (0.36-3.74)
== END 2021-06-02 02:45 | disposition home or self-care (01) ==
PROVIDERS: PCP Nurse Practitioner; Visit Provider Emergency Medicine
DX: E03.9 Hypothyroidism, unspecified (principal)
CPT/HCPCS: 36415; 84443

== ENCOUNTER 2021-06-30 00:29 | Outpatient (CLI) | payer OTHER, SELFPAY ==
--- NOTE | 2021-06-30 06:45 | DI.CT_ITS ---
Exam(s) CT ABDOMEN PELVIS W EXAM: CT ABDOMEN PELVIS W CLINICAL HISTORY: RLQ pain, recent appendectomy,z90.49,r10.31. TECHNIQUE: Imaging Protocol: Axial computed tomography images with coronal and sagittal reformatted images were created and reviewed CONTRAST MATERIAL: Intravenous: Omnipaque 350 Contrast volume:100 ml Oral: yes / COMPARISON: CT CT ABDOMEN PELVIS W from 05/04/2021 FINDINGS: ABDOMEN: Lung Bases: Normal where visualized. Heart is mildly enlarged. Small hiatal hernia. Liver: Normal density. Innumerable cysts. Gallbladder and biliary tract: No radiodense calculus or dilation. Pancreas: Normal density, no abnormal calcifications or inflammatory process. Spleen: Normal. Kidneys: Normal size, contour and axis. No radiodense stones or obstructive uropathy. No masses seen. Multiple cysts. Adrenal glands: No masses seen. Abdominal Aorta: Abdominal portion non-dilated. PELVIS: Bladder: No gross wall thickening. No calculi.No focal mass. Bowel: No obstruction or bowel wall thickening. Status post appendectomy. Suture material near base of cecum. No significant residual postsurgical findings. No evidence of abscess. Diverticulosis wi thout evidence of diverticulitis. Normal quantity of stool. Peritoneal cavity: No ascites, collection or mesenteric inflammatory response. Bones: Within normal limits for age. Reproductive organs: Within normal limits. Lymph nodes: Unremarkable. Impression: Status post appendectomy. No acute abnormality. RADIATION DOSE DELIVERED: 1,160.4mGy.cm Total DLP DATA REPOSITORY: All CT scans at this facility are submitted to the National Radiology Data Registry (NRDR) Dose Index Registry (DIR) with the [employer] (ACR). RADIATION OPTIMIZATION: All CT scans at this facility use at least one of these dose optimization te chniques: automated exposure control; mA and/or kV adjustment per patient size (includes targeted exa ms where dose is matched to clinical indication); or iterative reconstruction.
[2021-06-30 08:08] LABS: CREATININE 0.8 mg/dL (0.55-1.02)
[2021-06-30] MEDS: Breeza Beverage 473 ML BTL PO (08:08)
[2021-06-30] MEDS: Omnipaque 350 MG/ML 50 ML BTL IJ (08:09)
[2021-06-30] MEDS: Omnipaque 350 MG/ML 100 ML BTL IJ (08:53)
== END 2021-06-30 00:49 ==
PROVIDERS: PCP Nurse Practitioner; Visit Provider Family Medicine
DX: R10.31 Right lower quadrant pain (principal); Z90.49 Acquired absence of other specified parts of digestive tract; Z01.818 Encounter for other preprocedural examination; K76.89 Other specified diseases of liver; K57.30 Diverticulosis of large intestine without perforation or abscess without bleeding
CPT/HCPCS: 74177; 82565; J3490; Q9967

== ENCOUNTER 2021-08-29 19:00 | Emergency (ER) | payer OTHER, SELFPAY ==
[2021-08-29] VITALS (30 sets, daily range): BP systolic 110–137; BP diastolic 53–100; PULSE 60–80; RESP 10–22; TEMP 37; O2SAT 97–100
--- NOTE | 2021-08-29 19:45 | DI.CT_ITS ---
Exam(s) CT ABDOMEN PELVIS W EXAM: CT ABDOMEN PELVIS W INDICATION: left upper quadrant abdominal pain. COMPARISON: CT CT ABDOMEN PELVIS W from 06/23/[address] ABDOMEN PELVIS W from 09/17/[address] ABDOMEN PELVIS W from 06/30/2021 TECHNIQUE: FINDINGS: CT examination of the abdomen and pelvis was performed without contrast administration. Images obtained through the lung bases are unremarkable. The liver contains numerous cysts, as noted on multiple prior examinations period the left lobe of th e liver also contains an intermediate attenuation mass, question hemorrhagic cyst. The border of thi s mass is somewhat indistinct. On prior CT of September 2020, this measured about 44 millimeters in great est diameter as compared to about 33 millimeters in diameter on today's examination. An additional i ntermediate attenuation left hepatic lobe mass has markedly decreased in size since the prior examina tion. No gross free intraperitoneal fluid.. Gallbladder and bile ducts are CT normal. Pancreas appears normal. Spleen is unremarkable in appearance. Adrenals appear normal. The kidneys are unremarkable except for bilateral renal cysts with no evidence of hydronephrosis, nep hrolithiasis, or renal mass.. Urinary bladder unremarkable. Abdominal aorta is of normal diameter and no major vascular abnormality is seen. No abdominal wall hernia. No abdominal or pelvic adenopathy. 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 Appendix appears to have been surgically removed, no evidence of appendicitis.. No evidence of diver ticulitis or bowel obstruction. IMPRESSION: Findings involving indeterminate mass or cyst of left hepatic lobe, no gross interval growth in carlos rison with prior examinations, likely complex cyst. Additional evaluation with hepatic MRI may be co nsidered if clinically indicated.. RADIATION DOSE DELIVERED: 1,181.92mGy.cm Total DLP 1,181.92mGy.cm Total DLP !Error CTDIvol RADIATION OPTIMIZATION: All CT scans at this facility use at least one of these dose optimization te chniques: automated exposure control; mA and/or kV adjustment per patient size (includes targeted exa ms where dose is matched to clinical indication); or iterative reconstruction.
[2021-08-29 20:32] LABS: Abs Immature Grans 0.02 10^3/uL (0.0-0.06); Absolute Basophil Count 0.08 10^3/uL (0.0-0.2); Absolute Eosinophil Count 0.19 10^3/uL (0.0-0.7); Absolute Monocyte Count 0.67 10^3/uL (0.1-0.8); Absolute Neutrophil Count 6.04 10^3/uL (1.2-6.7); Eosinophils % 2.3; HCT 38.8 % (36.0-46.0); Immature Grans % 0.2; Lymphocytes % 16.7; MCH 31.3 pg (27.0-33.0); MCHC 33.5 % (32.0-36.0); MCV 93 fL (80-95); MPV 11.4 fL (8.0-11.0); Neutrophils % 71.8; Platelet Count 200 10^3/uL (130-400); RBC 4.16 10^6/uL (3.93-5.22); RDW 12.4 % (11.7-14.6); RDW-SD 42.9 fL
[2021-08-29 20:41] LABS: ALT 19 U/L (14-59); AST 14 U/L (15-37); Albumin 3.5 g/dL (3.4-5.0); Alkaline Phosphatase 67 U/L (46-116); Anion Gap 4.6 mmol/L (3-11); BUN 14 mg/dL (7-18); Bilirubin, Total 0.3 mg/dL (0.2-1.0); CO2 29.4 mmol/L (21.0-32.0); Calcium 8.6 mg/dL (8.5-10.1); Chloride 107 mmol/L (98-107); Estimated GFR 55.82 (mL/min/1.73m2); Glucose 103 mg/dL (74-106); Lipase 99 U/L (73-393); Potassium 4.1 mmol/L (3.5-5.1); Sodium 141 mmol/L (136-145); Total Protein 7.3 g/dL (6.4-8.2)
[2021-08-29] MEDS: Omnipaque 350 MG/ML 100 ML BTL IJ (21:23)
[2021-08-29] MEDS: Normal Saline Flush 10 ML SYR IVP (21:29)
[2021-08-29 21:41] LABS: Bilirubin Negative (Negative); Blood Negative (Negative); Clarity Clear (Clear); Glucose Negative (Negative); Ketones Negative (Negative); Leukocyte Esterase Trace (Negative); Nitrite Negative (Negative); Urobilinogen 0.2 EU/dL (Up TO 0.2); pH 7.5 (5-8)
[2021-08-29 22:18] LABS: Bacteria Negative HPF (Negative); C & S Indicated? Yes; Casts Negative LPF (Negative); Crystals Negative HPF (Negative); Epithelial Cells Negative HPF (Negative); Mucus Negative (Negative); Other Cells Negative (Negative); RBC Negative HPF (0-2); WBC 0-2 HPF (0-5)
--- NOTE | 2021-08-29 22:29 | DI.VRAD_ITS ---
PROCEDURE INFORMATION: Exam: CT Abdomen And Pelvis With Contrast Exam date and time: 08/29/2021 9:23 PM Age: 66 years old Clinical indication: Pain; Other: Bright red bloody stools; Other: Luq TECHNIQUE: Imaging protocol: Computed tomography of the abdomen and pelvis with contrast. Radiation optimization: All CT scans at this facility use at least one of these dose optimization techniques: automated exposure control; mA and/or kV adjustment per patient size (includes targeted exams where dose is matched to clinical indication); or iterative reconstruction. Contrast material: OMNIPAQUE 350; Contrast volume: 100 ml; Contrast route: INTRAVENOUS (IV); COMPARISON: CT ABDOMEN PELVIS W 06/30/2021 8:56 AM FINDINGS: Lungs: There is heterogeneous attenuation of the pulmonary parenchyma, consistent with air trapping from underlying small airways disease. Pleural spaces: There is no evidence of pneumothorax. There are no pleural effusions present. Heart: There is mild atherosclerotic calcification of the coronary arteries. Diaphragm: A small hiatal hernia is present. Liver: Multiple bilateral hepatic cysts unchanged compared to the prior study. There is a low-attenuation mass present within the left liver lobe best demonstrated on image 24 series 4 . This is unchanged in size or appearance compared to the prior study and may represent a complex cyst although a low-attenuation mass cannot be totally excluded. Gallbladder and bile ducts: The gallbladder is contracted but otherwise normal. There is no evidence of intrahepatic or extrahepatic biliary ductal dilation. Pancreas: The pancreas is normal. Spleen: The spleen is normal. Adrenal glands: The adrenal glands are normal. Kidneys and ureters: Low-attenuation lesions present within the kidneys bilateral consistent with simple cysts. No definitive follow-up indicated. No evidence of hydronephrosis, renal calculi or perinephric fluid collections. Stomach and bowel: There are fluid-filled loops of small bowel with air-fluid levels. No significant bowel wall thickening or inflammatory changes. No evidence of obstruction. Consider early enteritis. Moderate diverticulosis is present in the sigmoid and descending colon. There is no evidence of diverticulitis. There is mild increased colonic fecal content. The colon is nondilated. These findings suggest a mild degree of constipation. Clinical correlation recommended. Appendix: There has been an appendectomy. Intraperitoneal space: There is no free intraperitoneal air. There is no evidence of free intraperitoneal or pelvic fluid. Vasculature: The inferior venacava appears normal.The aorta demonstrates mild atherosclerotic calcification. The aorta is unremarkable without evidence of significant atherosclerosis or aneurysmal disease. The peripheral arterial vascular system visualized is unremarkable. The portal venous system visualized is unremarkable. The peripheral venous vascular system visualized is unremarkable. Lymph nodes: There is no evidence of lymphadenopathy. Urinary bladder: The bladder is normal. Reproductive: The uterus is normal. Bones/joints: The thoracolumbar spine demonstrates mild degenerative changes at multiple levels. Soft tissues: The extra-abdominal soft tissues are normal. There is a fat-containing umbilical hernia. IMPRESSION: 1. There is heterogeneous attenuation of the pulmonary parenchyma, consistent with air trapping from underlying small airways disease. 2. There is a low-attenuation mass present within the left liver lobe best demonstrated on image 24 series 4. This is unchanged in size or appearance compared to the prior study and may represent a complex cyst although a low-attenuation mass cannot be totally excluded. 3. There are fluid-filled loops of small bowel with air-fluid levels. No significant bowel wall thickening or inflammatory changes. No evidence of obstruction. Consider early enteritis. Dictated and Authenticated by: Chance Patel MD. Ordering:DAMION Walters MD
--- NOTE | 2021-08-29 23:13 | ED.GENADUL_ITS ---
Discharge Plan Disposition Patient Disposition: HOME Condition: Stable Discharge Details Clinical Impression: Bleeding internal hemorrhoids, Blood in stool, Abdominal pain Primary Care Provider: Alisha Mondragon ED Provider: Selena Richter Home Meds and New Rx's Prescriptions: New Proctofoam HC 1-1 % foam 1 applic MO BID Qty: 10 0RF metoclopramide HCl [Reglan] 10 mg tablet 10 mg PO Q6H PRNQty: 10 0RF Continued levothyroxine [Synthroid] 88 mcg tablet 88 mcg PO DAILY Qty: 90 4RF Rx Instructions: Brand name medically necessary Adult 50 Plus Probiotic 4 billion cell capsule 4,000 mmu cells PO DAILY Rx Instructions: administer with a meal polyethylene glycol 3350 [Miralax] 17 gram/dose powder 17 g PO DAILY potassium gluconate 550 mg (90 mg) tablet 550 mg PO DAILY clobetasol 0.05 % ointment 1 applic topical PRN dicyclomine 10 mg capsule 10 mg PO PRN ondansetron HCl 4 mg tablet 4 mg PO Q8H PRN (Reason: nausea and vomiting) Qty: 10 0RF acetaminophen [Mapap Extra Strength] 500 MG tablet 1,000 mg PO PRN PRN calcium carbonate 500 mg calcium (1,250 mg) Tablet,Chewable 1,000 mg PO 4-8XD PRN Discharge Instructions Instructions: Low Fiber Diet (ED), Abdominal Pain (ED) Additional Instructions: Please follow-up with the surgeon listed below for outpatient colonoscopy at th eir discretion Use the suppositories as instructed Continue on your current diet, low residue You may take Bentyl as needed for pain and you may take Reglan as needed for discomfort and nausea Please return should you have new or worsening complaints Please follow-up with her doctor regarding the mass on your liver Referrals: Alisha Mondragon, TIERRA [Primary Care Provider] - Jamee Montesinos DO [OSTEOPATHIC DOCTOR] - Discharge Data Discharge Date/Time-TO BE ENTERED AT DEPARTURE: 08/29/21 23:40 Medical Decision Making Patient appears well, she is hemodynamically stable Her CBC and CMP did not display obvious evidence of GI bleed Given her age and comorbidities I did perform anoscopic exam in the emergency department after consent from patient, she does have 2 thrombosed hemorrhoids internally several small fissures externally that has scant blood surrounding them no significant bleeding Her abdomen is relatively benign I did review her CT scan that shows evidence of a right liver mass which is not new for patient and she was aware of this and have followed up regarding this finding She has numerous small fluid-filled loops of small bowel with air-fluid levels consistent with bowel wall thickening or inflammatory change She is instructed to follow-up with her doctor regarding this finding She is well in appearance, there is no indication for emergent admission as her symptoms have been persistent for an extended period of time no clear evidence of diverticulitis per virtual radiology interpretation Patient would likely this time surgery was for follow-up, patient likely benefit from colonoscopy at the discretion of the attending surgeon Referred back to PT additionally Placed on rectal suppository and will continue with low residue diet Medical Records Medical records reviewed: Yes I reviewed the patient's medical records. Lab Data Lab results reviewed: Yes I reviewed the patient's lab results. HPI General Date/Time Provider Initiated Documentation: 08/29/21 19:22 . HPI Narrative: This 66-year-old female with history of celiac, hypothyroidism, paroxysmal atrial fibrillation not on anticoagulation presents with report of blood in stool and abdominal pain. She states this is been going on for the past several months. She is been evaluated numerous times at urgent cares without diagnosis which concerned her. She states that she is remained gluten-free for the past 13 years, her symptoms are different. She states that the bleeding is intermittent. She denies any constipation. She that the stools typically shrink and blood. She has experienced 1 episode of bleeding today reportedly. She denies any weakness or dizziness. She has intermittent left upper quadrant cramping discomfort. She denies any fever or chills. She denies any chest pain or shortness of breath. She does denies nonsteroidals or anticoagulation use. She states her last colonoscopy was approximately 2 years ago at the last and she does have a prior history a peptic ulcer and did reportedly Related Data Home Medications Medication Instructions Recorded Confirmed acetaminophen 500 mg tablet (Mapap 1,000 mg PO PRN PRN 12/14/15 08/29/21 Extra Strength) Synthroid 88 mcg tablet 88 mcg PO DAILY #90 tab-caps 05/31/20 08/29/21 (levothyroxine) potassium gluconate 550 mg (90 mg) 550 mg PO DAILY 10/03/20 08/29/21 tablet calcium carbonate 500 mg calcium 1,000 mg PO 4-8XD PRN 05/04/21 08/29/21 (1,250 mg) chewable tablet lactobacillus combination no.9 4 4,000 mmu cells PO DAILY 05/11/21 08/29/21 billion cell capsule (Adult 50 Plus Probiotic) polyethylene glycol 3350 17 17 g PO DAILY 05/26/21 08/29/21 gram/dose oral powder (Miralax) clobetasol 0.05 % topical ointment 1 applic topical PRN 06/19/21 08/18/21 dicyclomine 10 mg capsule 10 mg PO PRN 06/19/21 08/29/21 ondansetron HCl 4 mg tablet 4 mg PO Q8H PRN nausea and 08/15/21 08/29/21 vomiting #10 tabs hydrocortisone 1 %-pramoxine 1 % 1 applic MO BID hemorrhoids #10 08/29/21 rectal foam (Proctofoam HC) grams metoclopramide HCl 10 mg tablet 10 mg PO Q6H PRN #10 tabs 08/29/21 (Reglan) Previous Rx's Medication Instructions Recorded Synthroid 88 mcg tablet 88 mcg PO DAILY #90 tab-caps 05/31/20 (levothyroxine) ondansetron HCl 4 mg tablet 4 mg PO Q8H PRN nausea and 08/15/21 vomiting #10 tabs hydrocortisone 1 %-pramoxine 1 % 1 applic MO BID hemorrhoids #10 08/29/21 rectal foam (Proctofoam HC) grams metoclopramide HCl 10 mg tablet 10 mg PO Q6H PRN #10 tabs 08/29/21 (Reglan) Allergies Allergy/AdvReac Type Severity Reaction Status Date / Time omeprazole AdvReac Severe Myalgias Verified 08/29/21 19:20 gluten AdvReac Intermediate GI upset Verified 08/29/21 19:20 oxycodone HCl [From Percocet] AdvReac Intermediate Psychosis Verified 08/29/21 19:20 sertraline HCl [From Zoloft] AdvReac Intermediate psychotic Verified 08/29/21 19:20 coconut AdvReac Mild Gi upset Verified 08/29/21 19:20 lactose AdvReac Unknown Verified 08/29/21 19:20 anesthesia AdvReac Severe listed as Uncoded 08/29/21 19:20 blood pressure crashed- [facility] [place] record General Stated Complaint: Abd Prob NEHEMIAH: 3 Review of Systems All systems reviewed & are unremarkable except as noted in HPI and below PFSH All Active Problems (Updated 08/29/21 @ 23:19 by KHARI Albert) Bleeding internal hemorrhoids (Acute) Blood in stool (Acute) Abdominal pain (Acute) Bee sting allergy (Acute) IBS (irritable bowel syndrome) (Chronic) has dicyclomine with good effect Herpes (Acute) Perianal in the context of lichen sclerosus. Rx outbreaks with valacyclovir. Paroxysmal atrial fibrillation (Acute) follows with [facility] cardiology annually. Prior use of diltiazem, discontinued due to GI side effects. CHADS2 Vasc score 1, aspirin discontinued due to GI side effects. GERD with esophagitis (Chronic) Followed by [facility], tried and exhausted all medical mgmt. Domitila recommended, declined. Anogenital lichen sclerosus (Acute) Fatigue (Acute) Primary osteoarthritis of right knee (Acute 03/30/16) Onychomycosis (Acute) Hypothyroidism (Acute 04/04/12) secondary to thyroidectomy Celiac disease (Acute) Medical History Anxiety Complex tear of lateral meniscus of left knee as current injury (03/30/16) Depression Esophageal ulcer (~07/2018) EGD at [facility] 07/2018, resolved on repeat 09/2020 Fibrocystic disease of both breasts Gastritis Hammer toe bilateral Hammertoe Liver cyst bilateral, up to 8.6cm size Plantar fasciitis Right foot s/p three steroid injections by podiatry Psoriasis Right Achilles tendinitis Right lumbar radiculopathy Vascular headache, not intractable Surgical History History of appendectomy (~05/04/21) History of bilateral ligation of fallopian tubes (05/28/14) Status post thyroidectomy Family History Mother Diabetes Essential hypertension Personal history of malignant neoplasm Heart disease Father Personal history of malignant neoplasm Sister Alcohol use disorder Grandfather Essential hypertension Heart disease Grandmother Personal history of malignant neoplasm Sister Depression Social History Smoking/Tobacco Use Status: Former Tobacco Use Smoking risk assessment performed?: Yes Alcohol Intake: never Drug use: Never Substance use type: does not use Caregiver/Support person: No Household members: spouse and significant other Housing: apartment Number of Children: 2 Communication Needs: None Education Level: vocational 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 Pets and animals: No Sexually active: Yes Do you think of yourself as: straight/heterosexual Current gender identity: female What is your relationship status?: How often do you talk on the phone with friends or family?: once per week How often do you get together with friends or relatives?: once per week How often do you attend mu-ism or confucianist services?: 4 or more times per year Do you belong to any clubs or organized social groups?: yes Panel score (0-1 are the most socially isolated patients): 3 Duration: 15-30 minutes/day Frequency: 5-6 times per week Lise/Cheondoism: Gnosticism Special lise needs: No Seatbelt use: always Helmet use: No Drive intox or ride w/intox ups driver: No Do you feel safe at home: Yes Do you feel safe in your relationship?: Yes Female Reproductive History Menstrual control method: permanent sterilization Menopause type: natural (stopped menses 50yo.) History History 2 Para 2 Hx # Term Pregnancies 2 Multiple births Hx # Pregnancies Ectopic pregnancies AB induced Hx Number of Living Children 2 AB spontaneous Exam Const General: cooperative, comfortable and no acute distress HENMT Head: normal to inspection Resp Effort & Inspection: normal respiratory effort Cardio Rate: regular rate Rhythm: regular rhythm GI Inspection: normal to inspection Other: No abdominal tenderness Other: Anoscopy performed, no active bleeding Several small fissures around the rectal opening Skin General skin exam: no rashes or lesions noted Neuro General: patient alert and patient oriented x3 Extrem Other: no peripheral edema distal pulses intact Course Vital Signs Vital signs: Vital Signs Temperature 37.0 C 08/29/21 19:09 Pulse 76 08/29/21 19:09 Respiratory Rate 14 08/29/21 19:09 Blood Pressure 137/100 H 08/29/21 19:09 Pulse Oximetry 99 08/29/21 19:09 Temperature 37.0 C 08/29/21 19:09 Temperature Source Oral 08/29/21 19:09 Pulse 62 08/29/21 22:16 Pulse 63 08/29/21 22:20 Respiratory Rate 12 08/29/21 22:20 Respiratory Effort 08/29/21 19:13 Blood Pressure 110/66 08/29/21 22:16 Blood Pressure Mean 77 08/29/21 22:16 Blood Pressure Position Supine 08/29/21 19:09 Pulse Oximetry 99 08/29/21 22:20 Oxygen Delivery Method Room Air 08/29/21 19:09 Oxygen Flow Rate 0 08/29/21 19:09 Pain Level 6 08/29/21 19:09 Lab/Test Results Lab/Test Results: 08/29/21 21:29 Urine - Reflex from Ua Urine Culture - Pending Laboratory Tests Range/Units 08/29/21 08/29/21 08/29/21 20:10 20:10 20:10 WBC (4.4-10.8) 10^3/uL 8.40 RBC (3.93-5.22) 10^6/uL 4.16 Hgb (11.2-15.7) g/dL 13.0 Hct (36.0-46.0) % 38.8 MCV (80-95) fL 93 MCH (27.0-33.0) pg 31.3 MCHC (32.0-36.0) % 33.5 RDW (11.7-14.6) % 12.4 Plt Count (130-400) 10^3/uL 200 MPV (8.0-11.0) fL 11.4 H Immature Gran % 0.2 Neutrophils % 71.8 Lymphocytes % 16.7 Monocytes % 8.0 Eosinophils % 2.3 Basophils % 1.0 Nucleated RBC % (0.0-0.3) % 0.0 Absolute Neutrophils (1.2-6.7) 10^3/uL 6.04 Absolute Lymphocytes (1.2-3.4) 10^3/uL 1.40 Absolute Monocytes (0.1-0.8) 10^3/uL 0.67 Absolute Eosinophils (0.0-0.7) 10^3/uL 0.19 Absolute Basophils (0.0-0.2) 10^3/uL 0.08 Sodium (136-145) mmol/L 141 Potassium (3.5-5.1) mmol/L 4.1 Chloride (98-107) mmol/L 107 Carbon Dioxide (21.0-32.0) mmol/L 29.4 Anion Gap (3-11) mmol/L 4.6 BUN (7-18) mg/dL 14 Creatinine (0.55-1.02) mg/dL 1.0 Estimated GFR/1.73 m2 (mL/min/1.73m2) 55.82 Glucose (74-106) mg/dL 103 Calcium (8.5-10.1) mg/dL 8.6 Total Bilirubin (0.2-1.0) mg/dL 0.3 AST (15-37) U/L 14 L ALT (14-59) U/L 19 Alkaline Phosphatase (46-116) U/L 67 Total Protein (6.4-8.2) g/dL 7.3 Albumin (3.4-5.0) g/dL 3.5 Lipase (73-393) U/L Urine Color (Yellow) Urine Clarity (Clear) Urine pH (5-8) Ur Specific [place] (1.005-1.025) Urine Protein (Negative) mg/dL Urine Ketones (Negative) mg/dL Urine Blood (Negative) Urine Nitrite (Negative) Urine Bilirubin (Negative) Urine Urobilinogen (Up TO 0.2) EU/dL Ur Leukocyte Esterase (Negative) Urine RBC (0-2) HPF Urine WBC (0-5) HPF Ur Epithelial Cells (Negative) HPF Urine Crystals (Negative) HPF Urine Bacteria (Negative) HPF Urine Casts (Negative) LPF Urine Mucus (Negative) Urine Other (Negative) Ur Culture Indicated? Urine Glucose (Negative) mg/dL Stl C.difficile Tox PCR Patient ABO/Rh O Positive Antibody Screen NEGATIVE Range/Units 08/29/21 08/29/21 08/29/21 20:10 20:12 21:29 WBC (4.4-10.8) 10^3/uL RBC (3.93-5.22) 10^6/uL Hgb (11.2-15.7) g/dL Hct (36.0-46.0) % MCV (80-95) fL MCH (27.0-33.0) pg MCHC (32.0-36.0) % RDW (11.7-14.6) % Plt Count (130-400) 10^3/uL MPV (8.0-11.0) fL Immature Gran % Neutrophils % Lymphocytes % Monocytes % Eosinophils % Basophils % Nucleated RBC % (0.0-0.3) % Absolute Neutrophils (1.2-6.7) 10^3/uL Absolute Lymphocytes (1.2-3.4) 10^3/uL Absolute Monocytes (0.1-0.8) 10^3/uL Absolute Eosinophils (0.0-0.7) 10^3/uL Absolute Basophils (0.0-0.2) 10^3/uL Sodium (136-145) mmol/L Potassium (3.5-5.1) mmol/L Chloride (98-107) mmol/L Carbon Dioxide (21.0-32.0) mmol/L Anion Gap (3-11) mmol/L BUN (7-18) mg/dL Creatinine (0.55-1.02) mg/dL Estimated GFR/1.73 m2 (mL/min/1.73m2) Glucose (74-106) mg/dL Calcium (8.5-10.1) mg/dL Total Bilirubin (0.2-1.0) mg/dL AST (15-37) U/L ALT (14-59) U/L Alkaline Phosphatase (46-116) U/L Total Protein (6.4-8.2) g/dL Albumin (3.4-5.0) g/dL Lipase (73-393) U/L 99 Urine Color (Yellow) Yellow Urine Clarity (Clear) Clear Urine pH (5-8) 7.5 Ur Specific [place] (1.005-1.025) 1.010 Urine Protein (Negative) mg/dL Negative Urine Ketones (Negative) mg/dL Negative Urine Blood (Negative) Negative Urine Nitrite (Negative) Negative Urine Bilirubin (Negative) Negative Urine Urobilinogen (Up TO 0.2) EU/dL 0.2 Ur Leukocyte Esterase (Negative) Trace H Urine RBC (0-2) HPF Negative Urine WBC (0-5) HPF 0-2 Ur Epithelial Cells (Negative) HPF Negative Urine Crystals (Negative) HPF Negative Urine Bacteria (Negative) HPF Negative Urine Casts (Negative) LPF Negative Urine Mucus (Negative) Negative Urine Other (Negative) Negative Ur Culture Indicated? Yes Urine Glucose (Negative) mg/dL Negative Stl C.difficile Tox PCR Cancelled Patient ABO/Rh Antibody Screen
--- NOTE | 2021-08-29 23:21 | NUR.NOTE ---
Referral [facility]ed to [facility] f/u for rectal bleeding nish.Nursing Note:
[2021-08-30 22:52] LABS: Campylobacter PCR Negative (Negative); Salmonella PCR Negative (Negative); Shiga Toxin PCR Negative (Negative); Shigella/Enteroinvasive Ecoli Negative (Negative)
== END 2021-08-29 23:40 | disposition home or self-care (01) ==
PROVIDERS: Emergency Provider Physician Assistant; PCP Nurse Practitioner
DX: K64.8 Other hemorrhoids (principal); R10.12 Left upper quadrant pain
CPT/HCPCS: 80053; 83690; 86850; 86900; 86901; 87493; 87505; 99284; 74177; 81003; 81015; 85025; 87086; 87177; J3490

== ENCOUNTER 2021-09-08 02:20 | Outpatient (CLI) | payer OTHER, SELFPAY ==
[2021-09-08 10:22] LABS: HCT 38.1 % (36.0-46.0); HGB 12.6 g/dL (11.2-15.7)
[2021-09-12 13:35] LABS: Pancreatic Elastase, F >500 mcg/g
== END 2021-09-08 02:21 | disposition home or self-care (01) ==
LOC: LBO 02:20
PROVIDERS: PCP Nurse Practitioner; Visit Provider Surgery
DX: E03.9 Hypothyroidism, unspecified (principal); R10.9 Unspecified abdominal pain; K58.9 Irritable bowel syndrome, unspecified; K92.1 Melena; K21.00 Gastro-esophageal reflux disease with esophagitis, without bleeding; K22.10 Ulcer of esophagus without bleeding
CPT/HCPCS: 36415; 87493; 82656; 85014; 85018

== ENCOUNTER 2021-09-12 03:02 | Outpatient (CLI) | payer OTHER, SELFPAY ==
[2021-09-14 19:48] LABS: Almond IgE <0.35 kU/L; Brazil Nut IgE <0.35 kU/L; Cashew IgE <0.35 kU/L; Hazelnut-Food IgE <0.35 kU/L; Peanut IgE <0.10 kU/L (<0.70); Pecan-Food IgE <0.35 kU/L; Pistachio, IgE <0.35 kU/L; Walnut-Food IgE <0.35 kU/L
== END 2021-09-12 03:03 | disposition home or self-care (01) ==
PROVIDERS: PCP Nurse Practitioner; Visit Provider Allergy & Immunology
DX: Z91.018 Allergy to other foods (principal)
CPT/HCPCS: 36415; 86003

== ENCOUNTER 2021-09-22 01:45 | Outpatient (CLI) | payer OTHER, SELFPAY ==
--- NOTE | 2021-09-22 11:00 | NS.NUTBLAN_ITS ---
Gracy was referred for dietary counseling for on going GERD and IBS symptoms. She was dx with Celiac Dx many years ago and has multiple endoscopies and colonoscopies. PMH: throidectomy- taking synthoid daily as directed. in 2014. Remarried 2020. BMI 32 Diet Recall: B: rice check with lactose free milk, Gluten Free bagel with chicken salad, GF crackers and cheese, potatoes, veggies and chicken Exercise: Walks every night after dinner and does stretching routine in AM Tests from 2019 indicates some vilus atrophy most likely associated with gluten intake and ulcerative esophagitis. Most recently, she had blood in her stool and continues to have bloating and stomach pain after appendix removal in May of this year. She reports 3-4 days per week has painful symptoms. Reports has a hernia that may need surgery. Has tried antidepressants in past however did not tolerate. Also, has had difficulty tolerating PPI. Only medication she can take for GERD is tums. Gracy is very concerned about her ongoing GI symptoms. She has followed the low Fodmap diet with little relief. She also is vigilant about not eating gluten and avoids cross contamination with her 's food. She reports that her stomach symptoms get worse when stressed and recently figured out that her probiotic was causing more bloating. She has stopped this now. Plan: Gracy will bring me a 7 day food record with symptom as experienced Recommend Gracy use heating pad twice daily, along with deep breathing for vagal nerve stimulation Follow up planned 10/13/21 at 11 am.
== END 2021-09-22 01:46 | disposition home or self-care (01) ==
LOC: DS 01:45
PROVIDERS: PCP Nurse Practitioner; Visit Provider Dietitian, Registered
DX: K21.9 Gastro-esophageal reflux disease without esophagitis (principal); K58.9 Irritable bowel syndrome, unspecified; Z71.3 Dietary counseling and surveillance
CPT/HCPCS: 97802

== ENCOUNTER 2021-10-13 01:47 | Outpatient (CLI) | payer OTHER, SELFPAY ==
--- NOTE | 2021-10-13 11:00 | NS.NUTBLAN_ITS ---
Gracy returns for nutritional counseling for GERD and IBS. PMH: Celiac Dx 7 day food record evaluated- no traces of gluten identified. Has been vigilant on gluten free diet. Reports since stopping Probiotic ([employer] [address]), she no longer has blood in her stool or abdominal pain. Reviewed meal plan and identified some other dietary intake patterns that may be contributing to GI pain. Suspect Gracy may have some visceral hypersensitivity.. Reviewed foods that can contribute to visceral pain response such as gas producing foods, high fiber foods and large portions. . No follow up planned at this time. Gracy will reach out prn.
== END 2021-10-13 01:48 | disposition home or self-care (01) ==
LOC: DS 01:47
PROVIDERS: PCP Nurse Practitioner; Visit Provider Dietitian, Registered
DX: K21.9 Gastro-esophageal reflux disease without esophagitis (principal); K58.9 Irritable bowel syndrome, unspecified; Z71.3 Dietary counseling and surveillance
CPT/HCPCS: 97803

== ENCOUNTER 2022-03-23 14:14 | Outpatient (CLI) | payer MEDICARE, SELFPAY ==
--- NOTE | 2022-03-23 11:45 | DI.CT_ITS ---
Exam(s) CT ABDOMEN PELVIS W EXAM: CT ABDOMEN PELVIS W CLINICAL HISTORY: worsening pain across upper abd and deep in center r10.13 TECHNIQUE: Imaging Protocol: Axial computed tomography images with coronal and sagittal reformatted images were created and reviewed CONTRAST MATERIAL: Intravenous: Omnipaque 350 Contrast volume:100 mL Oral: Yes COMPARISON: CT CT ABDOMEN PELVIS W from 09/22/2020 MR MR ABDOMEN WO/W from 10/26/[address] ABDOMEN PELVIS W from 08/29/2021 FINDINGS: ABDOMEN: Lung Bases: There is a small hiatal hernia. Liver: Normal density. There are numerous cysts seen within the liver. The hypodense lesion in the l eft lobe of the liver now measures 3.2 x 3.1 cm. This compares to 3.3 cm on the prior examination. The 2nd hypodense lesion continues to show decrease in size now measuring less than 1 cm. This carlos res to 1.7 on the prior examination. Portal, Superior Mesenteric, and Splenic Veins: Unremarkable. Gallbladder and Biliary Tract: No radiodense calculus or dilation. Pancreas: Normal density, no abnormal calcifications or inflammatory process. Spleen: Normal. There is a stable less than 1 cm cyst in the spleen. Adrenals: No masses seen. Kidneys: Normal size, contour and axis. No radiodense stones or obstructive uropathy. There are bilat eral renal cysts. Abdominal Aorta: Abdominal portion non-dilated. Atherosclerosis is present. Bowel: There is no bowel obstruction. Wall thickening is seen in loops of proximal small bowel in th e left upper quadrant. There is diverticulosis seen in the sigmoid colon but no evidence of acute di verticulitis. There is no evidence of appendicitis. Peritoneal Cavity: No ascites, collection or mesenteric inflammatory response. No free air. Lymph Nodes: Within normal limits. Bones: Within normal limits for the patient's age. Soft Tissues: There is a small fat containing umbilical hernia. PELVIS: Bladder: Symmetric distention, no gross wall thickening. Reproductive Organs: Unremarkable as visualized. Lymph Nodes: Within normal limits. Bones: Within normal limits for the patient's age. IMPRESSION: 1. Findings suspicious for infectious/inflammatory enteritis. 2. No other acute abdominal pelvic process. RADIATION DOSE DELIVERED: 1,230.57mGy.cm Total DLP DATA REPOSITORY: All CT scans at this facility are submitted to the National Radiology Data Registry (NRDR) Dose Index Registry (DIR) with the [employer] (ACR). RADIATION OPTIMIZATION: All CT scans at this facility use at least one of these dose optimization te chniques: automated exposure control; mA and/or kV adjustment per patient size (includes targeted exa ms where dose is matched to clinical indication); or iterative reconstruction.
[2022-03-23] MEDS: Barium Sulfate 2% W/V-Berry Smoothie 450 ML BTL PO (13:30)
[2022-03-23 13:35] LABS: Anion Gap 4.1 mmol/L (3-11); BUN 8 mg/dL (7-18); CO2 28.9 mmol/L (21.0-32.0); CREATININE 0.9 mg/dL (0.55-1.02); Calcium 9.3 mg/dL (8.5-10.1); Chloride 109 mmol/L (98-107); Estimated GFR 70.95 (mL/min/1.73m2); Glucose 99 mg/dL (74-106); Potassium 3.8 mmol/L (3.5-5.1); Sodium 142 mmol/L (136-145); TSH (W/Ref FT4) 0.85 uIU/mL (0.36-3.74)
[2022-03-23] MEDS: Omnipaque 350 MG/ML 100 ML BTL IJ (15:18)
[2022-03-23] MEDS: Normal Saline - Diluent 50 ML VIAL IJ (15:19)
[2022-03-23] MEDS: Normal Saline Flush 10 ML SYR IVP (15:20)
== END 2022-03-23 14:34 ==
LOC: DI 14:21
PROVIDERS: PCP Nurse Practitioner Family; Visit Provider Nurse Practitioner Family
DX: R10.13 Epigastric pain (principal); K35.80 Unspecified acute appendicitis
CPT/HCPCS: 80048; 74177; 84443; J3490

== ENCOUNTER 2022-06-13 15:09 | Emergency (ER) | payer MEDICARE, SELFPAY ==
[2022-06-13 15:11] VITALS: BP 126/83; PULSE 74; RESP 17; TEMP 36.6; O2SAT 98
--- NOTE | 2022-06-13 15:45 | DI.CT_ITS ---
Exam(s) CT ABDOMEN PELVIS W EXAM: CT ABDOMEN PELVIS W CLINICAL HISTORY: LUQ pain. TECHNIQUE: Imaging Protocol: Axial computed tomography images with coronal and sagittal reformatted images were created and reviewed CONTRAST MATERIAL: Intravenous: Omnipaque 350 Contrast volume:100 ml Oral: yes / COMPARISON: CT ABD PELVIS WITH CONTRAST from 06/27/[address] ABDOMEN PELVIS W from 06/23/[address] ABDOMEN PELVIS W from 03/23/2022 FINDINGS: ABDOMEN: Lung Bases: Normal where visualized. Liver: Normal density. Multiple cysts. Hypodense lesion left lobe unchanged from prior. Gallbladder and biliary tract: No radiodense calculus or dilation. Pancreas: Normal density, no abnormal calcifications or inflammatory process. Spleen: Normal. Kidneys: Normal size, contour and axis. No radiodense stones or obstructive uropathy. Cysts again no nicholas. No suspicious masses seen. Adrenal glands: No masses seen. Abdominal Aorta: Abdominal portion non-dilated. Soft tissues: Unremarkable. PELVIS: Bladder: No gross wall thickening. No calculi.No focal mass. Bowel: Minimal diverticulosis. Normal quantity of stool. No obstruction. No bowel wall thickening . Status post appendectomy. Peritoneal cavity: No ascites, collection or mesenteric inflammatory response. Bones: Within normal limits for age. Reproductive organs: Within normal limits. Lymph nodes: Unremarkable. Impression: No acute abnormality. RADIATION DOSE DELIVERED: 1,205.74mGy.cm Total DLP DATA REPOSITORY: All CT scans at this facility are submitted to the National Radiology Data Registry (NRDR) Dose Index Registry (DIR) with the [employer] (ACR). RADIATION OPTIMIZATION: All CT scans at this facility use at least one of these dose optimization te chniques: automated exposure control; mA and/or kV adjustment per patient size (includes targeted exa ms where dose is matched to clinical indication); or iterative reconstruction.
--- NOTE | 2022-06-13 15:51 | W.ED.GENAD ---
Discharge Plan Disposition Patient Disposition: Home Discharge Details Clinical Impression: Abdominal pain Primary Care Provider: Dusty Graham ED Provider: Jarrett Acosta Home Meds and New Rx's Prescriptions: Continued sucralfate [Carafate] 1 gram tablet 1 g PO QAC PRN Patient Comments: Pt reports using twice a week when needed for stomach burning. 05/10/22 potassium gluconate 550 mg (90 mg) tablet 550 mg PO DAILY clobetasol 0.05 % ointment 1 applic topical PRN lorazepam 0.5 mg tablet 0.5 mg PO QHS PRN (Reason: anxiety) Qty: 10 0RF Rx Instructions: use sparingly levothyroxine [Synthroid] 88 mcg tablet See Rx Instructions .ROUTE .COMPLEX Qty: 90 3RF Dose Instruction: TAKE ONE TABLET BY MOUTH EVERY DAY Rx Instructions: TAKE ONE TABLET BY MOUTH EVERY DAY dicyclomine 10 mg capsule 10 mg PO QID PRN (Reason: cramps) Qty: 30 0RF acetaminophen [Mapap Extra Strength] 500 MG tablet 1,000 mg PO PRN PRN calcium carbonate 500 mg calcium (1,250 mg) Tablet,Chewable 1,000 mg PO 4-8XD PRN Proctofoam HC 1-1 % foam [address] BID Qty: 10 0RF Discharge Instructions Instructions: Abdominal Pain (ED) Additional Instructions: Please continue to take your medications as prescribed and follow the recommended diet as discussed and recommended by primary care provider. Please feel free to return the emergency department for any new or significant worsening of symptoms otherwise follow-up with your primary care provider for reassessment and further testing as needed. Referrals: Dusty Graham, [employer] [Primary Care Provider] - 1 week Discharge Data Discharge Date/Time-TO BE ENTERED AT DEPARTURE: 06/13/22 19:26 Medical Decision Making Patient presenting to the emergency department for chief complaint of severe left upper quadrant abdominal pain. Patient states this is been intermittent for the past 3 weeks and somewhat progressively worsening. Patient does though report that she has had this pain now intermittently for years with multiple CT images, endoscopic exams, and work-ups with no obvious source. She is pending a GI consult with [facility] in August. She does state that eating seems to make the pain worse and GERD type medications have made the pain better but she has significant side effects from this. Physical exam does show soft abdomen with hypoactive bowel sounds but tenderness noted to the left upper quadrant. Exam otherwise unremarkable. Vital signs are stable. Did review previous provider notes that patient was seen in the office yesterday and referred to the emergency department due to irretractable pain. We will give patient fluids and small dose of hydromorphone pending labs and CT imaging to rule out emergent findings. Reviewed patient's labs and CBC is unremarkable nondiagnostic, CMP does show slightly elevated glucose of 111, low mag of 1.7 which we will orally replete and a lipase of 28. Urinalysis is also completely unremarkable. CT imaging shows no acute findings and there was noted comparison to multiple previous imaging with no significant interval or worrisome changes. Reassessed patient and patient does state some improvement of discomfort. Will refer patient back to primary care provider given long ongoing history of abdominal pain without emergent findings. Did discuss with patient other potential dietary triggers but patient does seem fairly restrictive on her eating. Did discuss risk versus benefit of giving patient a small amount of narcotics which she is agreeable to using these for severe pain only. After discussion of diagnosis and plan of care patient has no further needs, questions, or concerns and states clear understanding to return to the emergency department for any worsening symptoms. This documentation was generated using [employer] dictation system, please disregard any oddities of phrase or misspellings. Medical Records Medical records reviewed: Yes I reviewed the patient's medical records. Medical records narrative: Recent primary care visit note were reviewed. Imaging Data Radiologic Study: Imaging: CT Scan Radiologist's impression: Exam(s) PROCEDURE INFORMATION: Exam: CT Abdomen And Pelvis With Contrast Exam date and time: 06/13/2022 6:03 PM Age: 67 years old Clinical indication: Other: Luq pain TECHNIQUE: Imaging protocol: Computed tomography of the abdomen and pelvis with contrast. Radiation optimization: All CT scans at this facility use at least one of these dose optimization techniques: automated exposure control; mA and/or kV adjustment per patient size (includes targeted exams where dose is matched to clinical indication); or iterative reconstruction. Contrast material: OMNIPAQUE 350; Contrast volume: 100 ml; Contrast route: INTRAVENOUS (IV); Other contrast: Oral, omnipaque 350, 50; COMPARISON: CT ABDOMEN PELVIS W 03/23/2022 3:18 PM FINDINGS: Liver: 3.2 cm indeterminate hypoattenuating mass in the left lobe of the liver without interval change. Comparison with prior examinations including abdominal MRI is anticipated. Numerous probable hepatic cysts measuring up to 2.5 cm. Gallbladder and bile ducts: Normal. No calcified stones. No ductal dilation. Pancreas: Normal. No ductal dilation. Spleen: Normal. No splenomegaly. Adrenal glands: Normal. No mass. Kidneys and ureters: Probable renal cysts bilaterally. No hydronephrosis. Stomach and bowel: No evidence of bowel obstruction. Colonic diverticulosis without diverticulitis. Appendix: Appendectomy. Intraperitoneal space: No free fluid or free air. Vasculature: Unremarkable. No abdominal aortic aneurysm. Lymph nodes: Unremarkable. No enlarged lymph nodes. Urinary bladder: Unremarkable as visualized. Reproductive: Unremarkable as visualized. Bones/joints: Unremarkable. No acute fracture. Soft tissues: Unremarkable. IMPRESSION: 1. No acute findings. Lab Data Lab results reviewed: Yes I reviewed the patient's lab results. HPI General Mode of arrival: ambulatory. Date/Time Provider Initiated Documentation: 06/13/22 15:29. Limitations to Documentation: no limitations. Information obtained by: patient, RN notes reviewed and old records reviewed. History of Present Illness 67 year old F presents to the emergency department with the chief complaint of abd pain , described as severe and similar to prior episodes, with intensity rated at 9. Quality is described as sharp, and is localized to the abdomen. Patient reports no radiation. Patient started experiencing this week(s) (3) and it has been intermittent. No relieving factors improve symptom(s), Eating worsens symptoms . Patient notes no other symptoms.. Patient did receive the following treatments prior to arrival, other (Tums, Mylanta) Related Data Home Medications Medication Instructions Recorded Confirmed acetaminophen 500 mg tablet (Mapap 1,000 mg PO PRN PRN 12/14/15 06/13/22 Extra Strength) potassium gluconate 550 mg (90 mg) 550 mg PO DAILY 10/03/20 06/13/22 tablet calcium carbonate 500 mg calcium 1,000 mg PO 4-8XD PRN 05/04/21 06/13/22 (1,250 mg) chewable tablet clobetasol 0.05 % topical ointment 1 applic topical PRN 06/19/21 06/13/22 hydrocortisone 1 %-pramoxine 1 % [address] BID hemorrhoids #10 08/29/21 06/13/22 rectal foam (Proctofoam HC) grams lorazepam 0.5 mg tablet 0.5 mg PO QHS PRN anxiety #10 tabs 03/26/22 06/13/22 Synthroid 88 mcg tablet See Rx Instructions .Route 04/13/22 06/13/22 (levothyroxine) .COMPLEX #90 tabs sucralfate 1 gram tablet (Carafate) 1 g PO QAC PRN 05/10/22 06/13/22 dicyclomine 10 mg capsule 10 mg PO QID PRN cramps #30 caps 05/18/22 06/13/22 Previous Rx's Medication Instructions Recorded hydrocortisone 1 %-pramoxine 1 % [address] BID hemorrhoids #10 08/29/21 rectal foam (Proctofoam HC) grams lorazepam 0.5 mg tablet 0.5 mg PO QHS PRN anxiety #10 tabs 03/26/22 Synthroid 88 mcg tablet See Rx Instructions .Route 04/13/22 (levothyroxine) .COMPLEX #90 tabs dicyclomine 10 mg capsule 10 mg PO QID PRN cramps #30 caps 05/18/22 Allergies Allergy/AdvReac Type Severity Reaction Status Date / Time omeprazole AdvReac Severe Myalgias Verified 06/13/22 15:15 gluten AdvReac Intermediate GI upset Verified 06/13/22 15:15 nortriptyline AdvReac Intermediate Other (See Verified 06/13/22 15:15 Comment) oxycodone HCl [From Percocet] AdvReac Intermediate Psychosis Verified 06/13/22 15:15 pantoprazole AdvReac Intermediate Verified 06/13/22 15:15 sertraline HCl [From Zoloft] AdvReac Intermediate psychotic Verified 06/13/22 15:15 coconut AdvReac Mild Gi upset Verified 06/13/22 15:15 lactose AdvReac Unknown Verified 06/13/22 15:15 anesthesia AdvReac Severe listed as Uncoded 06/13/22 15:15 blood pressure crashed- [facility] has record General Stated Complaint: Abd Prob NEHEMIAH: 3 Review of Systems Constitutional Constitutional: Denies chills, Denies fever(s) and Reports poor appetite Cardiovascular Cardiovascular: Denies chest pain and Denies dyspnea Respiratory Respiratory: Denies cough and Denies dyspnea Gastrointestinal Gastrointestinal: Reports as per HPI, Reports abdominal pain, Denies melena, Denies change in bowel habits, Denies change in stool character, Denies constipation, Denies cramping, Denies diarrhea, Denies nausea and Denies vomiting Genitourinary Genitourinary: Denies hematuria, Denies urinary incontinence, Denies urinary hesitancy and Denies urinary urgency Integumentary/Breasts Skin/Breast: Denies rash PFSH All Active Problems (Updated 06/13/22 @ 19:04 by Jarrett Acosta NP) Celiac disease (Acute) Hypothyroidism (Acute 04/04/12) secondary to thyroidectomy Onychomycosis (Acute) Primary osteoarthritis of right knee (Acute 03/30/16) Fatigue (Acute) Anogenital lichen sclerosus (Acute) GERD with esophagitis (Chronic) Followed by [facility], tried and exhausted all medical mgmt. Domitila recommended, declined. Paroxysmal atrial fibrillation (Acute) follows with [facility] cardiology annually. Prior use of diltiazem, discontinued due to GI side effects. CHADS2 Vasc score 1, aspirin discontinued due to GI side effects. Herpes (Acute) Perianal in the context of lichen sclerosus. Rx outbreaks with valacyclovir. IBS (irritable bowel syndrome) (Chronic) has dicyclomine with good effect Bee sting allergy (Acute) RUQ abdominal pain (Acute) Nail dystrophy (Acute) Recurrent sinus infections (Acute) Multiple allergies (Acute) environmental, food, and medication allergies COVID (Acute) Epigastric pain (Acute) Abdominal pain (Acute) Medical History Anxiety Complex tear of lateral meniscus of left knee as current injury (03/30/16) Depression Esophageal ulcer (~07/2018) EGD at [facility] 07/2018, resolved on repeat 09/2020 Fibrocystic disease of both breasts Gastritis Hammer toe bilateral Hammertoe Liver cyst bilateral, up to 8.6cm size Plantar fasciitis Right foot s/p three steroid injections by podiatry Psoriasis Right Achilles tendinitis Right lumbar radiculopathy Vascular headache, not intractable Surgical History History of appendectomy (~05/04/21) History of bilateral ligation of fallopian tubes (05/28/14) Status post thyroidectomy Family History Mother Diabetes Essential hypertension Personal history of malignant neoplasm Heart disease Father Personal history of malignant neoplasm Sister Alcohol use disorder Grandfather Essential hypertension Heart disease Grandmother Personal history of malignant neoplasm Sister Depression Social History Smoking/Tobacco Use Status: Former Tobacco Use Smoking risk assessment performed?: Yes Alcohol Intake: never Drug use: Never Substance use type: does not use Caregiver/Support person: No Household members: spouse and significant other Housing: apartment Number of Children: 2 Communication Needs: None Education Level: vocational 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 Pets and animals: No Sexually active: Yes Do you think of yourself as: straight/heterosexual Current gender identity: female What is your relationship status?: How often do you talk on the phone with friends or family?: once per week How often do you get together with friends or relatives?: once per week How often do you attend catholic or latter-day services?: 4 or more times per year Do you belong to any clubs or organized social groups?: yes Panel score (0-1 are the most socially isolated patients): 3 Duration: 15-30 minutes/day Frequency: 5-6 times per week Lise/Episcopalian: Restorationism Special lise needs: No Seatbelt use: always Helmet use: No Drive intox or ride w/intox sanitation truck driver: No Do you feel safe at home: Yes Do you feel safe in your relationship?: Yes Female Reproductive History Menstrual control method: permanent sterilization Menopause type: natural History History 2 Para 2 Hx # Term Pregnancies 2 Multiple births Hx # Pregnancies Ectopic pregnancies AB induced Hx Number of Living Children 2 AB spontaneous Exam Const General: cooperative Orientation: alert, awake and oriented x3 Resp Effort & Inspection: normal respiratory effort and able to speak in complete sentences Auscultation: clear to auscultation bilaterally Cardio Rate: regular rate Rhythm: regular rhythm Heart Sounds: S1 normal and S2 normal GI Palpation: soft, no hepatosplenomegaly, not firm, no guarding, no masses, no pulsatile masses, not rigid, no splenomegaly and tender in the LLQ; Graf's sign negative, with no rebound tenderness and Rovsing's sign negative Auscultation: normal bowel sounds Back/Spine/Pelvis Back: no CVA tenderness Neuro General: patient alert, patient awake, patient oriented x3, gait normal and moves all extremities Course Vital Signs Vital signs: Vital Signs Temperature 36.6 C 06/13/22 15:11 Pulse 74 06/13/22 15:11 Respiratory Rate 17 06/13/22 15:11 Blood Pressure 126/83 06/13/22 15:11 Pulse Oximetry 98 06/13/22 15:11 Temperature 36.6 C 06/13/22 15:11 Temperature Source Oral 06/13/22 15:11 Pulse 74 06/13/22 15:11 Respiratory Rate 17 06/13/22 15:11 Respiratory Effort Normal 06/13/22 15:14 Blood Pressure 126/83 06/13/22 15:11 Blood Pressure Position Sitting 06/13/22 15:11 Pulse Oximetry 98 06/13/22 15:11 Oxygen Delivery Method Room Air 06/13/22 15:11 Oxygen Flow Rate 0 06/13/22 15:11 Pain Level 6 06/13/22 15:11
[2022-06-13] MEDS: HYDROmorphone 2 MG/ML SYR 0.5 MG IVP (15:59)
[2022-06-13] MEDS: Normal Saline 1,000 ML 125 ML IV (16:00)
[2022-06-13 16:14] LABS: Abs Immature Grans 0.01 10^3/uL (0.0-0.06); Absolute Basophil Count 0.11 10^3/uL (0.0-0.2); Absolute Eosinophil Count 0.15 10^3/uL (0.0-0.7); Absolute Lymphocyte Count 1.95 10^3/uL (1.2-3.4); Absolute Monocyte Count 0.44 10^3/uL (0.1-0.8); Absolute Neutrophil Count 2.39 10^3/uL (1.2-6.7); Basophils % 2.2; HCT 40.7 % (36.0-46.0); HGB 13.3 g/dL (11.2-15.7); Immature Grans % 0.2; Lymphocytes % 38.6; MCH 29.7 pg (27.0-33.0); MCHC 32.7 % (32.0-36.0); MCV 91 fL (80-95); Monocytes % 8.7; Neutrophils % 47.3; Platelet Count 262 10^3/uL (130-400); RBC 4.48 10^6/uL (3.93-5.22); RDW-SD 43.6 fL; WBC 5.05 10^3/uL (4.4-10.8)
[2022-06-13 16:30] LABS: ALT 21 U/L (14-59); AST 16 U/L (15-37); Albumin 3.5 g/dL (3.4-5.0); Alkaline Phosphatase 60 U/L (46-116); Anion Gap 9.9 mmol/L (3-11); BUN 9 mg/dL (7-18); Bilirubin, Total 0.5 mg/dL (0.2-1.0); CO2 25.1 mmol/L (21.0-32.0); Calcium 9.2 mg/dL (8.5-10.1); Chloride 107 mmol/L (98-107); Estimated GFR 62.52 (mL/min/1.73m2); Glucose 111 mg/dL (74-106); Lipase 28 U/L (16-77); Magnesium 1.7 mg/dL (1.8-2.4); Potassium 3.7 mmol/L (3.5-5.1); Sodium 142 mmol/L (136-145); Total Protein 7.6 g/dL (6.4-8.2)
[2022-06-13] MEDS: Magnesium Oxide 400 MG TAB PO (16:42)
[2022-06-13 16:43] VITALS: BP 112/64; PULSE 49; RESP 16; O2SAT 100
[2022-06-13] MEDS: Omnipaque 350 MG/ML 50 ML BTL PO (16:58)
[2022-06-13] MEDS: Breeza Beverage 473 ML BTL 946 ML PO (16:58)
[2022-06-13 17:40] LABS: Bilirubin Negative (Negative); Blood Negative (Negative); Clarity Clear (Clear); Glucose Negative (Negative); Ketones Negative (Negative); Leukocyte Esterase Negative (Negative); Nitrite Negative (Negative); Urobilinogen 0.2 mg/dL (Up to 0.2); pH 5.5 (5-8)
[2022-06-13] MEDS: Normal Saline - Diluent 50 ML VIAL IJ (17:59)
[2022-06-13] MEDS: Omnipaque 350 MG/ML 100 ML BTL IJ (17:59)
[2022-06-13] MEDS: Normal Saline Flush 10 ML SYR IVP (18:02)
--- NOTE | 2022-06-13 18:27 | DI.VRAD_ITS ---
PROCEDURE INFORMATION: Exam: CT Abdomen And Pelvis With Contrast Exam date and time: 06/13/2022 6:03 PM Age: 67 years old Clinical indication: Other: Luq pain TECHNIQUE: Imaging protocol: Computed tomography of the abdomen and pelvis with contrast. Radiation optimization: All CT scans at this facility use at least one of these dose optimization techniques: automated exposure control; mA and/or kV adjustment per patient size (includes targeted exams where dose is matched to clinical indication); or iterative reconstruction. Contrast material: OMNIPAQUE 350; Contrast volume: 100 ml; Contrast route: INTRAVENOUS (IV); Other contrast: Oral, omnipaque 350, 50; COMPARISON: CT ABDOMEN PELVIS W 03/23/2022 3:18 PM FINDINGS: Liver: 3.2 cm indeterminate hypoattenuating mass in the left lobe of the liver without interval change. Comparison with prior examinations including abdominal MRI is anticipated. Numerous probable hepatic cysts measuring up to 2.5 cm. Gallbladder and bile ducts: Normal. No calcified stones. No ductal dilation. Pancreas: Normal. No ductal dilation. Spleen: Normal. No splenomegaly. Adrenal glands: Normal. No mass. Kidneys and ureters: Probable renal cysts bilaterally. No hydronephrosis. Stomach and bowel: No evidence of bowel obstruction. Colonic diverticulosis without diverticulitis. Appendix: Appendectomy. Intraperitoneal space: No free fluid or free air. Vasculature: Unremarkable. No abdominal aortic aneurysm. Lymph nodes: Unremarkable. No enlarged lymph nodes. Urinary bladder: Unremarkable as visualized. Reproductive: Unremarkable as visualized. Bones/joints: Unremarkable. No acute fracture. Soft tissues: Unremarkable. IMPRESSION: 1. No acute findings. Dictated and Authenticated by: Salvador Sandhu MD. Ordering:QUINCY Farias MD
== END 2022-06-13 19:26 | disposition home or self-care (01) ==
PROVIDERS: Emergency Provider Nurse Practitioner Family; PCP Nurse Practitioner Family
DX: R10.12 Left upper quadrant pain (principal); E83.42 Hypomagnesemia; R73.9 Hyperglycemia, unspecified
CPT/HCPCS: 80053; 83690; 96361; 96374; 99285; 74177; 81003; 83735; 85025; 99284; J1170; J3490; Q9967

== ENCOUNTER 2022-08-03 17:55 | Outpatient (REF) | payer MEDICARE, SELFPAY ==
[2022-08-03 18:51] LABS: Bilirubin Negative (Negative); Blood Trace-intact (Negative); Clarity Clear (Clear); Glucose Negative (Negative); Ketones Trace mg/dL (Negative); Leukocyte Esterase Small (Negative); Nitrite Negative (Negative); Specific Gravity 1.015 (1.005-1.025); Urobilinogen 0.2 mg/dL (Up to 0.2); pH 5.5 (5-8)
[2022-08-03 19:08] LABS: Bacteria Moderate HPF (Negative); C & S Indicated? Yes; Casts Negative LPF (Negative); Crystals Negative HPF (Negative); Epithelial Cells Few HPF (Negative); Mucus Trace (Negative); RBC 0-2 HPF (0-2)
== END 2022-08-03 17:56 | disposition home or self-care (01) ==
LOC: LBN 17:55
PROVIDERS: PCP Nurse Practitioner Family; Visit Provider Nurse Practitioner Family
DX: R30.0 Dysuria (principal)
CPT/HCPCS: 87077; 81003; 81015; 87086

== ENCOUNTER 2022-09-28 00:23 | Outpatient (CLI) | payer MEDICARE, SELFPAY ==
--- NOTE | 2022-09-28 07:45 | DI.RAD_ITS ---
Exam(s) XR FOOT LT COMPLETE EXAM: XR FOOT LT COMPLETE CLINICAL HISTORY: ? osteoarthritis to 2nd MPJ,LT FOOT PAIN, M79.672. TECHNIQUE: 2D digital imaging was performed. COMPARISON: No exams were available for comparison FINDINGS: 3 views No evidence of acute fracture or diastasis of the Lisfranc joint. Large inferior calcaneal spur is noted. There is hallux valgus. Mild degenerative changes in the great toe MTP joint. Other articulations a ppear unremarkable with the exception of mild degenerative changes at the tarsometatarsal joints of t he 2nd and 3rd digit. No radiopaque foreign body. No osseous lesions. IMPRESSION: Hallux valgus. No fractures evident. DATA REPOSITORY: RADIATION DOSE DELIVERED:
== END 2022-09-28 00:43 ==
LOC: DI 00:24
PROVIDERS: PCP Nurse Practitioner Family; Visit Provider Podiatrist
DX: M79.672 Pain in left foot (principal); M20.12 Hallux valgus (acquired), left foot
CPT/HCPCS: 73630

== ENCOUNTER → 2022-11-26 14:06 | Outpatient (CLI) | payer MEDICARE, SELFPAY ==
--- NOTE | 2022-11-26 13:45 | DI.RAD_ITS ---
Exam(s) XR KNEE LT 3V AP,LAT,OLGA EXAM: XR KNEE LT 3V AP,LAT,OLGA CLINICAL HISTORY: Left knee pain, M25.562. TECHNIQUE: 2D digital imaging was performed of the left knee. Three images were obtained. Merchant ,AP, lateral and PA tunnel views were obtained. COMPARISON: CR XR CHEST 2V PA LATERAL from 05/17/2020 FINDINGS: BONES: No acute fracture is present. No bony destructive lesion is seen. There is an enthesophyte at the superior patella. JOINTS: Degenerative changes are seen in the femoral tibial joint characterized by joint space narrow ing and osteophytes. The findings are most marked in the medial femoral tibial joint. There is a sm all joint effusion. No loose body. SOFT TISSUE: Normal. IMPRESSION: Moderate osteoarthritis of the left knee. DATA REPOSITORY: RADIATION DOSE DELIVERED:
== END ==
PROVIDERS: PCP Nurse Practitioner Family; Visit Provider Nurse Practitioner Family
DX: M17.12 Unilateral primary osteoarthritis, left knee (principal)
CPT/HCPCS: 73562

== ENCOUNTER → 2022-12-12 00:47 | Outpatient (CLI) | payer MEDICARE, SELFPAY ==
--- NOTE | 2022-12-12 07:45 | DI.MRI_ITS ---
Exam(s) MR LOWER JOINT LT WO EXAM: MR LOWER JOINT LT WO CLINICAL HISTORY: left knee pain, ? meniscus tear,injury,[id number]. TECHNIQUE: Multiplanar multisequence MRI was performed. COMPARISON: MR MRI R LOWER JOINT WO CONT from 03/02/2016 CR XR KNEE LT 3V AP,LAT,OLGA from 11/26/2022 FINDINGS: BONES: There is no fracture or contusion pattern. Spurring from the femoral condyles and tibial plate aus, greater medially. Spurring at the articular aspect of the patella. The patellar enthesophyte. JOINTS: A moderate-sized joint effusion is present. Articular cartilage: Patellofemoral joint: A thinning extending down to bone the lateral patellar fa cet cartilage. Some mild adjacent marrow edema. Medial femoral tibial joint: None cartilage thinning extending down to bone of the medial femoral co ndyle. Mild adjacent marrow edema. Lateral femoral tibial joint: Irregularity and thinning of the cartilage, extending down to bone. N o abnormal marrow signal. TENDONS: Extensor mechanism: Unremarkable. Medial retinaculum: Unremarkable. Lateral retinaculum: Unremarkable. Popliteus: Unremarkable. MUSCLES: Unremarkable. MENISCI: The medial meniscus is peripherally displaced, consistent with degenerative changes. Intras ubstance signal. Focal tear.. The lateral meniscus is shows mild degenerative changes.. SOFT TISSUES: Small Goodson's cyst. Multiple small cystic areas seen posterior to the medial femoral c ondyle LIGAMENTS: Anterior Cruciate: Unremarkable. Posterior Cruciate: Unremarkable. Medial Collateral:Unremarkable. Lateral Collateral: Unremarkable. IMPRESSION: No evidence of meniscal or ligament tear. Degenerative changes of the patellofemoral joint and medial femoral tibial joint. Cartilage thinning throughout, extending down to and involving underlying bone. DATA REPOSITORY:
== END ==
PROVIDERS: PCP Nurse Practitioner Family; Visit Provider Nurse Practitioner Family
DX: M17.12 Unilateral primary osteoarthritis, left knee (principal)
CPT/HCPCS: 73721

== ENCOUNTER → 2022-12-31 14:13 | Outpatient (BNVA) | payer MEDICARE, SELFPAY | PROVIDERS: PCP Nurse Practitioner Family; Referring Provider Nurse Practitioner Family; Visit Provider Student in an Organized Health Care Education/Training Program | DX: M17.12 Unilateral primary osteoarthritis, left knee (principal) | CPT/HCPCS: 99213 ==

== ENCOUNTER → 2023-03-29 00:57 | Outpatient (CLI) | payer MEDICARE, SELFPAY ==
--- NOTE | 2023-03-29 07:00 | DI.MAMMO_ITS ---
Exam(s) MAMMO SCREENING EXAM: MAMMO SCREENING CLINICAL HISTORY: screening,Z12.39 TECHNIQUE: Mammograms were interpreted according to the usual protocol including computer analysis w [employer] CAD system, tomosynthesis and C-view imaging. COMPARISON: 2014 through 2020 FINDINGS: The breasts are composed of scattered fibroglandular densities, Breast Density category B. No suspicious masses or suspicious microcalcifications are seen. No skin thickening or abnormal axillary lymph nodes are seen. There has been no significant change from prior exams. IMPRESSION: BI-RADS Category 1, Negative mammogram Yearly screening mammography is recommended. Breast Density - Category B, scattered fibroglandular densities. A negative radiographic report should not delay biopsy if a dominant or clinically suspicious mass is present. Up to ten percent of cancers are not identified on mammography. A negative report may reinforce clinical impression. Adenosis and dense breasts may obscure an underlying neoplasm. False positive reports average 6 to 10%. Patient will receive a letter notifying them of these results.
== END ==
PROVIDERS: PCP Nurse Practitioner Family; Visit Provider Nurse Practitioner Family
DX: Z12.31 Encounter for screening mammogram for malignant neoplasm of breast (principal)
CPT/HCPCS: 77063; 77067

== ENCOUNTER 2023-03-29 08:57 | Outpatient (CLI) | payer MEDICARE, SELFPAY ==
[2023-03-29 08:14] LABS: ALT 22 U/L (14-59); AST 15 U/L (15-37); Albumin 3.2 g/dL (3.4-5.0); Alkaline Phosphatase 62 U/L (46-116); Anion Gap 8.7 mmol/L (3-11); BUN 10 mg/dL (7-18); Bilirubin, Total 0.5 mg/dL (0.2-1.0); CO2 28.3 mmol/L (21.0-32.0); CREATININE 0.9 mg/dL (0.55-1.02); Calcium 8.9 mg/dL (8.5-10.1); Chloride 106 mmol/L (98-107); Estimated GFR 70.51 (mL/min/1.73m2); Glucose 93 mg/dL (74-106); Potassium 3.8 mmol/L (3.5-5.1); Sodium 143 mmol/L (136-145); TSH (W/Ref FT4) 1.94 uIU/mL (0.36-3.74); Total Protein 7.4 g/dL (6.4-8.2)
[2023-03-29 18:28] LABS: Hepatitis C Ab w Rflx HCV PCR Negative (Negative)
== END 2023-03-29 08:58 | disposition home or self-care (01) ==
LOC: LBO 08:57
PROVIDERS: PCP Nurse Practitioner Family; Visit Provider Nurse Practitioner Family
DX: E03.9 Hypothyroidism, unspecified (principal); Z13.220 Encounter for screening for lipoid disorders
CPT/HCPCS: 36415; 80053; 86803; 84443

== ENCOUNTER 2023-04-26 05:18 | Emergency (ER) | payer MEDICARE, SELFPAY ==
[2023-04-26] VITALS (13 sets, daily range): BP systolic 112–141; BP diastolic 53–88; PULSE 58–81; RESP 18; TEMP 36.5–36.6; O2SAT 94
--- NOTE | 2023-04-26 05:15 | RT.EKG_ITS ---
APPROVED REPORT Exam: Resting ECG Reason for Exam: SOB Patient Location: E HR:61 bpm ECG Measurements Heart Rate 61 AXIS UT 161 P 32 QRSd 109 QRS 69 QT 451 T 17 QTc 453 Conclusion Sinus rhythm.. V-rate 60- [address]. [address] segment or T wave abnormalities to suggest occlusive UT.
--- NOTE | 2023-04-26 05:30 | DI.CT_ITS ---
Exam(s) CT ABDOMEN PELVIS W EXAM: CT ABDOMEN PELVIS W CLINICAL HISTORY: vomiting, abdominal pain, diffusely TTP TECHNIQUE: Imaging Protocol: Axial computed tomography images with coronal and sagittal reformatted images were created and reviewed. CONTRAST MATERIAL: Intravenous: Omnipaque 350 Contrast volume:98 mL Oral: No COMPARISON: CT CT ABDOMEN PELVIS W from 09/17/[address] ABDOMEN PELVIS W from 09/22/[address] ABDOMEN PELVIS W from 05/04/[address] ABDOMEN PELVIS W from 03/23/[address] ABDOMEN PELVIS W from 06/13/2022 FINDINGS: ABDOMEN: Lung Bases: Normal where visualized. Liver: Normal density. There are multiple round well-circumscribed hypodensities of fluid attenuation throughout the liver consistent with cysts. The hypodense lesion in the left lobe of the liver is a gain seen. It measures 2.8 x 2.8 cm (series 5, image 147). This is unchanged compared to the examin ation from 06/13/2022. This was decreased in size compared to the examination from 09/22/2020. No new hepatic lesions are seen. Portal, Superior Mesenteric, and Splenic Veins: Unremarkable. Gallbladder and Biliary Tract: No radiodense calculus or dilation. Pancreas: Normal density, no abnormal calcifications or inflammatory process. Spleen: Normal. Adrenals: No masses seen. Kidneys: Normal size, contour and axis. No radiodense stones or obstructive uropathy. There are multi ple simple bilateral renal cysts. No follow-up is recommended. Abdominal Aorta: Abdominal portion non-dilated. Atherosclerotic calcifications are present. Bowel: There is a small hiatal hernia. There are diverticula seen in the colon. There is question o f minimal stranding seen adjacent to the distal descending colon. There is mild bowel wall thickenin g in small bowel loops in the left upper quadrant and the duodenum. There is no evidence of bowel ob struction. Fluid-filled loops of small and large bowel are seen which can be seen with a diarrheal i llness/enteritis. There is no evidence of pneumatosis. The stomach is incompletely distended limiti ng evaluation. No evidence of appendicitis. Peritoneal Cavity: No ascites, collection or mesenteric inflammatory response. No free air. Lymph Nodes: Within normal limits. Bones: There is a small fat containing umbilical hernia. Soft Tissues: Unremarkable. PELVIS: Bladder: Symmetric distention, no gross wall thickening. Reproductive Organs: Unremarkable as visualized. Lymph Nodes: Within normal limits. Bones: Within normal limits for the patient's age. IMPRESSION: 1. Mild bowel wall thickening involving proximal small bowel loops. Fluid-filled loops of small and large bowel. Findings may reflect diarrheal illness/enterocolitis. 2. Colonic diverticulosis. Question of minimal stranding around the descending colon. Diverticuliti s should be considered. Please correlate clinically. No abscess or free air. 3. Stable hepatic and renal cysts. RADIATION DOSE DELIVERED: 1,287.8mGy.cm Total DLP DATA REPOSITORY: All CT scans at this facility are submitted to the National Radiology Data Registry (NRDR) Dose Index Registry (DIR) with the [employer] (ACR). RADIATION OPTIMIZATION: All CT scans at this facility use at least one of these dose optimization te chniques: automated exposure control; mA and/or kV adjustment per patient size (includes targeted exa ms where dose is matched to clinical indication); or iterative reconstruction.
[2023-04-26 05:40] LABS: Lactate 1.5 mmol/L (0.6-1.4)
[2023-04-26 05:41] LABS: Abs Immature Grans 0.01 10^3/uL (0.0-0.06); Absolute Basophil Count 0.04 10^3/uL (0.0-0.2); Absolute Eosinophil Count 0.15 10^3/uL (0.0-0.7); Absolute Lymphocyte Count 0.47 10^3/uL (1.2-3.4); Absolute Monocyte Count 0.42 10^3/uL (0.1-0.8); Absolute Neutrophil Count 7.39 10^3/uL (1.2-6.7); Basophils % 0.5; Eosinophils % 1.8; Immature Grans % 0.1; Lymphocytes % 5.5; MCH 29.7 pg (27.0-33.0); MCHC 31.7 % (32.0-36.0); MCV 94 fL (80-95); MPV 10.5 fL (8.0-11.0); Neutrophils % 87.1; Platelet Count 207 10^3/uL (130-400); RBC 4.37 10^6/uL (3.93-5.22); RDW-SD 44.7 fL; WBC 8.48 10^3/uL (4.4-10.8)
--- NOTE | 2023-04-26 05:42 | ED.GENADUL_ITS ---
Discharge Plan Discharge Details Chief Complaint: Nausea/Vomit/Diar Primary Care Provider: Dusty Graham ED Provider: Luann Doll Home Meds and New Rx's Prescriptions: No Action sucralfate [Carafate] 1 gram tablet 1 g PO DAILY famotidine 10 mg tablet 10 mg PO BID Qty: 180 4RF potassium gluconate 550 mg (90 mg) tablet 99 mg PO DAILY clobetasol 0.05 % ointment 1 applic topical PRN levothyroxine [Synthroid] 88 mcg tablet See Rx Instructions .ROUTE .COMPLEX Qty: 90 3RF Dose Instruction: TAKE ONE TABLET BY MOUTH EVERY DAY Rx Instructions: TAKE ONE TABLET BY MOUTH EVERY DAY acetaminophen [Mapap Extra Strength] 500 MG tablet 1,000 mg PO PRN PRN calcium carbonate 500 mg calcium (1,250 mg) Tablet,Chewable 1,000 mg PO 4-8XD PRN luetin 20 mg PO DAILY HPI General Mode of arrival: EMS . Date/Time Provider Initiated Documentation: 04/26/23 05:24 . Limitations to Documentation: no limitations . Information obtained by: patient and EMS . HPI Narrative: 68yo F with hx IBS, GERD, hiatal hernia, paroxysmal afib, hypothyroid, presenting for nausea, vomiting, diarrhea, and syncope. [place] nauseated this afternoon with loss of appetite. This evening began vomiting (nonbloody nonbilious) and had frequent loose stool (also nonbloody). Has not kept anything down since ~9pm. While sitting on the toilet vomiting and defectating, felt like she was going to pass out and then did lose consciousness; reports her helped her to the ground and she did not strike her head. No chest pain, shortness of breath, or palpitations at any point. Has diffuse severe crampy abdominal pain intermittently; pain comes on, then she vomits, and then pain is relieved. 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 Currently feels shaky and nausated although better than before after receiving zofran from EMS. She is otherwise in her usual state of health with no fevers, chills, rash, dysuriua, hematuria, LE edema, or other concerns. Related Data Home Medications Medication Instructions Recorded Confirmed acetaminophen 500 mg tablet (Mapap 1,000 mg PO PRN PRN 12/14/15 04/26/23 Extra Strength) potassium gluconate 550 mg (90 mg) 99 mg PO DAILY 10/03/20 04/26/23 tablet calcium carbonate 500 mg calcium 1,000 mg PO 4-8XD PRN 05/04/21 04/26/23 (1,250 mg) chewable tablet clobetasol 0.05 % topical ointment 1 applic topical PRN 06/19/21 04/26/23 sucralfate 1 gram tablet (Carafate) 1 g PO DAILY 11/23/22 04/26/23 famotidine 10 mg tablet 10 mg PO BID #180 tabs 01/01/23 04/26/23 Synthroid 88 mcg tablet See Rx Instructions .Route 04/12/23 04/26/23 (levothyroxine) .COMPLEX #90 tabs luetin 20 mg PO DAILY 04/26/23 04/26/23 Previous Rx's Medication Instructions Recorded famotidine 10 mg tablet 10 mg PO BID #180 tabs 01/01/23 Synthroid 88 mcg tablet See Rx Instructions .Route 04/12/23 (levothyroxine) .COMPLEX #90 tabs Allergies Allergy/AdvReac Type Severity Reaction Status Date / Time Milk Containing Products Allergy Other (See Verified 04/26/23 05:32 (Dairy) Comment) omeprazole AdvReac Severe Myalgias Verified 04/26/23 05:32 gluten AdvReac Intermediate GI upset Verified 04/26/23 05:32 mirtazapine AdvReac Intermediate Other (See Verified 04/26/23 05:32 Comment) nortriptyline AdvReac Intermediate Other (See Verified 04/26/23 05:32 Comment) oxycodone HCl [From Percocet] AdvReac Intermediate Psychosis Verified 04/26/23 05:32 pantoprazole AdvReac Intermediate Other (See Verified 04/26/23 05:32 Comment) quetiapine [From Seroquel] AdvReac Intermediate Nausea Verified 04/26/23 05:32 sertraline HCl [From Zoloft] AdvReac Intermediate psychotic Verified 04/26/23 05:32 coconut AdvReac Mild Gi upset Verified 04/26/23 05:32 lactose AdvReac Unknown Other (See Verified 04/26/23 05:32 Comment) anesthesia AdvReac Severe listed as Uncoded 04/26/23 05:32 blood pressure crashed- [facility] has record gabapentin AdvReac Intermediate Dizziness/L Uncoded 04/26/23 05:32 ighthead General Stated Complaint: Nausea/Vomit/Diar NEHEMIAH: 3 Review of Systems Narrative: see HPI Exam Narrative Exam Narrative: General: Alert, well nourished, tremulous Head: Normocephalic, atraumatic Neck: Trachea midline, ?Neck supple. ENT: ?MMM.? . Cardiac: ?RRR, no murmurs appreciated Resp: No respiratory distress. CTAB. Abd: ?Soft, non-distended, diffusely tender to palpation with no rebound or guarding. : ?No suprapubic tenderness. Extremities: ?No deformities.? No peripheral edema. Neurologic: GCS 15. ? Moves all extremities freely against gravity Course Vital Signs Vital signs: Vital Signs Temperature 36.6 C 04/26/23 05:19 Pulse 63 04/26/23 05:19 Respiratory Rate 18 04/26/23 05:19 Blood Pressure 112/84 04/26/23 05:19 Pulse Oximetry 94 04/26/23 05:19 Temperature 36.6 C 04/26/23 05:19 Temperature Source Temporal Artery Scan 04/26/23 05:19 Pulse 63 04/26/23 05:19 Respiratory Rate 18 04/26/23 05:19 Respiratory Effort Normal 04/26/23 05:23 Blood Pressure 112/84 04/26/23 05:19 Pulse Oximetry 94 04/26/23 05:19 Oxygen Delivery Method Room Air 04/26/23 05:19 Oxygen Flow Rate 0 04/26/23 05:19 Pain Level 0 04/26/23 05:19 Medical Decision Making 68yo F with hx IBS, GERD, hiatal hernia, paroxysmal afib, hypothyroid, presenting for nausea, vomiting, diarrhea, and syncope. History from patient, EMS, [facility] record review. Nauseated this afternoon, this evening vomiting and diarrhea (nonbloody) and crampy abdominal pain relieved by vomiting. While vomiting and defectaing on the toilet, felt like she was going to pass out and then did lose consciousness. Symptoms improved after zofran from EMS. No chest pain, palpitations, or shortness of breath. Vital signs reassuring on arrival, diffuse mild abdominal tenderness on exam. Not septic. No tachycardia or hypoxia to suggest pulmonary embolism; would not pursue further with dimer or CT scan. Likely situational syncope however given age and risk factors warrants careful evaluation. EKG NSR, appropriate intervals, no ST segment or T wave abnormalities to suggest occlusive MT. Labs reviewed as below, CBC reassuring with no leukocytosis or anemia, CMP with no significant electrolyte abnormalities, Mg slightly low at 1.6 (oral replacement ordered), LFTs and lipase not concerning for acute gallbladder pathology or pancreatitis, troponin negative, lactate reassuring at 1.5, UA not infected. Viral swab negative for covid, flu, rsv. Given vomiting, abdominal tenderness, and age with hx hernia, CT abd/pelvis ordered and independently reviewed; bowel wall thickening on my view with no free fluid or clear obstruction; radiology read pending. On reassessment continued vomiting; will try reglan. Signed out to oncoming physician, plan to followup up CT read; if no acute findings would PO challenge, possibly discharge home if symptoms improved. Medical Records Medical records reviewed: Yes I reviewed the patient's medical records. Medical records narrative: note from annual wellness visit 03/22/23 Lab Data Lab results reviewed: Yes I reviewed the patient's lab results. Labs: Laboratory Tests Range/Units 04/26/23 04/26/23 05:35 05:54 WBC (4.4-10.8) 10^3/uL 8.48 RBC (3.93-5.22) 10^6/uL 4.37 Hgb (11.2-15.7) g/dL 13.0 Hct (36.0-46.0) % 41.0 MCV (80-95) fL 94 MCH (27.0-33.0) pg 29.7 MCHC (32.0-36.0) % 31.7 L RDW (11.7-14.6) % 13.0 Plt Count (130-400) 10^3/uL 207 MPV (8.0-11.0) fL 10.5 Immature Gran % 0.1 Neutrophils % 87.1 Lymphocytes % 5.5 Monocytes % 5.0 Eosinophils % 1.8 Basophils % 0.5 Nucleated RBC % (0.0-0.3) % 0.0 Absolute Neutrophils (1.2-6.7) 10^3/uL 7.39 H Absolute Lymphocytes (1.2-3.4) 10^3/uL 0.47 L Absolute Monocytes (0.1-0.8) 10^3/uL 0.42 Absolute Eosinophils (0.0-0.7) 10^3/uL 0.15 Absolute Basophils (0.0-0.2) 10^3/uL 0.04 VBG Lactate (0.6-1.4) mmol/L 1.5 H Sodium (136-145) mmol/L 145 Potassium (3.5-5.1) mmol/L 3.6 Chloride (98-107) mmol/L 109 H Carbon Dioxide (21.0-32.0) mmol/L 25.2 Anion Gap (3-11) mmol/L 10.8 BUN (7-18) mg/dL 11 Creatinine (0.55-1.02) mg/dL 0.9 Est GFR (CKD-EPI 2020) (mL/min/1.73m2) 70.51 Glucose (74-106) mg/dL 107 H Calcium (8.5-10.1) mg/dL 8.2 L Magnesium (1.8-2.4) mg/dL 1.6 L Total Bilirubin (0.2-1.0) mg/dL 0.5 AST (15-37) U/L 14 L ALT (14-59) U/L 20 Alkaline Phosphatase (46-116) U/L 71 Troponin I (< or =60) ng/L < 50 Total Protein (6.4-8.2) g/dL 7.0 Albumin (3.4-5.0) g/dL 3.2 L Lipase (16-77) U/L 28 Urine Color (Yellow) Yellow Urine Clarity (Clear) Clear Urine pH (5-8) 5.5 Ur Specific [place] (1.005-1.025) 1.025 Urine Protein (Neg-Trace) mg/dL Negative Urine Ketones (Negative) mg/dL Negative Urine Blood (Negative) Trace-intact H Urine Nitrite (Negative) Negative Urine Bilirubin (Negative) Negative Urine Urobilinogen (Up to 0.2) mg/dL 0.2 Ur Leukocyte Esterase (Negative) Negative Urine RBC (0-2) HPF 0-2 Urine WBC (0-5) HPF 0-2 Ur Epithelial Cells (Negative) HPF Rare Urine Crystals (Negative) HPF Negative Urine Bacteria (Negative) HPF Rare Urine Casts (Negative) LPF Negative Urine Mucus (Negative) Negative Ur Culture Indicated? No Urine Glucose (Negative) mg/dL Negative Ethyl Alcohol (<10) mg/dL < 3.0 Quality:SDOH Health Related Social Needs: No Data to Display PFSH All Active Problems Osteoarthritis of left knee (Acute) Celiac disease (Acute) Hypothyroidism (Acute 04/04/12) secondary to thyroidectomy Onychomycosis (Acute) Primary osteoarthritis of right knee (Acute 03/30/16) Fatigue (Acute) Anogenital lichen sclerosus (Acute) GERD with esophagitis (Chronic) Followed by [facility], tried and exhausted all medical mgmt. Domitila recommended, declined. Paroxysmal atrial fibrillation (Acute) follows with [facility] cardiology annually. Prior use of diltiazem, discontinued due to GI side effects. CHADS2 Vasc score 1, aspirin discontinued due to GI side effects. Herpes (Acute) Perianal in the context of lichen sclerosus. Rx outbreaks with valacyclovir. IBS (irritable bowel syndrome) (Chronic) has dicyclomine with good effect Bee sting allergy (Acute) RUQ abdominal pain (Acute) Nail dystrophy (Acute) Recurrent sinus infections (Acute) Multiple allergies (Acute) environmental, food, and medication allergies COVID (Acute) Epigastric pain (Acute) Foot pain, left (Acute) Toe pain, left (Acute) Toe pain, right (Acute) Callus (Acute) Metatarsalgia of left foot (Acute) Bunion, left foot (Acute) Achilles tendon contracture, bilateral (Acute) Left upper quadrant pain (Acute) quadrant Interdigital neuroma of left foot (Acute) Medical History Vascular headache, not intractable Liver cyst bilateral, up to 8.6cm size Right Achilles tendinitis Right lumbar radiculopathy Plantar fasciitis Right foot s/p three steroid injections by podiatry Esophageal ulcer (~07/2018) EGD at [facility] 07/2018, resolved on repeat 09/2020 Gastritis Hammer toe bilateral Complex tear of lateral meniscus of left knee as current injury (03/30/16) [place]oe Fibrocystic disease of both breasts Psoriasis Depression Anxiety Surgical History History of appendectomy (~05/04/21) History of bilateral ligation of fallopian tubes (05/28/14) Status post thyroidectomy Family History Mother Diabetes Essential hypertension Personal history of malignant neoplasm Heart disease Father Personal history of malignant neoplasm Sister Alcohol use disorder Grandfather Essential hypertension Heart disease Grandmother Personal history of malignant neoplasm Sister Depression Social History (Updated 03/30/23 @ 11:58 by Shelly Curran) Smoking/Tobacco Use Status: Former Tobacco Use Quit Date: 03/04/16 Second Hand Exposure: Yes Smoking risk assessment performed?: Yes Alcohol Intake: never Drug use: Never Substance use type: does not use Caregiver/Support person: No Household members: spouse and significant other Housing: apartment Number of Children: 2 Communication Needs: None Education Level: vocational 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 Pets and animals: No Sexually active: Yes Do you think of yourself as: straight/heterosexual Current gender identity: female What is your relationship status?: How often do you talk on the phone with friends or family?: once per week How often do you get together with friends or relatives?: once per week How often do you attend confucianism or zoroastrian services?: 4 or more times per year Do you belong to any clubs or organized social groups?: yes Panel score (0-1 are the most socially isolated patients): 3 Duration: 15-30 minutes/day Frequency: 5-6 times per week Lise/Gnosticist: Baptist Special lise needs: No Seatbelt use: always Helmet use: No Drive intox or ride w/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
[2023-04-26] MEDS: Normal Saline 1,000 ML 1000 ML IV (05:49)
[2023-04-26 05:59] LABS: Bilirubin Negative (Negative); Blood Trace-intact (Negative); Clarity Clear (Clear); Glucose Negative (Negative); Ketones Negative (Negative); Leukocyte Esterase Negative (Negative); Nitrite Negative (Negative); Specific Gravity 1.025 (1.005-1.025); Urobilinogen 0.2 mg/dL (Up to 0.2); pH 5.5 (5-8)
[2023-04-26 06:00] LABS: ALT 20 U/L (14-59); AST 14 U/L (15-37); Albumin 3.2 g/dL (3.4-5.0); Alkaline Phosphatase 71 U/L (46-116); Anion Gap 10.8 mmol/L (3-11); BUN 11 mg/dL (7-18); Bilirubin, Total 0.5 mg/dL (0.2-1.0); CO2 25.2 mmol/L (21.0-32.0); CREATININE 0.9 mg/dL (0.55-1.02); Calcium 8.2 mg/dL (8.5-10.1); Chloride 109 mmol/L (98-107); Estimated GFR 70.51 (mL/min/1.73m2); Glucose 107 mg/dL (74-106); Lipase 28 U/L (16-77); Magnesium 1.6 mg/dL (1.8-2.4); Potassium 3.6 mmol/L (3.5-5.1); Sodium 145 mmol/L (136-145); Troponin I < 50 ng/L (< or =60)
[2023-04-26 06:02] LABS: ETHANOL BLOOD < 3.0 mg/dL (<10)
[2023-04-26 06:04] LABS: Bacteria Rare HPF (Negative); C & S Indicated? No; Casts Negative LPF (Negative); Crystals Negative HPF (Negative); Epithelial Cells Rare HPF (Negative); Mucus Negative (Negative); RBC 0-2 HPF (0-2); WBC 0-2 HPF (0-5)
[2023-04-26 06:26] LABS: COVID-19 PCR Negative (Negative); Influenza A PCR Negative (Negative); Influenza B PCR Negative (Negative); RSV PCR Negative (Negative)
[2023-04-26 06:38] LABS: Source Nasopharynx
[2023-04-26] MEDS: Normal Saline - Diluent 50 ML VIAL IJ (06:47)
[2023-04-26] MEDS: Omnipaque 350 MG/ML 100 ML BTL IJ (06:47)
[2023-04-26] MEDS: Normal Saline Flush 10 ML SYR IVP (06:48)
[2023-04-26] MEDS: Metoclopramide 10 MG/2 ML VIAL IVP (06:48)
--- NOTE | 2023-04-26 07:19 | W.EDPROG ---
Date of service: 04/26/23 Time of Service: 07:19 Medical Decision Making I received signout on this 68-year-old female in the emergency department in the setting of nausea vomiting and syncope. She is pending a CT scan which has been completed. She is also pending a p.o. challenge following ondansetron and metoclopramide. 7:[address] scan read as showing mild bowel wall thickening involving the proximal small bowel loops. Colonic diverticulosis. Radiology question diverticulitis. Patient tolerating p.o. She requested her home medications. Given no clear diverticulitis and no abscess no free air so will discharge patient and observe off of antibiotics. I met with the patient and explained her reassuring results. She was well-appearing. She understood to return to the emergency department if she could not eat or drink. Otherwise I advised PCP follow-up as needed. Quality:[facility] Health Related Social Needs: No Data to Display Sign Out Sign Out Data: Sign Out Comment: 68 F presents with syncope while vomiting and defecating on the toilet; symptoms started overnight. Vitals/labs/EKG reassuring, suspect most likely gastroenteritis and situational syncope. Followup CT read, PO challenge if nothing acute, possible dc home if symptoms improved and CT negative. Last updated by Luann Doll MD at 04/26/23 07:24 Discharge Plan Disposition Patient Disposition: Home Discharge Details Clinical Impression: Generalized abdominal pain Primary Care Provider: Dusty Graham ED Provider: Luann Doll Home Meds and New Rx's Prescriptions: New ondansetron 4 mg tablet,disintegrating 4 mg PO BID 5 Days Qty: 10 0RF Continued sucralfate [Carafate] 1 gram tablet 1 g PO DAILY famotidine 10 mg tablet 10 mg PO BID Qty: 180 4RF potassium gluconate 550 mg (90 mg) tablet 99 mg PO DAILY clobetasol 0.05 % ointment 1 applic topical PRN levothyroxine [Synthroid] 88 mcg tablet See Rx Instructions .ROUTE .COMPLEX Qty: 90 3RF Dose Instruction: TAKE ONE TABLET BY MOUTH EVERY DAY Rx Instructions: TAKE ONE TABLET BY MOUTH EVERY DAY acetaminophen [Mapap Extra Strength] 500 MG tablet 1,000 mg PO PRN PRN calcium carbonate 500 mg calcium (1,250 mg) Tablet,Chewable 1,000 mg PO 4-8XD PRN luetin 20 mg PO DAILY Discharge Instructions Additional Instructions: You were seen in the emergency department for your abdominal pain. Your CAT scan showed some signs of inflammation in your small intestines. As we discussed if you develop fevers cannot eat or drink as result of nausea or vomiting please return to the emergency department. You are receiving a medicine for nausea which you should take as directed. Please follow-up next week as needed with your primary care provider.
--- NOTE | 2023-04-26 07:27 | DI.VRAD_ITS ---
PROCEDURE INFORMATION: Exam: CT Abdomen And Pelvis With Contrast Exam date and time: 04/26/2023 6:29 AM Age: 68 years old Clinical indication: Vomiting and other: Diarrhea; Abdominal pain; Additional info: Vomiting, abdominal pain, diffusely ttp TECHNIQUE: Imaging protocol: Computed tomography of the abdomen and pelvis with contrast. Contrast material: OMNI 350; Contrast volume: 100 ml; Contrast route: INTRAVENOUS (IV); COMPARISON: CT ABDOMEN PELVIS W 06/13/2022 6:03 PM FINDINGS: Lungs: Posterior dependent atelectasis versus scarring. Heart: Base of heart is unremarkable as visualized. Diaphragm: Mild to moderate-sized sliding-type hiatal hernia. Liver: Stable hepatic simple cysts. Gallbladder and bile ducts: Normal. No calcified stones. No ductal dilation. Pancreas: Normal. No ductal dilation. Spleen: Normal. No splenomegaly. Adrenal glands: Normal. No mass. Kidneys and ureters: Stable bilateral renal cortical and peripelvic cysts. Stomach and bowel: Diverticulosis with slight fat stranding about the distal descending colon no free air. No fluid collection. Prominent loops of small bowel within the left upper quadrant not making size criteria for pathology. Appendix: Status post appendectomy. Intraperitoneal space: Mild nonspecific anterior omental fat stranding, similar to prior comparisons. Vasculature: [id number] scattered calcified atherosclerotic disease of the visualized aorta and its major branches. Lymph nodes: Unremarkable. No enlarged lymph nodes. Urinary bladder: Unremarkable as visualized. Reproductive: Unremarkable as visualized. Bones/joints: Diffuse degenerative changes of the visualized osseous structures. Soft tissues: Small fat containing umbilical hernia. IMPRESSION: 1. Mild descending colonic diverticulitis without free air or fluid collection. 2. Chronic benign findings as above. Dictated and Authenticated by: Bertram Rhodes MD. Ordering:JONAS Kong MD
[2023-04-26] MEDS: Magnesium Gluconate 500 MG TAB PO (07:29)
[2023-04-26] MEDS: Famotidine 20 MG TAB PO (08:15)
== END 2023-04-26 08:25 | disposition home or self-care (01) ==
PROVIDERS: Student in an Organized Health Care Education/Training Program; Emergency Provider Emergency Medicine; PCP Nurse Practitioner Family
DX: R11.2 Nausea with vomiting, unspecified (principal); R55 Syncope and collapse; R10.84 Generalized abdominal pain; I48.0 Paroxysmal atrial fibrillation; Z11.52 Encounter for screening for COVID-19; Z87.891 Personal history of nicotine dependence
CPT/HCPCS: 00123; 80053; 83690; 87637; 93005; 96361; 96374; 99285; 74177; 80320; 81003; 81015; 83605; 83735; 84484; 85025; 93010; 99284; J2765; J3490

== ENCOUNTER → 2024-01-01 08:53 | Outpatient (BNVA) | payer MEDICARE, SELFPAY | PROVIDERS: PCP Nurse Practitioner Family; Referring Provider Nurse Practitioner Family; Visit Provider Podiatrist | DX: L60.0 Ingrowing nail (principal); M77.42 Metatarsalgia, left foot; M21.612 Bunion of left foot; M67.01 Short Achilles tendon (acquired), right ankle; M67.02 Short Achilles tendon (acquired), left ankle; G57.82 Other specified mononeuropathies of left lower limb; M20.42 Other hammer toe(s) (acquired), left foot; M20.22 Hallux rigidus, left foot; L84 Corns and callosities | CPT/HCPCS: 11750 ==

== ENCOUNTER → 2024-01-23 15:17 | Outpatient (BNVA) | payer MEDICARE, SELFPAY | PROVIDERS: PCP Nurse Practitioner Family; Referring Provider Nurse Practitioner Family; Visit Provider Podiatrist | DX: L60.0 Ingrowing nail (principal); M77.42 Metatarsalgia, left foot; M21.612 Bunion of left foot; M67.01 Short Achilles tendon (acquired), right ankle; M67.02 Short Achilles tendon (acquired), left ankle; G57.82 Other specified mononeuropathies of left lower limb; M20.22 Hallux rigidus, left foot; M20.42 Other hammer toe(s) (acquired), left foot; L84 Corns and callosities | CPT/HCPCS: 99213 ==

== ENCOUNTER 2024-02-24 10:56 | Outpatient (CLI) | payer MEDICARE, SELFPAY ==
--- NOTE | 2024-02-24 09:58 | DI.RAD_ITS ---
Exam(s) XR CHEST 2V PA LATERAL EXAM: XR CHEST 2V PA LATERAL CLINICAL HISTORY: eval pna, cough, R05.9 TECHNIQUE: 2D digital imaging was performed. Two views. COMPARISON: No exams were available for comparison FINDINGS: HEART: Normal size. Aorta: Not dilated. PULMONARY VASCULATURE: Normal. MEDIASTINUM: Unremarkable. LUNGS: Linear atelectasis or scarring in the mid right lung field. No focal infiltrate. PLEURAL SPACE: No pleural effusion or pneumothorax. BONE:Unremarkable for age. SOFT TISSUES: Unremarkable. IMPRESSION: No acute abnormality. DATA REPOSITORY: RADIATION DOSE DELIVERED:
== END 2024-02-24 11:16 ==
LOC: DI 10:57
PROVIDERS: PCP Nurse Practitioner Family; Visit Provider Nurse Practitioner Family
DX: R05.9 Cough, unspecified (principal)
CPT/HCPCS: 71046

== ENCOUNTER 2024-02-24 23:11 | Emergency (ER) | payer MEDICARE, SELFPAY ==
[2024-02-24] VITALS (8 sets, daily range): BP systolic 135–155; BP diastolic 68–92; PULSE 82–95; RESP 16–26; TEMP 36.6; O2SAT 92–99
--- NOTE | 2024-02-24 23:15 | RT.EKG_ITS ---
APPROVED REPORT Exam: Resting ECG Reason for Exam: SOB over 47 Patient Location: E HR:84 bpm ECG Measurements Heart Rate 84 AXIS PA 144 P 46 QRSd 106 QRS 79 QT 380 T -28 QTc 450 Conclusion Sinus rhythm...normal P axis, V-rate 60- 99 appropriate intervals diffuse mild ST depressions inf/ant/lat no ST segment or T wave abnormalities to suggest occlusive [place]
[2024-02-25] VITALS (14 sets, daily range): BP systolic 130–141; BP diastolic 56–66; PULSE 79–88; RESP 15–27; O2SAT 91–96
--- NOTE | 2024-02-25 00:08 | ED.GENADUL_ITS ---
Discharge Plan Disposition Patient Disposition: Home Condition: Good Discharge Details Clinical Impression: Cough, Post-tussive emesis, Pneumonia Primary Care Provider: Dusty Graham ED Provider: Luann Doll Home Meds and New Rx's Prescriptions: New doxycycline hyclate 100 mg capsule 100 mg PO BID Qty: 6 0RF amoxicillin-pot clavulanate 875-125 mg tablet 1 tab PO BID Qty: 6 0RF Continued famotidine 10 mg tablet 10 mg PO BID Qty: 180 4RF neomycin-polymyxin B-dexameth [Maxitrol] 3.5mg/mL-10,000 unit/mL-0.1 % drops,suspension See Rx Instructions .Route Q12H Qty: 5 0RF Rx Instructions: Apply to the toe every 12 hours; Apply to the TOE. Do NOT apply to eyes. Discard once the toe is healed. potassium gluconate 550 mg (90 mg) tablet 99 mg PO DAILY clobetasol 0.05 % ointment 1 applic topical PRN benzonatate 100 mg capsule 100 mg PO TID PRN (Reason: cough) 7 Days Qty: 20 0RF albuterol sulfate 90 mcg/actuation HFA aerosol inhaler 2 puff inhalation Q6H PRN (Reason: shortness of breath or wheezing) Qty: 6.7 0RF (DME) Aerochamber MV Spacer See Rx Instructions .Route Qty: 1 0RF Rx Instructions: As directed levothyroxine [Synthroid] 88 mcg tablet See Rx Instructions .ROUTE .COMPLEX Qty: 90 3RF Dose Instruction: TAKE ONE TABLET BY MOUTH EVERY DAY Rx Instructions: TAKE ONE TABLET BY MOUTH EVERY DAY sucralfate [Carafate] 1 gram tablet 1 g PO QACHS Qty: 120 12RF acetaminophen [Mapap Extra Strength] 500 MG tablet 1,000 mg PO PRN PRN calcium carbonate 500 mg calcium (1,250 mg) Tablet,Chewable 1,000 mg PO 4-8XD PRN luetin 20 mg PO DAILY Discontinued amoxicillin 500 mg capsule Patient Comments: TAKE ONE CAPSULE BY MOUTH THREE TIMES A DAY UNTIL GONE Discharge Instructions Instructions: Community-Acquired Pneumonia, Adult (DC), Cough, Adult ED Additional Instructions: Antibiotics (amox-clauv and doxycyline) twice a day for the next 5 days. Albuterol inhaler as needed for symptoms. Ondanestron up to every 8 hours as needed for vomiting. Call your primary care doctor in the morning to schedule an appointment for within the next 72 hours to followup on your visit here. Return to the emergency department for new or worsening symptoms including new/different/worse shortness of breath, chest pain, lightheadedness, inability to keep down fluids, or if you have any other concerns. Referrals: Dusty Graham NP [Primary Care Provider] - [facility] General Mode of arrival: ambulatory . Date/Time Provider Initiated Documentation: 02/24/24 23:12 . Limitations to Documentation: no limitations . Information obtained by: patient . HPI Narrative: 68yo F with hx hypothyroid presenting for fever, cough, shortness of breath, and post-tussive emesis. Symptoms started 3-4 days ago, dry non-productive cough. Feels warm, Tmax 99F at home. For the past 2-3 days has had coughing spells leading to post-tussive emesis. No nausea/vomiting when not coughing. Nonbloody nonbilious. Feels slightly short breath, particularly when coughing. No chest pain, lightheadedness, or syncope. Multiple people around her with similar symptoms (cough). Seen at this mornign where she had a chest xray, was discharged with prescription for tessolon pearls and albuterol inhaler how ever was unable to pickle sorter inhaler. Otherwise in her usual state of health with no rash, pleuritic pain, LE edema, or other concerns. Related Data Home Medications ?Medication ?Instructions ?Recorded ?Confirmed acetaminophen 500 mg tablet (Mapap 1,000 mg PO PRN PRN 12/14/15 02/24/24 Extra Strength) potassium gluconate 550 mg (90 mg) 99 mg PO DAILY 10/03/20 02/24/24 tablet calcium carbonate 1,000 mg PO 4-8XD PRN 05/04/21 02/24/24 clobetasol 0.05 % topical ointment 1 applic topical PRN 06/19/21 02/24/24 famotidine 10 mg tablet 10 mg PO BID #180 tabs 01/01/23 02/24/24 Synthroid 88 mcg tablet See Rx Instructions .Route 04/12/23 02/24/24 (levothyroxine) .COMPLEX #90 tabs luetin 20 mg PO DAILY 04/26/23 02/24/24 sucralfate 1 gram tablet (Carafate) 1 g PO QACHS #120 tabs 07/24/23 02/24/24 [id number] 3.5 See Rx Instructions .Route Q12H #5 01/01/24 02/24/24 mg/mL-10,000 unit/mL-0.1% eye mL drops (Maxitrol) albuterol sulfate 90 mcg/actuation 2 puff inhalation Q6H PRN 02/24/24 02/24/24 aerosol inhaler shortness of breath or wheezing #6.7 grams benzonatate 100 mg capsule 100 mg PO TID PRN cough 7 days #20 02/24/24 02/24/24 caps inhalational spacing device #1 ea 02/24/24 02/24/24 (Aerochamber MV spacer) amoxicillin 875 mg-potassium 1 tab PO BID #6 tabs 02/25/24 clavulanate 125 mg tablet doxycycline hyclate 100 mg capsule 100 mg PO BID #6 caps 02/25/24 Previous Rx's ?Medication ?Instructions ?Recorded famotidine 10 mg tablet 10 mg PO BID #180 tabs 01/01/23 Synthroid 88 mcg tablet See Rx Instructions .Route 04/12/23 (levothyroxine) .COMPLEX #90 tabs sucralfate 1 gram tablet (Carafate) 1 g PO QACHS #120 tabs 07/24/23 [id number]-vjekacovt-wmxckfue 3.5 See Rx Instructions .Route Q12H #5 01/01/24 mg/mL-10,000 unit/mL-0.1% eye mL drops (Maxitrol) albuterol sulfate 90 mcg/actuation 2 puff inhalation Q6H PRN 02/24/24 aerosol inhaler shortness of breath or wheezing #6.7 grams benzonatate 100 mg capsule 100 mg PO TID PRN cough 7 days #20 02/24/24 caps inhalational spacing device #1 ea 02/24/24 (Aerochamber MV spacer) amoxicillin 875 mg-potassium 1 tab PO BID #6 tabs 02/25/24 clavulanate 125 mg tablet doxycycline hyclate 100 mg capsule 100 mg PO BID #6 caps 02/25/24 Allergies Allergy/AdvReac Type Severity Reaction Status Date / Time Milk Containing Products Allergy Other (See Verified 02/24/24 23:59 (Dairy) Comment) omeprazole AdvReac Severe Myalgias Verified 02/24/24 23:59 gluten AdvReac Intermediate GI upset Verified 02/24/24 23:59 mirtazapine AdvReac Intermediate Other (See Verified 02/24/24 23:59 Comment) nortriptyline AdvReac Intermediate Other (See Verified 02/24/24 23:59 Comment) NSAIDS (Non-Steroidal AdvReac Intermediate GERD, GI Verified 02/24/24 23:59 Anti-Inflamma ulder oxycodone HCl (From Percocet) AdvReac Intermediate Psychosis Verified 02/24/24 23:59 pantoprazole AdvReac Intermediate Other (See Verified 02/24/24 23:59 Comment) quetiapine (From Seroquel) AdvReac Intermediate Nausea Verified 02/24/24 23:59 sertraline HCl (From Zoloft) AdvReac Intermediate psychotic Verified 02/24/24 23:59 coconut AdvReac Mild Gi upset Verified 02/24/24 23:59 lactose AdvReac Unknown Other (See Verified 02/24/24 23:59 Comment) anesthesia AdvReac Severe listed as Uncoded 02/24/24 23:59 blood pressure crashed- [facility] [place] has record gabapentin AdvReac Intermediate Dizziness/L Uncoded 02/24/24 23:59 ighthead General Stated Complaint: RespSymp NEHEMIAH: 4 Review of Systems Narrative: see HPI Exam Narrative Exam Narrative: General: Alert, well appearing, well nourished, in no acute distress. Head: Normocephalic, atraumatic Neck: Trachea midline, ?Neck supple. ENT: ?MMM.? Cardiac: ?RRR, no murmurs appreciated Resp: No respiratory distress. CTAB. + cough Abd: ?Soft, non-distended, nontender : ?No suprapubic tenderness. Extremities: ?No deformities.? No peripheral edema. Neurologic: GCS 15. ? Moves all extremities freely against gravity Course Vital Signs Vital signs: Vital Signs Temperature 36.6 C 02/24/24 23:13 Pulse 95 H 02/24/24 23:13 Respiratory Rate 16 02/24/24 23:13 Blood Pressure 155/92 H 02/24/24 23:13 Pulse Oximetry 99 02/24/24 23:13 Temperature 36.6 C 02/24/24 23:13 Temperature Source Temporal Artery Scan 02/24/24 23:13 Pulse 84 02/24/24 23:45 Pulse 86 02/24/24 23:45 Respiratory Rate 26 H 02/24/24 23:45 Respiratory Effort Short of Breath 02/24/24 23:23 Respiratory Depth Normal 02/24/24 23:23 Blood Pressure 135/68 02/24/24 23:45 Blood Pressure Mean 89 02/24/24 23:45 Blood Pressure Position Sitting 02/24/24 23:13 Pulse Oximetry 93 02/24/24 23:45 Oxygen Delivery Method Room Air 02/24/24 23:13 Oxygen Flow Rate 0 02/24/24 23:13 Pain Level 5 02/24/24 23:13 Medical Decision Making 68yo F with hx hypothyroid presenting for fever, cough, shortness of breath, and post-tussive emesis. Symptoms started 3-4 days ago, dry non-productive cough, now with 1-2 days of post-tussive emesis. Afebrile. Vital signs reassuring on arrival, + cough on exam with clear lungs. CXR from urgent care reviewed, some right sided infiltrate on my view though radiology read with no acute findings. Viral swab negative at urgent care. Most consistent with respiratory infection however much consider other causes of persistent shortness of breath and so will evaluate with labs/EKG. -EKG SR, appropriate intervals, slight ST depressions anter/lateral/inferior, no ST segment or T wave abnormalities suggest of occlusive IL. -Labs reviewed as below, CBC reassuring with no leukocytosis or anemia, CMP with mild hypokalemia at 3.4 (advised PCP followup for recheck) and no actionable abnormalities, VBG with slight respiratory alkalosis consistent with frequent coughing/mild hyperventilation, troponin normal in the setting of several days of symptoms and no chest pain at any point (would not further pursue ACS/trend troponins), BNP normal (not suggestive of heart failure). Discussed options with patient, given clinical picture not unreasonable to treat for CAP despite equivocal CXR; patient would prefer start antibiotics which is not unreasonable. CURB-65 score 1, low risk, would not admit. Discharged on 5 day course of amox-clauv & doxycyline as well as short course of zofran for post-tussive emesis. Given albuterol inhaler for home (sent with first 2 days of all prescriptions given it is now Feb 24). Imaging Data Radiologic Study: Imaging: X-Ray Lab Data Lab results reviewed: Yes I reviewed the patient's lab results. Labs: Laboratory Tests Range/Units 02/24/24 02/25/24 23:35 00:24 WBC (4.4-10.8) 10^3/uL 5.80 RBC (3.93-5.22) 10^6/uL 4.48 Hgb (11.2-15.7) g/dL 13.5 Hct (36.0-46.0) % 41.6 MCV (80-95) fL 93 MCH (27.0-33.0) pg 30.1 MCHC (32.0-36.0) % 32.5 RDW (11.7-14.6) % 13.0 Plt Count (130-400) 10^3/uL 198 MPV (8.0-11.0) fL 10.8 Immature Gran % % 0.3 Neutrophils % % 69.1 Lymphocytes % % 16.6 Monocytes % % 11.2 Eosinophils % % 2.1 Basophils % % 0.7 Nucleated RBC % (0.0-0.3) % 0.0 Absolute Neutrophils (1.2-6.7) 10^3/uL 4.01 Absolute Lymphocytes (1.2-3.4) 10^3/uL 0.96 L Absolute Monocytes (0.1-0.8) 10^3/uL 0.65 Absolute Eosinophils (0.0-0.7) 10^3/uL 0.12 Absolute Basophils (0.0-0.2) 10^3/uL 0.04 VBG pH (7.31-7.41) 7.44 H VBG pCO2 (41-51) mmHg 37 L VBG pO2 mmHg 35 VBG HCO3 (23-28) mmol/L 26 VBG Total CO2 (24-29) mmol/L 23 L VBG O2 Saturation % 68 VBG Base Excess (-2-3) mmol/L 1 Sodium (136-145) mmol/L 140 Potassium (3.5-5.1) mmol/L 3.4 L Chloride (98-107) mmol/L 105 Carbon Dioxide (21.0-32.0) mmol/L 26.2 Anion Gap (3-11) mmol/L 8.8 BUN (7-18) mg/dL 7 Creatinine (0.55-1.02) mg/dL 1.0 Est GFR (CKD-EPI 2020) (mL/min/1.73m2) 62.13 Glucose (74-106) mg/dL 114 H Calcium (8.5-10.1) mg/dL 8.3 L Total Bilirubin (0.2-1.0) mg/dL 0.36 AST (15-37) U/L 20 ALT (14-59) U/L 19 Alkaline Phosphatase (46-116) U/L 74 Troponin I (<or=51) ng/L 8 NT-Pro-B Natriuret Pep (<300) pg/mL 69 Total Protein (6.4-8.2) g/dL 7.7 Albumin (3.4-5.0) g/dL 3.2 L Quality:SDOH Health Related Social Needs: No Data to Display PFSH All Active Problems (Updated 02/25/24 @ 00:44 by Luann oDll MD) Pneumonia (Acute) Post-tussive emesis (Acute) Cough (Acute) Ingrown toenail (Acute) Corns and callosities (Acute) Hammertoe of left foot (Acute) Hallux rigidus, left foot (Acute) Osteoarthritis of left knee (Acute) Celiac disease (Acute) Hypothyroidism (Acute 04/04/12) secondary to thyroidectomy Onychomycosis (Acute) Primary osteoarthritis of right knee (Acute 03/30/16) Fatigue (Acute) Anogenital lichen sclerosus (Acute) GERD with esophagitis (Chronic) Followed by [facility] [place], tried and exhausted all medical mgmt. Domitila recommended, declined. Paroxysmal atrial fibrillation (Acute) follows with [facility] cardiology annually. Prior use of diltiazem, discontinued due to GI side effects. CHADS2 Vasc score 1, aspirin discontinued due to GI side effects. Herpes (Acute) Perianal in the context of lichen sclerosus. Rx outbreaks with valacyclovir. IBS (irritable bowel syndrome) (Chronic) has dicyclomine with good effect Bee sting allergy (Acute) RUQ abdominal pain (Acute) Nail dystrophy (Acute) Recurrent sinus infections (Acute) Multiple allergies (Acute) environmental, food, and medication allergies COVID (Acute) Epigastric pain (Acute) Foot pain, left (Acute) Toe pain, left (Acute) Toe pain, right (Acute) Callus (Acute) Metatarsalgia of left foot (Acute) Bunion, left foot (Acute) Achilles tendon contracture, bilateral (Acute) Left upper quadrant pain (Acute) quadrant Interdigital neuroma of left foot (Acute) Medical History Vascular headache, not intractable Liver cyst bilateral, up to 8.6cm size Right Achilles tendinitis Right lumbar radiculopathy Plantar fasciitis Right foot s/p three steroid injections by podiatry Esophageal ulcer (~07/2018) EGD at [facility] [place] 07/2018, resolved on repeat 09/2020 Gastritis Hammer toe bilateral Complex tear of lateral meniscus of left knee as current injury (03/30/16) Hammertoe Fibrocystic disease of both breasts Psoriasis Depression Anxiety Surgical History History of appendectomy (~05/04/21) History of bilateral ligation of fallopian tubes (05/28/14) Status post thyroidectomy Family History Mother Diabetes Essential hypertension Personal history of malignant neoplasm Heart disease Father Personal history of malignant neoplasm Sister Alcohol use disorder Grandfather Essential hypertension Heart disease Grandmother Personal history of malignant neoplasm Sister Depression Social History Smoking/Tobacco Use Status: Former Tobacco Use Quit Date: 03/04/16 Second Hand Exposure: Yes Smoking risk assessment performed?: Yes Alcohol Intake: never Drug use: Never Substance use type: does not use Adopted: No Caregiver/Support person: No Foster care: No Household members: spouse Housing: house Number of Children: 2 number of grandchildren: 5 Communication Needs: None Education Level: vocational 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 Pets and animals: Yes Pets and animals: dog(s) Sexually active: Yes Do you think of yourself as: straight/heterosexual Current gender identity: female What is your relationship status?: How often do you talk on the phone with friends or family?: once per week How often do you get together with friends or relatives?: once per week How often do you attend anabaptism or restorationism services?: 4 or more times per year Do you belong to any clubs or organized social groups?: yes Panel score (0-1 are the most socially isolated patients): 3 What type of physical activity do you participate in: walking, bicycling and other Details: stretching Duration: 15-30 minutes/day Frequency: 5-6 times per week Lise/Scientology: Anabaptism Special lise needs: No Agree to transfusion: Yes Seatbelt use: always Helmet use: Yes Helmet use: sometimes Drive intox or ride w/intox [employer] company driver: No Working smoke detector in home: Yes Carbon monox detector in home: Yes Firearms in home: Yes Firearms unloaded and locked: Yes Do you feel safe at home: Yes Do you feel safe in your relationship?: Yes Victim of physical abuse: No Victim of emotional abuse: No Victim of sexual abuse: No Female Reproductive History Menstrual control method: permanent sterilization Menopause type: natural History History 2 Para 2 Hx # Term Pregnancies 2 Multiple births Hx # Pregnancies Ectopic pregnancies AB induced Hx Number of Living Children 2 AB spontaneous
[2024-02-25 00:23] LABS: Abs Immature Grans 0.02 10^3/uL (0.0-0.06); Absolute Basophil Count 0.04 10^3/uL (0.0-0.2); Absolute Eosinophil Count 0.12 10^3/uL (0.0-0.7); Absolute Lymphocyte Count 0.96 10^3/uL (1.2-3.4); Absolute Monocyte Count 0.65 10^3/uL (0.1-0.8); Absolute Neutrophil Count 4.01 10^3/uL (1.2-6.7); Basophils % 0.7 %; Eosinophils % 2.1 %; HCT 41.6 % (36.0-46.0); HGB 13.5 g/dL (11.2-15.7); Immature Grans % 0.3 %; Lymphocytes % 16.6 %; MCH 30.1 pg (27.0-33.0); MCHC 32.5 % (32.0-36.0); MCV 93 fL (80-95); MPV 10.8 fL (8.0-11.0); Monocytes % 11.2 %; Neutrophils % 69.1 %; Platelet Count 198 10^3/uL (130-400); RBC 4.48 10^6/uL (3.93-5.22); RDW-SD 44.4 fL
[2024-02-25] MEDS: Amoxicillin 875/Clav. 125 TAB PO ×2 (00:28→01:20)
[2024-02-25] MEDS: Doxycycline Hyclate 100 MG CAP PO (00:28)
[2024-02-25] MEDS: Albuterol HFA 8 GM 60 PUFF INH IH (00:28)
[2024-02-25 00:29] LABS: pCO2 (Venous) 37 mmHg (41-51); pH (Venous) 7.44 (7.31-7.41)
[2024-02-25 00:30] LABS: BE (Venous) 1 mmol/L (-2-3); HCO3 (Venous) 26 mmol/L (23-28); O2 Sat (Venous) 68 %; TCO2 (Venous) 23 mmol/L (24-29); pO2 (Venous) 35 mmHg
[2024-02-25 00:39] LABS: ALT 19 U/L (14-59); AST 20 U/L (15-37); Albumin 3.2 g/dL (3.4-5.0); Alkaline Phosphatase 74 U/L (46-116); Anion Gap 8.8 mmol/L (3-11); BUN 7 mg/dL (7-18); Bilirubin, Total 0.36 mg/dL (0.2-1.0); CO2 26.2 mmol/L (21.0-32.0); Calcium 8.3 mg/dL (8.5-10.1); Chloride 105 mmol/L (98-107); Estimated GFR 62.13 (mL/min/1.73m2); Glucose 114 mg/dL (74-106); NT-proBNP 69 pg/mL (<300); Potassium 3.4 mmol/L (3.5-5.1); Sodium 140 mmol/L (136-145); Total Protein 7.7 g/dL (6.4-8.2); Troponin I 8 ng/L (<or=51)
[2024-02-25] MEDS: Ondansetron O.D.T. 4 MG TABEF PO (01:19)
[2024-02-25] MEDS: Ondansetron O.D.T. 4 MG TABEF 24 MG PO (01:20)
[2024-02-25] MEDS: Doxycycline Hyclate 100 MG CAP 400 MG PO (01:20)
--- NOTE | 2024-02-25 07:10 | NUR.NOTE ---
Nursing Note: accessed pt chart to obtain mailing address to mail d/c paper.
== END 2024-02-25 01:24 | disposition home or self-care (01) ==
PROVIDERS: Emergency Provider Student in an Organized Health Care Education/Training Program; PCP Nurse Practitioner Family
DX: J18.9 Pneumonia, unspecified organism (principal); R11.10 Vomiting, unspecified; I48.0 Paroxysmal atrial fibrillation; E89.0 Postprocedural hypothyroidism; Z87.891 Personal history of nicotine dependence
CPT/HCPCS: 36415; 80053; 82805; 93005; 99284; 83880; 84484; 85025; 93010

== ENCOUNTER 2024-03-17 12:41 | Outpatient (CLI) | payer MEDICARE, SELFPAY ==
--- NOTE | 2024-03-17 14:11 | DI.RAD_ITS ---
Exam(s) XR RIBS RT W PA LAT CHEST CLINICAL HISTORY: evaluate pathology,rt rib pain,r07.81. COMPARISON: CR XR CHEST 2V PA LATERAL from 02/24/2024 TECHNIQUE:: PA and lateral views of the chest and four views of the right ribs were performed. FINDINGS: LUNGS:Clear. No pleural abnormality seen. HEART: Normal. MEDIASTINUM: Tortuous aorta. BONES: No displaced rib fracture is seen. There is a question of a nondisplaced 8th rib fracture. N o bony destructive lesion is seen. OTHER FINDINGS: None. IMPRESSION: 1. Question of a nondisplaced fracture of the right 8th rib. 2. No acute pulmonary findings.
--- NOTE | 2024-03-17 14:15 | DI.US_ITS ---
Exam(s) US ABDOMEN LIMITED EXAM: US ABDOMEN LIMITED CLINICAL HISTORY: evaluate pathology,ruq abd pain, r10.9 TECHNIQUE: Ultrasound abdomen performed using standard protocol. COMPARISON: CT CT ABDOMEN PELVIS W from 04/26/2023 FINDINGS: LIVER: Normal size and echogenicity. Numerous cysts are again noted. The largest is in the left lob e measuring 3.2 x 2.9 x 2.8 cm. GALLBLADDER: No evidence of cholelithiasis. No evidence of wall thickening. No pericholecystic fluid identified. HAYWOOD'S SIGN: Negative. BILIARY SYSTEM: No intrahepatic or extrahepatic biliary ductal dilation. Right KIDNEY: Normal size. No evidence of renal calculi. No evidence of hydronephrosis. No suspiciou s renal mass identified. Cysts lower pole. PANCREAS: Normal where visualized. ABDOMINAL AORTA AND IVC: Visualized portions normal caliber. ASCITES: None seen. IMPRESSION: The liver cysts and renal cysts. No biliary dilatation or gallbladder abnormality. DATA REPOSITORY:
== END 2024-03-17 13:01 ==
PROVIDERS: PCP Nurse Practitioner Family; Visit Provider Nurse Practitioner Family
DX: N20.0 Calculus of kidney (principal); R07.81 Pleurodynia
CPT/HCPCS: 71046; 71100; 76705

== ENCOUNTER 2024-03-17 15:45 | Outpatient (CLI) | payer MEDICARE, SELFPAY ==
[2024-03-17 15:03] LABS: Abs Immature Grans 0.01 10^3/uL (0.0-0.06); Absolute Basophil Count 0.09 10^3/uL (0.0-0.2); Absolute Eosinophil Count 0.16 10^3/uL (0.0-0.7); Absolute Lymphocyte Count 1.59 10^3/uL (1.2-3.4); Absolute Monocyte Count 0.34 10^3/uL (0.1-0.8); Absolute Neutrophil Count 2.37 10^3/uL (1.2-6.7); Eosinophils % 3.5 %; HCT 38.4 % (36.0-46.0); HGB 12.2 g/dL (11.2-15.7); Immature Grans % 0.2 %; Lymphocytes % 34.9 %; MCH 29.9 pg (27.0-33.0); MCHC 31.8 % (32.0-36.0); MCV 94 fL (80-95); MPV 10.3 fL (8.0-11.0); Monocytes % 7.5 %; Neutrophils % 51.9 %; Platelet Count 256 10^3/uL (130-400); RBC 4.08 10^6/uL (3.93-5.22); RDW 13.2 % (11.7-14.6); RDW-SD 45.2 fL; WBC 4.56 10^3/uL (4.4-10.8)
[2024-03-17 15:21] LABS: ALT 25 U/L (14-59); AST 18 U/L (15-37); Albumin 3.4 g/dL (3.4-5.0); Alkaline Phosphatase 90 U/L (46-116); Anion Gap 7.6 mmol/L (3-11); BUN 9 mg/dL (7-18); Bilirubin, Total 0.32 mg/dL (0.2-1.0); CO2 29.4 mmol/L (21.0-32.0); CREATININE 0.9 mg/dL (0.55-1.02); Chloride 107 mmol/L (98-107); Estimated GFR 70.07 (mL/min/1.73m2); Glucose 101 mg/dL (74-106); Lipase 36 U/L (<78); Potassium 3.8 mmol/L (3.5-5.1); Sodium 144 mmol/L (136-145); Total Protein 7.6 g/dL (6.4-8.2)
[2024-03-17 15:24] LABS: Calcium 9.2 mg/dL (8.5-10.1)
== END 2024-03-17 15:46 | disposition home or self-care (01) ==
LOC: LBO 15:46
PROVIDERS: PCP Nurse Practitioner Family; Visit Provider Nurse Practitioner Family
DX: R10.9 Unspecified abdominal pain (principal); R07.81 Pleurodynia
CPT/HCPCS: 36415; 80053; 83690; 85025

== ENCOUNTER 2024-03-27 10:51 | Outpatient (CLI) | payer MEDICARE, SELFPAY ==
[2024-03-27 12:54] LABS: Calculated LDL 97 mg/dL (<100); Cholesterol 190 mg/dL (<200); HDL Cholesterol 77 mg/dL (40-60); TSH (W/Ref FT4) 1.54 uIU/mL (0.36-3.74); Triglyceride 83 mg/dL (<150)
[2024-03-27 18:09] LABS: HBs Antibody, Quant 7.6 mIU/mL (See Note); Hepatitis B Surface Ab Negative (See Note)
[2024-03-27 19:50] LABS: HIV-1/2 Ag & Ab Screen Negative (Negative)
== END 2024-03-27 10:52 | disposition home or self-care (01) ==
LOC: LOS 10:51
PROVIDERS: PCP Nurse Practitioner Family; Visit Provider Nurse Practitioner Family
DX: E03.9 Hypothyroidism, unspecified (principal); N95.9 Unspecified menopausal and perimenopausal disorder; Z11.59 Encounter for screening for other viral diseases; Z11.4 Encounter for screening for human immunodeficiency virus [HIV]
CPT/HCPCS: 36415; 80061; 86706; 87389; 84443

== ENCOUNTER 2024-04-24 00:18 | Outpatient (CLI) | payer MEDICARE, SELFPAY ==
--- NOTE | 2024-04-24 08:03 | DI.MAMMO_ITS ---
Exam(s) MAMMO SCREENING EXAM: MAMMO SCREENING CLINICAL HISTORY: [id number] TECHNIQUE: Bilateral full field digital CC and MLO mammographic images were obtained with 3D tomosyn thesis and utilizing computer aided detection (CAD). COMPARISON: Available for comparison. FINDINGS: Masses/Architectural Distortion: None seen. Microcalcifications: No suspicious pleomorphic-type are seen. Skin Thickening/Nipple Retraction: None. IMPRESSION: 1. No significant interval change with no specific features of malignancy noted. 2. Unless there is more urgent need, screening mammography is recommended, as per [employer] guidelines. BI-RADS Category 1 - Negative Breast Density - Category B - Scattered areas of fibroglandular density Breast density category C or D implies that the patient has dense breast tissue. Dense breast tissue is very common and is not abnormal but dense breast tissue can make it harder to find cancer on a ma mmogram. Also, dense breast tissue may increase their breast cancer risk. This information about the result of the mammogram report was provided to the patient to raise their awareness. Use this report when you speak with the patient about their risks for breast cancer, which includes their family hist ory. At that time, you may recommend for more screening tests (Ultrasound or MRI) as they might be us eful based on their risk. A negative radiographic report should not delay biopsy if a dominant or clinically suspicious mass is present. Up to ten percent of cancers are not identified on mammography. A negative report may reinforce clinical impression. Adenosis and dense breasts may obscure an underlying neoplasm. False positive reports average 6 to 10%. Patient will receive a letter notifying them of these results.
== END 2024-04-24 00:38 ==
PROVIDERS: PCP Nurse Practitioner Family; Visit Provider Nurse Practitioner Family
DX: Z12.31 Encounter for screening mammogram for malignant neoplasm of breast (principal); R92.323 Mammographic fibroglandular density, bilateral breasts
CPT/HCPCS: 77063; 77067

== ENCOUNTER 2024-05-22 00:10 | Outpatient (CLI) | payer MEDICARE, SELFPAY ==
--- NOTE | 2024-05-22 11:09 | DI.RAD_ITS ---
Exam(s) XR ANKLE LT COMPLETE EXAM: XR ANKLE LT COMPLETE CLINICAL HISTORY: injury,ankle sprain,s93.409a TECHNIQUE: 2D digital imaging was performed. Three views. COMPARISON: CR XR ANKLE RT COMPLETE from 05/22/2024 FINDINGS: BONES: No acute fracture is present. No bony destructive lesion is seen. Large plantar calcaneal spur . Small enthesophyte at Achilles inserton. JOINTS:The ankle mortise is normally aligned. Mild narrowing of the medial tibiotalar joint. SOFT TISSUE: Normal. IMPRESSION: Prominent plantar calcaneal spur. Mild narrowing of the medial tibiotalar joint. DATA REPOSITORY: RADIATION DOSE DELIVERED:
--- NOTE | 2024-05-22 11:10 | DI.RAD_ITS ---
Exam(s) XR ANKLE RT COMPLETE EXAM: XR ANKLE RT COMPLETE CLINICAL HISTORY: pain/injury,sprain,[id number]. TECHNIQUE: 2D digital imaging was performed. Three views. COMPARISON: No exams were available for comparison FINDINGS: BONES: No acute fracture is present. No bony destructive lesion is seen. Prominent plantar calcane al spur. Moderate Achilles enthesophyte. JOINTS: The ankle mortise is normally aligned. Mild medial tibiotalar joint space narrowing. SOFT TISSUE: Normal. IMPRESSION: Prominent heel spur. Mild degenerative changes of the tibiotalar joint. DATA REPOSITORY: RADIATION DOSE DELIVERED:
== END 2024-05-22 00:30 ==
LOC: DI 00:10
PROVIDERS: PCP Nurse Practitioner Family; Visit Provider Podiatrist
DX: M77.31 Calcaneal spur, right foot (principal); M77.32 Calcaneal spur, left foot
CPT/HCPCS: 73610

== ENCOUNTER → 2024-07-07 15:25 | Outpatient (BNVA) | payer MEDICARE, SELFPAY | PROVIDERS: PCP Nurse Practitioner Family; Referring Provider Nurse Practitioner Family; Visit Provider Podiatrist | DX: L60.0 Ingrowing nail (principal); M77.42 Metatarsalgia, left foot; M21.612 Bunion of left foot; M67.01 Short Achilles tendon (acquired), right ankle; M67.02 Short Achilles tendon (acquired), left ankle; G57.82 Other specified mononeuropathies of left lower limb; M20.22 Hallux rigidus, left foot; M20.42 Other hammer toe(s) (acquired), left foot; L84 Corns and callosities; G57.92 Unspecified mononeuropathy of left lower limb | CPT/HCPCS: 99213 ==

== ENCOUNTER 2024-07-17 11:21 | Outpatient (CLI) | payer MEDICARE, SELFPAY ==
[2024-07-17 12:25] LABS: ESR 24 mm/hr (0-30)
[2024-07-17 12:26] LABS: Abs Immature Grans 0.01 10^3/uL (0.0-0.06); Absolute Basophil Count 0.13 10^3/uL (0.0-0.2); Absolute Eosinophil Count 0.13 10^3/uL (0.0-0.7); Absolute Lymphocyte Count 1.54 10^3/uL (1.2-3.4); Absolute Neutrophil Count 2.04 10^3/uL (1.2-6.7); Basophils % 3.1 %; Eosinophils % 3.1 %; HCT 39.9 % (36.0-46.0); HGB 13.1 g/dL (11.2-15.7); Immature Grans % 0.2 %; Lymphocytes % 36.2 %; MCH 29.9 pg (27.0-33.0); MCHC 32.8 % (32.0-36.0); MCV 91 fL (80-95); MPV 11.5 fL (8.0-11.0); Monocytes % 9.4 %; Platelet Count 245 10^3/uL (130-400); RBC 4.38 10^6/uL (3.93-5.22); RDW 12.8 % (11.7-14.6); RDW-SD 42.4 fL; WBC 4.26 10^3/uL (4.4-10.8)
[2024-07-17 12:53] LABS: ALT 18 U/L (14-59); AST 20 U/L (15-37); Albumin 3.5 g/dL (3.4-5.0); Alkaline Phosphatase 84 U/L (46-116); Anion Gap 9.2 mmol/L (3-11); BUN 12 mg/dL (7-18); Bilirubin, Total 0.5 mg/dL (0.2-1.0); CO2 24.8 mmol/L (21.0-32.0); CREATININE 0.9 mg/dL (0.55-1.02); Chloride 107 mmol/L (98-107); Estimated GFR 70.07 (mL/min/1.73m2); Glucose 98 mg/dL (74-106); Potassium 4.1 mmol/L (3.5-5.1); Sodium 141 mmol/L (136-145); Total Protein 7.5 g/dL (6.4-8.2)
[2024-07-17 12:56] LABS: C-Reactive Protein < 0.50 mg/dL (<or=0.5)
[2024-07-17 13:32] LABS: Vitamin B12 449 pg/mL (193-986)
[2024-07-20 13:44] LABS: ANA Interpretation Negative (Negative)
== END 2024-07-17 11:22 | disposition home or self-care (01) ==
LOC: LOS 11:22
PROVIDERS: PCP Nurse Practitioner Family; Referring Provider Nurse Practitioner Family; Visit Provider Nurse Practitioner Family
DX: M79.2 Neuralgia and neuritis, unspecified (principal)
CPT/HCPCS: 36415; 80053; 85652; 82607; 85025; 86038; 86140